=== PATIENT | female | born 1955 | race Native Hawaiian/Other Pacific Islander ===

== ENCOUNTER → 2021-10-22 | Outpatient (CLI) | payer MEDICARE ==
--- NOTE | 2021-10-22 09:30 | US ---
EXAMINATION TYPE: US kidneys/renal and bladder DATE OF EXAM: 10/22/2021 COMPARISON: NONE CLINICAL HISTORY: R31.9 HEMATURIA. Microscopic hematuria. Left flank pain. EXAM MEASUREMENTS: Right Kidney: 9.0 x 4.3 x 4.7 cm Left Kidney: 9.8 x 4.0 x 4.7 cm Right Kidney: No hydronephrosis or masses seen Left Kidney: No hydronephrosis or masses seen Bladder: mildly distended, not well visualized Bilateral Jets not seen There is no evidence for hydronephrosis at this point in time. No nephrolithiasis is seen. No akira s are identified. The urinary bladder is not greatly distended. Bilateral ureteral jets are not see n. IMPRESSION: Source of hematuria not identified. If symptoms persist further investigation with CT uro gram would be warranted.
== END | disposition home or self-care (01) ==
LOC: RADUSWWP 08:26
DX: R31.29 Other microscopic hematuria (principal); R10.9 Unspecified abdominal pain
CPT/HCPCS: 76770

== ENCOUNTER → 2022-04-13 | Outpatient (CLI) | payer MEDICARE ==
--- NOTE | 2022-04-21 09:57 | MM ---
Reason for Exam: Screening (asymptomatic). Last mammogram was performed 3 year(s) and 9 month(s) ago. Patient History: Menarche at age 5. First Full-Term at age 20. Postmenopausal. 2001, Bilateral Reduction. Maternal aunt had breast cancer. Risk Values: Radha 5 year model risk: 1.7%. NCI Lifetime model risk: 5.5%. Tissue Density: There are scattered fibroglandular densities. Findings: Analyzed By CAD. 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 Benign-appearing round calcifications throughout both breasts are redemonstrated. Benign-appearing vascular calcification in the left breast is again seen. Large dystrophic calcification in the left breast is redemonstrated. There is no suspicious group of microcalcifications or new suspicious mass in either breast. Overall Assessment: Benign, BI-RAD 2 Management: Screening Mammogram of both breasts in 1 year. A clinical breast exam by your physician is recommended on an annual basis and results should be correlated with mammographic findings. Electronically signed and approved by: Estuardo Grajeda M.D.
== END | disposition home or self-care (01) ==
LOC: RADMAMWWP 07:27
PROVIDERS: ATTEND Internal Medicine
DX: Z12.31 Encounter for screening mammogram for malignant neoplasm of breast (principal); Z78.0 Asymptomatic menopausal state; Z80.3 Family history of malignant neoplasm of breast
CPT/HCPCS: 77063; 77067

== ENCOUNTER 2022-11-28 18:54 | Inpatient (IN) | payer MEDICARE ==
[2022-11-28 20:20] LABS: Basophils % (A) 0 %; Eosinophils # (A) 0.1 k/uL (0-0.7); Eosinophils % (A) 3 %; HCT 35.3 % (34.0-46.0); HGB 11.6 gm/dL (11.4-16.0); Hypochromasia Slight; Lymphocytes # (A) 0.7 k/uL (1.0-4.8); Lymphocytes % (A) 14 %; MCH 32.1 pg (25.0-35.0); MCHC 32.8 g/dL (31.0-37.0); MCV 97.9 fL (80.0-100.0); Mean Platelet Volume 8.7; Monocytes # (A) 0.2 k/uL (0-1.0); Monocytes % (A) 5 %; Neutrophils # (A) 3.8 k/uL (1.3-7.7); Neutrophils % (A) 78 %; Platelet Count 155 k/uL (150-450); RBC 3.61 m/uL (3.80-5.40); RDW 13.3 % (11.5-15.5); WBC 4.9 k/uL (3.8-10.6)
[2022-11-28 20:29] LABS: ALT 7 U/L (4-34); AST 23 U/L (14-36); African American GFR (CKD) >90 (>60 ml/min/1.73 sqM); Albumin 3.6 g/dL (3.5-5.0); Alkaline Phosphatase 68 U/L (38-126); Anion Gap 5 mmol/L; Blood Urea Nitrogen 14 mg/dL (7-17); Calcium 8.3 mg/dL (8.4-10.2); Carbon Dioxide 26 mmol/L (22-30); Chloride 107 mmol/L (98-107); Glucose 124 mg/dL (74-99); Non-African American GFR(CKD) >90 (>60 ml/min/1.73 sqM); Potassium 4.4 mmol/L (3.5-5.1); Sodium 138 mmol/L (137-145); Total Bilirubin 0.5 mg/dL (0.2-1.3); Total Protein 6.7 g/dL (6.3-8.2)
--- NOTE | 2022-11-28 20:29 | ED ---
General Adult HPI - General Chief complaint: Extremity Problem,Nontraumatic Stated complaint: left hip pain Time Seen by Provider: 11/28/22 19:31 Source: EMS Mode of arrival: EMS - History of Present Illness Initial comments: Patient is a 67-year-old female presenting with chief complaint of right-sided groin pain. Patient states pain is been ongoing for the last 2 weeks has been worsening. She denies any trauma or falls. No radiation of the pain. Patient admits to pain with movement and weightbearing. At rest pain is minimal. No abdominal pain, nausea, vomiting, chest pain, difficulty breathing, palpitations. Patient lives alone but states that her children live nearby and help her at home. - Related Data Allergies Allergy/AdvReac Type Severity Reaction Status Date / Time cephalexin [From Keflex] Allergy Anaphylaxis Verified 11/28/22 19:04 Review of Systems ROS Statement: Those systems with pertinent positive or pertinent negative responses have been documented in the HPI. ROS Other: All systems not noted in ROS Statement are negative. Past Medical History Past Medical History: Atrial Fibrillation, COPD, Hypertension Additional Past Medical History / Comment(s): at home O2 History of Any Multi-Drug Resistant Organisms: None Reported Past Surgical History: No Surgical Hx Reported Past Psychological History: Anxiety, Depression Smoking Status: Never smoker Past Alcohol Use History: None Reported, Occasional Past Drug Use History: None Reported General Exam Limitations: physical limitation General appearance: alert, in no apparent distress Head exam: Present: atraumatic, normocephalic, normal inspection Eye exam: Present: normal appearance Neck exam: Present: normal inspection Respiratory exam: Present: normal lung sounds bilaterally. Absent: respiratory distress, wheezes, rales, rhonchi, stridor Cardiovascular Exam: Present: regular rate, normal rhythm, normal heart sounds. Absent: systolic murmur, diastolic murmur, rubs, gallop, clicks Right Hip exam: Present: tenderness. Absent: full ROM Neurovascular tendon exam: Present: pulse deficit Neurological exam: Present: alert, oriented X3, CN II-XII intact Psychiatric exam: Present: normal affect, normal mood Skin exam: Present: warm, dry, intact, normal color. Absent: rash Course Vital Signs 11/28/22 11/28/22 11/28/22 19:00 20:12 23:00 Temperature 97.9 F Pulse Rate 70 82 75 Respiratory 18 16 16 Rate Blood Pressure 124/64 120/64 144/77 O2 Sat by Pulse 97 95 96 Oximetry Medical Decision Making - Medical Decision Making Was pt. sent in by a medical professional or institution (, SCOOTER, ASSISTANT SURVEYOR, urgent care, hospital, or senior living...) When possible be specific @ -No Did you speak to anyone other than the patient for history (EMS, parent, family, police, friend...)? What history was obtained from this source @ -No Did you review nursing and triage notes (agree or disagree)? Why? @ -I reviewed and agree with nursing and triage notes Were old charts reviewed (outside hosp., previous admission, EMS record, old EKG, old radiological studies, urgent care reports/EKG's, senior living records)? Report findings @ -No old charts were reviewed Differential Diagnosis (chest pain, altered mental status, abdominal pain women, abdominal pain men, vaginal bleeding, weakness, fever, dyspnea, syncope, headache, dizziness, GI bleed, back pain, seizure, CVA, palpatations, mental health)? @ -Differential includes fracture, arthritis, vascular disease EKG interpreted by me (3pts min.). @ -As above X-rays interpreted by me (1pt min.). @ -None done CT interpreted by me (1pt min.). @ -No, radiologist report reviewed. There is diminished distal right anterior tibial artery flow at the ankle. This is likely related to hemodynamic stenosis. Otherwise negative CT angiogram of the abdomen and pelvis with runoff. U/S interpreted by me (1pt. min.). @ -None done What testing was considered but not performed or refused? (CT, X-rays, U/S, lab s)? Why? @ -X-ray was considered, however patient is getting CT which will visualize the area of concern What meds were considered but not given or refused? Why? @ -None Did you discuss the management of the patient with other professionals (professionals i.e. , SCOOTER, ASSISTANT SURVEYOR, lab, RT, psych nurse, social worker psychiatric, vacation guide, teacher, space officer, bottle caser)? Give summary @ -Case discussed with admitting doctor Dr. Leonard Was smoking cessation discussed for >3mins.? @ -No Was critical care preformed (if so, how long)? @ -No Were there social determinants of health that impacted care today? How? (Homelessness, low income, unemployed, alcoholism, drug addiction, transportation, low edu. Level, literacy, decrease access to med. care, fdc, rehab)? @ -No Was there de-escalation of care discussed even if they declined (Discuss DNR or withdrawal of care, Hospice)? DNR status @ -No What co-morbidities impacted this encounter? (DM, HTN, Smoking, COPD, CAD, Cancer, CVA, ARF, Chemo, Hep., AIDS, mental health diagnosis, sleep apnea, morbid obesity)? @ -None Was patient admitted / discharged? Hospital course, mention meds given and route, prescriptions, significant lab abnormalities, going to OR and other pertinent info. @ -Patient is a 67-year-old female presenting with chief complaint of right hip pain. Pain is been ongoing for the last 2 weeks. Patient lives alone and is now having difficulty ambulating even with her walker. On physical examination there is pain to palpation of the hip, there is also pain with range of motion. No recent injury or trauma. There is a diminished right dorsal pedal pulse. Able to obtain signal with Doppler. CT angiography does show stenosis of the anterior tibial artery flow at the ankle. There is no signs of acute necrosis, no discoloration, no foot or ankle pain. Patient is continuing to have hip pain after pain medication. She will be admitted for inability to ambulate. I discussed this case with Dr. Leonard who accepted admission. Patient is agreeable with this plan. I discussed this case with my attending Dr. Gu Undiagnosed new problem with uncertain prognosis? @ -No Drug Therapy requiring intensive monitoring for toxicity (Heparin, Nitro, Insul in, Cardizem)? @ -No Were any procedures done? @ -No Diagnosis/symptom? @ -Hip pain with inability to ambulate Acute, or Chronic, or Acute on Chronic? @ -Acute Uncomplicated (without systemic symptoms) or Complicated (systemic symptoms)? @ -Complicated Side effects of treatment? @ -No Exacerbation, Progression, or Severe Exacerbation? @ -No Poses a threat to life or bodily function? How? (Chest pain, [place], [place], pneumonia, PE, COPD, DKA, ARF, appy, cholecystitis, CVA, Diverticulitis, Homicidal, Suicidal, threat to staff... and all critical care pts) @ -No - Lab Data Result diagrams: 01/09/23 20:12 11/28/22 20:12 Lab Results 11/28/22 11/28/22 11/28/22 Range/Units 20:12 20:12 20:12 WBC 4.9 (3.8-10.6) k/uL RBC 3.61 L (3.80-5.40) m/uL Hgb 11.6 (11.4-16.0) gm/dL Hct 35.3 (34.0-46.0) % MCV 97.9 (80.0-100.0) fL MCH 32.1 (25.0-35.0) pg MCHC 32.8 (31.0-37.0) g/dL RDW 13.3 (11.5-15.5) % Plt Count 155 (150-450) k/uL MPV 8.7 Neutrophils % 78 % Lymphocytes % 14 % Monocytes % 5 % Eosinophils % 3 % Basophils % 0 % Neutrophils # 3.8 (1.3-7.7) k/uL Lymphocytes # 0.7 L (1.0-4.8) k/uL Monocytes # 0.2 (0-1.0) k/uL Eosinophils # 0.1 (0-0.7) k/uL Basophils # 0.0 (0-0.2) k/uL Hypochromasia Slight PT 10.5 (9.0-12.0) sec INR 1.0 (<1.2) APTT 24.8 (22.0-30.0) sec Sodium 138 (137-145) mmol/L Potassium 4.4 (3.5-5.1) mmol/L Chloride 107 (98-107) mmol/L Carbon Dioxide 26 (22-30) mmol/L Anion Gap 5 mmol/L BUN 14 (7-17) mg/dL Creatinine 0.63 (0.52-1.04) mg/dL Est GFR (CKD-EPI)AfAm >90 (>60 ml/min/1.73 sqM) Est GFR (CKD-EPI)NonAf >90 (>60 ml/min/1.73 sqM) Glucose 124 H (74-99) mg/dL Calcium 8.3 L (8.4-10.2) mg/dL Total Bilirubin 0.5 (0.2-1.3) mg/dL AST 23 (14-36) U/L ALT 7 (4-34) U/L Alkaline Phosphatase 68 (38-126) U/L Total Protein 6.7 (6.3-8.2) g/dL Albumin 3.6 (3.5-5.0) g/dL Disposition Clinical Impression: Hip pain, Inability to ambulate due to hip Disposition: ADMITTED IP TO THIS [facility] Condition: Fair Referrals: Jose Angel Dockery MD [Primary Care Provider] - 1-2 days Time of Disposition: 23:30 Decision to Admit Reason: Admit from EC Decision Date: 11/28/22 Decision Time: 23:30
[2022-11-28 20:44] LABS: Partial Thromboplastin Time 24.8 sec (22.0-30.0); Prothrombin Time 10.5 sec (9.0-12.0)
--- NOTE | 2022-11-28 22:37 | CT ---
EXAMINATION TYPE: CT angio abd aorta w/Runoff DATE OF EXAM: 11/28/2022 COMPARISON: None HISTORY: L leg pain, diminished pulses CT DLP: 2821.4 mGycm Automated exposure control for dose reduction was used. CONTRAST: Performed with IV Contrast, patient injected with 100ml mL of Isovue 370. Images obtained from the diaphragm to the bottom of the feet without and with the IV contrast. There are 3-D post processed images. There is some patchy infiltrate and atelectasis at the lung bases. Heart is enlarged. No pericardial effusion. Liver and spleen are intact. No pancreatic mass. The bowel is not dilated. There is no adre nal mass. Kidneys show satisfactory contrast opacification. No hydronephrosis. No retroperitoneal demetrio nopathy. There is inferior vena cava filter. There are midline sutures over the anterior abdominal wall. Bladder distends smoothly. No inguinal he rnia. No free fluid in the pelvis. No pelvic mass. There is arterial flow in the abdominal aorta and the celiac artery and superior mesenteric artery. T here is arterial flow within both renal arteries and the inferior mesenteric artery. There is arteria l flow in the iliac and femoral arteries. No significant plaque seen in the abdomen. There is arteria l flow in the superficial femoral arteries and the profunda femoris arteries bilaterally. There is bi lateral arterial flow in the tibial and popliteal arteries. There is wide patency of the tibial arter y trifurcations. There is metal artifact obscuring the right knee. There is right knee prosthesis. No significant distal flow seen in the right anterior distal tibial artery. There is arterial flow in the right posterior tibial artery at the ankle. There is small amount of arterial flow demonstrated at the metatarsals of the right foot. This is from the posterior tibial artery. On the left side there is posterior tibial artery flow to the distal metatarsals. There is left side dorsalis pedis artery flow. No focal bone destruction. No evidence of abdominal aortic aneurysm or dissection. The lumbar spine i s intact. No compression fracture. IMPRESSION: There is diminished distal right anterior tibial artery flow at the ankle. This is likely related to hemodynamic stenosis. Otherwise negative CT angiogram of the abdomen and pelvis with runoff. Mild atherosclerotic vascular disease. Bilateral lower lobe pulmonary infiltrates and atelectasis. Ca rdiomegaly. I do not see a cause for decreased pulses in the left leg.
[2022-11-28] MEDS ORDERED: MORPHINE SULFATE 4 MG/ML SYRINGE IVP STA (22:58)
[2022-11-28] MEDS ORDERED: NALOXONE 0.4 MG/ML 1 ML VIAL IV PRN (23:27)
[2022-11-28] MEDS ORDERED: SODIUM CHLORIDE 0.9% 1,000 ML IV ONE (23:30)
[2022-11-29] MEDS: SODIUM CHLORIDE 0.9% 1,000 ML IV SCH ×2 (00:30→13:11)
[2022-11-29] MEDS: MORPHINE SULFATE 4 MG/ML SYRINGE IV PRN (08:50)
--- NOTE | 2022-11-29 09:44 | P.CNOR ---
History of Present Illness - [facility] Consult date: 11/29/22 Requesting physician: Eder Murcia Consult reason: other (Right groin pain) History of present illness: History of Presenting Illness Patient is a 67-year-old female who presented to the ER for increased right groin pain. Patient reports onset was approximately 2 weeks ago and has progressively worsened. She is currently having difficulty bearing weight on right lower extremity. Patient denies any trauma or injury. She denies any num bness or tingling to right lower extremity. She states that she normally is ambulatory with walker or cane. Patient does lives alone, her family is nearby to check on her daily. Her orthopedic history includes a right total knee arthroplasty, left hip arthroplasty, and a left shoulder reversal. Patient is currently resting on a stretcher in the ER, awaiting bed placement. She denies pain at this time, increases in right groin with movement or activity. Patient denies any back pain. She states she can ambulate with walker, but there is severe pain in her right groin. She does state her pain is managed on current regimen. Informed patient that we will order xrays and we will update her with POC when we have results. Review of Systems Pertinent positives and negatives as discussed in HPI, a complete review of systems was performed and all other systems are negative. Physical Examination General: The patient is awake and alert, in no acute distress Skin: Skin is warm and dry with no obvious rashes or lesions. Hairy patches absent, no dorsal skin dimples, no cafe au lait spots, and no surgical incisions. Eye: Pupils are equal, round and reactive to light, extra-ocular movements are intact; there is normal conjunctiva bilaterally. Neck: The neck is supple, there is no tenderness and ROM intact. Cardiovascular: There is a regular rate and rhythm. No murmur, rub or gallop is appreciated. Respiratory: Lungs are clear to auscultation, respirations are non-labored, breath sounds are equal. Gastrointestinal: Soft, non-distended, non-tender abdomen. Back: There is no tenderness to palpation in the midline, paralumbar, parathoracic or buttocks region. There is no obvious deformity. Musculoskeletal: ROM limited secondary to pain and stiffness from surgical procedure. Shoulder abduction 5/5, elbow flexors 5/5, wrist dorsiflexors 5/5. finger abductor 5/5, dental office manager 5/5, hip flexor 5/5, knee flexor 5/5, ankle dorsiflexor 5/5, ankle plantarflexion 5/5 and extensor hallucis 5/5. Neurological: CN 2-12 intact. There are no obvious motor or sensory deficits. Movement and coordination equal and intact. Sensory exam to light touch intact C5-T1 and intact from L2-S1. Reflexes 2/4 in bilateral upper and lower extremities. Negative Hoffmans, babinski, and clonus signs. Psychiatric: Cooperative, appropriate mood & affect, normal judgment. Assessment and Plan 1. Right groin pain 2. Inability to ambulate -Appreciate consultant dietitian and team management. -X-rays of right hip and Pelvis ordered, awaiting results -Pain control: Adequate at this time -Meds: reviewed -Encourage IS 10x/hr *I reviewed and discussed this case with my attending Dr. Steele, whom has reviewed this chart and films and is in agreement with assessment and plan of care as outlined above. I have personally seen and examined the patient, performed the documentation and the assessment and plan as written. Number of minutes spent on the visit: 20m. Past Medical History Past Medical History: Atrial Fibrillation, COPD, Hypertension Additional Past Medical History / Comment(s): at home O2 History of Any Multi-Drug Resistant Organisms: None Reported Past Surgical History: No Surgical Hx Reported Past Psychological History: Anxiety, Depression Smoking Status: Never smoker Past Alcohol Use History: None Reported, Occasional Past Drug Use History: None Reported Medications and Allergies Home Medications Medication Instructions Recorded Confirmed Type ARIPiprazole [Abilify] 2 mg PO DAILY 11/29/22 11/29/22 History Alendronate Sodium [Fosamax] 70 mg PO Q7D 11/29/22 11/29/22 History Apixaban [Eliquis] 5 mg PO BID 11/29/22 11/29/22 History Atorvastatin [Lipitor] 40 mg PO HS 11/29/22 11/29/22 History Carbidopa/Levodopa [Sinemet 25-100 1 tab PO BID 11/29/22 11/29/22 History mg Tablet] Dicyclomine [Bentyl] 10 mg PO QID PRN 11/29/22 11/29/22 History Enalapril [Vasotec] 10 mg PO DAILY 11/29/22 11/29/22 History Furosemide [Lasix] 40 mg PO DAILY 11/29/22 11/29/22 History Isosorbide Mononitrate ER [Imdur] 60 mg PO DAILY 11/29/22 11/29/22 History Liothyronine Sodium [Cytomel] 25 mcg PO DAILY 11/29/22 11/29/22 History Nitroglycerin Sl Tabs [Nitrostat] 0.4 mg SL Q5M PRN 11/29/22 11/29/22 History Sertraline [Zoloft] 200 mg PO DAILY 11/29/22 11/29/22 History carvediloL [Coreg] 3.125 mg PO BID 11/29/22 11/29/22 History lisinopriL [Zestril] 5 mg PO DAILY 11/29/22 11/29/22 History traZODone HCL 300 mg PO HS 11/29/22 11/29/22 History traZODone HCL [Desyrel] 100 mg PO DAILY@0400 11/29/22 11/29/22 History Allergies Allergy/AdvReac Type Severity Reaction Status Date / Time cephalexin [From Keflex] Allergy Mouth Verified 11/29/22 07:19 swelling Results - Labs Labs: Abnormal Lab Results - Last 24 Hours (Table) 11/28/22 11/28/22 Range/Units 20:12 20:12 RBC 3.61 L (3.80-5.40) m/uL Lymphocytes # 0.7 L (1.0-4.8) k/uL Glucose 124 H (74-99) mg/dL Calcium 8.3 L (8.4-10.2) mg/dL H & H 11/28/22 Range/Units 20:12 Hgb 11.6 (11.4-16.0) gm/dL Hct 35.3 (34.0-46.0) % Coagulation 11/28/22 Range/Units 20:12 INR 1.0 (<1.2) Result Diagrams: 11/28/22 20:12 11/28/22 20:12
[2022-11-29] MEDS ORDERED: DICYCLOMINE 10 MG CAP PO PRN (09:53)
[2022-11-29] MEDS ORDERED: NITROGLYCERIN SL TABS 0.4 MG TAB SUBLINGUAL PRN (09:53)
[2022-11-29] MEDS ORDERED: NON FORMULARY DRUG (Alendronate Sodium [Fosamax] 70 MG Tablet) PO SCH (10:00)
--- NOTE | 2022-11-29 10:08 | XR ---
EXAMINATION TYPE: XR Hip RT and AP Pelvis DATE OF EXAM: 11/29/2022 COMPARISON: NONE HISTORY: Pain TECHNIQUE: A single AP view of the pelvis is obtained. Two views of the right hip are obtained. FINDINGS: There is high contrast within the bladder from the patient's recent CT scan. Postsurgical change involving the left hip with heterotopic ossification. There is bilateral hip joint space narro wing compatible with arthropathy. There is a subtle lucency involving the right femoral neck. Chronic appearing deformity of the pubic symphysis IMPRESSION: 1. Findings are highly suggestive of a acute minimally displaced fracture of the right femoral neck above the intertrochanteric line.
[2022-11-29] MEDS: ARIPiprazole 2 MG TAB PO SCH (10:47)
[2022-11-29] MEDS: carvediloL 3.125 MG TAB PO SCH ×2 (10:47→18:45)
[2022-11-29] MEDS: CARBIDOPA-LEVODOPA 25-100 MG 1 EACH TAB PO SCH ×2 (10:47→20:08)
[2022-11-29] MEDS: SERTRALINE 100 MG TAB PO SCH (10:47)
[2022-11-29] MEDS: LIOTHYRONINE SODIUM 25 MCG PO SCH (10:48)
[2022-11-29] MEDS: HYDROcodone/APAP 5-325MG 1 EACH TAB PO PRN ×2 (12:00→18:48)
[2022-11-29] MEDS: HEPARIN SODIUM,PORCINE/PF 5,000 UNIT/0.5 ML SYRINGE SQ SCH ×3 (13:12→20:08)
--- NOTE | 2022-11-29 13:17 | CT ---
EXAMINATION TYPE: CT hip RT wo con CT DLP: 527 mGycm, Automated exposure control for dose reduction was used. DATE OF EXAM: 11/29/2022 1:09 PM COMPARISON: Extremity radiograph same day. CLINICAL INDICATION:Female, 67 years old with history of fracture; pain; PHH, fall right hip pain TECHNIQUE: Axial images were obtained of the right hip without the use of IV contrast. Additional co vandana and sagittal reformatted images and soft tissue and bone window were obtained for review. 3-D r econstruction was created on a separate workstation. FINDINGS: Acute nondisplaced fracture through the right femoral neck (series 202, image 48). No dislo cation. Small joint effusion is demonstrated. Mild osteoarthritic changes of the right hip with media l joint space narrowing and marginal acetabular osteophytosis. Right lateral hip soft tissue edema. N o radiopaque foreign body identified. Calcification within the right flank soft tissues. Partial visu alization of postsurgical changes with surgical clips in the anterior abdomen wall. Partial visualiza tion of contrast-filled urinary bladder. IMPRESSION: Acute nondisplaced fracture through the right femoral neck.
--- NOTE | 2022-11-29 14:58 | P.HPIM ---
History of Present Illness H&P Date: 11/29/22 This is a 67-year-old female who presented to the emergency department via EMS with concerns of right-sided groin and hip pain. Patient reports she has been having worsening pain of the hip area over the last 2 weeks. Patient denies any injury or falls most recently. Patient reports she follows with Dr. Dockery in the outpatient setting with a past medical history of atrial fibrillation, COPD, hypertension, anxiety/depression and denies any illicit drug use or alcohol and reports to never smoking. Patient reports approximately 2 years ago she had her left hip repaired as she broke the femur head off her left leg requiring intervention. Patient reports she has been compensating since the surgery and does have some pain that she reports is chronic. Patient does have a walker and a cane at the home. Patient had CT angiograph due to her diminished pulses and left leg pain showing some diminished distal right anterior tibial artery flow at the ankle likely related to hemodynamic stenosis otherwise negative along with some bilateral lower lobe infiltrates and atelectasis of what she does have chronic COPD and wears oxygen outpatient. Orthopedics was consulted and a left hip x-ray was done with highly suspicious acute minimally displaced fracture of the right femoral neck. Pulmonary patient reviewed and resumed and will continue with heparin subcu and hold eliquis in the event of surgical intervention which is tentatively scheduled for tomorrow. Repeat CT of the hip is ordered and pending. Labs reviewed and within normal limits from ER admission. Review Of Systems: Constitutional: No fever, no chills, no night sweats. No weight change. No weakness, fatigue or lethargy. No daytime sleepiness. EENT: No headache. No blurred vision or double vision, no loss of vision. No loss of Hearing, no ringing in the ears, no dizziness. No nasal drainage or congestion. No epistaxis. No sore throat. Lungs: No shortness of breath, cough, no sputum production. No wheezing. Cardiovascular: No chest pain, no lower extremity edema. No palpitations. No paroxysmal nocturnal dyspnea. No orthopnea. No lightheadedness or dizziness. No syncopal episodes. Abdominal: No abdominal pain. No nausea, vomiting. No diarrhea. No constipation. No bloody or tarry stools.. No loss of appetite. Genitourinary: No dysuria, increased frequency, urgency. No urinary retention. Musculoskeletal: Reports myalgias. No muscle weakness, reports gait dysfunction and inability to ambulate due to right hip pain, no frequent falls. No back pain. No neck pain. Integumentary: No wounds, no lesions. No rash or pruritus. No unusual bruising. No change in hair or nails. Neurologic: No aphasia. No facial droop. No change in mentation. No head injury. No headache. No paralysis. No paresthesia. Psychiatric: No depression. No anxiety. No mood swings. Endocrine: No abnormal blood sugars. No weight change. No excessive sweating or thirst. No cold intolerance. PHYSICAL EXAMINATION: GENERAL: The patient is alert and oriented x4, Well developed, well nourished. HEENT: Pupils are round and equally reacting to light. EOMI. no scleral icterus. No conjunctival pallor. Normocephalic, atraumatic. No pharyngeal erythema. No thyromegaly. CARDIOVASCULAR: S1 and S2 muffled PULMONARY: diminished breath sounds bilaterally with no wheezing or rhonchi noted. ABDOMEN: soft. Nontender on exam. obese. non-distended, normoactive bowel sounds. No palpable organomegaly. MUSCULOSKELETAL: No joint swelling or deformity. EXTREMITIES: No cyanosis, clubbing, or pedal edema. NEUROLOGICAL: Gross neurological examination did not reveal any focal deficits. Diffuse weakness SKIN: No rashes. Assessment: Right hip pain with inability to ambulate, secondary to minimally displaced fracture of the right femoral neck History of atrial fibrillation History of COPD, not an exacerbation Chronic hypoxic respiratory failure secondary to COPD, wears 2-3 L via nasal cannula outpatient History of hypertension History of anxiety/depression GI prophylaxis DVT prophylaxis Full code Plan: Recommend to continue with current medications and management and orthopedics consulted Right hip x-ray shows a minimally displaced fracture at the right femoral neck and plans are for surgical intervention in the a.m. Home medications have been reviewed and resumed and will hold eliquis for now and continue subcutaneous heparin every 12 as patient is going for surgery tomorrow. Recommend to hold heparin after midnight and patient will be nothing by mouth We'll provide incentive spirometer and encourage the patient use at least 10 times every hour while awake Will follow-up with a.m. labs Will have PT/OT evaluate the patient post surgery Patient is of low risk for surgical intervention and risks versus benefits were explained and patient is agreeable to proceed with surgery intervention. The impression and plan of care has been dictated by Malgorzata Knapp, nurse practitioner as directed. Dr. Khloe MD I have performed a history and examination and MDM of this patient, discussed the same with the dictator, and agree with the dictator's assessment and plan as written ,documented as a scribe. Based on total visit time, I have performed more than 50% of the visit. Any additional findings or plans will be noted. Past Medical History Past Medical History: Atrial Fibrillation, COPD, Hypertension Additional Past Medical History / Comment(s): at home O2 History of Any Multi-Drug Resistant Organisms: None Reported Past Surgical History: No Surgical Hx Reported Past Psychological History: Anxiety, Depression Smoking Status: Never smoker Past Alcohol Use History: None Reported, Occasional Past Drug Use History: None Reported Medications and Allergies Home Medications Medication Instructions Recorded Confirmed Type ARIPiprazole [Abilify] 2 mg PO DAILY 11/29/22 11/29/22 History Alendronate Sodium [Fosamax] 70 mg PO Q7D 11/29/22 11/29/22 History Apixaban [Eliquis] 5 mg PO BID 11/29/22 11/29/22 History Atorvastatin [Lipitor] 40 mg PO HS 11/29/22 11/29/22 History Carbidopa/Levodopa [Sinemet 25-100 1 tab PO BID 11/29/22 11/29/22 History mg Tablet] Dicyclomine [Bentyl] 10 mg PO QID PRN 11/29/22 11/29/22 History Enalapril [Vasotec] 10 mg PO DAILY 11/29/22 11/29/22 History Furosemide [Lasix] 40 mg PO DAILY 11/29/22 11/29/22 History Isosorbide Mononitrate ER [Imdur] 60 mg PO DAILY 11/29/22 11/29/22 History Liothyronine Sodium [Cytomel] 25 mcg PO DAILY 11/29/22 11/29/22 History Nitroglycerin Sl Tabs [Nitrostat] 0.4 mg SL Q5M PRN 11/29/22 11/29/22 History Sertraline [Zoloft] 200 mg PO DAILY 11/29/22 11/29/22 History carvediloL [Coreg] 3.125 mg PO BID 11/29/22 11/29/22 History lisinopriL [Zestril] 5 mg PO DAILY 11/29/22 11/29/22 History traZODone HCL 300 mg PO HS 11/29/22 11/29/22 History traZODone HCL [Desyrel] 100 mg PO DAILY@0400 11/29/22 11/29/22 History Allergies Allergy/AdvReac Type Severity Reaction Status Date / Time cephalexin [From Keflex] Allergy Mouth Verified 11/29/22 07:19 swelling Physical Exam Vitals: Vital Signs Temp Pulse Resp BP Pulse Ox 11/29/22 08:46 76 18 117/56 98 11/29/22 04:51 73 16 120/54 97 11/28/22 23:00 75 16 144/77 96 11/28/22 20:12 82 16 120/64 95 11/28/22 19:00 97.9 F 70 18 124/64 97 Intake and Output 11/28/22 11/29/22 11/29/22 22:59 06:59 14:59 Other: Weight 83.461 kg Results CBC & Chem 7: 11/28/22 20:12 11/28/22 20:12 Labs: Abnormal Lab Results - Last 24 Hours (Table) 11/28/22 11/28/22 Range/Units 20:12 20:12 RBC 3.61 L (3.80-5.40) m/uL Lymphocytes # 0.7 L (1.0-4.8) k/uL Glucose 124 H (74-99) mg/dL Calcium 8.3 L (8.4-10.2) mg/dL Thrombosis Risk Factor Assmnt - DVT/VTE Prophylaxis DVT/VTE Prophylaxis: Pharmacologic Prophylaxis ordered Assessment and Plan Time with Patient: Greater than 30
[2022-11-29] MEDS ORDERED: INFLUENZA VACC HIGH-DOSE (65+) 240 MCG/0.7 ML SYRINGE IM ONE (16:11)
[2022-11-29] MEDS: traZODone HCL 100 MG TAB PO SCH (20:07)
[2022-11-29] MEDS: ATORVASTATIN 40 MG TAB PO SCH (20:08)
[2022-11-29] MEDS ORDERED: APIXABAN 5 MG TAB PO SCH (21:00)
[2022-11-30] MEDS: SODIUM CHLORIDE 0.9% 1,000 ML IV SCH ×3 (01:53→20:57)
[2022-11-30] MEDS: traZODone HCL 100 MG TAB PO SCH ×2 (04:50→20:52)
[2022-11-30] MEDS ORDERED: TRANEXAMIC ACID 1,000 MG in SODIUM CHLORIDE 0.9% 100 ML IVPB PRN (06:00)
[2022-11-30] MEDS: carvediloL 3.125 MG TAB PO SCH ×2 (06:09→15:07)
[2022-11-30] MEDS: SERTRALINE 100 MG TAB PO SCH (07:24)
[2022-11-30] MEDS: CARBIDOPA-LEVODOPA 25-100 MG 1 EACH TAB PO SCH ×2 (07:24→20:53)
[2022-11-30] MEDS: ARIPiprazole 2 MG TAB PO SCH (07:24)
[2022-11-30] MEDS: ISOSORBIDE MONONITRATE ER 60 MG TAB.ER.24H PO SCH (07:24)
[2022-11-30] MEDS: lisinopriL 20 MG TAB PO SCH (07:24)
[2022-11-30] MEDS: HYDROcodone/APAP 5-325MG 1 EACH TAB PO PRN ×2 (07:27→20:53)
[2022-11-30] MEDS: LIOTHYRONINE SODIUM 25 MCG PO SCH (07:28)
--- NOTE | 2022-11-30 09:15 | P.PN ---
Subjective Progress Note Date: 11/30/22 Principal diagnosis: Right hip femoral neck fracture, nondisplaced Patient was seen at bedside this morning lying semirecumbent position. Patient says she is still having right hip/groin pain at this time. Patient denies any new areas of pain. Patient says she has not been up out of bed since coming the hospital. Patient says she was able discuss plans for surgery last night with some of her family members and they are in agreement with plan for surgery today for right hip percutaneous screws. Patient denies any new complaints. Patient says she has not had anything to eat or drink today. Patient denies chest pain, fever, shortness of breath, nausea, vomiting, change in vision, loss of bowel/bladder control. Objective - Vital Signs Vital signs: Vital Signs Temp 98.2 F 11/30/22 07:37 Pulse 74 11/30/22 07:37 Resp 16 11/30/22 07:37 BP 111/54 11/30/22 07:37 Pulse Ox 96 11/30/22 07:37 FiO2 Intake & Output 11/29/22 11/30/22 11/30/22 18:59 06:59 18:59 Output Total 550 Balance -550 Output: Urine 550 Other: # Voids 1 - Exam Negative for any open fractures, significant ecchymosis/erythema/ulcers. Sensation is equal, symmetric, bilaterally intact throughout the upper and lower extremity is. Patient does have some limited range of motion in the right hip in flexion/extension and right knee and flexion extension due to pain and weakness. Patient has full range of motion in bilateral upper extremities and left lower extremity on exam. Patient does have full range of motion and right ankle in dorsi/plantar flexion. Motor exam - 4+/5 in all major motor groups in bilateral upper extremity is in left lower extremity on exam. 4+/5 and right ankle in resisted dorsiflexion/plantarflexion. 3/5 in resisted right hip flexion extension and right knee flexion/extension. Radial pulses intact, 2+. Cap refill under 3 seconds in digits upper extremities. DP pulse palpable bilaterally, weak. Negative Homans bilaterally. - Labs CBC & Chem 7: 11/28/22 20:12 11/28/22 20:12 Assessment and Plan Assessment: 1. Right hip femoral neck fracture, nondisplaced Plan: 1. Right hip femoral neck fracture, nondisplaced - right hip x-rays/CT does reveal femoral neck fracture that is nondisplaced. Surgery is planned for 12 today - right hip ORIF percutaneous screws. Patient is remain nothing by mouth at this time. Nonweightbearing right lower extremity. We will continue to follow patient during her stay in hospital. 2. Appreciate medical management 3. Pain management - Mart 4. DVT prophylaxis - withhold thinners at this time 5. GI recs 6. PT/OT - nonweightbearing right lower extremity Time with Patient: Less than 30
[2022-11-30] MEDS ORDERED: LACTATED RINGERS 1,000 ML IV ONE ×2 (10:55→13:23)
[2022-11-30] MEDS ORDERED: ONDANSETRON 4 MG/2 ML VIAL ONE (11:05)
[2022-11-30] MEDS ORDERED: ONDANSETRON 4 MG/2 ML VIAL IVP ONE (11:16)
[2022-11-30] MEDS ORDERED: DEXAMETHASONE SOD PHOSPHATE 4 MG/ML 1 ML VIAL IVP ONE (11:16)
[2022-11-30] MEDS ORDERED: PHENYLEPHRINE-0.9% NACL SYG 1,000 MCG/10 ML SYRINGE ONE (11:59)
[2022-11-30] MEDS ORDERED: GLYCOPYRROLATE 0.2 MG/ML 2 ML VIAL ONE (11:59)
[2022-11-30] MEDS ORDERED: NEOSTIGMINE 1 MG/ML 10 ML VIAL ONE (11:59)
[2022-11-30] MEDS ORDERED: LIDOCAINE 2% INJ 20 MG/ML (2 ML VIAL) ONE (11:59)
[2022-11-30] MEDS ORDERED: ROCURONIUM 10 MG/ML (5 ML VIAL) IV ONE (11:59)
[2022-11-30] MEDS ORDERED: TRANEXAMIC ACID IN NACL,ISO-OS 1,000 MG/100 ML BAG ONE (11:59)
[2022-11-30] MEDS ORDERED: fentaNYL (PF) 50 MCG/ML 2 ML AMP ONE (11:59)
[2022-11-30] MEDS ORDERED: SUCCINYLCHOLINE CHLORIDE 200 MG/10 ML VIAL IV ONE (11:59)
[2022-11-30] MEDS ORDERED: PROPOFOL 10 MG/ML 20 ML VIAL IV ONE (11:59)
[2022-11-30] MEDS ORDERED: SUGAMMADEX SODIUM 200 MG/2 ML SDV IV ONE (11:59)
--- NOTE | 2022-11-30 13:16 | XR ---
EXAMINATION TYPE: XR Hip Complete RT DATE OF EXAM: 11/30/2022 COMPARISON: NONE HISTORY: Hip fracture repair TECHNIQUE: 7 intraoperative limited resolution views submitted. FINDINGS: There is postsurgical change in near anatomic alignment. There is soft tissue edema and emphysema. IMPRESSION: 1. Postoperative change. Appears in near-anatomic alignment.
[2022-11-30] MEDS ORDERED: HYDROmorphone 0.5 MG/0.5 ML SYRINGE IVP PRN ×2 (13:17)
[2022-11-30] MEDS ORDERED: NALOXONE 0.4 MG/ML 1 ML VIAL IV PRN (13:17)
[2022-11-30] MEDS ORDERED: MAGNESIUM HYDROXIDE 2,400 MG/10 ML CUP PO PRN (13:17)
--- NOTE | 2022-11-30 13:20 | FL ---
EXAMINATION TYPE: FL guidance operating room DATE OF EXAM: 11/30/2022 HISTORY: Fluoroscopy time 56 seconds of fluoroscopy provided. IMPRESSION: 1. Fluoroscopy time.
[2022-11-30] MEDS ORDERED: ALBUTEROL NEBULIZED 2.5 MG/3 ML INHALATION ONE (13:28)
[2022-11-30] MEDS ORDERED: HYDROmorphone 0.5 MG/0.5 ML SYRINGE IVP ONE (13:50)
[2022-11-30 15:48] LABS: Basophils % (A) 0 %; Eosinophils % (A) 1 %; HCT 32.6 % (34.0-46.0); HGB 10.3 gm/dL (11.4-16.0); Hypochromasia Slight; Lymphocytes # (A) 0.3 k/uL (1.0-4.8); Lymphocytes % (A) 8 %; MCH 31.2 pg (25.0-35.0); MCHC 31.5 g/dL (31.0-37.0); Mean Platelet Volume 8.5; Monocytes # (A) 0.1 k/uL (0-1.0); Monocytes % (A) 2 %; Neutrophils # (A) 3.2 k/uL (1.3-7.7); Neutrophils % (A) 89 %; Platelet Count 147 k/uL (150-450); RBC 3.29 m/uL (3.80-5.40); RDW 13.2 % (11.5-15.5); WBC 3.6 k/uL (3.8-10.6)
[2022-11-30] MEDS: MORPHINE SULFATE 4 MG/ML SYRINGE IV PRN ×2 (18:31→22:29)
--- NOTE | 2022-11-30 20:16 | P.PN ---
Subjective Progress Note Date: 11/30/22 This is a 67-year-old female who presented to the emergency department via EMS with concerns of right-sided groin and hip pain. Patient reports she has been having worsening pain of the hip area over the last 2 weeks. Patient denies any injury or falls most recently. Patient reports she follows with Dr. Dockery in the outpatient setting with a past medical history of atrial fibrillation, COPD, hypertension, anxiety/depression and denies any illicit drug use or alcohol and reports to never smoking. Patient reports approximately 2 years ago she had her left hip repaired as she broke the femur head off her left leg requiring intervention. Patient reports she has been compensating since the surgery and does have some pain that she reports is chronic. Patient does have a walker and a cane at the home. Patient had CT angiograph due to her diminished pulses and left leg pain showing some diminished distal right anterior tibial artery flow at the ankle likely related to hemodynamic stenosis otherwise negative along with some bilateral lower lobe infiltrates and atelectasis of what she does have chronic COPD and wears oxygen outpatient. Orthopedics was consulted and a left hip x-ray was done with highly suspicious acute minimally displaced fracture of the right femoral neck. Pulmonary patient reviewed and resumed and will continue with heparin subcu and hold eliquis in the event of surgical intervention which is tentatively scheduled for tomorrow. Repeat CT of the hip is ordered and pending. Labs reviewed and within normal limits from ER admission. 11/30/2022 Patient is seen and evaluated in follow-up this morning no acute overnight issues noted. Patient continues to have right hip pain with orthopedics following and plan is for ORIF with nailing or pinning of the fracture. Patient is currently nothing by mouth and will remain until post-surgery. Will resume home medications and continue to monitor closely. Will await surgical report. Patient is afebrile and medically stable for surgery today. Review of systems: Constitutional: No reports of fatigue, fever, or chills Cardiovascular: No reports of chest pain or palpitations Respiratory: No reports of shortness of breath or cough GI: No reports of nausea, vomiting, or diarrhea : No reports of dysuria or retention Neurovascular: reports of weakness and continued right hip pain All medications have been reviewed PHYSICAL EXAMINATION: GENERAL: The patient is alert and oriented x4, Well developed, well nourished. Obese. HEENT: Pupils are round and equally reacting to light. EOMI. no scleral icterus. No conjunctival pallor. Normocephalic, atraumatic. No pharyngeal erythema. No thyromegaly. CARDIOVASCULAR: S1 and S2 muffled PULMONARY: diminished breath sounds bilaterally with no wheezing or rhonchi noted. ABDOMEN: soft. Nontender on exam. obese. non-distended, normoactive bowel sounds. No palpable organomegaly. MUSCULOSKELETAL: No joint swelling or deformity. EXTREMITIES: No cyanosis, clubbing, or pedal edema. right hip pain on palpation NEUROLOGICAL: Gross neurological examination did not reveal any focal deficits. Diffuse weakness SKIN: No rashes. Assessment: Right hip pain with inability to ambulate, secondary to minimally displaced fracture of the right femoral neck History of atrial fibrillation History of COPD, not an exacerbation Chronic hypoxic respiratory failure secondary to COPD, wears 2-3 L via nasal cannula outpatient History of hypertension History of anxiety/depression GI prophylaxis DVT prophylaxis Full code Plan: Recommend to continue with current medications and management and orthopedics following and planning ORIF today Home medications have been reviewed and resumed and will hold eliquis for now and continue subcutaneous heparin every 12 as patient is going for surgery today. Will discuss with ortho when ok to resume oral Eliquis. Currently NPO and encouraged oral intake after surgery Recommend incentive spirometer and encourage the patient use at least 10 times every hour while awake Will follow-up with a.m. labs Will have PT/OT evaluate the patient post surgery Patient is of low risk for surgical intervention and risks versus benefits were explained and patient is agreeable to proceed with surgery intervention. The impression and plan of care has been dictated by Malgorzata Knapp, nurse practitioner as directed. Dr. Khloe MD I have performed a history and examination and MDM of this patient, discussed the same with the dictator, and agree with the dictator's assessment and plan as written ,documented as a scribe. Based on total visit time, I have performed more than 50% of the visit. Any additional findings or plans will be noted. Objective - Vital Signs Vital signs: Vital Signs Temp 98.2 F 11/30/22 07:37 Pulse 74 11/30/22 07:37 Resp 16 11/30/22 07:37 BP 111/54 11/30/22 07:37 Pulse Ox 96 11/30/22 07:37 FiO2 Intake & Output 11/29/22 11/30/22 11/30/22 18:59 06:59 18:59 Output Total 550 Balance -550 Output: Urine 550 Other: # Voids 1 - Labs CBC & Chem 7: 11/30/22 15:18 11/28/22 20:12
[2022-11-30] MEDS: SENNOSIDES-DOCUSATE SODIUM 1 EACH TAB PO SCH (20:52)
[2022-11-30] MEDS: ATORVASTATIN 40 MG TAB PO SCH (20:53)
[2022-12-01] MEDS: MORPHINE SULFATE 4 MG/ML SYRINGE IV PRN ×3 (02:35→14:23)
[2022-12-01] MEDS: traZODone HCL 100 MG TAB PO SCH ×2 (04:27→21:03)
[2022-12-01] MEDS: IPRATROPIUM-ALBUTEROL 3 ML NEB INHALATION SCH ×3 (07:46→20:26)
[2022-12-01] MEDS: carvediloL 3.125 MG TAB PO SCH ×2 (07:55→16:34)
[2022-12-01] MEDS: lisinopriL 20 MG TAB PO SCH (07:56)
[2022-12-01] MEDS: ISOSORBIDE MONONITRATE ER 60 MG TAB.ER.24H PO SCH (07:56)
[2022-12-01] MEDS: LIOTHYRONINE SODIUM 25 MCG PO SCH (07:57)
[2022-12-01] MEDS: CARBIDOPA-LEVODOPA 25-100 MG 1 EACH TAB PO SCH ×2 (07:59→21:08)
[2022-12-01] MEDS: ARIPiprazole 2 MG TAB PO SCH (07:59)
[2022-12-01] MEDS: SERTRALINE 100 MG TAB PO SCH (07:59)
--- NOTE | 2022-12-01 09:27 | P.OP ---
Date of Procedure: 11/30/22 Preoperative Diagnosis: 1. Right femoral neck fracture, non-displaced, incomplete 2. s/p ffs multiple days prior with inability to ambulate Postoperative Diagnosis: 1. Right femoral neck fracture, non-displaced, incomplete 2. s/p ffs multiple days prior with inability to ambulate Procedure(s) Performed: 1. Open treatment femoral neck fracture with placement of cannulated screws (26637) Implants: -6.0 cannulated screws rodriguez and nephluis Anesthesia: GETA Surgeon: Junaid Steele Cone Picker #1: Tanvir Mcbride (Was present and assisted with all aspects of the case from positioniing to dressing placement) Estimated Blood Loss (ml): 20 IV fluids (ml): 500 Urine output (ml): 100 Pathology: none sent Condition: stable Disposition: PACU Indications for Procedure: Orthopedic Surgery Risk Review Madonna Mendez is a 67-year-old female presenting for evaluation of sudden onset right hip pain, inability to ambulate after all from standing. It was my pleasure to have seen and examined Madonna Mendez. In our visit today we have had a chance to go over subjective complaints, physical examination findings and treatments including the natural course history without intervention and various interventional options. Her imaging demonstrates femoral neck fracture nondisplaced incomplete. On physical exam, Madonna Mendez demonstrates pain with motion of right lower extremity, which is NV intact at this time. I have explained to the patient that this fracture needs stabilization. Based on the patients imaging, physical exam, and the rapid progression and disabling nature of her symptoms, at this time I recommend surgery in the form or a: Open reduction internal fixation right hip with cannulated screws I discussed the risk and benefits of this procedure at length with Madonna Mendez and her family. Questions were invited and answered, and the patient wishes to proceed as outlined below. Currently, I am recommendin. Over reduction internal fixation right hip with cannulated screws 2. Review of surgical risks and benefits as well as an educational packet on the proposed surgical procedure. Risks: All surgical procedures come with inherent risks, including those related to positioning, anesthesia, intraoperative findings, and postoperative complications. It is important to understand that surgery does not come with any guarantee of a successful outcome as complications and adverse events are always possible. The patient was given a handout discussing the surgical procedure and risks associated with the intervention, both of which were discussed with the patient. These risks include but are not limited to the following: - Experiencing same, different or even worse symptoms compared to before surgery. - Requiring further surgery or other forms of treatment presently or at some time in the future . - On an extreme but fortunately relatively rare basis severe complication such as blindness, stroke, heart attack, temporary and/or permanent nerve injury, paralysis, coma, or may occur, sometimes without known explanation. - Surgical complications may include but are not limited to risk of infection, fluid accumulation in the surgical dissection site, including a seroma or hematoma, that requires additional surgery, wound drainage, bleeding, new numbness or weakness, vision changes/loss, spinal fluid leakage, non-healing and/or infected incision, headaches, difficulty or inability to swallow, hoarseness, hemopneumothorax, pneumothorax, injury to nerves, spinal cord, blood vessels, lymphatics or other vital organs (i.e., bowel injury, injury to the great vessels); heterotopic bone formation; complications related to the hardware such as screws, rods, including misplaced hardware, device failure, hardware fracture/breakage, or hardware loosening; retained surgical instrumentations or devices and the need for further surgery. - Medical risks of the planned surgery include but are not limited to gene ralized Infections to the whole body or local areas outside of the surgical site (sepsis), heart attack, bleeding, anaphylaxis, meningitis, seizure, epilepsy, hearing loss, burn araujo, laceration of the head or other areas of the body, bruising, hypersensitivity of the skin, bladder over distension; allergic reaction; shoulder injury related to positioning; fat, blood and air clots to other areas of the body like heart, lungs, brain; failure of internal organs such as lungs, kidneys, liver and excessive bleeding. If blood transfusions are necessary, note that transfusions may cause intolerance reactions such as anaphylaxis or other complex reactions. Despite best efforts, the results of surgery might not heal in terms of bone, soft tissues such as skin, fascia, ligaments, and joints. [facility] has multiple operating rooms with single and overlapping rooms running daily. They currently function under the required guidelines as produced by the [employer] Committee with regards to the overlapping rooms and will continue to comply with changes to this policy as they occur. The requirements include and are complied with as follows: (1) the critical portions of the overlapping rooms will not occur at the same time, (2) the attending physician will be physically present during the critical portions of the procedure and immediately available during the entire case, and (3) a back-up attending is designated should the primary attending not be immediately available. The patient has had a chance to review all the listed information, has been given print outs detailing this information, and has had all his/her questions answered to their satisfaction. It was my pleasure to have seen and examined Madonna Mendez. In our visit toda y we have had a chance to go over my understanding of our patient's current condition, the natural course history without intervention and various interventional options. Questions were invited and answered, and the patient wishes to proceed as outlined above. I have seen and examined the patient for 25 minutes and we have spent more than 50% of the time in repeat and detailed counseling about the patient's condition, its natural course history with out and as much as can be predicted with surgery and re-review of various surgical treatment options. In conclusion, Madonna Mendez and her family requested we proceed with the above suggested surgery and are willing to accept risks and limitations of the suggested surgery as nature of the disease process and our best attempts at treatment for the condition. Thank you again for allowing us to be part of your patient's care. Please don't hesitate to contact me if you have any further questions. Signed and authenticated by: Junaid Grant [facility] [address] [place] [id number] Description of Procedure: The patient was seen and examined in the preoperative area. All preoperative protocols were followed. Informed consent was obtained risks and benefits of the procedure were discussed at length. Risks including bleeding infection damage to the surrounding tissue and risk of reoperation were discussed with the patient. Risk of anesthesia up to and including was a discussed with the patient. These are outlined in the risk reviewed. They were willing to accept these risks and all of the risks of surgery. The patient was given a weight- based dose of antibiotics in the form of 2 g Ancef. The patient was seen and evaluated by the anesthesia team who deemed them fit for surgery. The site was marked, the patient was willing to proceed with the procedure. The patient was transferred to the operative suite by the Department of anesthesia. There were then drifted off to sleep by the department of anesthesia andGETA anesthesia was used. Once adequate anesthesia had been obtained the patient was carefully transferred to the operative bed. All bony prominences were padded accordingly. SCDs were placed on the nonoperative lower extremities. Arms were well padded. the patient was transferred to the Tamanna table and her right leg was placed in a Tamanna boot and secured to the table left leg was placed in a well-leg ibanez well padded and secured. The post was placed and she was secured appropriately. arms were placed on arm boards and well-padded Preoperative briefing was done with the operative team and everyone was ready for the procedure to start. The patients right leg was then prepped and draped in the normal sterile fashion. Timeout was then performed and all parties in agreement with the procedure to be performed. X-ray was then used to sheridan of the femoral neck as well as the femoral shaft. Skin incision was made over the lateral aspect the patient's hip dissection taken down bluntly to the tensor fascia which was split in line with its fibers. A pin was then used under fluoroscopic guidance and placed center within the femoral neck on the lowest portion of the calcar possible. This pin was then advanced under AP and lateral fluoroscopy to be within 5 mm of the subchondral cortex. The parallel guide was then used to place 2 more pins in an inverted triangle configuration the anterior superior pin in the posterior superior pins were placed. This is done under AP and lateral fluoroscopy. We then measured each pin after measurement the lateral cortex was opened with a drill over the pin followed by a 6.0 mm cannulated screw which was partially threaded. The screw was first passed over the lowest calcar pin and had good purchase. We then placed the posterior superior than the anterior superior screws. All screws had good purchase and were in good position on AP and lateral within the femoral neck crossing the fracture and creating good compression. The pins were then all removed. The wound was then copiously irrigated with normal sterile saline final AP and lateral fluoroscopic imaging confirmed good placement of pins as well as reduction of fracture. The deep fascia was then closed with 0 Vicryl superficial closed 2-0 Vicryl and skin closed with skin jagdish the wound edges approximated very well. The wound was then cleaned and dressed with an optifoam dressing. The patient was then transferred back to their hospital bed. There were awakened by department of anesthesia having tolerated the procedure very well with no complications. The patient was then transported to the postoperative care unit in stable condition.
[2022-12-01 11:06] LABS: African American GFR (CKD) 103.7 (60.0-200.0); Anion Gap 5.6 mmol/L (10.00-18.00); BUN/Creat Ratio 11.9 Ratio (12.00-20.00); Calcium 8.4 mg/dL (8.7-10.3); Carbon Dioxide 25.9 mmol/L (20.0-27.5); Non-African American GFR(CKD) 89.5 (60.0-200.0); Potassium 4.5 mmol/L (3.5-5.5)
--- NOTE | 2022-12-01 13:10 | P.PN ---
Subjective Progress Note Date: 12/01/22 Principal diagnosis: Right hip femoral neck fracture, nondisplaced Patient was seen at bedside this morning lying semirecumbent position with optifoam dressing to right hip. Patient says she has not put any weight on her RLE since surgery was performed yesterday. Patient says she is looking forward to working with physical therapy today. Patient says she has urinated since surgery. Patient says she has not had bowel movement yet, however, patient says she has been passing gas. Patient denies chest pain, fever, shortness breath, nausea, vomiting, change in vision, loss of bowel/bladder control. Objective - Vital Signs Vital signs: Vital Signs Temp 97.9 F 12/01/22 07:57 Pulse 72 12/01/22 07:59 Resp 20 12/01/22 07:57 BP 100/60 12/01/22 07:57 Pulse Ox 91 L 12/01/22 07:57 FiO2 Intake & Output 11/30/22 12/01/22 12/01/22 18:59 06:59 18:59 Intake Total 1700 Output Total 1160 1125 Balance 540 -1125 Weight 90 kg Intake: IV 1050 Intake, IV Titration 650 Amount Sodium Chloride 0.9% 1, 600 000 ml @ 75 mls/hr IV . [id number] [facility] Rx#:[id number] ceFAZolin 2 gm In Sodium 50 Chloride 0.9% 50 ml @ 100 mls/hr IVPB Q8H [facility] Rx#: [id number] Output: Urine 1150 1125 Uretheral (Fisher) 500 Estimated Blood Loss 10 Other: Voiding Method Indwelling Catheter Indwelling Catheter - Exam Negative for any open fractures, significant ecchymosis/erythema/ulcers. optifoam drssing present over right hip at this time. incision appears to be healing well this time. Minimal drainage. Jennifer are well aligned and intact. Sensation is equal, symmetric, bilaterally intact throughout the upper and lower extremities. Patient does have some limited range of motion in the right hip in flexion/extension and right knee and flexion extension due to pain and weakness. Patient has full range of motion in bilateral upper extremities and left lower extremity on exam. Patient does have full range of motion of right ankle in dorsi/plantar flexion. Motor exam - 4+/5 in all major motor groups in bilateral upper extremities in left lower extremity on exam. 4+/5 and right ankle in resisted dorsiflexion/plantarflexion. 3+/5 in resisted right hip flexion extension and 4-/5 in resisted right knee flexion/extension. Radial pulses intact, 2+. Cap refill under 3 seconds in digits upper extremities. DP pulse palpable bilaterally, weak. Negative Homans bilaterally. - Labs CBC & Chem 7: 11/30/22 15:18 12/01/22 07:08 Labs: Abnormal Lab Results - Last 24 Hours (Table) 11/30/22 Range/Units 15:18 WBC 3.6 L (3.8-10.6) k/uL RBC 3.29 L (3.80-5.40) m/uL Hgb 10.3 L (11.4-16.0) gm/dL Hct 32.6 L (34.0-46.0) % Plt Count 147 L (150-450) k/uL Lymphocytes # 0.3 L (1.0-4.8) k/uL Assessment and Plan Assessment: 1. Right hip femoral neck fracture, nondisplaced Postoperative day #1 status post right hip percutaneous screws Plan: 1. Right hip femoral neck fracture, nondisplaced - right hip x-rays/CT does reveal femoral neck fracture that is nondisplaced. Surgery performed yesterday, 11/30/2022 - right hip ORIF percutaneous screws. Patient stable at bedside this morning. Patient is to be 50% weightbearing right lower extremity. Pain medication as needed. We'll continue to follow patient during her stay in hospital. 2. Appreciate medical management 3. Pain management - [facility] 4. DVT prophylaxis - Eliquis 5 mg BID 5. GI ppx - senna; milk of magnesia 6. PT/OT - 50% weightbearing right lower extremity with walker 7. Encourage incentive spirometer use Time with Patient: Less than 30
[2022-12-01] MEDS: APIXABAN 5 MG TAB PO SCH ×2 (14:37→21:08)
--- NOTE | 2022-12-01 19:04 | P.PN ---
Subjective Progress Note Date: 12/01/22 This is a 67-year-old female who presented to the emergency department via EMS with concerns of right-sided groin and hip pain. Patient reports she has been having worsening pain of the hip area over the last 2 weeks. Patient denies any injury or falls most recently. Patient reports she follows with Dr. Dockery in the outpatient setting with a past medical history of atrial fibrillation, COPD, hypertension, anxiety/depression and denies any illicit drug use or alcohol and reports to never smoking. Patient reports approximately 2 years ago she had her left hip repaired as she broke the femur head off her left leg requiring intervention. Patient reports she has been compensating since the surgery and does have some pain that she reports is chronic. Patient does have a walker and a cane at the home. Patient had CT angiograph due to her diminished pulses and left leg pain showing some diminished distal right anterior tibial artery flow at the ankle likely related to hemodynamic stenosis otherwise negative along with some bilateral lower lobe infiltrates and atelectasis of what she does have chronic COPD and wears oxygen outpatient. Orthopedics was consulted and a left hip x-ray was done with highly suspicious acute minimally displaced fracture of the right femoral neck. Pulmonary patient reviewed and resumed and will continue with heparin subcu and hold eliquis in the event of surgical intervention which is tentatively scheduled for tomorrow. Repeat CT of the hip is ordered and pending. Labs reviewed and within normal limits from ER admission. 11/30/2022 Patient is seen and evaluated in follow-up this morning no acute overnight issues noted. Patient continues to have right hip pain with orthopedics following and plan is for ORIF with nailing or pinning of the fracture. Patient is currently nothing by mouth and will remain until post-surgery. Will resume home medications and continue to monitor closely. Will await surgical report. Patient is afebrile and medically stable for surgery today. 12/01/2022 Patient is seen in follow-up this morning postop percutaneous screws placed to the right hip for fracture. Orthopedics following and will discuss further about resuming anticoagulant. Patient does have history of atrial fibrillation. Patient also with chronic oxygen use of 4 L currently maintained on 5 L. Patient is reporting some shortness of breath and will include incentive spirometer and encourage the patient to use at least 10 times every hour while awake. Patient to work with physical therapy today and have discussed possible ECF if patient continues with weakness when stabilized. Recommend to hold lisinopril as blood pressures have been on the lower side. Will resume Lasix in the a.m. Review of systems: Constitutional: No reports of fatigue, fever, or chills Cardiovascular: No reports of chest pain or palpitations Respiratory: No reports of shortness of breath or cough GI: No reports of nausea, vomiting, or diarrhea, reports passing gas with no bowel movement : No reports of dysuria or retention Neurovascular: reports of weakness and continued right hip pain All medications have been reviewed PHYSICAL EXAMINATION: GENERAL: The patient is alert and oriented x4, Well developed, well nourished. Obese. HEENT: Pupils are round and equally reacting to light. EOMI. no scleral icterus. No conjunctival pallor. Normocephalic, atraumatic. No pharyngeal erythema. No thyromegaly. CARDIOVASCULAR: S1 and S2 muffled PULMONARY: diminished breath sounds bilaterally with no wheezing or rhonchi noted. ABDOMEN: soft. Nontender on exam. obese. non-distended, normoactive bowel sounds. No palpable organomegaly. MUSCULOSKELETAL: No joint swelling or deformity. EXTREMITIES: No cyanosis, clubbing, or pedal edema. right hip pain on palpation NEUROLOGICAL: Gross neurological examination did not reveal any focal deficits. Diffuse weakness SKIN: No rashes. Assessment: Right hip pain with inability to ambulate, secondary to minimally displaced fracture of the right femoral neck, status post right hip percutaneous screws History of atrial fibrillation History of COPD, not an exacerbation Chronic hypoxic respiratory failure secondary to COPD, wears 2-3 L via nasal cannula outpatient History of hypertension History of anxiety/depression GI prophylaxis DVT prophylaxis Full code Plan: Recommend to continue with current medications and management and orthopedics following and underwent right hip percutaneous screws yesterday Home medications have been reviewed and resumed and will hold eliquis for now and continue subcutaneous heparin every 12 as patient is going for surgery today. Will discuss with ortho when ok to resume oral Eliquis. Encouraged oral intake Recommend incentive spirometer and encourage the patient use at least 10 times every hour while awake Labs reviewed and within normal limits today. Blood pressure on the lower side we'll continue to hold lisinopril and will possibly add Lasix tomorrow PT/OT evaluated the patient post surgery and recommending rehab and patient is agreeable if her insurance will cover it. Case management following and has submitted for authorization Patient with history of COPD and is maintained currently on 5 L although normally wears 4 L outpatient oxygen saturations are 97% and will continue to monitor. Will add breathing treatments and follow-up with patient in the a.m. Possible discharge in the next 24-48 hours The impression and plan of care has been dictated by Malgorzata Knapp, nurse practitioner as directed. Dr. Khloe MD I have performed a history and examination and MDM of this patient, discussed the same with the dictator, and agree with the dictator's assessment and plan as written ,documented as a scribe. Based on total visit time, I have performed more than 50% of the visit. Any additional findings or plans will be noted. Objective - Vital Signs Vital signs: Vital Signs Temp 97.9 F 12/01/22 13:40 Pulse 81 12/01/22 15:12 Resp 20 12/01/22 13:40 BP 145/64 12/01/22 15:12 Pulse Ox 96 12/01/22 13:40 FiO2 Intake & Output 11/30/22 12/01/22 12/01/22 18:59 06:59 18:59 Intake Total 1700 350 Output Total 1160 1125 1600 Balance 540 -1125 -1250 Weight 90 kg Intake: IV 1050 Intake, IV Titration 650 350 Amount Sodium Chloride 0.9% 1, 600 300 000 ml @ 75 mls/hr IV . [id number] [facility] Rx#:[id number] ceFAZolin 2 gm In Sodium 50 50 Chloride 0.9% 50 ml @ 100 mls/hr IVPB Q8H [facility] Rx#: [id number] Output: Urine 1150 1125 1600 Uretheral (Fisher) 500 1200 Estimated Blood Loss 10 Other: Voiding Method Indwelling Catheter Indwelling Catheter Indwelling Catheter - Labs CBC & Chem 7: 11/30/22 15:18 12/01/22 07:08 Labs: Abnormal Lab Results - Last 24 Hours (Table) 12/01/22 Range/Units 07:08 Anion Gap 5.60 L (10.00-18.00) mmol/L BUN 8.0 L (9.0-27.0) mg/dL BUN/Creatinine Ratio 11.90 L (12.00-20.00) Ratio Calcium 8.4 L (8.7-10.3) mg/dL
[2022-12-01] MEDS ORDERED: ALBUTEROL NEBULIZED 2.5 MG/3 ML INHALATION PRN (19:05)
[2022-12-01] MEDS: SENNOSIDES-DOCUSATE SODIUM 1 EACH TAB PO SCH (21:02)
[2022-12-01] MEDS: ATORVASTATIN 40 MG TAB PO SCH (21:02)
[2022-12-01] MEDS: HYDROcodone/APAP 5-325MG 1 EACH TAB PO PRN (21:03)
[2022-12-02] MEDS: traZODone HCL 100 MG TAB PO SCH ×2 (04:31→20:18)
[2022-12-02] MEDS: IPRATROPIUM-ALBUTEROL 3 ML NEB INHALATION SCH ×3 (08:24→19:28)
[2022-12-02] MEDS: CARBIDOPA-LEVODOPA 25-100 MG 1 EACH TAB PO SCH ×2 (09:41→20:18)
[2022-12-02] MEDS: SERTRALINE 100 MG TAB PO SCH (09:41)
[2022-12-02] MEDS: HYDROcodone/APAP 5-325MG 1 EACH TAB PO PRN ×2 (09:42→16:56)
[2022-12-02] MEDS: lisinopriL 20 MG TAB PO SCH (09:43)
[2022-12-02] MEDS: ISOSORBIDE MONONITRATE ER 60 MG TAB.ER.24H PO SCH (09:44)
[2022-12-02] MEDS: LIOTHYRONINE SODIUM 25 MCG PO SCH (09:44)
[2022-12-02] MEDS: FUROSEMIDE 40 MG TAB PO SCH (09:44)
[2022-12-02] MEDS: ARIPiprazole 2 MG TAB PO SCH (09:44)
[2022-12-02] MEDS: carvediloL 3.125 MG TAB PO SCH ×2 (09:44→16:57)
[2022-12-02] MEDS: APIXABAN 5 MG TAB PO SCH ×2 (09:44→20:18)
--- NOTE | 2022-12-02 09:45 | P.PN ---
Subjective Progress Note Date: 12/02/22 Principal diagnosis: Right hip femoral neck fracture, nondisplaced Patient was seen at bedside this morning lying semirecumbent position with optifoam dressing to right hip. Patient says she attempted to work with physical therapy yesterday and was only able to sit up at bedside. Patient says she is not able to stand up and bear any weight on her right lower extremity yesterday. Patient says she is limited in forward to physical therapy today and we'll attempt to stand up at bedside today. Patient says she has urinated since surgery. Patient says she has not had bowel movement yet, however, patient says she has been passing gas. Patient denies chest pain, fever, shortness breath, nausea, vomiting, change in vision, loss of bowel/bladder control. Objective - Vital Signs Vital signs: Vital Signs Temp 97.7 F 12/02/22 06:43 Pulse 72 12/02/22 08:36 Resp 16 12/02/22 06:43 BP 122/70 12/02/22 06:43 Pulse Ox 95 12/02/22 06:43 FiO2 Intake & Output 12/01/22 12/02/22 12/02/22 18:59 06:59 18:59 Intake Total 350 Output Total 1600 1500 Balance -1250 -1500 Intake: Intake, IV Titration 350 Amount Sodium Chloride 0.9% 1, 300 000 ml @ 75 mls/hr IV . [id number] [facility] Rx#:[id number] ceFAZolin 2 gm In Sodium 50 Chloride 0.9% 50 ml @ 100 mls/hr IVPB Q8H [facility] Rx#: [id number] Output: Urine 1600 1500 Uretheral (Fisher) 1200 Other: Voiding Method Indwelling Catheter - Exam Negative for any open fractures, significant ecchymosis/erythema/ulcers. optifoam dressing present over right hip at this time. incision appears to be healing well this time. Minimal drainage. [place] are well aligned and intact. Sensation is equal, symmetric, bilaterally intact throughout the upper and lower extremities. Patient does have some limited range of motion in the right hip in flexion/extension and right knee and flexion extension due to pain and weakness. Patient has full range of motion in bilateral upper extremities and left lower extremity on exam. Patient does have full range of motion of right ankle in dorsi/plantar flexion. Motor exam - 4+/5 in all major motor groups in bilateral upper extremities in left lower extremity on exam. 4+/5 and right ankle in resisted dorsiflexion/plantarflexion. 3+/5 in resisted right hip flexi on extension and 4-/5 in resisted right knee flexion/extension. Radial pulses intact, 2+. Cap refill under 3 seconds in digits upper extremities. DP pulse palpable bilaterally, weak. Negative Homans bilaterally. - Labs CBC & Chem 7: 11/30/22 15:18 12/01/22 07:08 Labs: Abnormal Lab Results - Last 24 Hours (Table) 12/01/22 Range/Units 07:08 Anion Gap 5.60 L (10.00-18.00) mmol/L BUN 8.0 L (9.0-27.0) mg/dL BUN/Creatinine Ratio 11.90 L (12.00-20.00) Ratio Calcium 8.4 L (8.7-10.3) mg/dL Assessment and Plan Assessment: 1. Right hip femoral neck fracture, nondisplaced Postoperative day #2 status post right hip ORIF percutaneous screws Plan: 1. Right hip femoral neck fracture, nondisplaced - right hip x-rays/CT does reveal femoral neck fracture that is nondisplaced. Surgery performed 11/30/2022 - right hip ORIF percutaneous screws. Patient stable at bedside this morning. Patient is to be 50% weightbearing right lower extremity. Pain medication as needed. Patient is stable from orthopedic standpoint for discharge to rehab. Planning for discharge to [facility] today pending auth 2. Appreciate medical management - discharge per medicine 3. Pain management - [place] 4. DVT prophylaxis - Eliquis 5 mg BID 5. GI ppx - senna; milk of magnesia 6. PT/OT - 50% weightbearing right lower extremity with walker 7. Encourage incentive spirometer use Time with Patient: Less than 30
[2022-12-02 12:14] LABS: Basophils # (A) 0.01 X 10*3/uL (0.00-0.10); Basophils % (A) 0.2 %; Eosinophils # (A) 0.15 X 10*3/uL (0.04-0.35); Eosinophils % (A) 3.4 %; HCT 32.8 % (37.2-46.3); HGB 9.9 g/dL (12.0-15.0); Immature Grans, Automated 0.4 %; Lymphocytes % (A) 13.5 %; MCH 31.5 pg (27.0-32.0); MCHC 30.2 g/dL (32.0-37.0); MCV 104.5 fL (80.0-97.0); Mean Platelet Volume 11.4 fL (9.5-12.2); Monocytes # (A) 0.36 X 10*3/uL (0.20-1.00); Monocytes % (A) 8.1 %; NRBC Per 100 WBC 0 /100 WBCS (0.0-0.0); Neutrophils # (A) 3.32 X 10*3/uL (1.80-7.70); Neutrophils % (A) 74.4 %; Platelet Count 160 X 10*3/uL (140-440); RBC 3.14 X 10*6/uL (4.10-5.20); RDW 13.3 % (11.5-14.5); WBC 4.46 X 10*3/uL (4.50-10.00)
--- NOTE | 2022-12-02 13:48 | P.PN ---
Subjective Progress Note Date: 12/02/22 This is a 67-year-old female who presented to the emergency department via EMS with concerns of right-sided groin and hip pain. Patient reports she has been having worsening pain of the hip area over the last 2 weeks. Patient denies any injury or falls most recently. Patient reports she follows with Dr. Dockery in the outpatient setting with a past medical history of atrial fibrillation, COPD, hypertension, anxiety/depression and denies any illicit drug use or alcohol and reports to never smoking. Patient reports approximately 2 years ago she had her left hip repaired as she broke the femur head off her left leg requiring intervention. Patient reports she has been compensating since the surgery and does have some pain that she reports is chronic. Patient does have a walker and a cane at the home. Patient had CT angiograph due to her diminished pulses and left leg pain showing some diminished distal right anterior tibial artery flow at the ankle likely related to hemodynamic stenosis otherwise negative along with some bilateral lower lobe infiltrates and atelectasis of what she does have chronic COPD and wears oxygen outpatient. Orthopedics was consulted and a left hip x-ray was done with highly suspicious acute minimally displaced fracture of the right femoral neck. Pulmonary patient reviewed and resumed and will continue with heparin subcu and hold eliquis in the event of surgical intervention which is tentatively scheduled for tomorrow. Repeat CT of the hip is ordered and pending. Labs reviewed and within normal limits from ER admission. 11/30/2022 Patient is seen and evaluated in follow-up this morning no acute overnight issues noted. Patient continues to have right hip pain with orthopedics following and plan is for ORIF with nailing or pinning of the fracture. Patient is currently nothing by mouth and will remain until post-surgery. Will resume home medications and continue to monitor closely. Will await surgical report. Patient is afebrile and medically stable for surgery today. 12/01/2022 Patient is seen in follow-up this morning postop percutaneous screws placed to the right hip for fracture. Orthopedics following and will discuss further about resuming anticoagulant. Patient does have history of atrial fibrillation. Patient also with chronic oxygen use of 4 L currently maintained on 5 L. Patient is reporting some shortness of breath and will include incentive spirometer and encourage the patient to use at least 10 times every hour while awake. Patient to work with physical therapy today and have discussed possible ECF if patient continues with weakness when stabilized. Recommend to hold lisinopril as blood pressures have been on the lower side. Will resume Lasix in the a.m. 12/02/2022 Patient is seen in follow-up today currently working with physical therapy getting up to the chair. Patient reports continued pain in the right hip although somewhat improved. Patient denies chest pain or worsening shortness of breath. Patient is currently on 3 L chronically wears 4 L in the outpatient setting. Patient with incentive spirometer and encourage the patient to continue using at least 10 times every hour while awake. Case management following as well as patient will require insurance authorization which is currently pending. Orthopedics following and has cleared the patient for discharge to ECF once insurance authorization is obtained. Review of systems: Constitutional: No reports of fatigue, fever, or chills Cardiovascular: No reports of chest pain or palpitations Respiratory: No reports of shortness of breath or cough GI: No reports of nausea, vomiting, or diarrhea, reports passing gas with no bowel movement : No reports of dysuria or retention Neurovascular: reports of weakness and continued right hip pain All medications have been reviewed PHYSICAL EXAMINATION: GENERAL: The patient is alert and oriented x4, Well developed, well nourished. Obese. HEENT: Pupils are round and equally reacting to light. EOMI. no scleral icterus. No conjunctival pallor. Normocephalic, atraumatic. No pharyngeal erythema. No thyromegaly. CARDIOVASCULAR: S1 and S2 muffled PULMONARY: diminished breath sounds bilaterally with no wheezing or rhonchi noted. ABDOMEN: soft. Nontender on exam. obese. non-distended, normoactive bowel sounds. No palpable organomegaly. MUSCULOSKELETAL: No joint swelling or deformity. EXTREMITIES: No cyanosis, clubbing, or pedal edema. right hip pain on palpation NEUROLOGICAL: Gross neurological examination did not reveal any focal deficits. Diffuse weakness SKIN: No rashes. Assessment: Right hip pain with inability to ambulate, secondary to minimally displaced fracture of the right femoral neck, status post right hip percutaneous screws History of atrial fibrillation History of COPD, not an exacerbation Chronic hypoxic respiratory failure secondary to COPD, wears 4 L via nasal cannula outpatient History of hypertension History of anxiety/depression GI prophylaxis DVT prophylaxis Full code Plan: Recommend to continue with current medications and management and orthopedics following and underwent right hip percutaneous screws, postop day 2. Orthopedics has cleared the patient for discharge to [facility] with outpatient follow- up Home medications have been reviewed and resumed eliquis Encouraged oral intake Recommend incentive spirometer and encourage the patient use at least 10 times every hour while awake PT/OT evaluated the patient post surgery and recommending rehab and patient is agreeable if her insurance will cover it. Case management following and has submitted for authorization. Apparently there were some issues with the in correct information on the insurance and authorization was just admitted today awaiting further documentation for the insurance. Case management and liaison from [facility] working on this. Patient is medically stable and ready for discharge once insurance authorization is obtained for patient to go to rehab for continued strength and mobility The impression and plan of care has been dictated by Malgorzata Knapp, nurse practitioner as directed. Dr. Khloe MD I have performed a history and examination and MDM of this patient, discussed the same with the dictator, and agree with the dictator's assessment and plan as written ,documented as a scribe. Based on total visit time, I have performed more than 50% of the visit. Any additional findings or plans will be noted. Objective - Vital Signs Vital signs: Vital Signs Temp 97.7 F 12/02/22 06:43 Pulse 80 12/02/22 12:52 Resp 16 12/02/22 06:43 BP 122/70 12/02/22 06:43 Pulse Ox 95 12/02/22 06:43 FiO2 Intake & Output 12/01/22 12/02/22 12/02/22 18:59 06:59 18:59 Intake Total 350 Output Total 1600 1500 Balance -1250 -1500 Intake: Intake, IV Titration 350 Amount Sodium Chloride 0.9% 1, 300 000 ml @ 75 mls/hr IV . [id number] [facility] Rx#:[id number] ceFAZolin 2 gm In Sodium 50 Chloride 0.9% 50 ml @ 100 mls/hr IVPB Q8H [facility] Rx#: [id number] Output: Urine 1600 1500 Uretheral (Fisher) 1200 Other: Voiding Method Indwelling Catheter - Labs CBC & Chem 7: 12/02/22 05:46 12/01/22 07:08 Labs: Abnormal Lab Results - Last 24 Hours (Table) 12/02/22 Range/Units 05:46 WBC 4.46 L (4.50-10.00) X 10*3/uL RBC 3.14 L (4.10-5.20) X 10*6/uL Hgb 9.9 L (12.0-15.0) g/dL Hct 32.8 L (37.2-46.3) % MCV 104.5 H (80.0-97.0) fL MCHC 30.2 L (32.0-37.0) g/dL Lymphocytes # 0.60 L (0.90-5.00) X 10*3/uL
[2022-12-02] MEDS: ATORVASTATIN 40 MG TAB PO SCH (20:18)
[2022-12-02] MEDS: SENNOSIDES-DOCUSATE SODIUM 1 EACH TAB PO SCH (20:18)
[2022-12-03] MEDS: traZODone HCL 100 MG TAB PO SCH ×2 (04:15→20:08)
[2022-12-03] MEDS: SERTRALINE 100 MG TAB PO SCH (08:06)
[2022-12-03] MEDS: ISOSORBIDE MONONITRATE ER 60 MG TAB.ER.24H PO SCH (08:06)
[2022-12-03] MEDS: lisinopriL 20 MG TAB PO SCH (08:06)
[2022-12-03] MEDS: LIOTHYRONINE SODIUM 25 MCG PO SCH (08:06)
[2022-12-03] MEDS: FUROSEMIDE 40 MG TAB PO SCH (08:06)
[2022-12-03] MEDS: ARIPiprazole 2 MG TAB PO SCH (08:06)
[2022-12-03] MEDS: APIXABAN 5 MG TAB PO SCH ×2 (08:06→20:08)
[2022-12-03] MEDS: carvediloL 3.125 MG TAB PO SCH ×2 (08:06→17:21)
[2022-12-03] MEDS: CARBIDOPA-LEVODOPA 25-100 MG 1 EACH TAB PO SCH ×2 (08:06→20:08)
[2022-12-03] MEDS: IPRATROPIUM-ALBUTEROL 3 ML NEB INHALATION SCH ×3 (08:15→20:08)
[2022-12-03] MEDS: HYDROcodone/APAP 5-325MG 1 EACH TAB PO PRN ×2 (08:47→21:11)
--- NOTE | 2022-12-03 13:31 | P.PN ---
Subjective Progress Note Date: 12/03/22 This is a 67-year-old female who presented to the emergency department via EMS with concerns of right-sided groin and hip pain. Patient reports she has been having worsening pain of the hip area over the last 2 weeks. Patient denies any injury or falls most recently. Patient reports she follows with Dr. Dockery in the outpatient setting with a past medical history of atrial fibrillation, COPD, hypertension, anxiety/depression and denies any illicit drug use or alcohol and reports to never smoking. Patient reports approximately 2 years ago she had her left hip repaired as she broke the femur head off her left leg requiring intervention. Patient reports she has been compensating since the surgery and does have some pain that she reports is chronic. Patient does have a walker and a cane at the home. Patient had CT angiograph due to her diminished pulses and left leg pain showing some diminished distal right anterior tibial artery flow at the ankle likely related to hemodynamic stenosis otherwise negative along with some bilateral lower lobe infiltrates and atelectasis of what she does have chronic COPD and wears oxygen outpatient. Orthopedics was consulted and a left hip x-ray was done with highly suspicious acute minimally displaced fracture of the right femoral neck. Pulmonary patient reviewed and resumed and will continue with heparin subcu and hold eliquis in the event of surgical intervention which is tentatively scheduled for tomorrow. Repeat CT of the hip is ordered and pending. Labs reviewed and within normal limits from ER admission. 11/30/2022 Patient is seen and evaluated in follow-up this morning no acute overnight issues noted. Patient continues to have right hip pain with orthopedics following and plan is for ORIF with nailing or pinning of the fracture. Patient is currently nothing by mouth and will remain until post-surgery. Will resume home medications and continue to monitor closely. Will await surgical report. Patient is afebrile and medically stable for surgery today. 12/01/2022 Patient is seen in follow-up this morning postop percutaneous screws placed to the right hip for fracture. Orthopedics following and will discuss further about resuming anticoagulant. Patient does have history of atrial fibrillation. Patient also with chronic oxygen use of 4 L currently maintained on 5 L. Patient is reporting some shortness of breath and will include incentive spirometer and encourage the patient to use at least 10 times every hour while awake. Patient to work with physical therapy today and have discussed possible ECF if patient continues with weakness when stabilized. Recommend to hold lisinopril as blood pressures have been on the lower side. Will resume Lasix in the a.m. 12/02/2022 Patient is seen in follow-up today currently working with physical therapy getting up to the chair. Patient reports continued pain in the right hip although somewhat improved. Patient denies chest pain or worsening shortness of breath. Patient is currently on 3 L chronically wears 4 L in the outpatient setting. Patient with incentive spirometer and encourage the patient to continue using at least 10 times every hour while awake. Case management following as well as patient will require insurance authorization which is cur rently pending. Orthopedics following and has cleared the patient for discharge to ECF once insurance authorization is obtained. 12/03/2022 Patient is postoperative day #2 right hip percutaneous screws. Up in chair. Reports pain currently 4/10 on oral pain medication. Currently on 3 to 4 L of oxygen and wears 4L chronically no shortness of breath reported. Using incentive spirometer. Most recent labs showing white count of 4.46, hg 9.9, sodium 137, potassium 4.5, BUN 8, creatinine 0.7. Remains afebrile. No bowel movement, patient is receiving senakot, would recommend for suppository if needed. Review of systems: Constitutional: No reports of fatigue, fever, or chills Cardiovascular: No reports of chest pain or palpitations Respiratory: No reports of shortness of breath or cough GI: No reports of nausea, vomiting, or diarrhea, reports passing gas with no bowel movement : No reports of dysuria or retention Neurovascular: reports of weakness and continued right hip pain All medications have been reviewed PHYSICAL EXAMINATION: GENERAL: The patient is alert and oriented x4, Well developed, well nourished. Obese. HEENT: Pupils are round and equally reacting to light. EOMI. no scleral icterus. No conjunctival pallor. Normocephalic, atraumatic. No pharyngeal erythema. No t hyromegaly. CARDIOVASCULAR: S1 and S2 muffled PULMONARY: diminished breath sounds bilaterally with no wheezing or rhonchi noted. ABDOMEN: soft. Nontender on exam. obese. non-distended, normoactive bowel sounds. No palpable organomegaly. MUSCULOSKELETAL: No joint swelling or deformity. EXTREMITIES: No cyanosis, clubbing, or pedal edema. right hip pain on palpation NEUROLOGICAL: Gross neurological examination did not reveal any focal deficits. Diffuse weakness SKIN: No rashes. Assessment: Right hip pain with inability to ambulate, secondary to minimally displaced fracture of the right femoral neck, status post right hip percutaneous screws History of atrial fibrillation anticoagulated with eliquis History of COPD, not an exacerbation Chronic hypoxic respiratory failure secondary to COPD, wears 4 L via nasal cannula outpatient History of hypertension History of anxiety/depression GI prophylaxis DVT prophylaxis Full code Plan: Recommend to continue with current medications and management and orthopedics following and underwent right hip percutaneous screws, postop day 2. Orthopedics has cleared the patient for discharge to [facility] with outpatient follow- up Home medications have been reviewed and resumed eliquis Encouraged oral intake Recommend incentive spirometer and encourage the patient use at least 10 times every hour while awake PT/OT evaluated the patient post surgery and recommending rehab and patient is agreeable if her insurance will cover it. Case management following and has submitted for authorization. Apparently there were some issues with the [employer] information on the insurance and authorization was just admitted today awaiting further documentation for the insurance. Case management and liaison from [facility] working on this. Patient is medically stable and ready for discharge once insurance authorization is obtained for patient to go to rehab for continued strength and mobility - Discharge likely on monday as of today insurance authorization has not been obtained. The impression and plan of care has been dictated by Frances Godoy Nurse Practitioner as directed. Dr. Khloe MD I have performed a history and physical examination and medical decision making of this patient, discussed the same with the dictator, and agree with the dictators assessment and plan as written, documented as a scribe. Based on total visit time, I have performed more than 50% of this visit. Objective - Vital Signs Vital signs: Vital Signs Temp 98.0 F 12/03/22 07:51 Pulse 72 12/03/22 08:28 Resp 16 12/03/22 08:28 BP 129/79 12/03/22 07:51 Pulse Ox 97 12/03/22 08:15 FiO2 Intake & Output 12/02/22 12/03/22 12/03/22 18:59 06:59 18:59 Output Total 800 1400 Balance -800 -1400 Output: Urine 800 1400 - Labs CBC & Chem 7: 12/02/22 05:46 12/01/22 07:08 Labs: Abnormal Lab Results - Last 24 Hours (Table) 12/02/22 Range/Units 05:46 WBC 4.46 L (4.50-10.00) X 10*3/uL RBC 3.14 L (4.10-5.20) X 10*6/uL Hgb 9.9 L (12.0-15.0) g/dL Hct 32.8 L (37.2-46.3) % MCV 104.5 H (80.0-97.0) fL MCHC 30.2 L (32.0-37.0) g/dL Lymphocytes # 0.60 L (0.90-5.00) X 10*3/uL Assessment and Plan Time with Patient: Less than 30
[2022-12-03] MEDS: SENNOSIDES-DOCUSATE SODIUM 1 EACH TAB PO SCH (20:08)
[2022-12-03] MEDS: ATORVASTATIN 40 MG TAB PO SCH (20:08)
[2022-12-04] MEDS: traZODone HCL 100 MG TAB PO SCH ×2 (03:46→20:26)
[2022-12-04] MEDS: IPRATROPIUM-ALBUTEROL 3 ML NEB INHALATION SCH ×3 (08:45→20:31)
[2022-12-04] MEDS: APIXABAN 5 MG TAB PO SCH ×2 (10:27→20:26)
[2022-12-04] MEDS: carvediloL 3.125 MG TAB PO SCH ×2 (10:28→17:11)
[2022-12-04] MEDS: SERTRALINE 100 MG TAB PO SCH (10:28)
[2022-12-04] MEDS: CARBIDOPA-LEVODOPA 25-100 MG 1 EACH TAB PO SCH ×2 (10:28→20:26)
[2022-12-04] MEDS: lisinopriL 20 MG TAB PO SCH (10:28)
[2022-12-04] MEDS: LIOTHYRONINE SODIUM 25 MCG PO SCH (10:29)
[2022-12-04] MEDS: FUROSEMIDE 40 MG TAB PO SCH (10:29)
[2022-12-04] MEDS: ISOSORBIDE MONONITRATE ER 60 MG TAB.ER.24H PO SCH (10:29)
[2022-12-04] MEDS: ARIPiprazole 2 MG TAB PO SCH (10:29)
--- NOTE | 2022-12-04 13:14 | P.PN ---
Subjective Progress Note Date: 12/04/22 This is a 67-year-old female who presented to the emergency department via EMS with concerns of right-sided groin and hip pain. Patient reports she has been having worsening pain of the hip area over the last 2 weeks. Patient denies any injury or falls most recently. Patient reports she follows with Dr. Dockery in the outpatient setting with a past medical history of atrial fibrillation, COPD, hypertension, anxiety/depression and denies any illicit drug use or alcohol and reports to never smoking. Patient reports approximately 2 years ago she had her left hip repaired as she broke the femur head off her left leg requiring intervention. Patient reports she has been compensating since the surgery and does have some pain that she reports is chronic. Patient does have a walker and a cane at the home. Patient had CT angiograph due to her diminished pulses and left leg pain showing some diminished distal right anterior tibial artery flow at the ankle likely related to hemodynamic stenosis otherwise negative along with some bilateral lower lobe infiltrates and atelectasis of what she does have chronic COPD and wears oxygen outpatient. Orthopedics was consulted and a left hip x-ray was done with highly suspicious acute minimally displaced fracture of the right femoral neck. Pulmonary patient reviewed and resumed and will continue with heparin subcu and hold eliquis in the event of surgical intervention which is tentatively scheduled for tomorrow. Repeat CT of the hip is ordered and pending. Labs reviewed and within normal limits from ER admission. 11/30/2022 Patient is seen and evaluated in follow-up this morning no acute overnight issues noted. Patient continues to have right hip pain with orthopedics following and plan is for ORIF with nailing or pinning of the fracture. Patient is currently nothing by mouth and will remain until post-surgery. Will resume home medications and continue to monitor closely. Will await surgical report. Patient is afebrile and medically stable for surgery today. 12/01/2022 Patient is seen in follow-up this morning postop percutaneous screws placed to the right hip for fracture. Orthopedics following and will discuss further about resuming anticoagulant. Patient does have history of atrial fibrillation. Patient also with chronic oxygen use of 4 L currently maintained on 5 L. Patient is reporting some shortness of breath and will include incentive spirometer and encourage the patient to use at least 10 times every hour while awake. Patient to work with physical therapy today and have discussed possible ECF if patient continues with weakness when stabilized. Recommend to hold lisinopril as blood pressures have been on the lower side. Will resume Lasix in the a.m. 12/02/2022 Patient is seen in follow-up today currently working with physical therapy getting up to the chair. Patient reports continued pain in the right hip although somewhat improved. Patient denies chest pain or worsening shortness of breath. Patient is currently on 3 L chronically wears 4 L in the outpatient setting. Patient with incentive spirometer and encourage the patient to continue using at least 10 times every hour while awake. Case management following as well as patient will require insurance authorization which is cur rently pending. Orthopedics following and has cleared the patient for discharge to ECF once insurance authorization is obtained. 12/03/2022 Patient is postoperative day #2 right hip percutaneous screws. Up in chair. Reports pain currently 4/10 on oral pain medication. Currently on 3 to 4 L of oxygen and wears 4L chronically no shortness of breath reported. Using incentive spirometer. Most recent labs showing white count of 4.46, hg 9.9, sodium 137, potassium 4.5, BUN 8, creatinine 0.7. Remains afebrile. No bowel movement, patient is receiving senakot, would recommend for suppository if needed. 12/04/2022 Patient is postoperative day #3 right hip percutaneous screws. She reports minimal pain at surgical site and was up ambulating in the room today and was able to ambulate to the restroom. She was able to have a bowel movement today and reports overall feeling better. Respiratory status at baseline per patient. Has had low grade fever of 99.7 recommend to continue incentive spirometer and use 10 times an hour. Will order a chest xray as temperature does seem to be increasing. Review of systems: Constitutional: No reports of fatigue, fever, or chills Cardiovascular: No reports of chest pain or palpitations Respiratory: No reports of shortness of breath or cough GI: No reports of nausea, vomiting, or diarrhea, : No reports of dysuria or retention Neurovascular: reports of weakness and continued right hip pain All medications have been reviewed PHYSICAL EXAMINATION: GENERAL: The patient is alert and oriented x4, Well developed, well nourished. Obese. HEENT: Pupils are round and equally reacting to light. EOMI. no scleral icterus. No conjunctival pallor. Normocephalic, atraumatic. No pharyngeal erythema. No thyromegaly. CARDIOVASCULAR: S1 and S2 muffled PULMONARY: diminished breath sounds bilaterally with no wheezing or rhonchi noted. ABDOMEN: soft. Nontender on exam. obese. non-distended, normoactive bowel sounds. No palpable organomegaly. MUSCULOSKELETAL: No joint swelling or deformity. EXTREMITIES: No cyanosis, clubbing, or pedal edema. right hip pain on palpation NEUROLOGICAL: Gross neurological examination did not reveal any focal deficits. Diffuse weakness SKIN: No rashes. Assessment: Right hip pain with inability to ambulate, secondary to minimally displaced fracture of the right femoral neck, status post right hip percutaneous screws History of atrial fibrillation anticoagulated with eliquis History of COPD, not an exacerbation Chronic hypoxic respiratory failure secondary to COPD, wears 4 L via nasal cannula outpatient History of hypertension History of anxiety/depression GI prophylaxis DVT prophylaxis Full code Plan: Recommend to continue with current medications and management and orthopedics following and underwent right hip percutaneous screws, postop day 3. Orthopedics has cleared the patient for discharge [facility] with outpatient follow- up Home medications have been reviewed and resumed eliquis Encouraged oral intake Recommend incentive spirometer and encourage the patient use at least 10 times every hour while awake PT/OT evaluated the patient post surgery and recommending rehab and patient is agreeable if her insurance will cover it. Case management following and has submitted for authorization. Apparently there were some issues with the incorrect information on the insurance and authorization was just admitted today awaiting further documentation for the insurance. Case management and liaison from [facility] working on this. Patient is medically stable and ready for discharge once insurance authorization is obtained for patient to go to rehab for continued strength and mobility - Discharge likely on monday as of today insurance authorization has not been obtained. The impression and plan of care has been dictated by Frances Godoy Nurse Practitioner as directed. Dr. Khloe MD I have performed a history and physical examination and medical decision making of this patient, discussed the same with the dictator, and agree with the dictators assessment and plan as written, documented as a scribe. Based on total visit time, I have performed more than 50% of this visit. Objective - Vital Signs Vital signs: Vital Signs Temp 97.5 F L 12/04/22 06:40 Pulse 74 12/04/22 12:53 Resp 16 12/04/22 12:53 BP 121/63 12/04/22 06:40 Pulse Ox 94 L 12/04/22 08:47 FiO2 Intake & Output 12/03/22 12/04/22 12/04/22 18:59 06:59 18:59 Intake Total 400 Output Total 1800 0 Balance -1400 0 Intake: Oral 400 Output: Urine 1800 0 Other: # Bowel Movements 1 - Labs CBC & Chem 7: 12/02/22 05:46 12/01/22 07:08 Assessment and Plan Time with Patient: Less than 30
--- NOTE | 2022-12-04 14:04 | XR ---
EXAMINATION TYPE: XR chest 2V DATE OF EXAM: 12/04/2022 1:50 PM COMPARISON: none TECHNIQUE: XR chest 2V Frontal, digital subtraction and lateral views of the chest. CLINICAL INDICATION:Female, 67 years old with history of fever; FINDINGS: Lungs/Pleura: Scattered subtle reticular and hazy opacities. No evidence of pneumothorax, focal conso lidation or pleural effusion. Pulmonary vascularity: Unremarkable. Heart/mediastinum: Cardiomediastinal silhouette is unremarkable. Two lead cardiac conduction device o verlying the left hemithorax with lead tips projecting over the right ventricle and right atrium. Musculoskeletal: No acute osseous pathology. Left Shoulder arthroplasty changes. IMPRESSION: Subtle scattered opacities which may represent an atypical pneumonia. Correlate for covid 19.
[2022-12-04] MEDS ORDERED: LACTULOSE 20 GM/30 ML CUP PO ONE (15:10)
[2022-12-04] MEDS: SENNOSIDES-DOCUSATE SODIUM 1 EACH TAB PO SCH (20:26)
[2022-12-04] MEDS: ATORVASTATIN 40 MG TAB PO SCH (20:26)
[2022-12-04] MEDS: HYDROcodone/APAP 5-325MG 1 EACH TAB PO PRN (20:26)
[2022-12-05] MEDS: traZODone HCL 100 MG TAB PO SCH ×2 (02:16→20:40)
[2022-12-05] MEDS: HYDROcodone/APAP 5-325MG 1 EACH TAB PO PRN ×2 (08:00→17:06)
[2022-12-05] MEDS: APIXABAN 5 MG TAB PO SCH ×2 (08:01→20:40)
[2022-12-05] MEDS: CARBIDOPA-LEVODOPA 25-100 MG 1 EACH TAB PO SCH ×2 (08:01→20:40)
[2022-12-05] MEDS: ARIPiprazole 2 MG TAB PO SCH (08:01)
[2022-12-05] MEDS: FUROSEMIDE 40 MG TAB PO SCH (08:01)
[2022-12-05] MEDS: SERTRALINE 100 MG TAB PO SCH (08:01)
[2022-12-05] MEDS: ISOSORBIDE MONONITRATE ER 60 MG TAB.ER.24H PO SCH (08:01)
[2022-12-05] MEDS: carvediloL 3.125 MG TAB PO SCH ×2 (08:01→17:06)
[2022-12-05] MEDS: LIOTHYRONINE SODIUM 25 MCG PO SCH (08:04)
[2022-12-05] MEDS: IPRATROPIUM-ALBUTEROL 3 ML NEB INHALATION SCH ×3 (08:20→20:25)
[2022-12-05] MEDS ORDERED: ONDANSETRON 4 MG/2 ML VIAL IVP PRN (18:31)
[2022-12-05] MEDS: ATORVASTATIN 40 MG TAB PO SCH (20:40)
[2022-12-05] MEDS: SENNOSIDES-DOCUSATE SODIUM 1 EACH TAB PO SCH (20:40)
[2022-12-06] MEDS: traZODone HCL 100 MG TAB PO SCH ×2 (03:38→20:29)
--- NOTE | 2022-12-06 03:46 | P.PN ---
Subjective Progress Note Date: 12/05/22 This is a 67-year-old female who presented to the emergency department via EMS with concerns of right-sided groin and hip pain. Patient reports she has been having worsening pain of the hip area over the last 2 weeks. Patient denies any injury or falls most recently. Patient reports she follows with Dr. Dockery in the outpatient setting with a past medical history of atrial fibrillation, COPD, hypertension, anxiety/depression and denies any illicit drug use or alcohol and reports to never smoking. Patient reports approximately 2 years ago she had her left hip repaired as she broke the femur head off her left leg requiring intervention. Patient reports she has been compensating since the surgery and does have some pain that she reports is chronic. Patient does have a walker and a cane at the home. Patient had CT angiograph due to her diminished pulses and left leg pain showing some diminished distal right anterior tibial artery flow at the ankle likely related to hemodynamic stenosis otherwise negative along with some bilateral lower lobe infiltrates and atelectasis of what she does have chronic COPD and wears oxygen outpatient. Orthopedics was consulted and a left hip x-ray was done with highly suspicious acute minimally displaced fracture of the right femoral neck. Pulmonary patient reviewed and resumed and will continue with heparin subcu and hold eliquis in the event of surgical intervention which is tentatively scheduled for tomorrow. Repeat CT of the hip is ordered and pending. Labs reviewed and within normal limits from ER admission. 11/30/2022 Patient is seen and evaluated in follow-up this morning no acute overnight issues noted. Patient continues to have right hip pain with orthopedics following and plan is for ORIF with nailing or pinning of the fracture. Patient is currently nothing by mouth and will remain until post-surgery. Will resume home medications and continue to monitor closely. Will await surgical report. Patient is afebrile and medically stable for surgery today. 12/01/2022 Patient is seen in follow-up this morning postop percutaneous screws placed to the right hip for fracture. Orthopedics following and will discuss further about resuming anticoagulant. Patient does have history of atrial fibrillation. Patient also with chronic oxygen use of 4 L currently maintained on 5 L. Patient is reporting some shortness of breath and will include incentive spirometer and encourage the patient to use at least 10 times every hour while awake. Patient to work with physical therapy today and have discussed possible ECF if patient continues with weakness when stabilized. Recommend to hold lisinopril as blood pressures have been on the lower side. Will resume Lasix in the a.m. 12/02/2022 Patient is seen in follow-up today currently working with physical therapy getting up to the chair. Patient reports continued pain in the right hip although somewhat improved. Patient denies chest pain or worsening shortness of breath. Patient is currently on 3 L chronically wears 4 L in the outpatient setting. Patient with incentive spirometer and encourage the patient to continue using at least 10 times every hour while awake. Case management following as well as patient will require insurance authorization which is currently pending. Orthopedics following and has cleared the patient for discharge to ECF once insurance authorization is obtained. 12/03/2022 Patient is postoperative day #2 right hip percutaneous screws. Up in chair. Reports pain currently 4/10 on oral pain medication. Currently on 3 to 4 L of oxygen and wears 4L chronically no shortness of breath reported. Using incentive spirometer. Most recent labs showing white count of 4.46, hg 9.9, sodium 137, potassium 4.5, BUN 8, creatinine 0.7. Remains afebrile. No bowel movement, patient is receiving senakot, would recommend for suppository if needed. 12/04/2022 Patient is postoperative day #3 right hip percutaneous screws. She reports minim al pain at surgical site and was up ambulating in the room today and was able to ambulate to the restroom. She was able to have a bowel movement today and reports overall feeling better. Respiratory status at baseline per patient. Has had low grade fever of 99.7 recommend to continue incentive spirometer and use 10 times an hour. Will order a chest xray as temperature does seem to be increasing. 12/05/2022 Patient is seen and evaluated in follow-up status post right hip percutaneous screws intervention. Patient had a chest x-ray done yesterday showing subtle scattered opacification is which may represent an atypical pneumonia correlate for Covid Covid testing was negative. Patient denies any increasing shortness of breath. Patient needs encouragement with incentive spirometer and is continued on DuoNeb treatments and her chronic oxygen. Encouraged increased activity as tolerated as well with limitations and recommend PT/OT therapy daily. Case management following awaiting insurance authorization . Unlikely today given observed holiday of . Will follow up with case management the a.m. Patient is currently afebrile denies chest pain or shortness of breath. Tolerating diet with no reports of nausea or vomiting noted. Review of systems: Constitutional: No reports of fatigue, fever, or chills Cardiovascular: No reports of chest pain or palpitations Respiratory: No reports of shortness of breath or cough GI: No reports of nausea, vomiting, or diarrhea, reports passing gas with no bowel movement : No reports of dysuria or retention Neurovascular: reports of weakness and continued right hip pain All medications have been reviewed PHYSICAL EXAMINATION: GENERAL: The patient is alert and oriented x4, Well developed, well nourished. Obese. HEENT: Pupils are round and equally reacting to light. EOMI. no scleral icterus. No conjunctival pallor. Normocephalic, atraumatic. No pharyngeal erythema. No thyromegaly. CARDIOVASCULAR: S1 and S2 muffled PULMONARY: diminished breath sounds bilaterally with no wheezing or rhonchi noted. ABDOMEN: soft. Nontender on exam. obese. non-distended, normoactive bowel sounds. No palpable organomegaly. MUSCULOSKELETAL: No joint swelling or deformity. EXTREMITIES: No cyanosis, clubbing, or pedal edema. right hip pain on palpation NEUROLOGICAL: Gross neurological examination did not reveal any focal deficits. Diffuse weakness SKIN: No rashes. Assessment: Right hip pain with inability to ambulate, secondary to minimally displaced fracture of the right femoral neck, status post right hip percutaneous screws History of atrial fibrillation History of COPD, not an exacerbation Chronic hypoxic respiratory failure secondary to COPD, wears 4 L via nasal cannula outpatient History of hypertension History of anxiety/depression GI prophylaxis DVT prophylaxis Full code Plan: Recommend to continue with current medications and management and orthopedics following and underwent right hip percutaneous screws. Orthopedics has cleared the patient for discharge to [facility] with outpatient follow-up Home medications have been reviewed and resumed eliquis Encouraged oral intake, continue with anti-nausea medications as needed Recommend incentive spirometer and encourage the patient use at least 10 times every hour while awake PT/OT evaluated the patient post surgery and recommending rehab and patient is agreeable if her insurance will cover it. Case management following and has submitted for authorization. Due to the observed holiday of , unable to obtain insurance authorization today in case management following a working with liaison and will follow-up in the a.m. Patient is medically stable and ready for discharge once insurance authorization is obtained for patient to go to rehab for continued strength and mobility The impression and plan of care has been dictated by Malgorzata Knapp, nurse practitioner as directed. Dr. Khloe MD I have performed a history and examination and MDM of this patient, discussed the same with the dictator, and agree with the dictator's assessment and plan as written ,documented as a scribe. Based on total visit time, I have performed more than 50% of the visit. Any additional findings or plans will be noted. Objective - Vital Signs Vital signs: Vital Signs Temp 97.3 F L 12/05/22 06:53 Pulse 72 12/05/22 08:31 Resp 18 12/05/22 08:31 BP 102/61 12/05/22 06:53 Pulse Ox 97 12/05/22 08:22 FiO2 Intake & Output 12/04/22 12/05/22 12/05/22 18:59 06:59 18:59 Output Total 1900 1400 Balance -1900 -1400 Output: Urine 1900 1400 Other: Voiding Method External Catheter External Catheter # Bowel Movements 1 - Labs CBC & Chem 7: 12/02/22 05:46 12/01/22 07:08
[2022-12-06] MEDS: carvediloL 3.125 MG TAB PO SCH ×2 (07:23→18:13)
[2022-12-06] MEDS: IPRATROPIUM-ALBUTEROL 3 ML NEB INHALATION SCH ×3 (07:28→20:43)
[2022-12-06] MEDS: APIXABAN 5 MG TAB PO SCH ×2 (08:30→20:29)
[2022-12-06] MEDS: FUROSEMIDE 40 MG TAB PO SCH (08:30)
[2022-12-06] MEDS: SERTRALINE 100 MG TAB PO SCH (08:30)
[2022-12-06] MEDS: ARIPiprazole 2 MG TAB PO SCH (08:30)
[2022-12-06] MEDS: ISOSORBIDE MONONITRATE ER 60 MG TAB.ER.24H PO SCH (08:30)
[2022-12-06] MEDS: CARBIDOPA-LEVODOPA 25-100 MG 1 EACH TAB PO SCH ×2 (08:30→20:29)
[2022-12-06] MEDS: LIOTHYRONINE SODIUM 25 MCG PO SCH (08:36)
[2022-12-06 12:06] VITALS: BMI 38.7
--- NOTE | 2022-12-06 13:45 | P.PN ---
Subjective Progress Note Date: 12/06/22 This is a 67-year-old female who presented to the emergency department via EMS with concerns of right-sided groin and hip pain. Patient reports she has been having worsening pain of the hip area over the last 2 weeks. Patient denies any injury or falls most recently. Patient reports she follows with Dr. Dockery in the outpatient setting with a past medical history of atrial fibrillation, COPD, hypertension, anxiety/depression and denies any illicit drug use or alcohol and reports to never smoking. Patient reports approximately 2 years ago she had her left hip repaired as she broke the femur head off her left leg requiring intervention. Patient reports she has been compensating since the surgery and does have some pain that she reports is chronic. Patient does have a walker and a cane at the home. Patient had CT angiograph due to her diminished pulses and left leg pain showing some diminished distal right anterior tibial artery flow at the ankle likely related to hemodynamic stenosis otherwise negative along with some bilateral lower lobe infiltrates and atelectasis of what she does have chronic COPD and wears oxygen outpatient. Orthopedics was consulted and a left hip x-ray was done with highly suspicious acute minimally displaced fracture of the right femoral neck. Pulmonary patient reviewed and resumed and will continue with heparin subcu and hold eliquis in the event of surgical intervention which is tentatively scheduled for tomorrow. Repeat CT of the hip is ordered and pending. Labs reviewed and within normal limits from ER admission. 11/30/2022 Patient is seen and evaluated in follow-up this morning no acute overnight issues noted. Patient continues to have right hip pain with orthopedics following and plan is for ORIF with nailing or pinning of the fracture. Patient is currently nothing by mouth and will remain until post-surgery. Will resume home medications and continue to monitor closely. Will await surgical report. Patient is afebrile and medically stable for surgery today. 12/01/2022 Patient is seen in follow-up this morning postop percutaneous screws placed to the right hip for fracture. Orthopedics following and will discuss further about resuming anticoagulant. Patient does have history of atrial fibrillation. Patient also with chronic oxygen use of 4 L currently maintained on 5 L. Patient is reporting some shortness of breath and will include incentive spirometer and encourage the patient to use at least 10 times every hour while awake. Patient to work with physical therapy today and have discussed possible ECF if patient continues with weakness when stabilized. Recommend to hold lisinopril as blood pressures have been on the lower side. Will resume Lasix in the a.m. 12/02/2022 Patient is seen in follow-up today currently working with physical therapy getting up to the chair. Patient reports continued pain in the right hip although somewhat improved. Patient denies chest pain or worsening shortness of breath. Patient is currently on 3 L chronically wears 4 L in the outpatient setting. Patient with incentive spirometer and encourage the patient to continue using at least 10 times every hour while awake. Case management following as well as patient will require insurance authorization which is currently pending. Orthopedics following and has cleared the patient for discharge to ECF once insurance authorization is obtained. 12/03/2022 Patient is postoperative day #2 right hip percutaneous screws. Up in chair. Reports pain currently 4/10 on oral pain medication. Currently on 3 to 4 L of oxygen and wears 4L chronically no shortness of breath reported. Using incentive spirometer. Most recent labs showing white count of 4.46, hg 9.9, sodium 137, potassium 4.5, BUN 8, creatinine 0.7. Remains afebrile. No bowel movement, patient is receiving senakot, would recommend for suppository if needed. 12/04/2022 Patient is postoperative day #3 right hip percutaneous screws. She reports minim al pain at surgical site and was up ambulating in the room today and was able to ambulate to the restroom. She was able to have a bowel movement today and reports overall feeling better. Respiratory status at baseline per patient. Has had low grade fever of 99.7 recommend to continue incentive spirometer and use 10 times an hour. Will order a chest xray as temperature does seem to be increasing. 12/05/2022 Patient is seen and evaluated in follow-up status post right hip percutaneous screws intervention. Patient had a chest x-ray done yesterday showing subtle scattered opacification is which may represent an atypical pneumonia correlate for Covid Covid testing was negative. Patient denies any increasing shortness of breath. Patient needs encouragement with incentive spirometer and is continued on DuoNeb treatments and her chronic oxygen. Encouraged increased activity as tolerated as well with limitations and recommend PT/OT therapy daily. Case management following awaiting insurance authorization . Unlikely today given observed holiday of . Will follow up with case management the a.m. Patient is currently afebrile denies chest pain or shortness of breath. Tolerating diet with no reports of nausea or vomiting noted. 12/06/2022 Patient is seen and evaluated in follow-up today with no acute overnight issues. [facility]. No word from insurance as of yet. Patient is afebrile denies chest pain or worsening shortness of breath. Patient chronically wears 4 L via nasal cannula currently maintaining oxygen saturations above 90 on 2 L. Strongly recommended to continue with incentive spirometer and needs encouragement at least 10 times every hour while awake. Will continue on DuoNeb treatments. Patient tolerating diet had some episode of intermittent nausea last night although none reported today. Review of systems: Constitutional: No reports of fatigue, fever, or chills Cardiovascular: No reports of chest pain or palpitations Respiratory: No reports of shortness of breath or cough GI: No reports of nausea, vomiting, or diarrhea, reports passing gas and having bowel movements : No reports of dysuria or retention Neurovascular: reports of weakness and continued right hip pain All medications have been reviewed PHYSICAL EXAMINATION: GENERAL: The patient is alert and oriented x4, Well developed, well nourished. Obese. HEENT: Pupils are round and equally reacting to light. EOMI. no scleral icterus. No conjunctival pallor. Normocephalic, atraumatic. No pharyngeal erythema. No thyromegaly. CARDIOVASCULAR: S1 and S2 muffled PULMONARY: diminished breath sounds bilaterally with no wheezing or rhonchi noted. ABDOMEN: soft. Nontender on exam. obese. non-distended, normoactive bowel sounds. No palpable organomegaly. MUSCULOSKELETAL: No joint swelling or deformity. EXTREMITIES: No cyanosis, clubbing, or pedal edema. right hip tender on palpation although slightly improved NEUROLOGICAL: Gross neurological examination did not reveal any focal deficits. Diffuse weakness SKIN: No rashes. Assessment: Right hip pain with inability to ambulate, secondary to minimally displaced fracture of the right femoral neck, status post right hip percutaneous screws History of atrial fibrillation History of COPD, not an exacerbation Chronic hypoxic respiratory failure secondary to COPD, wears 4 L via nasal c annula outpatient History of hypertension History of anxiety/depression GI prophylaxis DVT prophylaxis Full code Plan: Recommend to continue with current medications and management and orthopedics f jadiel and underwent right hip percutaneous screws. Orthopedics has cleared the patient for discharge to [facility] with outpatient follow-up Home medications have been reviewed and resumed eliquis Encouraged oral intake, continue with anti-nausea medications as needed Recommend incentive spirometer and encourage the patient use at least 10 times every hour while awake PT/OT following and recommending rehab and patient is agreeable if her insurance will cover it. Case management following and has submitted for authorization. Still no authorization today and [facility] liaison working with the building inquiring with the insurance company. Patient is medically stable and ready for discharge once insurance authorization is obtained for patient to go to rehab for continued strength and mobility Will continue to monitor the patient closely during hospitalization. The impression and plan of care has been dictated by Malgorzata Knapp, nurse practitioner as directed. Dr. Khloe MD I have performed a history and examination and MDM of this patient, discussed the same with the dictator, and agree with the dictator's assessment and plan as written ,documented as a scribe. Based on total visit time, I have performed more than 50% of the visit. Any additional findings or plans will be noted. Objective - Vital Signs Vital signs: Vital Signs Temp 98.1 F 12/06/22 06:55 Pulse 74 12/06/22 11:16 Resp 18 12/06/22 06:55 BP 122/68 12/06/22 06:55 Pulse Ox 93 L 12/06/22 06:55 FiO2 Intake & Output 12/05/22 12/06/22 12/06/22 18:59 06:59 18:59 Intake Total 1080 Output Total 700 200 400 Balance 380 -200 -400 Weight 90 kg Intake: Oral 1080 Output: Urine 700 200 400 Other: Voiding Method External Catheter External Catheter # Voids 1 - Labs CBC & Chem 7: 12/02/22 05:46 12/01/22 07:08
[2022-12-06] MEDS: ATORVASTATIN 40 MG TAB PO SCH (20:29)
[2022-12-06] MEDS: SENNOSIDES-DOCUSATE SODIUM 1 EACH TAB PO SCH (20:29)
[2022-12-06] MEDS: HYDROcodone/APAP 5-325MG 1 EACH TAB PO PRN (23:24)
[2022-12-07] MEDS: traZODone HCL 100 MG TAB PO SCH ×2 (03:31→20:19)
[2022-12-07] MEDS: carvediloL 3.125 MG TAB PO SCH ×2 (08:06→18:48)
[2022-12-07] MEDS: HYDROcodone/APAP 5-325MG 1 EACH TAB PO PRN ×2 (08:06→23:31)
[2022-12-07] MEDS: IPRATROPIUM-ALBUTEROL 3 ML NEB INHALATION SCH ×3 (08:07→19:26)
[2022-12-07] MEDS: LIOTHYRONINE SODIUM 25 MCG PO SCH (08:21)
[2022-12-07] MEDS: ISOSORBIDE MONONITRATE ER 60 MG TAB.ER.24H PO SCH (08:24)
[2022-12-07] MEDS: SERTRALINE 100 MG TAB PO SCH (08:24)
[2022-12-07] MEDS: ARIPiprazole 2 MG TAB PO SCH (08:24)
[2022-12-07] MEDS: FUROSEMIDE 40 MG TAB PO SCH (08:24)
[2022-12-07] MEDS: CARBIDOPA-LEVODOPA 25-100 MG 1 EACH TAB PO SCH ×2 (08:24→20:19)
[2022-12-07] MEDS: APIXABAN 5 MG TAB PO SCH ×2 (08:24→20:19)
[2022-12-07] MEDS: ATORVASTATIN 40 MG TAB PO SCH (20:19)
[2022-12-07] MEDS: SENNOSIDES-DOCUSATE SODIUM 1 EACH TAB PO SCH (20:19)
[2022-12-08] MEDS: traZODone HCL 100 MG TAB PO SCH (04:09)
--- NOTE | 2022-12-08 05:06 | P.PN ---
Subjective Progress Note Date: 12/07/22 This is a 67-year-old female who presented to the emergency department via EMS with concerns of right-sided groin and hip pain. Patient reports she has been having worsening pain of the hip area over the last 2 weeks. Patient denies any injury or falls most recently. Patient reports she follows with Dr. Dockery in the outpatient setting with a past medical history of atrial fibrillation, COPD, hypertension, anxiety/depression and denies any illicit drug use or alcohol and reports to never smoking. Patient reports approximately 2 years ago she had her left hip repaired as she broke the femur head off her left leg requiring intervention. Patient reports she has been compensating since the surgery and does have some pain that she reports is chronic. Patient does have a walker and a cane at the home. Patient had CT angiograph due to her diminished pulses and left leg pain showing some diminished distal right anterior tibial artery flow at the ankle likely related to hemodynamic stenosis otherwise negative along with some bilateral lower lobe infiltrates and atelectasis of what she does have chronic COPD and wears oxygen outpatient. Orthopedics was consulted and a left hip x-ray was done with highly suspicious acute minimally displaced fracture of the right femoral neck. Pulmonary patient reviewed and resumed and will continue with heparin subcu and hold eliquis in the event of surgical intervention which is tentatively scheduled for tomorrow. Repeat CT of the hip is ordered and pending. Labs reviewed and within normal limits from ER admission. 11/30/2022 Patient is seen and evaluated in follow-up this morning no acute overnight issues noted. Patient continues to have right hip pain with orthopedics following and plan is for ORIF with nailing or pinning of the fracture. Patient is currently nothing by mouth and will remain until post-surgery. Will resume home medications and continue to monitor closely. Will await surgical report. Patient is afebrile and medically stable for surgery today. 12/01/2022 Patient is seen in follow-up this morning postop percutaneous screws placed to the right hip for fracture. Orthopedics following and will discuss further about resuming anticoagulant. Patient does have history of atrial fibrillation. Patient also with chronic oxygen use of 4 L currently maintained on 5 L. Patient is reporting some shortness of breath and will include incentive spirometer and encourage the patient to use at least 10 times every hour while awake. Patient to work with physical therapy today and have discussed possible ECF if patient continues with weakness when stabilized. Recommend to hold lisinopril as blood pressures have been on the lower side. Will resume Lasix in the a.m. 12/02/2022 Patient is seen in follow-up today currently working with physical therapy getting up to the chair. Patient reports continued pain in the right hip although somewhat improved. Patient denies chest pain or worsening shortness of breath. Patient is currently on 3 L chronically wears 4 L in the outpatient setting. Patient with incentive spirometer and encourage the patient to continue using at least 10 times every hour while awake. Case management following as well as patient will require insurance authorization which is currently pending. Orthopedics following and has cleared the patient for discharge to ECF once insurance authorization is obtained. 12/03/2022 Patient is postoperative day #2 right hip percutaneous screws. Up in chair. Reports pain currently 4/10 on oral pain medication. Currently on 3 to 4 L of oxygen and wears 4L chronically no shortness of breath reported. Using incentive spirometer. Most recent labs showing white count of 4.46, hg 9.9, sodium 137, potassium 4.5, BUN 8, creatinine 0.7. Remains afebrile. No bowel movement, patient is receiving senakot, would recommend for suppository if needed. 12/04/2022 Patient is postoperative day #3 right hip percutaneous screws. She reports minim al pain at surgical site and was up ambulating in the room today and was able to ambulate to the restroom. She was able to have a bowel movement today and reports overall feeling better. Respiratory status at baseline per patient. Has had low grade fever of 99.7 recommend to continue incentive spirometer and use 10 times an hour. Will order a chest xray as temperature does seem to be increasing. 12/05/2022 Patient is seen and evaluated in follow-up status post right hip percutaneous screws intervention. Patient had a chest x-ray done yesterday showing subtle scattered opacification is which may represent an atypical pneumonia correlate for Covid Covid testing was negative. Patient denies any increasing shortness of breath. Patient needs encouragement with incentive spirometer and is continued on DuoNeb treatments and her chronic oxygen. Encouraged increased activity as tolerated as well with limitations and recommend PT/OT therapy daily. Case management following awaiting insurance authorization . Unlikely today given observed holiday of . Will follow up with case management the a.m. Patient is currently afebrile denies chest pain or shortness of breath. Tolerating diet with no reports of nausea or vomiting noted. 12/06/2022 Patient is seen and evaluated in follow-up today with no acute overnight issues. Patient continues to [facility]. No word from insurance as of yet. Patient is afebrile denies chest pain or worsening shortness of breath. Patient chronically wears 4 L via nasal cannula currently maintaining oxygen saturations above 90 on 2 L. Strongly recommended to continue with incentive spirometer and needs encouragement at least 10 times every hour while awake. Will continue on DuoNeb treatments. Patient tolerating diet had some episode of intermittent nausea last night although none reported today. 12/07/2022 Patient seen and evaluated in follow-up this morning currently sitting up in a chair. Right hip surgical site is dry and intact and dressing remains. Will discuss with orthopedics if dressing can be removed at this point. Patient is afebrile denies chest pain or any worsening shortness of breath. Patient does have history of COPD and chronically wears oxygen and will continue with DuoNeb treatments. Patient denies nausea or vomiting and tolerating diet. Case management following and working with [facility] liaison as insurance has had multiple complications and having difficulty obtaining authorization. HAS been submitted per [facility] and awaiting for approval. Review of systems: Constitutional: No reports of fatigue, fever, or chills Cardiovascular: No reports of chest pain or palpitations Respiratory: No reports of shortness of breath or cough GI: No reports of nausea, vomiting, or diarrhea : No reports of dysuria or retention Neurovascular: reports of weakness and continued right hip pain with ambulation All medications have been reviewed PHYSICAL EXAMINATION: GENERAL: The patient is alert and oriented x4, Well developed, well nourished. Obese. HEENT: Pupils are round and equally reacting to light. EOMI. no scleral icterus. No conjunctival pallor. Normocephalic, atraumatic. No pharyngeal erythema. No thyromegaly. CARDIOVASCULAR: S1 and S2 muffled PULMONARY: diminished breath sounds bilaterally with no wheezing or rhonchi noted. ABDOMEN: soft. Nontender on exam. obese. non-distended, normoactive bowel sounds. No palpable organomegaly. MUSCULOSKELETAL: No joint swelling or deformity. EXTREMITIES: No cyanosis, clubbing, or pedal edema. right hip tenderness improved , surgical dressing remains dry and intact NEUROLOGICAL: Gross neurological examination did not reveal any focal deficits. Diffuse weakness SKIN: No rashes. Assessment: Right hip pain with inability to ambulate, secondary to minimally displaced fracture of the right femoral neck, status post right hip percutaneous screws History of atrial fibrillation History of COPD, not in exacerbation Chronic hypoxic respiratory failure secondary to COPD, wears 4 L via nasal cannula outpatient History of hypertension History of anxiety/depression GI prophylaxis DVT prophylaxis Full code Plan: Recommend to continue with current medications and management and orthopedics following and underwent right hip percutaneous screws. Orthopedics has cleared the patient for discharge to [facility] with outpatient follow-up. Surgical dressing remains and will discuss with orthopedics if okay to remove Home medications have been reviewed and resumed eliquis Encouraged oral intake, continue with anti-nausea medications as needed Recommend incentive spirometer and encourage the patient use at least 10 times every hour while awake, patient with chronic COPD we'll continue breathing treatments PT/OT following and recommending rehab and patient is agreeable if her insurance will cover it. Case management following and has submitted for authorization once again with a different pathway. Patient is medically stable and ready for discharge once insurance authorization is obtained for patient to go to rehab for continued strength and mobility. Patient with weightbearing restrictions per orthopedics would benefit from rehab to get back to her baseline. Patient continues with weakness Will continue to monitor the patient closely during hospitalization. The impression and plan of care has been dictated by Malgorzata Knapp, nurse practitioner as directed. Dr. Khloe MD I have performed a history and examination and MDM of this patient, discussed the same with the dictator, and agree with the dictator's assessment and plan as written ,documented as a scribe. Based on total visit time, I have performed more than 50% of the visit. Any additional findings or plans will be noted. Objective - Vital Signs Vital signs: Vital Signs Temp 98.6 F 12/08/22 00:17 Pulse 77 12/08/22 00:17 Resp 18 12/08/22 00:17 BP 104/62 12/08/22 00:17 Pulse Ox 92 L 12/08/22 00:17 FiO2 Intake & Output 12/07/22 12/07/22 12/08/22 06:59 18:59 06:59 Output Total 950 300 Balance -950 -300 Output: Urine 950 300 Other: Voiding Method External Catheter Indwelling Catheter External Catheter - Labs CBC & Chem 7: 12/02/22 05:46 12/01/22 07:08
[2022-12-08] MEDS: IPRATROPIUM-ALBUTEROL 3 ML NEB INHALATION SCH ×2 (07:58→12:41)
[2022-12-08] MEDS: SERTRALINE 100 MG TAB PO SCH (09:08)
[2022-12-08] MEDS: FUROSEMIDE 40 MG TAB PO SCH (09:08)
[2022-12-08] MEDS: CARBIDOPA-LEVODOPA 25-100 MG 1 EACH TAB PO SCH (09:08)
[2022-12-08] MEDS: ARIPiprazole 2 MG TAB PO SCH (09:09)
[2022-12-08] MEDS: APIXABAN 5 MG TAB PO SCH (09:09)
[2022-12-08] MEDS: carvediloL 3.125 MG TAB PO SCH (09:09)
[2022-12-08] MEDS: HYDROcodone/APAP 5-325MG 1 EACH TAB PO PRN ×2 (09:09→14:42)
[2022-12-08] MEDS: ISOSORBIDE MONONITRATE ER 60 MG TAB.ER.24H PO SCH (09:09)
[2022-12-08] MEDS: LIOTHYRONINE SODIUM 25 MCG PO SCH (09:12)
[2022-12-08 15:21] VITALS: BP 97/60; PULSE 81; RESP 16; TEMP 97.2
--- NOTE | 2022-12-09 20:08 | P.DS ---
Providers Date of admission: 11/29/22 13:16 Expected date of discharge: 12/08/22 Attending physician: Jeffrey Leonard Consults: 11/28/22 23:27 Consult Physician Urgent Consulting Provider: Junaid Steele Consult Reason/Comments: R hip pain Do you want consulting provider notified?: Yes Primary care physician: Jose Angel [facility] Course: Final diagnosis Right hip pain with inability to ambulate, secondary to minimally displaced fracture of the right femoral neck, status post right hip percutaneous screws History of atrial fibrillation History of COPD, not in exacerbation Chronic hypoxic respiratory failure secondary to COPD, wears 4 L via nasal cannula outpatient History of hypertension History of anxiety/depression GI prophylaxis DVT prophylaxis Full code Discharge disposition Patient is being discharged in a stable condition with guarded prognosis to home. Patient will follow-up with in the outpatient setting upon discharge. Patient is to continue with hemodialysis as scheduled. Total time taken is greater than 35 minutes. Hospital course This is a 67-year-old female who was recently admitted with right hip pain and found to have a fracture of the right femoral neck and underwent percutaneous screws placement with fixation. Patient has been cleared by orthopedics for discharge. Initially patient was weak and recommending rehab with physical therapy following having difficulty with insurance authorization. Patient continue to work with physical therapy daily during the week while hospitalized showing some improvement and patient now wishes to go home. Home care is being arranged. Patient reports she has support at home with people that can help her. Currently no reports of chest pain, shortness of breath, or palpitations. Patient is afebrile. No reports of nausea or vomiting and patient is tolerating diet. Patient will be going home with home care today. Guarded prognosis Physical exam: Gen: This is a 67-year-old female who is awake, alert and oriented 3, well- developed, well-nourished, obese HEENT: Head is atraumatic, normocephalic. Pupils equal, round. Sclerae is anicteric. NECK: Supple. No JVD. No lymphadenopathy. No thyromegaly. LUNGS: Diminished breath sounds bilaterally with scattered rhonchi. No intercostal retractions. HEART: Regular rate and rhythm. No murmur. ABDOMEN: Soft. Bowel sounds are present. No masses. No tenderness. EXTREMITIES: No pedal edema. No calf tenderness. Right hip surgical site is dry and intact with no surrounding erythema or swelling noted NEUROLOGICAL: Patient is awake, alert and oriented x3. Cranial nerves 2 through 12 are grossly intact. Please refer to medication reconciliation sheet for a list of medications. The impression and plan of care has been dictated by Malgorzata Knapp, Nurse Practitioner as directed. Dr. Khloe MD I have performed a history and examination and MDM of this patient, discussed the same with the dictator, and agree with the dictator's assessment and plan as written ,documented as a scribe. Based on total visit time, I have performed more than 50% of the visit. Patient Condition at Discharge: Fair Plan - Discharge Summary Discharge Rx Participant: Yes New Discharge Prescriptions: New HYDROcodone/APAP 5-325MG [[place] 5-325] 1 tab PO Q6HR PRN 3 Days #12 tab PRN Reason: Pain Magnesium Hydroxide [Milk of Magnesia Concentrate] 2,400 mg PO DAILY PRN ml PRN Reason: Constipation Ipratropium-Albuterol Nebulize [Duoneb 0.5 mg-3 mg/3 ml Soln] 3 ml INHALATION TID #100 each Continue carvediloL [Coreg] 3.125 mg PO BID Dicyclomine [Bentyl] 10 mg PO QID PRN PRN Reason: ibs Carbidopa/Levodopa [Sinemet 25-100 mg Tablet] 1 tab PO BID Apixaban [Eliquis] 5 mg PO BID Liothyronine Sodium [Cytomel] 25 mcg PO DAILY Atorvastatin [Lipitor] 40 mg PO HS ARIPiprazole [Abilify] 2 mg PO DAILY Sertraline [Zoloft] 200 mg PO DAILY Nitroglycerin Sl Tabs [Nitrostat] 0.4 mg SL Q5M PRN PRN Reason: Chest Pain traZODone HCL [Desyrel] 100 mg PO DAILY@0400 traZODone HCL 300 mg PO HS Isosorbide Mononitrate ER [Imdur] 60 mg PO DAILY Furosemide [Lasix] 40 mg PO DAILY Alendronate Sodium [Fosamax] 70 mg PO Q7D Discontinued lisinopriL [Zestril] 5 mg PO DAILY Enalapril [Vasotec] 10 mg PO DAILY Discharge Medication List ARIPiprazole [Abilify] 2 mg PO DAILY 11/29/22 [History] Alendronate Sodium [Fosamax] 70 mg PO Q7D 11/29/22 [History] Apixaban [Eliquis] 5 mg PO BID 11/29/22 [History] Atorvastatin [Lipitor] 40 mg PO HS 11/29/22 [History] Carbidopa/Levodopa [Sinemet 25-100 mg Tablet] 1 tab PO BID 11/29/22 [History] Dicyclomine [Bentyl] 10 mg PO QID PRN 11/29/22 [History] Furosemide [Lasix] 40 mg PO DAILY 11/29/22 [History] Isosorbide Mononitrate ER [Imdur] 60 mg PO DAILY 11/29/22 [History] Liothyronine Sodium [Cytomel] 25 mcg PO DAILY 11/29/22 [History] Nitroglycerin Sl Tabs [Nitrostat] 0.4 mg SL Q5M PRN 11/29/22 [History] Sertraline [Zoloft] 200 mg PO DAILY 11/29/22 [History] carvediloL [Coreg] 3.125 mg PO BID 11/29/22 [History] traZODone HCL 300 mg PO HS 11/29/22 [History] traZODone HCL [Desyrel] 100 mg PO DAILY@0400 11/29/22 [History] Magnesium Hydroxide [Milk of Magnesia Concentrate] 2,400 mg PO DAILY PRN ml 12/02/22 [Rx] HYDROcodone/APAP 5-325MG [[place] 5-325] 1 tab PO Q6HR PRN 3 Days #12 tab 12/08/22 [Rx] Ipratropium-Albuterol Nebulize [Duoneb 0.5 mg-3 mg/3 ml Soln] 3 ml INHALATION TID #100 each 12/08/22 [Rx] Follow up Appointment(s)/Referral(s): Jose Angel Dockery MD [Primary Care Provider] - 1-2 days (Please call office for your appointment.) [facility], [NON-STAFF] - As Needed Junaid Steele DO [Doctor of Osteopathic Medicine] - 12/15/22 10:20 am Patient Instructions/Handouts: ORIF (DC) Activity/Diet/Wound Care/Special Instructions: Activity Limited until follow-up Follow-up primary care provider on discharge Follow-up orthopedics at your scheduled appointment Continue with home care Continue taking medications as prescribed Continue with [place] with half a tab to 1 tab as needed for severe pain otherwise okay to use Tylenol Continue current diet Discharge Disposition: HOME WITH HOME HEALTH SERVICES
== END 2022-12-08 15:38 | disposition home health service (06) | DRG 481 ==
LOC: EC 18:54 → 6NMEDSUR 11-29 02:14 → 4SSUR 11-29 11:20 → OBSVTOIN 11-29 13:16 → 4SSUR 11-29 17:22
PROVIDERS: ADMIT Hospitalist; ATTEND Hospitalist
PROC: 0QH604Z Insertion of Internal Fixation Device into Right Upper Femur, Open Approach (ICD-10-PCS; principal; 2022-11-30 12:00)
DX: S72.001A Fracture of unspecified part of neck of right femur, initial encounter for closed fracture (principal); J96.11 Chronic respiratory failure with hypoxia; I10 Essential (primary) hypertension; I48.91 Unspecified atrial fibrillation; Z79.01 Long term (current) use of anticoagulants; Z79.83 Long term (current) use of bisphosphonates; Z96.642 Presence of left artificial hip joint; Z96.651 Presence of right artificial knee joint; Z79.899 Other long term (current) drug therapy; Z88.0 Allergy status to penicillin; F32.A Depression, unspecified; J44.9 Chronic obstructive pulmonary disease, unspecified; Z20.822 Contact with and (suspected) exposure to COVID-19
CPT/HCPCS: 36415; 71046; 73502; 75635; 80048; 80053; 85025; 85610; 85730; 87635; 94640; 94760; 96361; 96372; 96374; 96376; 99285

== ENCOUNTER 2023-03-04 09:37 | Inpatient (IN) | payer MEDICARE ==
[2023-03-04] MEDS ORDERED: SODIUM CHLORIDE 0.9% 1,000 ML IV STA ×2 (09:45→09:58)
[2023-03-04] MEDS: NOREPINEPHRINE 32 MG in SODIUM CHLORIDE 0.9% 218 ML IV SCH (09:55)
[2023-03-04] MEDS ORDERED: IPRATROPIUM-ALBUTEROL 3 ML NEB INHALATION PRN ×2 (10:01→12:39)
[2023-03-04] MEDS ORDERED: LORazepam 2 MG/ML INJ IV PRN (10:01)
--- NOTE | 2023-03-04 10:01 | ED ---
General Adult HPI - General Chief complaint: Cardiac Arrest/CPR Stated complaint: Cardiac Arrest Time Seen by Provider: 03/04/23 09:37 Source: EMS, RN notes reviewed Mode of arrival: EMS Limitations: altered mental status, physical limitation - History of Present Illness Initial comments: Patient is a 67-year-old female presenting to the emergency department with cardiac arrest. Patient was picked up from [facility] where she was found unresponsive on a motorized scooter. Patient remains unresponsive on arrival and provides no history. History from EMS. Patient did report that she has cardiac history prior to becoming unresponsive. EMS did perform CPR for around 15 minutes prior to arrival and did provide 3 epinephrine and intubated patient. Patient did have return of circulation upon arrival. - Related Data Home Medications Medication Instructions Recorded Confirmed ARIPiprazole [Abilify] 2 mg PO DAILY 11/29/22 11/29/22 Alendronate Sodium [Fosamax] 70 mg PO Q7D 11/29/22 11/29/22 Apixaban [Eliquis] 5 mg PO BID 11/29/22 11/29/22 Atorvastatin [Lipitor] 40 mg PO HS 11/29/22 11/29/22 Carbidopa/Levodopa [Sinemet 25-100 1 tab PO BID 11/29/22 11/29/22 mg Tablet] Dicyclomine [Bentyl] 10 mg PO QID PRN 11/29/22 11/29/22 Furosemide [Lasix] 40 mg PO DAILY 11/29/22 11/29/22 Isosorbide Mononitrate ER [Imdur] 60 mg PO DAILY 11/29/22 11/29/22 Liothyronine Sodium [Cytomel] 25 mcg PO DAILY 11/29/22 11/29/22 Nitroglycerin Sl Tabs [Nitrostat] 0.4 mg SL Q5M PRN 11/29/22 11/29/22 Sertraline [Zoloft] 200 mg PO DAILY 11/29/22 11/29/22 carvediloL [Coreg] 3.125 mg PO BID 11/29/22 11/29/22 traZODone HCL 300 mg PO HS 11/29/22 11/29/22 traZODone HCL [Desyrel] 100 mg PO DAILY@0400 11/29/22 11/29/22 Previous Rx's Medication Instructions Recorded Magnesium Hydroxide [Milk of 2,400 mg PO DAILY PRN ml 12/02/22 Magnesia Concentrate] HYDROcodone/APAP 5-325MG [[place] 1 tab PO Q6HR PRN 3 Days #12 tab 12/08/22 5-325] Ipratropium-Albuterol Nebulize 3 ml INHALATION TID #100 each 12/08/22 [Duoneb 0.5 mg-3 mg/3 ml Soln] Allergies Allergy/AdvReac Type Severity Reaction Status Date / Time cephalexin [From Keflex] Allergy Mouth Verified 11/30/22 11:02 swelling Review of Systems ROS Statement: Those systems with pertinent positive or pertinent negative responses have been documented in the HPI. ROS Other: All systems not noted in ROS Statement are negative. Limitations: ROS unobtainable due to patients medical condition Past Medical History Past Medical History: Atrial Fibrillation, COPD, Hypertension Additional Past Medical History / Comment(s): at home O2 History of Any Multi-Drug Resistant Organisms: None Reported Past Surgical History: No Surgical Hx Reported Additional Past Surgical History / Comment(s): star filter, left rotator cuff, RTKR. Past Anesthesia/Blood Transfusion Reactions: No Reported Reaction Type of Cardiac Device: Permanent Pacemaker, AICD Device Placement Date:: 2001 Past Psychological History: Anxiety, Depression Smoking Status: Never smoker Past Alcohol Use History: None Reported, Occasional Past Drug Use History: None Reported - Past Family History Mother Family Medical History: Cancer, Coronary Artery Disease (CAD) Additional Family Medical History / Comment(s): urterine CA General Exam Limitations: altered mental status, physical limitation General appearance: other (Unresponsive) Head exam: Present: atraumatic Eye exam: Present: other (Pupils dilated and sluggish) ENT exam: Present: normal oropharynx (Intubated) Neck exam: Present: normal inspection Respiratory exam: Present: other (No spontaneous breath sounds. Breath sounds equal with bagging insufflation) Cardiovascular Exam: Present: tachycardia, irregular rhythm Expanded Peripheral pulses: 1+: Radial (R), Radial (L), Femoral (R), Femoral (L), Poste rior Tibialis (R), Posterior Tibialis (L), Dorsalis Pedis (R), Dorsalis Pedis (L) GI/Abdominal exam: Present: soft. Absent: distended, tenderness Extremities exam: Present: normal inspection Neurological exam: Present: altered Expanded Eye Response: (1) no response Motor Response: (1) no motor response Verbal Response: (1) no verbal response Psychiatric exam: Present: other (Nonverbal) Skin exam: Present: normal color Course Vital Signs 03/04/23 03/04/23 03/04/23 09:40 09:45 09:50 Temperature 98.7 F Pulse Rate 96 96 92 Respiratory 18 16 16 Rate Blood Pressure 57/42 60/42 48/20 O2 Sat by Pulse 99 98 Oximetry Fraction of 100 100 Inspired Oxygen (FIO2) 03/04/23 03/04/23 03/04/23 09:55 10:01 10:05 Temperature Pulse Rate 92 92 92 Respiratory 16 16 18 Rate Blood Pressure 60/24 70/30 114/50 O2 Sat by Pulse 99 100 99 Oximetry Fraction of Inspired Oxygen (FIO2) 03/04/23 03/04/23 03/04/23 10:10 11:20 11:30 Temperature Pulse Rate 96 88 89 Respiratory 18 16 16 Rate Blood Pressure 124/57 52/27 78/42 O2 Sat by Pulse 97 95 94 L Oximetry Fraction of Inspired Oxygen (FIO2) 03/04/23 03/04/23 12:11 12:17 Temperature Pulse Rate 85 82 Respiratory 20 18 Rate Blood Pressure 76/42 83/48 O2 Sat by Pulse 95 Oximetry Fraction of Inspired Oxygen (FIO2) EKG Findings - EKG Results: EKG: interpreted by ERMD (([place]. Nonspecific intraventricular conduction delay. Lateral ST depression.) EKG shows: atrial fibrillation Procedures - ABG Interpretation Ph: 7.16 PCO2: 53 PO2: 74 Bicarbonate: 19 - Central Line Placement Right Femoral Consent Obtained: emergent situation Patient Placed on Monitor/Pulse Ox: Yes MD Prep: mask, gown, gloves Central Line Prep: Chlorhexidine scrub Ultrasound Used for Placement: No Central Line Lumen Inserted: triple Central Line Position: good blood return, all ports aspirated, flushed, capped, sutured in place with 3-0 nylon Dressing Applied: Tegaderm Patient Tolerated Procedure: well Complications: none Medical Decision Making - Medical Decision Making Was pt. sent in by a medical professional or institution (, PA, COMPLIANCE INTERN, urgent care, hospital, or chcf...) When possible be specific @ -Patient was sent in from [facility] Did you speak to anyone other than the patient for history (EMS, parent, family, police, friend...)? What history was obtained from this source @ -EMS provides history Did you review nursing and triage notes (agree or disagree)? Why? @ -I reviewed and agree with nursing and triage notes Were old charts reviewed (outside hosp., previous admission, EMS record, old EKG, old radiological studies, urgent care reports/EKG's, chcf records)? Report findings @ -No old charts were reviewed Differential Diagnosis (chest pain, altered mental status, abdominal pain women, abdominal pain men, vaginal bleeding, weakness, fever, dyspnea, syncope, headache, dizziness, GI bleed, back pain, seizure, CVA, palpatations, mental health)? @ -not applicable EKG interpreted by me (3pts min.). @ -As above X-rays interpreted by me (1pt min.). @ -Chest x-ray shows diffuse fluffy infiltrates CT interpreted by me (1pt min.). @ -Reports reviewed U/S interpreted by me (1pt. min.). @ -None done What testing was considered but not performed or refused? (CT, X-rays, U/S, labs)? Why? @ -None What meds were considered but not given or refused? Why? @ -None Did you discuss the management of the patient with other professionals (humaira edouard i.e. , PA, COMPLIANCE INTERN, lab, RT, psych nurse, renal social worker, cradle placer, teacher, bank compliance officer, child support case officer)? Give summary @ -Case was discussed with Dr. Amos, who will admit covering hospital call. Case also discussed with pulmonary Dr. Estrada will come evaluate and consult. Was smoking cessation discussed for >3mins.? @ -No Was critical care preformed (if so, how long)? @ -32 minutes critical care time Were there social determinants of health that impacted care today? How? (H omelessness, low income, unemployed, alcoholism, drug addiction, transportation, low edu. Level, literacy, decrease access to med. care, senior living, rehab)? @ -No Was there de-escalation of care discussed even if they declined (Discuss DNR or withdrawal of care, Hospice)? DNR status @ -No What co-morbidities impacted this encounter? (DM, HTN, Smoking, COPD, CAD, Cancer, CVA, ARF, Chemo, Hep., AIDS, mental health diagnosis, sleep apnea, morbid obesity)? @ -None Was patient admitted / discharged? Hospital course, mention meds given and route, prescriptions, significant lab abnormalities, going to OR and other pertinent info. @ -Patient will be admitted. Family is present. Family is updated. Admission orders started. Patient is intubated on pressors with central line. Blood pressure is still marginal. Family updated on patient's poor condition. Patient has possible aspiration and will be covered with antibiotics and blood cultures will be drawn. Undiagnosed new problem with uncertain prognosis? @ -No Drug Therapy requiring intensive monitoring for toxicity (Heparin, Nitro, Insulin, Cardizem)? @ -Patient is on the Levophed that will need to be monitored Were any procedures done? @ -Central line, see above Diagnosis/symptom? @ -Cardiac arrest Acute, or Chronic, or Acute on Chronic? @ -Acute Uncomplicated (without systemic symptoms) or Complicated (systemic symptoms)? @ -Complicated with aspiration Side effects of treatment? @ -No Exacerbation, Progression, or Severe Exacerbation? @ -No Poses a threat to life or bodily function? How? (Chest pain, [place], MA, pneumonia, PE, COPD, DKA, ARF, appy, cholecystitis, CVA, Diverticulitis, Homicidal, Suicidal, threat to staff... and all critical care pts) @ -Cardiac arrest has potential for threat of life. Patient also has associated aspiration pneumonia - Lab Data Result diagrams: 03/04/23 10:02 03/04/23 10:02 Lab Results 03/04/23 03/04/23 03/04/23 Range/Units 10:02 10:02 10:02 WBC 9.7 (3.8-10.6) k/uL RBC 3.53 L (3.80-5.40) m/uL Hgb 11.4 (11.4-16.0) gm/dL Hct 37.9 (34.0-46.0) % MCV 107.2 H (80.0-100.0) fL MCH 32.2 (25.0-35.0) pg MCHC 30.0 L (31.0-37.0) g/dL RDW 14.1 (11.5-15.5) % Plt Count 246 (150-450) k/uL MPV 8.9 Neutrophils % 48 % Lymphocytes % 45 % Monocytes % 3 % Eosinophils % 1 % Basophils % 0 % Neutrophils # 4.7 (1.3-7.7) k/uL Lymphocytes # 4.4 (1.0-4.8) k/uL Monocytes # 0.3 (0-1.0) k/uL Eosinophils # 0.1 (0-0.7) k/uL Basophils # 0.0 (0-0.2) k/uL Hypochromasia Marked Macrocytosis Moderate PT 11.1 (9.0-12.0) sec INR 1.1 (<1.2) APTT 23.9 (22.0-30.0) sec D-Dimer 3.10 H (<0.60) mg/L FEU Sample Site ABG pH (7.35-7.45) ABG pCO2 (35-45) mmHg ABG pO2 (83-108) mmHg ABG HCO3 (21-25) mmol/L ABG Total CO2 (19-24) mmol/L ABG O2 Saturation (94-97) % ABG Base Excess mmol/L Noe Test FiO2 % Sodium 137 (137-145) mmol/L Potassium 4.3 (3.5-5.1) mmol/L Chloride 104 (98-107) mmol/L Carbon Dioxide 17 L (22-30) mmol/L Anion Gap 16 mmol/L BUN 12 (7-17) mg/dL Creatinine 0.76 (0.52-1.04) mg/dL Est GFR (CKD-EPI)AfAm >90 (>60 ml/min/1.73 sqM) Est GFR (CKD-EPI)NonAf 81 (>60 ml/min/1.73 sqM) Glucose 325 H (74-99) mg/dL Calcium 8.6 (8.4-10.2) mg/dL Magnesium 2.2 (1.6-2.3) mg/dL Total Bilirubin 0.7 (0.2-1.3) mg/dL AST 57 H (14-36) U/L ALT 14 (4-34) U/L Alkaline Phosphatase 73 (38-126) U/L Troponin I (0.000-0.034) ng/mL NT-Pro-B Natriuret Pep pg/mL Total Protein 6.7 (6.3-8.2) g/dL Albumin 3.8 (3.5-5.0) g/dL Amylase 83 (30-110) U/L Lipase 242 (23-300) U/L Influenza Type A (PCR) (Not Detectd) Influenza Type B (PCR) (Not Detectd) RSV (PCR) (Not Detectd) SARS-CoV-2 (PCR) (Not Detectd) 03/04/23 03/04/23 03/04/23 Range/Units 10:02 10:02 10:18 WBC (3.8-10.6) k/uL RBC (3.80-5.40) m/uL Hgb (11.4-16.0) gm/dL Hct (34.0-46.0) % MCV (80.0-100.0) fL MCH (25.0-35.0) pg MCHC (31.0-37.0) g/dL RDW (11.5-15.5) % Plt Count (150-450) k/uL MPV Neutrophils % % Lymphocytes % % Monocytes % % Eosinophils % % Basophils % % Neutrophils # (1.3-7.7) k/uL Lymphocytes # (1.0-4.8) k/uL Monocytes # (0-1.0) k/uL Eosinophils # (0-0.7) k/uL Basophils # (0-0.2) k/uL Hypochromasia Macrocytosis PT (9.0-12.0) sec INR (<1.2) APTT (22.0-30.0) sec D-Dimer (<0.60) mg/L FEU Sample Site ABG pH (7.35-7.45) ABG pCO2 (35-45) mmHg ABG pO2 (83-108) mmHg ABG HCO3 (21-25) mmol/L ABG Total CO2 (19-24) mmol/L ABG O2 Saturation (94-97) % ABG Base Excess mmol/L Noe Test FiO2 % Sodium (137-145) mmol/L Potassium (3.5-5.1) mmol/L Chloride (98-107) mmol/L Carbon Dioxide (22-30) mmol/L Anion Gap mmol/L BUN (7-17) mg/dL Creatinine (0.52-1.04) mg/dL Est GFR (CKD-EPI)AfAm (>60 ml/min/1.73 sqM) Est GFR (CKD-EPI)NonAf (>60 ml/min/1.73 sqM) Glucose (74-99) mg/dL Calcium (8.4-10.2) mg/dL Magnesium (1.6-2.3) mg/dL Total Bilirubin (0.2-1.3) mg/dL AST (14-36) U/L ALT (4-34) U/L Alkaline Phosphatase (38-126) U/L Troponin I 0.022 (0.000-0.034) ng/mL NT-Pro-B Natriuret Pep 2290 pg/mL Total Protein (6.3-8.2) g/dL Albumin (3.5-5.0) g/dL Amylase (30-110) U/L Lipase (23-300) U/L Influenza Type A (PCR) Not Detected (Not Detectd) Influenza Type B (PCR) Not Detected (Not Detectd) RSV (PCR) Not Detected (Not Detectd) SARS-CoV-2 (PCR) Not Detected (Not Detectd) 03/04/23 Range/Units 12:10 WBC (3.8-10.6) k/uL RBC (3.80-5.40) m/uL Hgb (11.4-16.0) gm/dL Hct (34.0-46.0) % MCV (80.0-100.0) fL MCH (25.0-35.0) pg MCHC (31.0-37.0) g/dL RDW (11.5-15.5) % Plt Count (150-450) k/uL MPV Neutrophils % % Lymphocytes % % Monocytes % % Eosinophils % % Basophils % % Neutrophils # (1.3-7.7) k/uL Lymphocytes # (1.0-4.8) k/uL Monocytes # (0-1.0) k/uL Eosinophils # (0-0.7) k/uL Basophils # (0-0.2) k/uL Hypochromasia Macrocytosis PT (9.0-12.0) sec INR (<1.2) APTT (22.0-30.0) sec D-Dimer (<0.60) mg/L FEU Sample Site rrad ABG pH 7.17 L* (7.35-7.45) ABG pCO2 53 H (35-45) mmHg ABG pO2 75 L (83-108) mmHg ABG HCO3 19 L (21-25) mmol/L ABG Total CO2 21 (19-24) mmol/L ABG O2 Saturation 91.4 L (94-97) % ABG Base Excess -9.3 mmol/L Noe Test Yes FiO2 100 % Sodium (137-145) mmol/L Potassium (3.5-5.1) mmol/L Chloride (98-107) mmol/L Carbon Dioxide (22-30) mmol/L Anion Gap mmol/L BUN (7-17) mg/dL Creatinine (0.52-1.04) mg/dL Est GFR (CKD-EPI)AfAm (>60 ml/min/1.73 sqM) Est GFR (CKD-EPI)NonAf (>60 ml/min/1.73 sqM) Glucose (74-99) mg/dL Calcium (8.4-10.2) mg/dL Magnesium (1.6-2.3) mg/dL Total Bilirubin (0.2-1.3) mg/dL AST (14-36) U/L ALT (4-34) U/L Alkaline Phosphatase (38-126) U/L Troponin I (0.000-0.034) ng/mL NT-Pro-B Natriuret Pep pg/mL Total Protein (6.3-8.2) g/dL Albumin (3.5-5.0) g/dL Amylase (30-110) U/L Lipase (23-300) U/L Influenza Type A (PCR) (Not Detectd) Influenza Type B (PCR) (Not Detectd) RSV (PCR) (Not Detectd) SARS-CoV-2 (PCR) (Not Detectd) Critical Care Time Critical Care Time: Yes Total Critical Care Time: 32 Disposition Clinical Impression: Cardiac arrest, Aspiration pneumonia, Hypotension Disposition: ADMITTED IP TO THIS HOSP Is patient prescribed a controlled substance at d/c from ED?: No Referrals: None,Stated [Primary Care Provider] - 1-2 days Time of Disposition: 12:37
[2023-03-04 10:02] LABS: Basophils % (A) 0 %; Eosinophils # (A) 0.1 k/uL (0-0.7); Eosinophils % (A) 1 %; HCT 37.9 % (34.0-46.0); HGB 11.4 gm/dL (11.4-16.0); Hypochromasia Marked; Lymphocytes # (A) 4.4 k/uL (1.0-4.8); Lymphocytes % (A) 45 %; MCH 32.2 pg (25.0-35.0); MCV 107.2 fL (80.0-100.0); Macrocytosis Moderate; Mean Platelet Volume 8.9; Monocytes # (A) 0.3 k/uL (0-1.0); Monocytes % (A) 3 %; Neutrophils # (A) 4.7 k/uL (1.3-7.7); Neutrophils % (A) 48 %; Platelet Count 246 k/uL (150-450); RBC 3.53 m/uL (3.80-5.40); RDW 14.1 % (11.5-15.5); WBC 9.7 k/uL (3.8-10.6)
--- NOTE | 2023-03-04 10:15 | XR ---
EXAMINATION TYPE: XR chest 1V portable DATE OF EXAM: 03/04/2023 10:08 AM COMPARISON: Chest radiographs from 12/04/2022 TECHNIQUE: XR chest 1V portable Portable AP radiograph of the chest. CLINICAL INDICATION:Female, 67 years old with history of chest pain; FINDINGS: Lungs/Pleura: No pneumothorax or pleural effusion. Right basilar patchy airspace opacity. Pulmonary vascularity: Pulmonary vascular congestion. Heart/mediastinum: Cardiomediastinal silhouette is enlarged and stable. Three lead cardiac conduction device overlying the left hemithorax with lead tips projecting over the right ventricle, right atriu m and coronary sinus. Musculoskeletal: No acute osseous pathology. Left shoulder prosthesis. Other findings: None Lines/Tubes: Endotracheal tube with distal tip 3.3 cm above the raffi Possible NG tube terminating in the midesophagus. IMPRESSION: 1. Cardiomegaly and mild pulmonary vascular congestion. Correlate with BNP for congestive heart fail ure. Right basilar patchy airspace opacity which may represent pulmonary edema versus infiltrate. 2. Endotracheal tube in appropriate position. 3. Possible NG tube terminating in the mid esophagus. Clinical correlation is recommended.
[2023-03-04 10:26] LABS: ALT 14 U/L (4-34); AST 57 U/L (14-36); African American GFR (CKD) >90 (>60 ml/min/1.73 sqM); Albumin 3.8 g/dL (3.5-5.0); Alkaline Phosphatase 73 U/L (38-126); Amylase 83 U/L (30-110); Anion Gap 16 mmol/L; Blood Urea Nitrogen 12 mg/dL (7-17); Calcium 8.6 mg/dL (8.4-10.2); Carbon Dioxide 17 mmol/L (22-30); Chloride 104 mmol/L (98-107); Glucose 325 mg/dL (74-99); INR 1.1 (<1.2); Lipase 242 U/L (23-300); Magnesium 2.2 mg/dL (1.6-2.3); Non-African American GFR(CKD) 81 (>60 ml/min/1.73 sqM); Partial Thromboplastin Time 23.9 sec (22.0-30.0); Potassium 4.3 mmol/L (3.5-5.1); Prothrombin Time 11.1 sec (9.0-12.0); Sodium 137 mmol/L (137-145); Total Bilirubin 0.7 mg/dL (0.2-1.3); Total Protein 6.7 g/dL (6.3-8.2)
[2023-03-04] MEDS: LORazepam 2 MG/ML INJ IV PRN ×5 (10:35→23:40)
--- NOTE | 2023-03-04 11:27 | CT ---
EXAMINATION TYPE: CT brain wo con CT DLP: 1131.4 mGycm, Automated exposure control for dose reduction was used. DATE OF EXAM: 03/04/2023 11:19 AM COMPARISON: None. CLINICAL INDICATION:Female, 67 years old with history of ams, cardiac arrest. TECHNIQUE: Brain: Multiple axial CT images of the brain were obtained without IV contrast. Coronal and sagittal reformats reviewed. FINDINGS: Brain: Extra-axial spaces: No abnormal extra-axial fluid collections. Ventricular system: Within normal limits Cerebral parenchyma: Cerebral atrophy. No acute intraparenchymal hemorrhage or mass effect. The rivas -white junction is well differentiated. Nonspecific bilateral basal ganglia calcifications. Cerebellum: Unremarkable. Mass effect: No evidence of midline shift. Intracranial vasculature: unremarkable Soft tissues: Normal. Calvarium/osseous structures: No depressed skull fracture. Paranasal sinuses and mastoid air cells: Mastoid air cells are clear. Air-fluid level within the left maxillary sinus. Scattered mild mucosal thickening of the left ethmoid sinus and bilateral sphenoid sinuses. Secretions demonstrated within the nasopharynx. Visualized orbits: Bilateral aphakia IMPRESSION: 1. No acute intracranial process. 2. Paranasal sinus disease with air-fluid level within the left maxilla sinus. Correlate for acute s inusitis.
--- NOTE | 2023-03-04 11:37 | CT ---
EXAMINATION TYPE: CT angio chest CT DLP: 808.5 mGycm, Automated exposure control for dose reduction was used. DATE OF EXAM: 03/04/2023 11:20 AM COMPARISON: Chest radiograph from same day. CLINICAL INDICATION:Female, 67 years old with history of arrest; cardiac arrest and elevated d-dimer TECHNIQUE/CONTRAST: CTA scan of the thorax is performed with IV Contrast, patient injected with 65 mL of Isovue 370, pulm onary embolism protocol. MIP images are created and reviewed. FINDINGS: Pulmonary Artery: There is no evidence for a filling defect within the pulmonary vasculature to sugge st acute pulmonary embolism. The pulmonary artery is large measuring 3.5 cm in diameter which can be seen in the setting of pulmonary arterial hypertension. Lungs/Pleura: No pneumothorax or pleural effusion. Patchy consolidation demonstrated within both lowe r lobes and right upper lobe with scattered patchy groundglass opacities throughout the lungs.. Airway: Endotracheal tube terminates 1.2 cm above the raffi. Heart: Cardiomegaly. No pericardial effusion. Vasculature: No evidence of aortic aneurysm. Left chest wall 3-lead cardiac pacemaking device. Mediastinum: No gross evidence of adenopathy. Musculoskeletal: Acute minimally displaced bilateral anterior rib fractures. These include right firs t, second, third, fourth, fifth, sixth, seventh ribs and the left second, third, and fourth ribs. Hea ling left rib fractures with callus formation. Remote posterior bilateral rib fractures. Left shoulde r prosthesis. Moderate right shoulder arthropathy. Multilevel degenerative disc disease. Soft Tissues: Unremarkable. Lower neck: No significant findings. Upper Abdomen: NG tube terminates within the stomach body. Postsurgical changes of the stomach. Anter ior abdominal wall surgical changes.. IMPRESSION: 1. No evidence of pulmonary embolism. 2. Bilateral lower lobe and right upper lobe consolidation with scattered multifocal groundglass opac ities throughout the lungs. Findings are compatible with pneumonia possibly from aspiration. 3. Multiple acute minimally displaced anterior rib fractures likely related to CPR in the setting of cardiac arrest. Remote to subacute bilateral rib fractures also demonstrated. No pneumothorax. 4. Cardiomegaly. 5. NG tube and endotracheal tube appear in proper position.
[2023-03-04 12:12] LABS: ABG Base Excess -9.3 mmol/L; ABG HCO3 19 mmol/L (21-25); ABG Oxygen Saturation 91.4 % (94-97); ABG PCO2 53 mmHg (35-45); ABG PO2 75 mmHg (83-108); ABG TCO2 21 mmol/L (19-24); Allen Test Performed? Yes
[2023-03-04 12:16] LABS: ABG PH 7.17 (7.35-7.45)
[2023-03-04] MEDS ORDERED: NALOXONE 0.4 MG/ML 1 ML VIAL IV PRN (12:39)
[2023-03-04] MEDS ORDERED: PNEUMONIA PROTOCOL UTILIZED 1 EACH MISC PO PRN (12:39)
[2023-03-04] MEDS ORDERED: LEVOFLOXACIN 750MG-D5W PMX 750 MG in DEXTROSE/WATER 1 150ML.BAG IVPB STA (12:44)
--- NOTE | 2023-03-04 12:56 | P.CNPUL ---
History of Present Illness Consult date: 03/04/23 Requesting physician: Jeffrey Leonard Reason for consult: other Chief complaint: [id number] cardiopulmonary arrest. History of present illness: Pulmonary/critical care consult dated 03/04/2023. 67-year-old female who apparently had a cardiopulmonary arrest, at a local [employer] The patient apparently had a downtime of about 15 minutes, for there was cardiopulmonary resuscitation and return of spontaneous circulation. The patient was seen in the ER, by the ER physician, Dr. Dejesus. The patient was vented, and a right femoral vein triple lumen catheter was placed. Family members are in the room, we selected see the patient. The patient herself is unresponsive. She has a orally placed endotracheal tube. She's currently on the ventilator, with vent settings of volume assist control, rate 20, tidal volume 375, FiO2 100%, 5. Blood gases show pO2 75, pCO2 of 53, and a pH is 7.17. The patient is on norepinephrine at 0.15 mcg/kg/m, and propofol at 15 mcg/kg/m. The patient has a history of COPD from secondhand tobacco exposure, a previous history of the fibrillator placement for cardiomyopathy, and history of stroke, and Star filter placement. In addition, the patient is on home O2, that she is supposed to use all the time, but she only uses as needed. She was a smoker in the distant past. White count 9.7, hemoglobin 11.4, hematocrit 37.9, and platelet count was normal. D-dimer was 3.10. Sodium 137, potassium 4.3, chlorides 104, CO2 17, anion gap 16, BUN and creatinine 12 and 0.76. Troponin was 0.022 and N-terminal proBNP was 2290. Lactate was not measured but is probably elevated. Testing for influenza A, and B, RSV, and coronavirus are all negative. Chest x-ray shows evidence of cardiomegaly, fluid overload, and an appropriately placed endotracheal tube. Computed tomography scan of the brain showed nothing acute. CT angiogram was negative for PE. There also may be some right lower lobe consolidation consistent with prior aspiration. Review of Systems REVIEW OF SYSTEMS: The patient's review of systems cannot be obtained, given her cardiac arrest situation. CONSTITUTIONAL: [Negative.] NEUROLOGIC: [ Negative.] HEENT: [ Negative.] CARDIAC: [Negative.] PULMONARY: [Negative.] GI: [Negative.] : [Negative.] RHEUMATOLOGIC: [ Negative.] IMMUNOLOGIC: [ Negative.] ENDOCRINE: [Negative. ] DERMATOLOGIC: [Negative.] Past Medical History Past Medical History: Atrial Fibrillation, COPD, Hypertension Additional Past Medical History / Comment(s): at home O2 History of Any Multi-Drug Resistant Organisms: None Reported Past Surgical History: No Surgical Hx Reported Additional Past Surgical History / Comment(s): star filter, left rotator cuff, RTKR. Past Anesthesia/Blood Transfusion Reactions: No Reported Reaction Type of Cardiac Device: Permanent Pacemaker, AICD Device Placement Date:: 2001 Past Psychological History: Anxiety, Depression Smoking Status: Never smoker Past Alcohol Use History: None Reported, Occasional Past Drug Use History: None Reported - Past Family History Mother Family Medical History: Cancer, Coronary Artery Disease (CAD) Additional Family Medical History / Comment(s): urterine CA Medications and Allergies Home Medications Medication Instructions Recorded Confirmed Type ARIPiprazole [Abilify] 2 mg PO DAILY 11/29/22 11/29/22 History Alendronate Sodium [Fosamax] 70 mg PO Q7D 11/29/22 11/29/22 History Apixaban [Eliquis] 5 mg PO BID 11/29/22 11/29/22 History Atorvastatin [Lipitor] 40 mg PO HS 11/29/22 11/29/22 History Carbidopa/Levodopa [Sinemet 25-100 1 tab PO BID 11/29/22 11/29/22 History mg Tablet] Dicyclomine [Bentyl] 10 mg PO QID PRN 11/29/22 11/29/22 History Furosemide [Lasix] 40 mg PO DAILY 11/29/22 11/29/22 History Isosorbide Mononitrate ER [Imdur] 60 mg PO DAILY 11/29/22 11/29/22 History Liothyronine Sodium [Cytomel] 25 mcg PO DAILY 11/29/22 11/29/22 History Nitroglycerin Sl Tabs [Nitrostat] 0.4 mg SL Q5M PRN 11/29/22 11/29/22 History Sertraline [Zoloft] 200 mg PO DAILY 11/29/22 11/29/22 History carvediloL [Coreg] 3.125 mg PO BID 11/29/22 11/29/22 History traZODone HCL 300 mg PO HS 11/29/22 11/29/22 History traZODone HCL [Desyrel] 100 mg PO DAILY@0400 11/29/22 11/29/22 History Magnesium Hydroxide [Milk of 2,400 mg PO DAILY PRN ml 12/02/22 Rx Magnesia Concentrate] HYDROcodone/APAP 5-325MG [[place] 1 tab PO Q6HR PRN 3 Days #12 tab 12/08/22 Rx 5-325] Ipratropium-Albuterol Nebulize 3 ml INHALATION TID #100 each 12/08/22 Rx [Duoneb 0.5 mg-3 mg/3 ml Soln] Allergies Allergy/AdvReac Type Severity Reaction Status Date / Time cephalexin [From Keflex] Allergy Mouth Verified 11/30/22 11:02 swelling Physical Exam Osteopathic Statement: *. No significant issues noted on an osteopathic structural exam other than those noted in the History and Physical/Consult. Vitals: Vital Signs Temp Pulse Resp BP Pulse Ox FiO2 03/04/23 12:17 82 18 83/48 03/04/23 12:11 85 20 76/42 95 03/04/23 11:30 89 16 78/42 94 L 03/04/23 11:20 88 16 52/27 95 03/04/23 10:10 96 18 124/57 97 03/04/23 10:05 92 18 114/50 99 03/04/23 10:01 92 16 70/30 100 03/04/23 09:55 92 16 60/24 99 03/04/23 09:50 92 16 48/20 98 100 03/04/23 09:45 96 16 60/42 99 100 03/04/23 09:40 98.7 F 96 18 57/42 Intake and Output 03/03/23 03/04/23 03/04/23 22:59 06:59 14:59 Intake Total 4.260 Balance 4.260 Intake: Intake, IV Titration 4.260 Amount Norepinephrine 32 mg In 4.260 Sodium Chloride 0.9% 218 ml @ 0.03 MCG/KG/MIN 1. 148 mls/hr IV .Q24H [facility] Rx#:[id number] Other: Weight 81.647 kg No acute distress, sedated on propofol, with an orally placed endotracheal tube. HEENT examination is grossly unremarkable. Neck supple. Full range of motion. No adenopathy thyromegaly or neck vein distention. Cardiovascular examination reveals regular rhythm rate. S1-S2 normal. No S3 or S4. No discernible murmur noted. Heart rate 82 bpm. Lungs reveal scattered rhonchi. No wheezes or crackles. Breath sounds equal. Abdomen obese, without bowel sounds. Extremities are intact. No cyanosis clubbing or edema. Skin is without rash or lesion. Neurologic examination cannot be adequately assessed at this time. Results - Laboratory Findings CBC and BMP: 03/04/23 10:02 03/04/23 10:02 ABG ABG pH 7.17 (7.35-7.45) L* 03/04/23 12:10 ABG pCO2 53 mmHg (35-45) H 03/04/23 12:10 ABG pO2 75 mmHg (83-108) L 03/04/23 12:10 ABG O2 Saturation 91.4 % (94-97) L 03/04/23 12:10 PT/INR, D-dimer PT 11.1 sec (9.0-12.0) 03/04/23 10:02 INR 1.1 (<1.2) 03/04/23 10:02 D-Dimer 3.10 mg/L FEU (<0.60) H 03/04/23 10:02 Abnormal lab findings: Abnormal Labs 03/04/23 03/04/23 03/04/23 10:02 10:02 10:02 RBC 3.53 L MCV 107.2 H MCHC 30.0 L D-Dimer 3.10 H ABG pH ABG pCO2 ABG pO2 ABG HCO3 ABG O2 Saturation Carbon Dioxide 17 L Glucose 325 H AST 57 H 03/04/23 12:10 RBC MCV MCHC D-Dimer ABG pH 7.17 L* ABG pCO2 53 H ABG pO2 75 L ABG HCO3 19 L ABG O2 Saturation 91.4 L Carbon Dioxide Glucose AST - Diagnostic Findings Chest x-ray: image reviewed CT scan - chest: image reviewed Assessment and Plan Assessment: Status post [id number] cardiopulmonary arrest, with at least 15 minutes of downtime, before cardiopulmonary resuscitation and return of spontaneous circulation, were accomplished. Status post intubation and mechanical ventilation for cardiopulmonary arrest, 03/04/2023. Rule out anoxic brain injury. History of atrial fibrillation. Status post AICD placement. History of COPD. History of hypertension. History of CVA. Prior history of [place] filter placement. History of anxiety/depression. Plan: Plan dated 03/04/2023. Labs, x-rays, medications are reviewed. The patient is seen in the emergency room, trauma 2. We will await the patient to arrive in the intensive care unit. I did speak to the family about the fact that there may be some concerns of anoxic brain injury, given the 15 minute downtime at [facility]. Anyway, the Indocin the next 24 hours will be critical. Labs, x-rays, and medications are reviewed. We will adjust the ventilator, and make additional recommendations along the way. Prognosis is very guarded at this point. Time with Patient: Greater than 30
[2023-03-04] MEDS ORDERED: DEXTROSE 50% SYRINGE 50 ML IVP PRN ×2 (13:46)
[2023-03-04 14:10] LABS: Glucose,Whole Blood 199 mg/dL (70-110)
[2023-03-04 15:18] LABS: ABG Base Excess -8.2 mmol/L; ABG HCO3 19 mmol/L (21-25); ABG Oxygen Saturation 97.5 % (94-97); ABG PCO2 44 mmHg (35-45); ABG PH 7.25 (7.35-7.45); ABG PO2 158 mmHg (83-108); ABG TCO2 20 mmol/L (19-24); Allen Test Performed? Yes
[2023-03-04] MEDS ORDERED: levETIRAcetam IV 1,500 MG in SALINE 1 100ML.BAG IVPB STA (15:29)
[2023-03-04] MEDS ORDERED: LORazepam 2 MG/ML INJ IV STA (15:30)
[2023-03-04] MEDS: PANTOPRAZOLE 40 MG/10 ML VIAL IV SCH (15:38)
[2023-03-04] MEDS: IPRATROPIUM-ALBUTEROL 3 ML NEB INHALATION SCH ×2 (17:15→20:18)
[2023-03-04] MEDS: APIXABAN 5 MG TAB PO SCH ×2 (17:22→21:16)
[2023-03-04] MEDS ORDERED: INSULIN ASPART (NovoLOG) 100 UNIT/ML VIAL SQ SCH (17:30)
[2023-03-04] MEDS: INSULIN ASPART (NovoLOG) 100 UNIT/ML VIAL SQ SCH (18:10)
[2023-03-04 18:11] LABS: Glucose,Whole Blood 136 mg/dL (70-110)
[2023-03-04] MEDS: levETIRAcetam IV 1,500 MG in SALINE 1 100ML.BAG IVPB SCH (21:16)
[2023-03-04] MEDS: CHLORHEXIDINE GLUCONATE 15 ML CUP MUCOUS MEM SCH (21:16)
--- NOTE | 2023-03-04 21:38 | P.HPIM ---
History of Present Illness H&P Date: 03/04/23 Chief Complaint: Cardiac arrest Patient is a 67-year-old male with a known history of chronic atrial fibrillation on anticoagulation with Eliquis, cardiomyopathy status post ICD placement, COPD on home oxygen at 4 L via nasal cannula, hypertension, anxiety/depression and history of femoral neck fracture s/p repair in November 2022 was brought to the hospital by EMS status postcardiac arrest. Patient was at [facility] where she was found to have worsening shortness of breath and became unresponsive on a motorized scooter.. Patient underwent CPR for about 15 minutes by EMS and was given 3 doses of epinephrine with return of spontaneous circulation and was intubated. Patient was brought to ER for evaluation. Patient was unresponsive and was able to provide any history. On arrival chest x-ray showed cardiomegaly and mild pulmonary vascular congestion. Correlate with BNP for congestive heart failure. Right basilar patchy airspace opacities may represent pulmonary edema versus infiltrate. Endotracheal tube in appropriate position. Possible NG tube terminating in the mid esophagus. CT head showed no acute intracranial process. Paranasal sinus disease with air- fluid level within the left maxillary sinus. Correlate for acute sinusitis. Chest CTA showed no evidence of PE. Bilateral lower lobe and right upper lobe consolidation with a scattered multifocal groundglass opacities throughout the lungs. Findings are compatible with pneumonia possibly aspiration. Multiple acute minimally displaced rib fractures likely related to CPR in the setting of cardiac arrest. Remote to subacute bilateral rib fractures also demonstrated. No pneumothorax. Cardiomegaly. Laboratory data showed WBC 9.7 hemoglobin 11.4 platelets 246 and D-dimer 3.1 Initial ABG showed pH of 7.17 PCO2 30 and PO2 75 Sodium 135, potassium 4.3, chloride 104, bicarb is 17 BUN 12 and creatinine 0.76 and blood sugar was 325 and lactic acid 2.9 AST 57 ALT 14 alk phos 73 and troponin x1 negative proBNP 2290 Influenza A B RSV and COVID-19 PCR not detected. Review of Systems ROS unobtainable: due to mental status Past Medical History Past Medical History: Atrial Fibrillation, COPD, Hypertension Additional Past Medical History / Comment(s): at home O2 History of Any Multi-Drug Resistant Organisms: None Reported Past Surgical History: No Surgical Hx Reported Additional Past Surgical History / Comment(s): star filter, left rotator cuff, RTKR. Past Anesthesia/Blood Transfusion Reactions: No Reported Reaction Type of Cardiac Device: Permanent Pacemaker, AICD Device Placement Date:: 2001 Past Psychological History: Anxiety, Depression Smoking Status: Never smoker Past Alcohol Use History: None Reported, Occasional Past Drug Use History: None Reported - Past Family History Mother Family Medical History: Cancer, Coronary Artery Disease (CAD) Additional Family Medical History / Comment(s): urterine CA Medications and Allergies Home Medications Medication Instructions Recorded Confirmed Type ARIPiprazole [Abilify] 2 mg PO DAILY 11/29/22 03/04/23 History Alendronate Sodium [Fosamax] 70 mg PO Q7D 11/29/22 03/04/23 History Apixaban [Eliquis] 5 mg PO BID 11/29/22 03/04/23 History Atorvastatin [Lipitor] 40 mg PO HS 11/29/22 03/04/23 History Carbidopa/Levodopa [Sinemet 25-100 1 tab PO BID 11/29/22 03/04/23 History mg Tablet] Dicyclomine [Bentyl] 10 mg PO QID PRN 11/29/22 03/04/23 History Furosemide [Lasix] 40 mg PO DAILY 11/29/22 03/04/23 History Isosorbide Mononitrate ER [Imdur] 60 mg PO DAILY 11/29/22 03/04/23 History Liothyronine Sodium [Cytomel] 25 mcg PO DAILY 11/29/22 03/04/23 History Nitroglycerin Sl Tabs [Nitrostat] 0.4 mg SL Q5M PRN 11/29/22 03/04/23 History Sertraline [Zoloft] 200 mg PO DAILY 11/29/22 03/04/23 History carvediloL [Coreg] 3.125 mg PO BID 11/29/22 03/04/23 History traZODone HCL 300 mg PO HS 11/29/22 03/04/23 History traZODone HCL [Desyrel] 100 mg PO DAILY@0400 11/29/22 03/04/23 History lisinopriL [Zestril] 5 mg PO DAILY 03/04/23 03/04/23 History Allergies Allergy/AdvReac Type Severity Reaction Status Date / Time cephalexin [From Keflex] Allergy Mouth Verified 03/04/23 15:18 swelling Physical Exam Vitals: Vital Signs Temp Pulse Resp BP Pulse Ox FiO2 03/04/23 13:40 88 16 141/72 100 03/04/23 13:29 100 03/04/23 13:02 78 18 136/66 99 03/04/23 12:17 82 18 83/48 03/04/23 12:11 85 20 76/42 95 03/04/23 11:30 89 16 78/42 94 L 03/04/23 11:20 88 16 52/27 95 03/04/23 10:10 96 18 124/57 97 03/04/23 10:05 92 18 114/50 99 03/04/23 10:01 92 16 70/30 100 03/04/23 09:55 92 16 60/24 99 03/04/23 09:50 92 16 48/20 98 100 03/04/23 09:45 96 16 60/42 99 100 03/04/23 09:40 98.7 F 96 18 57/42 Intake and Output 03/03/23 03/04/23 03/04/23 22:59 06:59 14:59 Intake Total 4.260 Balance 4.260 Intake: Intake, IV Titration 4.260 Amount Norepinephrine 32 mg In 4.260 Sodium Chloride 0.9% 218 ml @ 0.03 MCG/KG/MIN 1. 148 mls/hr IV .Q24H [facility] Rx#:[id number] Other: Weight 81.647 kg PHYSICAL EXAMINATION: Patient is on mechanical ventilator. HEENT: Normocephalic. Neck is supple. Pupils reactive. Nostrils clear. Oral cavity is moist. Neck reveals no JVD, carotid bruits, or thyromegaly. CHEST EXAMINATION: Trachea is central. Symmetrical expansion. Bibasilar diminished sounds and coarse breath sounds. No wheezing. CARDIAC: Normal S1, S2 with no gallops. No murmurs ABDOMEN: Soft. Bowel sounds present. Nontender. No organomegaly. No abdominal bruits. Extremities: Trace lower extremity edema. No clubbing or cyanosis Neurologically patient is on mechanical ventilator. Skin: No rash or skin lesions. Psychiatric: Could not be assessed at, Musculoskeletal: No joint swelling or deformity. Results CBC & Chem 7: 03/05/23 05:29 03/05/23 05:29 Labs: Abnormal Lab Results - Last 24 Hours (Table) 03/04/23 03/04/23 03/04/23 Range/Units 10:02 10:02 10:02 RBC 3.53 L (3.80-5.40) m/uL MCV 107.2 H (80.0-100.0) fL MCHC 30.0 L (31.0-37.0) g/dL D-Dimer 3.10 H (<0.60) mg/L FEU ABG pH (7.35-7.45) ABG pCO2 (35-45) mmHg ABG pO2 (83-108) mmHg ABG HCO3 (21-25) mmol/L ABG O2 Saturation (94-97) % Carbon Dioxide 17 L (22-30) mmol/L Glucose 325 H (74-99) mg/dL AST 57 H (14-36) U/L 03/04/23 Range/Units 12:10 RBC (3.80-5.40) m/uL MCV (80.0-100.0) fL MCHC (31.0-37.0) g/dL D-Dimer (<0.60) mg/L FEU ABG pH 7.17 L* (7.35-7.45) ABG pCO2 53 H (35-45) mmHg ABG pO2 75 L (83-108) mmHg ABG HCO3 19 L (21-25) mmol/L ABG O2 Saturation 91.4 L (94-97) % Carbon Dioxide (22-30) mmol/L Glucose (74-99) mg/dL AST (14-36) U/L Thrombosis Risk Factor Assmnt - DVT/VTE Prophylaxis DVT/VTE Prophylaxis: Pharmacologic Prophylaxis ordered Assessment and Plan Assessment: Acute cardiac arrest s/p CPR for about 15 minutes with return of spontaneous circulation. Status post intubation by EMS. Possible anoxic brain injury Chronic atrial fibrillation on anticoagulant Eliquis History of ICD placement Hyperglycemia COPD on home oxygen Chronic hypoxic respiratory failure on 4 L oxygen via nasal cannula Recent history of femoral neck fracture repair in November 2022 History of IVC filter placement Anxiety/depression Plan: Patient is currently in the MICU. Status post CPR and currently on mechanical ventilator. Downtime was was about 15 minutes. Possible anoxic brain injury also is being considered. Continue with antibiotics for pneumonia with Levaquin. Continue insulin sliding scale. Critical care team, pulmonary and neurology is on board. Prognosis poor at this time. Discussed with her son at bedside in detail. Continue to follow closely. Time with Patient: Greater than 30
--- NOTE | 2023-03-04 23:15 | P.CRDCN ---
History of Present Illness History of present illness: HISTORY OF PRESENTING ILLNESS Patient is a pleasant 67-year-old female with history of CAD status post prior PCI, hypertension, hyperlipidemia, AICD, obesity, paroxysmal atrial fibrillation. She follows in the office with Dr. Kam from [facility]. Patient currently intubated and history obtained from family. Apparently she had been in her normal state of health and I gone shopping at [employer]. She was using a automatic cart and apparently staff found her more short of breath and struggling for air. EMS was called and found patient unresponsive and CPR initiated at around 9:10 AM. Per chart apparently there was around 15 minutes of downtime. AICD was interrogated with episodes of PMT and nonsustained VT lasting for 1-1/2 minutes requiring ATP however no shocks delivered. These episodes occurred at 8am per interrogation. Full strips not available for reference. Per chart patient did not require any defibrillators during the code. Per family patient had been in her normal state of health and had been dealing with chronic shortness breath and might have felt somewhat short of breath last a however nothing overly out of the ordinary. Patient had ETT tube placed and currently on 80% FiO2 and remains on norepinephrine with ability to come down somewhat on the norepinephrine. Initial troponin 0.02 and then 0.06. White blood cell count 9.7, hemoglobin 11.4, proBNP 2290. CTA showed no PE, bilateral lower lobe and right upper lobe consolidation possibly related to pneumonia versus aspiration as well as rib fractures. REVIEW OF SYSTEMS At the time of my exam: Unable to obtain secondary to intubation PHYSICAL EXAMINATION Vital signs reviewed. CONSTITUTIONAL: No apparent distress, sedated, unresponsive on ventilator. HEENT: Head is normocephalic. Pupils are equal, round. Sclerae anicteric. Mucous membranes of the mouth are moist. No JVD. No carotid bruit. CHEST EXAMINATION: Lungs are clear to auscultation. No chest wall tenderness is noted on palpation or with deep breathing. HEART EXAMINATION: Regular rate and rhythm. S1, S2 heard. No murmurs, gallops or rub. ABDOMEN: Soft, nontender. Positive bowel sounds. EXTREMITIES: 2+ peripheral pulses, no lower extremity edema and no calf tenderness. NEUROLOGIC EXAMINATION: Patient is unresponsive on ventilator ASSESSMENT 1. Status post cardiac arrest with approximately 15 minutes of downtime 2. Episodes of nonsustained VT requiring ATP however occurring one hour prior to cardiac arrest. Unclear if true nonsustained VT or inappropriate ATP of A. fib. Await full interrogation 3. Non-STEMI related to cardiac arrest 4. Unresponsive, altered mental status rule out anoxic brain injury 5. CAD with prior PCI 6. Paroxysmal atrial fibrillation 7. Hypertension, currently hypotensive on pressors PLAN Patient with a cardiac arrest of unclear etiology. Patient complaining of shortness of breath prior to episode and possible component of heart failure. Additionally AICD interrogation does show episode of ATP however per timing this appeared to have occurred an hour before her code. May have been related to A. fib with RVR however await full interrogation to analyze strip. Continue s upportive care. Monitor neurologic progress. Continue to trend troponins. Check 2-D echo. Further recommendations to follow. Past Medical History Past Medical History: Atrial Fibrillation, COPD, Hypertension Additional Past Medical History / Comment(s): at home O2 History of Any Multi-Drug Resistant Organisms: None Reported Past Surgical History: No Surgical Hx Reported Additional Past Surgical History / Comment(s): star filter, left rotator cuff, RTKR. Past Anesthesia/Blood Transfusion Reactions: No Reported Reaction Type of Cardiac Device: Permanent Pacemaker, AICD Device Placement Date:: 2001 Past Psychological History: Anxiety, Depression Smoking Status: Never smoker Past Alcohol Use History: None Reported, Occasional Past Drug Use History: None Reported - Past Family History Mother Family Medical History: Cancer, Coronary Artery Disease (CAD) Additional Family Medical History / Comment(s): urterine CA Medications and Allergies Home Medications Medication Instructions Recorded Confirmed Type ARIPiprazole [Abilify] 2 mg PO DAILY 11/29/22 03/04/23 History Alendronate Sodium [Fosamax] 70 mg PO Q7D 11/29/22 03/04/23 History Apixaban [Eliquis] 5 mg PO BID 11/29/22 03/04/23 History Atorvastatin [Lipitor] 40 mg PO HS 11/29/22 03/04/23 History Carbidopa/Levodopa [Sinemet 25-100 1 tab PO BID 11/29/22 03/04/23 History mg Tablet] Dicyclomine [Bentyl] 10 mg PO QID PRN 11/29/22 03/04/23 History Furosemide [Lasix] 40 mg PO DAILY 11/29/22 03/04/23 History Isosorbide Mononitrate ER [Imdur] 60 mg PO DAILY 11/29/22 03/04/23 History Liothyronine Sodium [Cytomel] 25 mcg PO DAILY 11/29/22 03/04/23 History Nitroglycerin Sl Tabs [Nitrostat] 0.4 mg SL Q5M PRN 11/29/22 03/04/23 History Sertraline [Zoloft] 200 mg PO DAILY 11/29/22 03/04/23 History carvediloL [Coreg] 3.125 mg PO BID 11/29/22 03/04/23 History traZODone HCL 300 mg PO HS 11/29/22 03/04/23 History traZODone HCL [Desyrel] 100 mg PO DAILY@0400 11/29/22 03/04/23 History lisinopriL [Zestril] 5 mg PO DAILY 03/04/23 03/04/23 History Allergies Allergy/AdvReac Type Severity Reaction Status Date / Time cephalexin [From Keflex] Allergy Mouth Verified 03/04/23 15:18 swelling Physical Exam Vitals: Vital Signs Temp Pulse Resp BP Pulse Ox FiO2 03/04/23 22:00 97 20 123/60 95 03/04/23 21:45 93 20 129/58 96 03/04/23 21:30 93 20 121/61 94 L 03/04/23 21:15 92 20 126/56 98 03/04/23 21:00 90 20 117/55 100 03/04/23 20:45 85 20 120/53 98 03/04/23 20:30 84 20 116/61 98 03/04/23 20:23 85 03/04/23 20:15 85 20 115/54 100 03/04/23 20:14 60 03/04/23 20:00 102.3 F H 85 21 112/61 99 60 03/04/23 19:00 79 20 119/56 03/04/23 18:50 70 20 115/56 03/04/23 18:40 72 20 120/55 99 03/04/23 18:30 80 20 117/63 03/04/23 18:20 76 22 120/49 03/04/23 18:10 76 20 118/49 03/04/23 18:00 70 20 122/63 03/04/23 17:50 79 20 82/59 03/04/23 17:40 84 20 117/61 98 03/04/23 17:30 80 20 118/43 98 03/04/23 17:20 81 20 110/67 98 03/04/23 17:10 82 20 108/62 98 03/04/23 17:00 82 20 107/63 98 03/04/23 16:50 84 20 109/58 97 03/04/23 16:40 84 20 111/59 97 03/04/23 16:30 81 20 110/49 99 03/04/23 16:20 81 20 109/51 99 03/04/23 16:10 73 20 114/49 03/04/23 16:00 82 20 111/51 98 80 03/04/23 15:55 98.4 F 82 20 112/50 98 80 03/04/23 15:50 82 20 116/55 98 03/04/23 15:45 83 20 110/49 98 03/04/23 15:40 80 20 105/51 97 03/04/23 15:35 84 20 109/51 03/04/23 15:30 84 20 112/55 03/04/23 15:25 73 20 93/59 98 03/04/23 15:20 80 20 110/48 99 03/04/23 15:19 80 03/04/23 15:15 75 20 102/79 99 03/04/23 15:10 76 20 124/47 99 03/04/23 15:05 78 20 118/57 99 03/04/23 15:00 78 20 101/62 99 03/04/23 14:55 78 20 112/54 99 03/04/23 14:50 81 20 117/50 99 03/04/23 14:45 84 20 129/50 99 03/04/23 14:40 75 20 124/72 98 03/04/23 14:35 72 20 146/73 98 03/04/23 14:00 94.4 F L 70 20 151/74 100 100 03/04/23 13:40 88 16 141/72 100 03/04/23 13:29 100 03/04/23 13:02 78 18 136/66 99 03/04/23 12:17 82 18 83/48 03/04/23 12:11 85 20 76/42 95 03/04/23 11:30 89 16 78/42 94 L 03/04/23 11:20 88 16 52/27 95 03/04/23 10:10 96 18 124/57 97 03/04/23 10:05 92 18 114/50 99 03/04/23 10:01 92 16 70/30 100 03/04/23 09:55 92 16 60/24 99 03/04/23 09:50 92 16 48/20 98 100 03/04/23 09:45 96 16 60/42 99 100 03/04/23 09:40 98.7 F 96 18 57/42 Intake and Output 03/04/23 03/04/23 03/05/23 14:59 22:59 06:59 Intake Total 120.388 924.313 Output Total 40 317 Balance 80.388 607.313 Intake: IV 250 Sodium Chloride 0.9% 1, 150 000 ml @ 75 mls/hr IV . [id number] STA Rx#:[id number] levETIRAcetam IV 1,500 mg 100 In Saline 1 100ml.bag @ 400 mls/hr IVPB ONCE STA Rx#:[id number] Intake, IV Titration 120.388 674.313 Amount Levofloxacin 750Mg-D5w 150 Pmx 750 mg In Dextrose/ Water 1 150ml.bag @ 100 mls/hr IVPB ONCE STA Rx#: [id number] Norepinephrine 32 mg In 15.996 11.264 Sodium Chloride 0.9% 218 ml @ 0.03 MCG/KG/MIN 1. 148 mls/hr IV .Q24H [facility] Rx#:[id number] Sodium Chloride 0.9% 1, 75 375 000 ml @ 75 mls/hr IV . [id number] STA Rx#:[id number] levETIRAcetam IV 1,500 mg 100 In Saline 1 100ml.bag @ 400 mls/hr IVPB Q12HR [facility] Rx#:[id number] propofoL 1,000 mg In 29.392 38.049 Empty Bag 1 bag @ 15 MCG/ KG/MIN 7.348 mls/hr IV . [id number] [facility] Rx#:[id number] Output: Urine 40 317 Other: Voiding Method Indwelling Catheter Weight 81.647 kg Results 03/04/23 10:02 03/04/23 10:02 Cardiac Enzymes 03/04/23 03/04/23 03/04/23 Range/Units 10:02 10:02 15:24 AST 57 H (14-36) U/L Troponin I 0.022 0.069 H* (0.000-0.034) ng/mL Coagulation 03/04/23 Range/Units 10:02 PT 11.1 (9.0-12.0) sec APTT 23.9 (22.0-30.0) sec CBC 03/04/23 Range/Units 10:02 WBC 9.7 (3.8-10.6) k/uL RBC 3.53 L (3.80-5.40) m/uL Hgb 11.4 (11.4-16.0) gm/dL Hct 37.9 (34.0-46.0) % Plt Count 246 (150-450) k/uL Comprehensive Metabolic Panel 03/04/23 Range/Units 10:02 Sodium 137 (137-145) mmol/L Potassium 4.3 (3.5-5.1) mmol/L Chloride 104 (98-107) mmol/L Carbon Dioxide 17 L (22-30) mmol/L BUN 12 (7-17) mg/dL Creatinine 0.76 (0.52-1.04) mg/dL Glucose 325 H (74-99) mg/dL Calcium 8.6 (8.4-10.2) mg/dL AST 57 H (14-36) U/L ALT 14 (4-34) U/L Alkaline Phosphatase 73 (38-126) U/L Total Protein 6.7 (6.3-8.2) g/dL Albumin 3.8 (3.5-5.0) g/dL Current Medications Generic Name Dose Route Start Last Admin Trade Name Freq PRN Reason Stop Dose Admin Albuterol/Ipratropium 3 ml 03/04/23 10:01 Ipratropium-Albuterol 3 Ml Neb INHALATION RT-Q2H PRN Shortness Of Breath Or Wheezing Albuterol/Ipratropium 3 ml 03/04/23 16:00 03/04/23 20:18 Ipratropium-Albuterol 3 Ml Neb INHALATION 3 ml RT-QID [facility] Administration Albuterol/Ipratropium 3 ml 03/04/23 12:39 Ipratropium-Albuterol 3 Ml Neb INHALATION RT-Q4H PRN Shortness Of Breath Or Wheezing Apixaban 5 mg 03/04/23 16:37 03/04/23 21:16 Apixaban 5 Mg Tab PO 5 mg BID [facility] Administration Protocol Chlorhexidine Gluconate 15 ml 03/04/23 21:00 03/04/23 21:16 Chlorhexidine Gluconate 15 Ml Cup MUCOUS MEM 15 ml BID [facility] Administration Dextrose/Water 25 ml 03/04/23 13:46 Dextrose 50% Syringe 50 Ml IVP PER PROTOCOL PRN Hypoglycemia Protocol Dextrose/Water 50 ml 03/04/23 13:46 Dextrose 50% Syringe 50 Ml IVP PER PROTOCOL PRN Hypoglycemia Protocol Norepinephrine Bitartrate 32 250 mls @ 1.148 mls/hr 03/04/23 09:45 03/04/23 19:06 mg/ Sodium Chloride IV 0.05 mcg/kg/min .Q24H [facility] 1.914 mls/hr Titration Protocol 0.03 MCG/KG/MIN Sodium Chloride 1,000 mls @ 75 mls/hr 03/04/23 09:58 03/04/23 10:23 Saline 0.9% IV 03/04/23 23:17 75 mls/hr .[id number] STA Administration Propofol 1,000 mg/ IV Solution 100 mls @ 7.348 mls/hr 03/04/23 10:15 03/04/23 18:17 IV 20 mcg/kg/min .[id number] [facility] 9.798 mls/hr Administration Protocol 15 MCG/KG/MIN Levetiracetam 1,500 mg/ IV 100 mls @ 400 mls/hr 03/04/23 21:00 03/04/23 21:16 Solution IVPB 400 mls/hr Q12HR [facility] Administration Metronidazole 500 mg/ IV 100 mls @ 100 mls/hr 03/05/23 00:00 Solution IVPB Q8HR [facility] Protocol Insulin Aspart 0 unit 03/04/23 18:00 03/04/23 18:10 Insulin Aspart (Novolog) 100 Unit/Ml Vial SQ Not Given Q6H [facility] Protocol Levofloxacin 750 mg 03/05/23 16:00 Levofloxacin 750 Mg Tab PO 03/08/23 16:01 DAILY@1600 [facility] Protocol Lorazepam 2 mg 03/04/23 10:01 03/04/23 18:05 Lorazepam 2 Mg/Ml Inj IV 2 mg Q1HR PRN Administration Severe Agitation Lorazepam 1 mg 03/04/23 10:01 Lorazepam 2 Mg/Ml Inj IV Q1HR PRN Mild Agitation Miscellaneous Information 1 each 03/04/23 12:39 Pneumonia Protocol Utilized 1 Each Misc PO ONCE PRN Per Protocol Naloxone HCl 0.2 mg 03/04/23 12:39 Naloxone 0.4 Mg/Ml 1 Ml Vial IV Q2M PRN Opioid Reversal Pantoprazole Sodium 40 mg 03/04/23 12:45 03/04/23 15:38 Pantoprazole 40 Mg/10 Ml Vial IV 40 mg DAILY [facility] Administration Intake and Output 03/04/23 03/04/23 03/05/23 14:59 22:59 06:59 Intake Total 120.388 924.313 Output Total 40 317 Balance 80.388 607.313 Intake: IV 250 Sodium Chloride 0.9% 1, 150 000 ml @ 75 mls/hr IV . [id number] STA Rx#:[id number] levETIRAcetam IV 1,500 mg 100 In Saline 1 100ml.bag @ 400 mls/hr IVPB ONCE STA Rx#:[id number] Intake, IV Titration 120.388 674.313 Amount Levofloxacin 750Mg-D5w 150 Pmx 750 mg In Dextrose/ Water 1 150ml.bag @ 100 mls/hr IVPB ONCE STA Rx#: [id number] Norepinephrine 32 mg In 15.996 11.264 Sodium Chloride 0.9% 218 ml @ 0.03 MCG/KG/MIN 1. 148 mls/hr IV .Q24H [facility] Rx#:[id number] Sodium Chloride 0.9% 1, 75 375 000 ml @ 75 mls/hr IV . [id number] [facility]A Rx#:[id number] levETIRAcetam IV 1,500 mg 100 In Saline 1 100ml.bag @ 400 mls/hr IVPB Q12HR [facility] Rx#:[id number] propofoL 1,000 mg In 29.392 38.049 Empty Bag 1 bag @ 15 MCG/ KG/MIN 7.348 mls/hr IV . [id number] [facility] Rx#:[id number] Output: Urine 40 317 Other: Voiding Method Indwelling Catheter Weight 81.647 kg Patient Weight 03/05/23 06:59 Weight 81.647 kg 03/04/23 10:02 03/04/23 10:02
[2023-03-04] MEDS: ACETAMINOPHEN TAB 325 MG TAB PO PRN (23:45)
[2023-03-04] MEDS: metroNIDAZOLE-NS PMX 500 MG in SALINE 1 100ML.BAG IVPB SCH (23:51)
[2023-03-04 23:56] LABS: Glucose,Whole Blood 150 mg/dL (70-110)
[2023-03-05] MEDS: INSULIN ASPART (NovoLOG) 100 UNIT/ML VIAL SQ SCH ×5 (00:04→23:16)
[2023-03-05] MEDS: MIDAZOLAM HCL 50 MG in SODIUM CHLORIDE 0.9% 40 ML IV SCH ×2 (01:00→23:14)
[2023-03-05] MEDS: LORazepam 2 MG/ML INJ IV PRN (01:39)
[2023-03-05 06:12] LABS: Basophils % (A) 0 %; Eosinophils % (A) 0 %; HCT 34.1 % (34.0-46.0); HGB 10.8 gm/dL (11.4-16.0); Lymphocytes # (A) 0.8 k/uL (1.0-4.8); Lymphocytes % (A) 9 %; MCH 31.3 pg (25.0-35.0); MCHC 31.6 g/dL (31.0-37.0); Mean Platelet Volume 8.5; Monocytes # (A) 0.3 k/uL (0-1.0); Monocytes % (A) 3 %; Neutrophils # (A) 7.8 k/uL (1.3-7.7); Neutrophils % (A) 87 %; Platelet Count 229 k/uL (150-450); RBC 3.44 m/uL (3.80-5.40); RDW 14.2 % (11.5-15.5); WBC 8.9 k/uL (3.8-10.6)
[2023-03-05 06:28] LABS: ALT 21 U/L (4-34); AST 45 U/L (14-36); African American GFR (CKD) >90 (>60 ml/min/1.73 sqM); Albumin 3.4 g/dL (3.5-5.0); Alkaline Phosphatase 81 U/L (38-126); Anion Gap 9 mmol/L; Blood Urea Nitrogen 19 mg/dL (7-17); Calcium 7.7 mg/dL (8.4-10.2); Carbon Dioxide 18 mmol/L (22-30); Chloride 112 mmol/L (98-107); Glucose 146 mg/dL (74-99); Magnesium 1.7 mg/dL (1.6-2.3); Non-African American GFR(CKD) 88 (>60 ml/min/1.73 sqM); Potassium 3.9 mmol/L (3.5-5.1); Sodium 139 mmol/L (137-145); Total Bilirubin 0.3 mg/dL (0.2-1.3)
[2023-03-05 06:33] LABS: MCV 99.1 fL (80.0-100.0)
--- NOTE | 2023-03-05 06:42 | XR ---
EXAMINATION TYPE: XR chest 1V portable DATE OF EXAM: 03/05/2023 CLINICAL HISTORY: Difficulty breathing progress study. TECHNIQUE: Single AP portable semiupright view of the chest is obtained. COMPARISON: Chest x-ray and CTA chest from one day earlier and older studies FINDINGS: Stable endotracheal and orogastric tubes. Cardiac silhouette size stable and upper limits of normal with multi lead pacemaker/defibrillator redemonstrated. Persistent bibasilar increased opa cities and right central opacities. Surgical change left shoulder is partially imaged. IMPRESSION: Persistent right midlung and bibasilar multifocal acute infiltrates and/or edema. No taylor ge from one day earlier.
[2023-03-05 06:48] LABS: Allen Test Performed? Yes
[2023-03-05 06:49] LABS: ABG Base Excess -6.9 mmol/L; ABG HCO3 20 mmol/L (21-25); ABG PCO2 34 mmHg (35-45); ABG PH 7.35 (7.35-7.45); ABG PO2 90 mmHg (83-108); ABG TCO2 20 mmol/L (19-24)
[2023-03-05 07:03] LABS: Glucose,Whole Blood 159 mg/dL (70-110)
[2023-03-05] MEDS ORDERED: MAGNESIUM SULFATE-D5W PMX 1 GM in DEXTROSE/WATER 1 100ML.BAG IVPB ONE ×2 (07:32→23:48)
[2023-03-05] MEDS: IPRATROPIUM-ALBUTEROL 3 ML NEB INHALATION SCH ×4 (07:52→20:23)
[2023-03-05] MEDS: APIXABAN 5 MG TAB PO SCH ×2 (08:08→20:46)
[2023-03-05] MEDS: levETIRAcetam IV 1,500 MG in SALINE 1 100ML.BAG IVPB SCH ×2 (08:16→20:46)
[2023-03-05] MEDS: PANTOPRAZOLE 40 MG/10 ML VIAL IV SCH (09:33)
[2023-03-05] MEDS: CHLORHEXIDINE GLUCONATE 15 ML CUP MUCOUS MEM SCH ×2 (09:42→20:46)
--- NOTE | 2023-03-05 09:44 | PCN ---
PROCEDURE NOTE PROCEDURE: Right radial arterial line. PREOPERATIVE DIAGNOSES: Hypotension, administration of fluids and pressors. Frequent blood draws. POSTOPERATIVE DIAGNOSES: Hypotension, administration of fluids and pressors. Frequent blood draws. VENEER JOINTER: Dr. Ashely Mercer. SITE: Right radial site. ARTERIAL LINE PLACEMENT: Indications: Hemodynamic monitoring. A time-out was completed verifying correct patient, procedure, site, positioning, and implant(s) or special equipment if applicable. Noe's test was performed to ensure adequate perfusion. The patient's right/left wrist or right/left groin was prepped and draped in sterile fashion. 1% Lidocaine was used to anesthetize the area. An 18G Arrow arterial line was introduced into the radial/femoral artery. The catheter was threaded over the guide wire and the needle was removed with appropriate pulsatile blood return. Blood loss was minimal. The catheter was then sutured in place to the skin and a sterile dressing applied. Perfusion to the extremity distal to the point of catheter insertion was checked and found to be adequate. There was no immediate complication. There was good blood return and waveform. The patient tolerated the procedure well. The catheter was sutured in place. A sterile dressing was applied by the nurse. There was informed consent and universal time-out. MMODL / IJN: [id number] /
--- NOTE | 2023-03-05 10:00 | CA ---
Transthoracic Echo Report Name: Madonna Mendez Age: 67 Gender: F : 1955 Exam Date: 03/04/2023 15:09 Exam Location: [facility] Ht (in): 64 Wt (lb): 180 Ordering Physician: Bonilla Steve DO ([email or web address]) Attending/Referring Phys: Cell Changer Sindy Bunn RDCS Procedure CPT: Indications: Cardiac Arrest Cardiac Hx: Technical Quality: Technically difficult study Contrast 1: Lumason Total Dose (mL): 5 Contrast 2: Total Dose (mL): MEASUREMENTS (Male / Female) Normal Values 2D ECHO LV Diastolic Diameter PLAX 4.6 cm 4.2 - 5.9 / 3.9 - 5.3 cm LV Systolic Diameter PLAX 3.7 cm IVS Diastolic Thickness 1.4 cm 0.6 - 1.0 / 0.6 - 0.9 cm LVPW Diastolic Thickness 1.1 cm 0.6 - 1.0 / 0.6 - 0.9 cm LV Relative Wall Thickness 0.5 RV Internal Dim ED PLAX 3.2 cm LA Volume 101.0 cm??? 18 - 58 / 22 - 52 cm??? M-MODE Aortic Root Diameter MM 3.1 cm LA Systolic Diameter MM 3.4 cm LA Ao Ratio MM 1.1 DOPPLER AV Peak Velocity 225.3 cm/s AV Peak Gradient 20.3 mmHg AV Mean Velocity 170.7 cm/s AV Mean Gradient 12.6 mmHg AV Velocity Time Integral 42.2 cm AI Peak Velocity 342.5 cm/s AI Peak Gradient 46.9 mmHg AI Pressure Half Time 465.8 ms LVOT Peak Velocity 126.6 cm/s LVOT Peak Gradient 6.4 mmHg LVOT Velocity Time Integral 23.9 cm TR Peak Velocity 317.8 cm/s TR Peak Gradient 40.4 mmHg FINDINGS Left Ventricle Moderately increased left ventricular wall thickness. Reduced global left ventricular systolic function. Left ventricular ejection fraction is estimated at 30-35 %. Mainly anterior septal hypokinesis. Right Ventricle Normal right ventricular size and function. Mild pulmonary hypertension. Right Atrium Normal right atrial size. Catheter/pacemaker wire in the right atrial cavity. Left Atrium Severely increased left atrial volume. Mildly increased left atrial area. Mitral Valve Mild mitral annular calcification. Mild mitral regurgitation. Aortic Valve Mild aortic stenosis with a peak gradient of 20 mmHg and a mean gradient of 13 mmHg. [id number] aortic regurgitation. Tricuspid Valve Structurally normal tricuspid valve. Pulmonic Valve Structurally normal pulmonic valve. Pericardium No pericardial effusion. Aorta Normal size aortic root and proximal ascending aorta. CONCLUSIONS Left ventricular ejection fraction 30-35% with mainly anterior septal hypokinesis Mild mitral regurgitation Mild aortic stenosis No pericardial effusion Previewed by: Dr. Bonilla Steve DO (Electronically Signed) Final Date: 05 March 2023 10:00
[2023-03-05] MEDS: PIPERACILLIN-TAZOBACTAM 3.375 GM in SODIUM CHLORIDE 0.9% 100 ML IVPB SCH ×2 (10:42→18:19)
--- NOTE | 2023-03-05 11:02 | P.PN ---
Subjective HISTORY OF PRESENTING ILLNESS Patient is a pleasant 67-year-old female with history of CAD status post prior PCI, hypertension, hyperlipidemia, AICD, obesity, paroxysmal atrial fibrillation. She follows in the office with Dr. Kam from [facility]. Patient currently intubated and history obtained from family. Apparently she had been in her normal state of health and I gone shopping at [employer]. She was using a automatic cart and apparently staff found her more short of breath and struggling for air. EMS was called and found patient unresponsive and CPR initiated at around 9:10 AM. Per chart apparently there was around 15 minutes of downtime. AICD was interrogated with episodes of PMT and nonsustained VT lasting for 1-1/2 minutes requiring ATP however no shocks delivered. These episodes occurred at 8am per interrogation. Full strips not available for reference. Per chart patient did not require any defibrillators during the code. Per family patient had been in her normal state of health and had been dealing with chronic shortness breath and might have felt somewhat short of breath last a however nothing overly out of the ordinary. Patient had ETT tube placed and currently on 80% FiO2 and remains on norepinephrine with ability to come down somewhat on the norepinephrine. Initial troponin 0.02 and then 0.06. White blood cell count 9.7, hemoglobin 11.4, proBNP 2290. CTA showed no PE, bilateral lower lobe and right upper lobe consolidation possibly related to pneumonia versus aspiration as well as rib fractures. 03/05 Patient seen and examined. Patient not making any significant neurologic recovery at this time and being worked up for possible seizure-like activity. She was given Ativan for some eyes rolling in the back of her head. Currently unresponsive. Remains on ventilator with FiO2 down to 60%. Echo performed with the EF 30-35% with some more anterior septal hypokinesis. She is off vasopresso rs. Having frequent ectopy and PVCs. PHYSICAL EXAMINATION Vital signs reviewed. CONSTITUTIONAL: No apparent distress, sedated, unresponsive on ventilator. HEENT: Head is normocephalic. Pupils are equal, round. Sclerae anicteric. Mucous membranes of the mouth are moist. No JVD. No carotid bruit. CHEST EXAMINATION: Lungs are clear to auscultation. No chest wall tenderness is noted on palpation or with deep breathing. HEART EXAMINATION: Regular rate and rhythm. S1, S2 heard. No murmurs, gallops or rub. ABDOMEN: Soft, nontender. Positive bowel sounds. EXTREMITIES: 2+ peripheral pulses, no lower extremity edema and no calf tenderness. NEUROLOGIC EXAMINATION: Patient is unresponsive on ventilator ASSESSMENT 1. Status post cardiac arrest with approximately 15 minutes of downtime 2. Episodes of nonsustained VT requiring ATP however occurring one hour prior to cardiac arrest. Unclear if true nonsustained VT or inappropriate ATP of A. fib. Await full interrogation 3. Non-STEMI related to cardiac arrest 4. Unresponsive, altered mental status rule out anoxic brain injury 5. CAD with prior PCI 6. Paroxysmal atrial fibrillation 7. Hypertension, currently hypotensive on pressors 8. Cardiomyopathy EF 30-35% 9. Chronic systolic heart failure PLAN Echo showing EF 30-35% and attempt to obtain prior records of this ejection fraction. Continue supportive care. Vasopressors have been weaned. Monitor for neurologic improvement. She did have episode of ATP which apparently was one hour prior to her code on her AICD interrogation. This was a remote interrogation and ideally obtain full interrogation if clinically relevant. May require ischemic workup if has significant neurologic recovery. Objective - Vital Signs Vital signs: Vital Signs Temp 100.4 F H 03/05/23 08:30 Pulse 84 03/05/23 10:00 Resp 20 03/05/23 10:00 BP 122/58 03/05/23 10:00 Pulse Ox 97 03/05/23 10:00 FiO2 60 03/05/23 10:00 Intake & Output 03/04/23 03/05/23 03/05/23 18:59 06:59 18:59 Intake Total 706.084 6625.334 369.505 Output Total 232 505 180 Balance 555.851 638.334 189.505 Weight 81.647 kg Intake: IV 925 250 Sodium Chloride 0.9% 1, 825 150 000 ml @ 75 mls/hr IV . [id number] [facility] Rx#:[id number] levETIRAcetam IV 1,500 mg 100 100 In Saline 1 100ml.bag @ 400 mls/hr IVPB ONCE [facility] Rx#:[id number] Intake, IV Titration 787.851 218.334 119.505 Amount Levofloxacin 750Mg-D5w 150 Pmx 750 mg In Dextrose/ Water 1 150ml.bag @ 100 mls/hr IVPB ONCE [facility] Rx#: [id number] Magnesium Sulfate-D5w Pmx 100 1 gm In Dextrose/Water 1 100ml.bag @ 100 mls/hr IVPB ONCE ONE Rx#: [id number] Norepinephrine 32 mg In 20.410 18.334 19.505 Sodium Chloride 0.9% 218 ml @ 0.03 MCG/KG/MIN 1. 148 mls/hr IV .Q24H [facility] Rx#:[id number] Sodium Chloride 0.9% 1, 450 000 ml @ 75 mls/hr IV . [id number] [facility] Rx#:[id number] levETIRAcetam IV 1,500 mg 100 In Saline 1 100ml.bag @ 400 mls/hr IVPB Q12HR [facility] Rx#:[id number] propofoL 1,000 mg In 67.441 200.000 Empty Bag 1 bag @ 15 MCG/ KG/MIN 7.348 mls/hr IV . [id number] [facility] Rx#:[id number] Output: Urine 232 505 180 Other: Voiding Method Indwelling Catheter Indwelling Catheter ABP, PAP, CO, CI - Last Documented Arterial Blood Pressure 128/51 - Labs CBC & Chem 7: 03/05/23 05:29 03/05/23 05:29 Labs: Abnormal Lab Results - Last 24 Hours (Table) 03/04/23 03/04/23 03/04/23 Range/Units 12:10 13:34 14:08 RBC (3.80-5.40) m/uL Hgb (11.4-16.0) gm/dL Neutrophils # (1.3-7.7) k/uL Lymphocytes # (1.0-4.8) k/uL ABG pH 7.17 L* (7.35-7.45) ABG pCO2 53 H (35-45) mmHg ABG pO2 75 L (83-108) mmHg ABG HCO3 19 L (21-25) mmol/L ABG O2 Saturation 91.4 L (94-97) % Chloride (98-107) mmol/L Carbon Dioxide (22-30) mmol/L BUN (7-17) mg/dL Glucose (74-99) mg/dL POC Glucose (mg/dL) 199 H (70-110) mg/dL Plasma Lactic Acid Ron 2.9 H* (0.7-2.0) mmol/L Calcium (8.4-10.2) mg/dL AST (14-36) U/L Troponin I (0.000-0.034) ng/mL Total Protein (6.3-8.2) g/dL Albumin (3.5-5.0) g/dL 03/04/23 03/04/23 03/04/23 Range/Units 15:16 15:24 18:09 RBC (3.80-5.40) m/uL Hgb (11.4-16.0) gm/dL Neutrophils # (1.3-7.7) k/uL Lymphocytes # (1.0-4.8) k/uL ABG pH 7.25 L (7.35-7.45) ABG pCO2 (35-45) mmHg ABG pO2 158 H (83-108) mmHg ABG HCO3 19 L (21-25) mmol/L ABG O2 Saturation 97.5 H (94-97) % Chloride (98-107) mmol/L Carbon Dioxide (22-30) mmol/L BUN (7-17) mg/dL Glucose (74-99) mg/dL POC Glucose (mg/dL) 136 H (70-110) mg/dL Plasma Lactic Acid Ron (0.7-2.0) mmol/L Calcium (8.4-10.2) mg/dL AST (14-36) U/L Troponin I 0.069 H* (0.000-0.034) ng/mL Total Protein (6.3-8.2) g/dL Albumin (3.5-5.0) g/dL 03/04/23 03/04/23 03/05/23 Range/Units 22:36 23:54 05:29 RBC 3.44 L (3.80-5.40) m/uL Hgb 10.8 L (11.4-16.0) gm/dL Neutrophils # 7.8 H (1.3-7.7) k/uL Lymphocytes # 0.8 L (1.0-4.8) k/uL ABG pH (7.35-7.45) ABG pCO2 (35-45) mmHg ABG pO2 (83-108) mmHg ABG HCO3 (21-25) mmol/L ABG O2 Saturation (94-97) % Chloride (98-107) mmol/L Carbon Dioxide (22-30) mmol/L BUN (7-17) mg/dL Glucose (74-99) mg/dL POC Glucose (mg/dL) 150 H (70-110) mg/dL Plasma Lactic Acid Ron (0.7-2.0) mmol/L Calcium (8.4-10.2) mg/dL AST (14-36) U/L Troponin I 0.086 H* (0.000-0.034) ng/mL Total Protein (6.3-8.2) g/dL Albumin (3.5-5.0) g/dL 03/05/23 03/05/23 03/05/23 Range/Units 05:29 05:29 06:25 RBC (3.80-5.40) m/uL Hgb (11.4-16.0) gm/dL Neutrophils # (1.3-7.7) k/uL Lymphocytes # (1.0-4.8) k/uL ABG pH (7.35-7.45) ABG pCO2 34 L (35-45) mmHg ABG pO2 (83-108) mmHg ABG HCO3 20 L (21-25) mmol/L ABG O2 Saturation (94-97) % Chloride 112 H (98-107) mmol/L Carbon Dioxide 18 L (22-30) mmol/L BUN 19 H (7-17) mg/dL Glucose 146 H (74-99) mg/dL POC Glucose (mg/dL) (70-110) mg/dL Plasma Lactic Acid Ron (0.7-2.0) mmol/L Calcium 7.7 L (8.4-10.2) mg/dL AST 45 H (14-36) U/L Troponin I 0.091 H* (0.000-0.034) ng/mL Total Protein 6.0 L (6.3-8.2) g/dL Albumin 3.4 L (3.5-5.0) g/dL 03/05/23 Range/Units 07:00 RBC (3.80-5.40) m/uL Hgb (11.4-16.0) gm/dL Neutrophils # (1.3-7.7) k/uL Lymphocytes # (1.0-4.8) k/uL ABG pH (7.35-7.45) ABG pCO2 (35-45) mmHg ABG pO2 (83-108) mmHg ABG HCO3 (21-25) mmol/L ABG O2 Saturation (94-97) % Chloride (98-107) mmol/L Carbon Dioxide (22-30) mmol/L BUN (7-17) mg/dL Glucose (74-99) mg/dL POC Glucose (mg/dL) 159 H (70-110) mg/dL Plasma Lactic Acid Ron (0.7-2.0) mmol/L Calcium (8.4-10.2) mg/dL AST (14-36) U/L Troponin I (0.000-0.034) ng/mL Total Protein (6.3-8.2) g/dL Albumin (3.5-5.0) g/dL Microbiology - Last 24 Hours (Table) 03/04/23 11:19 Legionella Culture - Preliminary Sputum 03/04/23 11:19 Sputum Culture - Preliminary Sputum
--- NOTE | 2023-03-05 11:18 | P.PN ---
Subjective Progress Note Date: 03/05/23 Principal diagnosis: Cardiac arrest. Pulmonary/critical care consult dated 03/04/2023. 67-year-old female who apparently had a cardiopulmonary arrest, at a local [employer] The patient apparently had a downtime of about 15 minutes, for there was cardiopulmonary resuscitation and return of spontaneous circulation. The patient was seen in the ER, by the ER physician, Dr. Dejesus. The patient was vented, and a right femoral vein triple lumen catheter was placed. Family members are in the room, we selected see the patient. The patient herself is unresponsive. She has a orally placed endotracheal tube. She's currently on the ventilator, with vent settings of volume assist control, rate 20, tidal volume 375, FiO2 100%, 5. Blood gases show pO2 75, pCO2 of 53, and a pH is 7.17. The patient is on norepinephrine at 0.15 mcg/kg/m, and propofol at 15 mcg/kg/m. The patient has a history of COPD from secondhand tobacco exposure, a previous history of the fibrillator placement for cardiomyopathy, and history of stroke, and [place] filter placement. In addition, the patient is on home O2, that she is supposed to use all the time, but she only uses as needed. She was a smoker in the distant past. White count 9.7, hemoglobin 11.4, hematocrit 37.9, and platelet count was normal. D-dimer was 3.10. Sodium 137, potassium 4.3, chlorides 104, CO2 17, anion gap 16, BUN and creatinine 12 and 0.76. Troponin was 0.022 and N-terminal proBNP was 2290. Lactate was not measured but is probably elevated. Testing for influenza A, and B, RSV, and coronavirus are all negative. Chest x-ray shows evidence of cardiomegaly, fluid overload, and an appropriately placed endotracheal tube. Computed tomography scan of the brain showed nothing acute. CT angiogram was negative for PE. There also may be some right lower lobe consolidation consistent with prior aspiration. Progress note dated 03/05/2023. 67-year-old female who had an [id number] cardiopulmonary arrest. The patient had about 15 minutes of resuscitation before there was return of s pontaneous circulation. Unfortunately, the patient may have sustained anoxic brain injury. Today, we place an art line. She remains on the ventilator. I did have neurology see her. She is on volume assist control, rate 20, tidal volume 375, FiO2 60%, PEEP of 5. Arterial blood gases show pO2 of 90, pCO2 34, and pH is 7.35. The patient is on norepinephrine at 0.05 mcg/kg/m, propofol at 40 mcg/kg/m, and saline at 75 mL an hour. We will discontinue the Levaquin and Flagyl and start Zosyn. In addition we'll start some tube feeds, at 10 mL an hour. A right radial art line will be placed today. White count 8.9, hemoglobin 10.8, hematocrit 34.1, and platelet count is normal. Sodium 139, potassium 3.9, chlorides 112, CO2 18, BUN 19, creatinine 0.71. Troponins were 0.086 and 0.091. Chest x-ray shows persistent bilateral infiltrates, more so in the right lung than on the left. This may relate to aspiration. Objective - Vital Signs Vital signs: Vital Signs Temp 100.4 F H 03/05/23 08:30 Pulse 92 03/05/23 11:00 Resp 20 03/05/23 11:00 BP 122/58 03/05/23 10:00 Pulse Ox 95 03/05/23 11:00 FiO2 60 03/05/23 10:00 Intake & Output 03/04/23 03/05/23 03/05/23 18:59 06:59 18:59 Intake Total 202.627 6559.334 544.505 Output Total 232 505 215 Balance 555.851 638.334 329.505 Weight 81.647 kg Intake: IV 925 325 Sodium Chloride 0.9% 1, 825 225 000 ml @ 75 mls/hr IV . [id number] [facility] Rx#:[id number] levETIRAcetam IV 1,500 mg 100 100 In Saline 1 100ml.bag @ 400 mls/hr IVPB ONCE [facility] Rx#:[id number] Intake, IV Titration 787.851 218.334 219.505 Amount Levofloxacin 750Mg-D5w 150 Pmx 750 mg In Dextrose/ Water 1 150ml.bag @ 100 mls/hr IVPB ONCE [facility] Rx#: [id number] Magnesium Sulfate-D5w Pmx 100 1 gm In Dextrose/Water 1 100ml.bag @ 100 mls/hr IVPB ONCE ONE Rx#: [id number] Norepinephrine 32 mg In 20.410 18.334 19.505 Sodium Chloride 0.9% 218 ml @ 0.03 MCG/KG/MIN 1. 148 mls/hr IV .Q24H [facility] Rx#:[id number] Piperacillin-Tazobactam 3 100 .375 gm In Sodium Chloride 0.9% 100 ml @ 25 mls/hr IVPB Q8H [facility] Rx#: [id number] Sodium Chloride 0.9% 1, 450 000 ml @ 75 mls/hr IV . [id number] [facility] Rx#:[id number] levETIRAcetam IV 1,500 mg 100 In Saline 1 100ml.bag @ 400 mls/hr IVPB Q12HR [facility] Rx#:[id number] propofoL 1,000 mg In 67.441 200.000 Empty Bag 1 bag @ 15 MCG/ KG/MIN 7.348 mls/hr IV . [id number] [facility] Rx#:[id number] Output: Urine 232 505 215 Other: Voiding Method Indwelling Catheter Indwelling Catheter ABP, PAP, CO, CI - Last Documented Arterial Blood Pressure 123/50 - Exam No acute distress, sedated on propofol, with an orally placed endotracheal tube. HEENT examination is grossly unremarkable. Neck supple. Full range of motion. No adenopathy thyromegaly or neck vein distention. Cardiovascular examination reveals regular rhythm rate. S1-S2 normal. No S3 or S4. No discernible murmur noted. Heart rate 92 bpm. Lungs reveal scattered rhonchi. No wheezes or crackles. Breath sounds equal. Saturations are 95-97 %. Abdomen obese, without bowel sounds. Extremities are intact. No cyanosis clubbing or edema. Skin is without rash or lesion. Neurologic examination cannot be adequately assessed at this time. - Labs CBC & Chem 7: 03/05/23 05:29 03/05/23 05:29 Labs: Abnormal Lab Results - Last 24 Hours (Table) 03/04/23 03/04/23 03/04/23 Range/Units 12:10 13:34 14:08 RBC (3.80-5.40) m/uL Hgb (11.4-16.0) gm/dL Neutrophils # (1.3-7.7) k/uL Lymphocytes # (1.0-4.8) k/uL ABG pH 7.17 L* (7.35-7.45) ABG pCO2 53 H (35-45) mmHg ABG pO2 75 L (83-108) mmHg ABG HCO3 19 L (21-25) mmol/L ABG O2 Saturation 91.4 L (94-97) % Chloride (98-107) mmol/L Carbon Dioxide (22-30) mmol/L BUN (7-17) mg/dL Glucose (74-99) mg/dL POC Glucose (mg/dL) 199 H (70-110) mg/dL Plasma Lactic Acid Ron 2.9 H* (0.7-2.0) mmol/L Calcium (8.4-10.2) mg/dL AST (14-36) U/L Troponin I (0.000-0.034) ng/mL Total Protein (6.3-8.2) g/dL Albumin (3.5-5.0) g/dL 03/04/23 03/04/23 03/04/23 Range/Units 15:16 15:24 18:09 RBC (3.80-5.40) m/uL Hgb (11.4-16.0) gm/dL Neutrophils # (1.3-7.7) k/uL Lymphocytes # (1.0-4.8) k/uL ABG pH 7.25 L (7.35-7.45) ABG pCO2 (35-45) mmHg ABG pO2 158 H (83-108) mmHg ABG HCO3 19 L (21-25) mmol/L ABG O2 Saturation 97.5 H (94-97) % Chloride (98-107) mmol/L Carbon Dioxide (22-30) mmol/L BUN (7-17) mg/dL Glucose (74-99) mg/dL POC Glucose (mg/dL) 136 H (70-110) mg/dL Plasma Lactic Acid Ron (0.7-2.0) mmol/L Calcium (8.4-10.2) mg/dL AST (14-36) U/L Troponin I 0.069 H* (0.000-0.034) ng/mL Total Protein (6.3-8.2) g/dL Albumin (3.5-5.0) g/dL 03/04/23 03/04/23 03/05/23 Range/Units 22:36 23:54 05:29 RBC 3.44 L (3.80-5.40) m/uL Hgb 10.8 L (11.4-16.0) gm/dL Neutrophils # 7.8 H (1.3-7.7) k/uL Lymphocytes # 0.8 L (1.0-4.8) k/uL ABG pH (7.35-7.45) ABG pCO2 (35-45) mmHg ABG pO2 (83-108) mmHg ABG HCO3 (21-25) mmol/L ABG O2 Saturation (94-97) % Chloride (98-107) mmol/L Carbon Dioxide (22-30) mmol/L BUN (7-17) mg/dL Glucose (74-99) mg/dL POC Glucose (mg/dL) 150 H (70-110) mg/dL Plasma Lactic Acid Ron (0.7-2.0) mmol/L Calcium (8.4-10.2) mg/dL AST (14-36) U/L Troponin I 0.086 H* (0.000-0.034) ng/mL Total Protein (6.3-8.2) g/dL Albumin (3.5-5.0) g/dL 03/05/23 03/05/23 03/05/23 Range/Units 05:29 05:29 06:25 RBC (3.80-5.40) m/uL Hgb (11.4-16.0) gm/dL Neutrophils # (1.3-7.7) k/uL Lymphocytes # (1.0-4.8) k/uL ABG pH (7.35-7.45) ABG pCO2 34 L (35-45) mmHg ABG pO2 (83-108) mmHg ABG HCO3 20 L (21-25) mmol/L ABG O2 Saturation (94-97) % Chloride 112 H (98-107) mmol/L Carbon Dioxide 18 L (22-30) mmol/L BUN 19 H (7-17) mg/dL Glucose 146 H (74-99) mg/dL POC Glucose (mg/dL) (70-110) mg/dL Plasma Lactic Acid Ron (0.7-2.0) mmol/L Calcium 7.7 L (8.4-10.2) mg/dL AST 45 H (14-36) U/L Troponin I 0.091 H* (0.000-0.034) ng/mL Total Protein 6.0 L (6.3-8.2) g/dL Albumin 3.4 L (3.5-5.0) g/dL 03/05/23 Range/Units 07:00 RBC (3.80-5.40) m/uL Hgb (11.4-16.0) gm/dL Neutrophils # (1.3-7.7) k/uL Lymphocytes # (1.0-4.8) k/uL ABG pH (7.35-7.45) ABG pCO2 (35-45) mmHg ABG pO2 (83-108) mmHg ABG HCO3 (21-25) mmol/L ABG O2 Saturation (94-97) % Chloride (98-107) mmol/L Carbon Dioxide (22-30) mmol/L BUN (7-17) mg/dL Glucose (74-99) mg/dL POC Glucose (mg/dL) 159 H (70-110) mg/dL Plasma Lactic Acid Ron (0.7-2.0) mmol/L Calcium (8.4-10.2) mg/dL AST (14-36) U/L Troponin I (0.000-0.034) ng/mL Total Protein (6.3-8.2) g/dL Albumin (3.5-5.0) g/dL Microbiology - Last 24 Hours (Table) 03/04/23 11:19 Legionella Culture - Preliminary Sputum 03/04/23 11:19 Sputum Culture - Preliminary Sputum Assessment and Plan Assessment: Status post web-xk-cvysnncy cardiopulmonary arrest, with at least 15 minutes of downtime, before cardiopulmonary resuscitation and return of spontaneous circulation, were accomplished. Status post intubation and mechanical ventilation for cardiopulmonary arrest, 03/04/2023. Rule out anoxic brain injury. History of atrial fibrillation. Status post AICD placement. History of COPD. History of hypertension. History of CVA. Prior history of [place] filter placement. History of anxiety/depression. Plan: Plan dated 03/04/2023. Labs, x-rays, medications are reviewed. The patient is seen in the emergency room, trauma 2. We will await the patient to arrive in the intensive care unit. I did speak to the family about the fact that there may be some concerns of anoxic brain injury, given the 15 minute downtime at [facility]. Anyway, the Indocin the next 24 hours will be critical. Labs, x-rays, and medications are reviewed. We will adjust the ventilator, and make additional recommendations along the way. Prognosis is very guarded at this point. Plan dated 03/05/2023. A right radial arterial line was placed today. The patient's labs, x-rays, and medications are reviewed. We'll start the patient on tube feedings. Levaquin and Flagyl be discontinued in favor of Zosyn for possible aspiration pneumonia. The patient remains on propofol for sedation. She is also on norepinephrine at 0.05 mcg/kg/m for blood pressure support. Additional recommendations and suggestions are forthcoming. Neurology is to see the patient. An EEG was ordered. Prognosis is certainly guarded. Time with Patient: Greater than 30
[2023-03-05 11:28] LABS: Glucose,Whole Blood 132 mg/dL (70-110)
[2023-03-05 12:01] LABS: Appearance,Urine Clear (Clear); Bilirubin,Urine Negative (Negative); Blood,Urine Negative (Negative); Color,Urine Yellow; Glucose,Urine (UA) Negative (Negative); Ketones,Urine Negative (Negative); Leukocyte Esterase,Urine Negative (Negative); Mucus,Urine Rare /hpf; Nitrite,Urine Negative (Negative); Protein,Urine 1+ (Negative); RBC,Urine 2 /hpf (0-5); Specific Gravity,Urine 1.033 (1.001-1.035); Squamous Epithelial Cell,Urine <1 /hpf (0-4); Urobilinogen,Urine <2.0 mg/dL (<2.0); WBC,Urine 2 /hpf (0-5)
--- NOTE | 2023-03-05 12:28 | P.CNNES ---
History of Present Illness Consult date: 03/05/23 Requesting physician: Torres Estrada Reason for Consult: cardiac arrest with 15 minute down time History of Present Illness: This is a 67-year-old woman with medical history of stroke, atrial fibrillation post Star filter placement, CAD s/p PCI, AICD, COPD who presented emergency department because outside cardiac arrest. History is obtained from medical record as well as the patient nurse. Apparently patient was in normal state of health and was shopping at [employer] using her automatic cards and then she became short of breath struggled for air and she became unresponsive. CPR was initiated. Seems that CPR was initiated around her 9:10 AM on 09/24/2023 and the patient was down for 15 minutes. Per cardiology AICD was antegrade and the episode was nonsustained V. tach lasting for about a minute to a minute and a half and no shocks delivered. Patient was intubated on a ventilator. While in the ICU floor patient's had twitching of extremities per nursing staff. As a result the patient required Ativan as well as IV Keppra. She is on IV propofol. Today according the nursing staff no further twitching or seizure-like activity per the a.m. nurse today. Of note seems the patient received 12 mg of Ativan total. I have requested a total of 6 mg of Ativan for seizure/twiching but prior per nurse unsure reason. She received Keppra 1500 mg bolus once. Some other workup during his hospital visit consisted of: Blood pressure on presentation is 57/42. Patient blood pressure improved and patient is on norepinephrine currently. T-max of 102.9. On initial presentation was 98.7. white blood cell is within normal limits on 2 consecutive days. Most recent troponins 0.091 Plasma lactic acid is 2.9 CT of the head is reported as no acute process. Paranasal sinus disease with air fluid level within the left maxillary sinus. Correlate for acute sinusitis. I personally reviewed the CT and there is no acute or subacute ischemia, no intracranial hemorrhage. There is no mass effect. There is no and edema is appreciable. 2-D echo was reported as left ventricular ejection fraction of 30-35% with mainly anterior septal hypokinesis. No pericardial effusion. EKG is reported as age are fibrillation with rapid ventricular response with aberrant conduction or ventricular premature complexes. Left axis deviation. Moderate intraventricular conduction delay. ST deviation to moderate T-wave abnormality. Review of Systems Review of systems Limited but the prone positive and negative as per HPI. Past Medical History Past Medical History: Atrial Fibrillation, COPD, Hypertension Additional Past Medical History / Comment(s): at home O2 History of Any Multi-Drug Resistant Organisms: None Reported Past Surgical History: No Surgical Hx Reported Additional Past Surgical History / Comment(s): star filter, left rotator cuff, RTKR. Past Anesthesia/Blood Transfusion Reactions: No Reported Reaction Type of Cardiac Device: Permanent Pacemaker, AICD Device Placement Date:: 2001 Past Psychological History: Anxiety, Depression Smoking Status: Never smoker Past Alcohol Use History: None Reported, Occasional Past Drug Use History: None Reported - Past Family History Mother Family Medical History: Cancer, Coronary Artery Disease (CAD) Additional Family Medical History / Comment(s): urterine CA Medications and Allergies Home Medications Medication Instructions Recorded Confirmed Type ARIPiprazole [Abilify] 2 mg PO DAILY 11/29/22 03/04/23 History Alendronate Sodium [Fosamax] 70 mg PO Q7D 11/29/22 03/04/23 History Apixaban [Eliquis] 5 mg PO BID 11/29/22 03/04/23 History Atorvastatin [Lipitor] 40 mg PO HS 11/29/22 03/04/23 History Carbidopa/Levodopa [Sinemet 25-100 1 tab PO BID 11/29/22 03/04/23 History mg Tablet] Dicyclomine [Bentyl] 10 mg PO QID PRN 11/29/22 03/04/23 History Furosemide [Lasix] 40 mg PO DAILY 11/29/22 03/04/23 History Isosorbide Mononitrate ER [Imdur] 60 mg PO DAILY 11/29/22 03/04/23 History Liothyronine Sodium [Cytomel] 25 mcg PO DAILY 11/29/22 03/04/23 History Nitroglycerin Sl Tabs [Nitrostat] 0.4 mg SL Q5M PRN 11/29/22 03/04/23 History Sertraline [Zoloft] 200 mg PO DAILY 11/29/22 03/04/23 History carvediloL [Coreg] 3.125 mg PO BID 11/29/22 03/04/23 History traZODone HCL 300 mg PO HS 11/29/22 03/04/23 History traZODone HCL [Desyrel] 100 mg PO DAILY@0400 11/29/22 03/04/23 History lisinopriL [Zestril] 5 mg PO DAILY 03/04/23 03/04/23 History Allergies Allergy/AdvReac Type Severity Reaction Status Date / Time cephalexin [From Keflex] Allergy Mouth Verified 03/04/23 15:18 swelling Physical Examination - Vital Signs Vital Signs: Vital Signs Temp Pulse Resp BP Pulse Ox FiO2 03/05/23 11:44 84 03/05/23 11:39 60 03/05/23 11:00 92 20 95 03/05/23 10:30 91 20 03/05/23 10:00 84 20 122/58 97 60 03/05/23 09:30 90 22 141/55 89 L 03/05/23 09:00 80 20 121/48 03/05/23 08:30 100.4 F H 85 20 118/56 03/05/23 08:09 92 03/05/23 08:00 86 20 122/51 60 03/05/23 07:56 86 03/05/23 07:51 60 03/05/23 07:30 82 20 136/61 03/05/23 07:00 88 21 129/67 03/05/23 06:45 89 21 96 03/05/23 06:30 100 26 H 114/49 97 03/05/23 06:15 89 26 H 118/48 96 03/05/23 06:00 99.7 F H 86 20 117/55 96 03/05/23 05:45 86 24 123/48 98 03/05/23 05:30 86 22 122/53 96 03/05/23 05:15 79 21 119/55 97 03/05/23 05:00 86 23 104/59 97 03/05/23 04:45 87 23 120/53 97 03/05/23 04:30 86 22 119/53 97 03/05/23 04:27 60 03/05/23 04:15 76 23 105/56 97 03/05/23 04:00 101.2 F H 89 22 115/54 97 60 03/05/23 03:45 89 21 97 03/05/23 03:30 92 20 109/50 97 03/05/23 03:15 87 20 118/54 97 03/05/23 03:00 91 20 111/49 97 03/05/23 02:45 92 20 114/52 97 03/05/23 02:30 93 23 110/58 97 03/05/23 02:15 92 22 116/51 97 03/05/23 02:00 92 25 H 115/48 99 03/05/23 01:45 92 23 114/51 97 03/05/23 01:30 90 24 96/56 97 03/05/23 01:15 96 24 100/46 96 03/05/23 01:00 102.9 F H 90 24 99/50 96 03/05/23 00:45 89 23 98/46 96 03/05/23 00:30 89 29 H 115/49 96 03/05/23 00:15 87 22 104/50 95 03/05/23 00:13 60 03/05/23 00:00 102.7 F H 86 22 109/57 96 60 03/04/23 23:45 92 27 H 110/57 96 03/04/23 23:30 93 22 122/71 96 03/04/23 23:15 98 26 H 140/65 96 03/04/23 23:00 98 28 H 117/66 96 03/04/23 22:45 98 35 H 94/66 95 03/04/23 22:30 100 27 H 120/55 96 03/04/23 22:15 98 23 119/56 95 03/04/23 22:00 97 20 123/60 95 03/04/23 21:45 93 20 129/58 96 03/04/23 21:30 93 20 121/61 94 L 03/04/23 21:15 92 20 126/56 98 03/04/23 21:00 90 20 117/55 100 03/04/23 20:45 85 20 120/53 98 03/04/23 20:30 84 20 116/61 98 03/04/23 20:23 85 03/04/23 20:15 85 20 115/54 100 03/04/23 20:14 60 03/04/23 20:00 102.3 F H 85 21 112/61 99 60 03/04/23 19:00 79 20 119/56 03/04/23 18:50 70 20 115/56 03/04/23 18:40 72 20 120/55 99 03/04/23 18:30 80 20 117/63 03/04/23 18:20 76 22 120/49 03/04/23 18:10 76 20 118/49 03/04/23 18:00 70 20 122/63 03/04/23 17:50 79 20 82/59 03/04/23 17:40 84 20 117/61 98 03/04/23 17:30 80 20 118/43 98 03/04/23 17:20 81 20 110/67 98 03/04/23 17:10 82 20 108/62 98 03/04/23 17:00 82 20 107/63 98 03/04/23 16:50 84 20 109/58 97 03/04/23 16:40 84 20 111/59 97 03/04/23 16:30 81 20 110/49 99 03/04/23 16:20 81 20 109/51 99 03/04/23 16:10 73 20 114/49 03/04/23 16:00 82 20 111/51 98 80 03/04/23 15:55 98.4 F 82 20 112/50 98 80 03/04/23 15:50 82 20 116/55 98 03/04/23 15:45 83 20 110/49 98 03/04/23 15:40 80 20 105/51 97 03/04/23 15:35 84 20 109/51 03/04/23 15:30 84 20 112/55 03/04/23 15:25 73 20 93/59 98 03/04/23 15:20 80 20 110/48 99 03/04/23 15:19 80 03/04/23 15:15 75 20 102/79 99 03/04/23 15:10 76 20 124/47 99 03/04/23 15:05 78 20 118/57 99 03/04/23 15:00 78 20 101/62 99 03/04/23 14:55 78 20 112/54 99 03/04/23 14:50 81 20 117/50 99 03/04/23 14:45 84 20 129/50 99 03/04/23 14:40 75 20 124/72 98 03/04/23 14:35 72 20 146/73 98 03/04/23 14:00 94.4 F L 70 20 151/74 100 100 03/04/23 13:40 88 16 141/72 100 0415/23 13:29 100 03/04/23 13:02 78 18 136/66 99 03/04/23 12:17 82 18 83/48 03/04/23 12:11 85 20 76/42 95 Intake and Output 03/04/23 03/05/23 03/05/23 22:59 06:59 14:59 Intake Total 1041.852 768.945 544.505 Output Total 392 305 215 Balance 649.852 463.945 329.505 Intake: IV 325 600 325 Sodium Chloride 0.9% 1, 225 600 225 000 ml @ 75 mls/hr IV . [id number] [facility] Rx#:[id number] levETIRAcetam IV 1,500 mg 100 100 In Saline 1 100ml.bag @ 400 mls/hr IVPB ONCE [facility] Rx#:[id number] Intake, IV Titration 716.852 168.945 219.505 Amount Levofloxacin 750Mg-D5w 150 Pmx 750 mg In Dextrose/ Water 1 150ml.bag @ 100 mls/hr IVPB ONCE [facility] Rx#: [id number] Magnesium Sulfate-D5w Pmx 100 1 gm In Dextrose/Water 1 100ml.bag @ 100 mls/hr IVPB ONCE [facility] Rx#: [id number] Norepinephrine 32 mg In 11.264 11.484 19.505 Sodium Chloride 0.9% 218 ml @ 0.03 MCG/KG/MIN 1. 148 mls/hr IV .Q24H [facility] Rx#:[id number] Piperacillin-Tazobactam 3 100 .375 gm In Sodium Chloride 0.9% 100 ml @ 25 mls/hr IVPB Q8H [facility] Rx#: [id number] Sodium Chloride 0.9% 1, 375 000 ml @ 75 mls/hr IV . [id number] [facility] Rx#:[id number] levETIRAcetam IV 1,500 mg 100 In Saline 1 100ml.bag @ 400 mls/hr IVPB Q12HR [facility] Rx#:[id number] propofoL 1,000 mg In 80.588 157.461 Empty Bag 1 bag @ 15 MCG/ KG/MIN 7.348 mls/hr IV . [id number] [facility] Rx#:[id number] Output: Urine 392 305 215 Other: Voiding Method Indwelling Catheter Indwelling Catheter ABP, PAP, CO, CI - Last 8 Hours Arterial Blood Pressure 123/50 Arterial Blood Pressure 171/67 Arterial Blood Pressure 128/51 Arterial Blood Pressure 157/56 GENERAL: The patient is lying in bed and is not in acute distress. CHEST: The heart rate is regular rate rhythm. No murmurs to auscultation. LUNG: Clear to auscultation bilaterally no wheezing noted throughout. Not labored breathing. ABDOMEN/GI: Bowel sounds present in all 4 quadrants. No tenderness to palpation throughout. NEUROLOGICAL: Limited because of condition. Is on IV Propofol 40mcg/kg/min. Higher mental function: The patient is comatose GCS 3 (E1, VT1, M1). Cranial nerves: I had manually open her eyes. Primary gaze is fixed upward gaze. The pupils are round, equal and reactive to light . No facial weakness. Is breathing over the vent. Has postivie gag reflex. Motor: The strength is no movement event with painful stimuli not withdrawling. Decrease tone throughout. Normal bulk. Cerebellum: Unable to assess. Sensation: Unable to assess light touch. Reflexes (right/left): 1+ throughout. Plantars are mute bilaterally. Results - Laboratory Findings CBC and BMP: 03/05/23 05:29 03/05/23 05:29 Abnormal Lab Findings: Abnormal Labs 03/04/23 03/04/23 03/04/23 10:02 10:02 10:02 RBC 3.53 L Hgb MCV 107.2 H MCHC 30.0 L Neutrophils # Lymphocytes # D-Dimer 3.10 H ABG pH ABG pCO2 ABG pO2 ABG HCO3 ABG O2 Saturation Chloride Carbon Dioxide 17 L BUN Glucose 325 H POC Glucose (mg/dL) Plasma Lactic Acid Ron Calcium AST 57 H Troponin I Total Protein Albumin Urine Protein Urine Mucus 03/04/23 03/04/23 03/04/23 12:10 13:34 14:08 RBC Hgb MCV MCHC Neutrophils # Lymphocytes # D-Dimer ABG pH 7.17 L* ABG pCO2 53 H ABG pO2 75 L ABG HCO3 19 L ABG O2 Saturation 91.4 L Chloride Carbon Dioxide BUN Glucose POC Glucose (mg/dL) 199 H Plasma Lactic Acid Ron 2.9 H* Calcium AST Troponin I Total Protein Albumin Urine Protein Urine Mucus 03/04/23 03/04/23 03/04/23 15:16 15:24 18:09 RBC Hgb MCV MCHC Neutrophils # Lymphocytes # D-Dimer ABG pH 7.25 L ABG pCO2 ABG pO2 158 H ABG HCO3 19 L ABG O2 Saturation 97.5 H Chloride Carbon Dioxide BUN Glucose POC Glucose (mg/dL) 136 H Plasma Lactic Acid Ron Calcium AST Troponin I 0.069 H* Total Protein Albumin Urine Protein Urine Mucus 03/04/23 03/04/23 03/05/23 22:36 23:54 05:29 RBC 3.44 L Hgb 10.8 L MCV MCHC Neutrophils # 7.8 H Lymphocytes # 0.8 L D-Dimer ABG pH ABG pCO2 ABG pO2 ABG HCO3 ABG O2 Saturation Chloride Carbon Dioxide BUN Glucose POC Glucose (mg/dL) 150 H Plasma Lactic Acid Ron Calcium AST Troponin I 0.086 H* Total Protein Albumin Urine Protein Urine Mucus 03/05/23 03/05/23 03/05/23 05:29 05:29 06:25 RBC Hgb MCV MCHC Neutrophils # Lymphocytes # D-Dimer ABG pH ABG pCO2 34 L ABG pO2 ABG HCO3 20 L ABG O2 Saturation Chloride 112 H Carbon Dioxide 18 L BUN 19 H Glucose 146 H POC Glucose (mg/dL) Plasma Lactic Acid Ron Calcium 7.7 L AST 45 H Troponin I 0.091 H* Total Protein 6.0 L Albumin 3.4 L Urine Protein Urine Mucus 03/05/23 03/05/23 03/05/23 07:00 11:09 11:27 RBC Hgb MCV MCHC Neutrophils # Lymphocytes # D-Dimer ABG pH ABG pCO2 ABG pO2 ABG HCO3 ABG O2 Saturation Chloride Carbon Dioxide BUN Glucose POC Glucose (mg/dL) 159 H 132 H Plasma Lactic Acid Ron Calcium AST Troponin I Total Protein Albumin Urine Protein 1+ H Urine Mucus Rare H Assessment and Plan Assessment: Cardiopulmonary arrest lasting for 15 minutes. It appears the patient had episode of nonsustained V. tach is seems to happen 1 hour prior to the cardiac arrest but per cardiology unsure if true VT or A.fib Encephalopathy due to Anoxic due to above. Rule out anoxic brain injury. Patient has some brainstem reflex. Exam is somewhat limited because of sedation. Reported twitching of body that is intermittent on 03/04/23: Probable seizures due to cardiopulmonary arrest--today resolved Cardiomyopathy with ejection fraction of 30-35% Status post intubation and mechanical ventilation due to cardiopulmonary last Non-STEMI Paroxysmal atrial fibrillation History of stroke AICD Hypertension CAD with prior PCI History of green filter placement Plan: I ordered a stat EEG Continue Keppra 1500 mg IV every 12 hours (new during this admission) for her twitching of body for concern of seizure. Recommend sedation holiday. I will get repeat CT head for tomorrow to assess any changes compared to day prior. It appears patient has fever and suspected aspiration pneumonia. Will defer management to primary and ICU team. The condition is very guarded. Plan is discussed with patient's nurse. Thank you for the consultation. Dr. Walton will start neurology service tomorrow A.M. Time with Patient: Greater than 30
[2023-03-05] MEDS ORDERED: SODIUM CHLORIDE 0.9% 500 ML 500 ML IV ONE (13:31)
[2023-03-05] MEDS: NOREPINEPHRINE 32 MG in SODIUM CHLORIDE 0.9% 218 ML IV SCH (13:46)
[2023-03-05] MEDS ORDERED: FUROSEMIDE 10 MG/ML 4 ML VIAL IV STA (15:13)
[2023-03-05] MEDS ORDERED: LEVOFLOXACIN 750 MG TAB PO SCH (16:00)
[2023-03-05] MEDS: metroNIDAZOLE-NS PMX 500 MG in SALINE 1 100ML.BAG IVPB SCH (18:20)
[2023-03-05 18:28] LABS: Glucose,Whole Blood 130 mg/dL (70-110)
--- NOTE | 2023-03-05 22:00 | EEG ---
ELECTROENCEPHALOGRAM REPORT CLINICAL HISTORY: This is a 67-year-old woman, who had reported cardiac arrest outside hospital and has twitches of extremities. The video EEG is obtained to evaluate for seizure epileptiform activity. RELEVANT MEDICATION: Keppra, Ativan and IV propofol. EEG TYPE: A routine 21-channel EEG is performed with video using the 10/20 electrode placement system. DESCRIPTION: The patient is intubated on a ventilator. The background is diffusely suppressed. But upon going up on sensitivity, background is low voltage of 1 to 2 hertz activity. There was no physiological sleep architecture. There is no focal slowing. Interictal and ictal is none. ACTIVATION PROCEDURE: Photic stimulation did not evoke a posterior driving response. There is no abnormality during the photic stimulation. Hyperventilation is not performed. CLINICAL INTERPRETATION: This is an abnormal routine EEG. The diffuse suppression is due to either medication induced (Ativan and IV Propofol) or due anoxia. The background slowing is suggestive of severe encephalopathy. Otherwise, there is no focal slowing, epileptiform discharge or seizure on the EEG. Clinical correlation is recommended MMODL / IJN: [id number] / MTDD
[2023-03-05 23:18] LABS: Glucose,Whole Blood 147 mg/dL (70-110)
[2023-03-05 23:38] LABS: African American GFR (CKD) >90 (>60 ml/min/1.73 sqM); Anion Gap 5 mmol/L; Blood Urea Nitrogen 18 mg/dL (7-17); Calcium 7.1 mg/dL (8.4-10.2); Carbon Dioxide 20 mmol/L (22-30); Chloride 113 mmol/L (98-107); Glucose 149 mg/dL (74-99); Magnesium 1.9 mg/dL (1.6-2.3); Non-African American GFR(CKD) 84 (>60 ml/min/1.73 sqM); Phosphorus 2.8 mg/dL (2.5-4.5); Potassium 3.5 mmol/L (3.5-5.1); Sodium 138 mmol/L (137-145)
[2023-03-05] MEDS ORDERED: Magnesium Replacement Protocol 1 EACH MISC MISCELLANE PRN (23:48)
[2023-03-05] MEDS ORDERED: Potassium Replacement Protocol 1 EACH MISC MISCELLANE PRN (23:48)
[2023-03-06] MEDS: IPRATROPIUM-ALBUTEROL 3 ML NEB INHALATION SCH ×6 (00:16→19:51)
[2023-03-06] MEDS: POTASSIUM BICARBONATE/CIT AC 20 MEQ TABLET.EFF NG-TUBE SCH ×2 (00:19→01:09)
[2023-03-06] MEDS: PIPERACILLIN-TAZOBACTAM 3.375 GM in SODIUM CHLORIDE 0.9% 100 ML IVPB SCH ×3 (01:10→18:23)
--- NOTE | 2023-03-06 02:33 | P.PN ---
Subjective Progress Note Date: 03/05/23 Patient is a 67-year-old male with a known history of chronic atrial fibrillation on anticoagulation with Eliquis, cardiomyopathy status post ICD placement, COPD on home oxygen at 4 L via nasal cannula, hypertension, anxiety/depression and history of femoral neck fracture s/p repair in November 2022 was brought to the hospital by EMS status postcardiac arrest. Patient was at [facility] where she was found to have worsening shortness of breath and became unresponsive on a motorized scooter.. Patient underwent CPR for about 15 minutes by EMS and was given 3 doses of epinephrine with return of spontaneous circulation and was intubated. Patient was brought to ER for evaluation. Patient was unresponsive and was able to provide any history. On arrival chest x-ray showed cardiomegaly and mild pulmonary vascular congestion. Correlate with BNP for congestive heart failure. Right basilar patchy airspace opacities may represent pulmonary edema versus infiltrate. Endotracheal tube in appropriate position. Possible NG tube terminating in the mid esophagus. CT head showed no acute intracranial process. Paranasal sinus disease with air- fluid level within the left maxillary sinus. Correlate for acute sinusitis. Chest CTA showed no evidence of PE. Bilateral lower lobe and right upper lobe consolidation with a scattered multifocal groundglass opacities throughout the lungs. Findings are compatible with pneumonia possibly aspiration. Multiple acute minimally displaced rib fractures likely related to CPR in the setting of cardiac arrest. Remote to subacute bilateral rib fractures also demo nstrated. No pneumothorax. Cardiomegaly. Laboratory data showed WBC 9.7 hemoglobin 11.4 platelets 246 and D-dimer 3.1 Initial ABG showed pH of 7.17 PCO2 30 and PO2 75 Sodium 135, potassium 4.3, chloride 104, bicarb is 17 BUN 12 and creatinine 0.76 and blood sugar was 325 and lactic acid 2.9 AST 57 ALT 14 alk phos 73 and troponin x1 negative proBNP 2290 Influenza A B RSV and COVID-19 PCR not detected. 03/05/2023 Patient is in the MICU. Remains mechanical ventilator. Off pressor support. Otherwise patient remains unresponsive. EEG was ordered and neurology is on board. 2D echocardiogram showed ejection fraction 30 to 35% with anterior septal hypokinesis. AICD C interrogation was done. Cardiology neurology and pulmonary is on board. Chest x-ray showed persistent right midlung and bibasilar multifocal acute infiltrates without edema. No change from 1 day. Patient remains on antibiotics Zosyn. NG tube in place. Current medications reviewed. Objective - Vital Signs Vital signs: Vital Signs Temp 100.4 F H 03/05/23 08:30 Pulse 84 03/05/23 10:00 Resp 20 03/05/23 10:00 BP 122/58 03/05/23 10:00 Pulse Ox 97 03/05/23 10:00 FiO2 60 03/05/23 10:00 Intake & Output 03/04/23 03/05/23 03/05/23 18:59 06:59 18:59 Intake Total 801.621 8171.334 369.505 Output Total 232 505 180 Balance 555.851 638.334 189.505 Weight 81.647 kg Intake: IV 925 250 Sodium Chloride 0.9% 1, 825 150 000 ml @ 75 mls/hr IV . [id number] [facility] Rx#:[id number] levETIRAcetam IV 1,500 mg 100 100 In Saline 1 100ml.bag @ 400 mls/hr IVPB ONCE [facility] Rx#:[id number] Intake, IV Titration 787.851 218.334 119.505 Amount Levofloxacin 750Mg-D5w 150 Pmx 750 mg In Dextrose/ Water 1 150ml.bag @ 100 mls/hr IVPB ONCE [facility] Rx#: [id number] Magnesium Sulfate-D5w Pmx 100 1 gm In Dextrose/Water 1 100ml.bag @ 100 mls/hr IVPB ONCE ONE Rx#: [id number] Norepinephrine 32 mg In 20.410 18.334 19.505 Sodium Chloride 0.9% 218 ml @ 0.03 MCG/KG/MIN 1. 148 mls/hr IV .Q24H [facility] Rx#:[id number] Sodium Chloride 0.9% 1, 450 000 ml @ 75 mls/hr IV . [id number] [facility] Rx#:[id number] levETIRAcetam IV 1,500 mg 100 In Saline 1 100ml.bag @ 400 mls/hr IVPB Q12HR [facility] Rx#:[id number] propofoL 1,000 mg In 67.441 200.000 Empty Bag 1 bag @ 15 MCG/ KG/MIN 7.348 mls/hr IV . [id number] [facility] Rx#:[id number] Output: Urine 232 505 180 Other: Voiding Method Indwelling Catheter Indwelling Catheter ABP, PAP, CO, CI - Last Documented Arterial Blood Pressure 128/51 - Exam PHYSICAL EXAMINATION: Patient is on mechanical ventilator. HEENT: Normocephalic. Neck is supple. Pupils reactive. Nostrils clear. Oral cavity is moist. Neck reveals no JVD, carotid bruits, or thyromegaly. CHEST EXAMINATION: Trachea is central. Symmetrical expansion. Bibasilar diminished sounds and coarse breath sounds. No wheezing. CARDIAC: Normal S1, S2 with no gallops. No murmurs ABDOMEN: Soft. Bowel sounds present. Nontender. No organomegaly. No abdominal bruits. Extremities: Trace lower extremity edema. No clubbing or cyanosis Neurologically patient is on mechanical ventilator. Skin: No rash or skin lesions. Psychiatric: Could not be assessed at, Musculoskeletal: No joint swelling or deformity. - Labs CBC & Chem 7: 03/05/23 05:29 03/05/23 22:50 Labs: Abnormal Lab Results - Last 24 Hours (Table) 03/04/23 03/04/23 03/04/23 Range/Units 12:10 13:34 14:08 RBC (3.80-5.40) m/uL Hgb (11.4-16.0) gm/dL Neutrophils # (1.3-7.7) k/uL Lymphocytes # (1.0-4.8) k/uL ABG pH 7.17 L* (7.35-7.45) ABG pCO2 53 H (35-45) mmHg ABG pO2 75 L (83-108) mmHg ABG HCO3 19 L (21-25) mmol/L ABG O2 Saturation 91.4 L (94-97) % Chloride (98-107) mmol/L Carbon Dioxide (22-30) mmol/L BUN (7-17) mg/dL Glucose (74-99) mg/dL POC Glucose (mg/dL) 199 H (70-110) mg/dL Plasma Lactic Acid Ron 2.9 H* (0.7-2.0) mmol/L Calcium (8.4-10.2) mg/dL AST (14-36) U/L Troponin I (0.000-0.034) ng/mL Total Protein (6.3-8.2) g/dL Albumin (3.5-5.0) g/dL 03/04/23 03/04/23 03/04/23 Range/Units 15:16 15:24 18:09 RBC (3.80-5.40) m/uL Hgb (11.4-16.0) gm/dL Neutrophils # (1.3-7.7) k/uL Lymphocytes # (1.0-4.8) k/uL ABG pH 7.25 L (7.35-7.45) ABG pCO2 (35-45) mmHg ABG pO2 158 H (83-108) mmHg ABG HCO3 19 L (21-25) mmol/L ABG O2 Saturation 97.5 H (94-97) % Chloride (98-107) mmol/L Carbon Dioxide (22-30) mmol/L BUN (7-17) mg/dL Glucose (74-99) mg/dL POC Glucose (mg/dL) 136 H (70-110) mg/dL Plasma Lactic Acid Ron (0.7-2.0) mmol/L Calcium (8.4-10.2) mg/dL AST (14-36) U/L Troponin I 0.069 H* (0.000-0.034) ng/mL Total Protein (6.3-8.2) g/dL Albumin (3.5-5.0) g/dL 03/04/23 03/04/23 03/05/23 Range/Units 22:36 23:54 05:29 RBC 3.44 L (3.80-5.40) m/uL Hgb 10.8 L (11.4-16.0) gm/dL Neutrophils # 7.8 H (1.3-7.7) k/uL Lymphocytes # 0.8 L (1.0-4.8) k/uL ABG pH (7.35-7.45) ABG pCO2 (35-45) mmHg ABG pO2 (83-108) mmHg ABG HCO3 (21-25) mmol/L ABG O2 Saturation (94-97) % Chloride (98-107) mmol/L Carbon Dioxide (22-30) mmol/L BUN (7-17) mg/dL Glucose (74-99) mg/dL POC Glucose (mg/dL) 150 H (70-110) mg/dL Plasma Lactic Acid Ron (0.7-2.0) mmol/L Calcium (8.4-10.2) mg/dL AST (14-36) U/L Troponin I 0.086 H* (0.000-0.034) ng/mL Total Protein (6.3-8.2) g/dL Albumin (3.5-5.0) g/dL 03/05/23 03/05/23 03/05/23 Range/Units 05:29 05:29 06:25 RBC (3.80-5.40) m/uL Hgb (11.4-16.0) gm/dL Neutrophils # (1.3-7.7) k/uL Lymphocytes # (1.0-4.8) k/uL ABG pH (7.35-7.45) ABG pCO2 34 L (35-45) mmHg ABG pO2 (83-108) mmHg ABG HCO3 20 L (21-25) mmol/L ABG O2 Saturation (94-97) % Chloride 112 H (98-107) mmol/L Carbon Dioxide 18 L (22-30) mmol/L BUN 19 H (7-17) mg/dL Glucose 146 H (74-99) mg/dL POC Glucose (mg/dL) (70-110) mg/dL Plasma Lactic Acid Ron (0.7-2.0) mmol/L Calcium 7.7 L (8.4-10.2) mg/dL AST 45 H (14-36) U/L Troponin I 0.091 H* (0.000-0.034) ng/mL Total Protein 6.0 L (6.3-8.2) g/dL Albumin 3.4 L (3.5-5.0) g/dL 03/05/23 Range/Units 07:00 RBC (3.80-5.40) m/uL Hgb (11.4-16.0) gm/dL Neutrophils # (1.3-7.7) k/uL Lymphocytes # (1.0-4.8) k/uL ABG pH (7.35-7.45) ABG pCO2 (35-45) mmHg ABG pO2 (83-108) mmHg ABG HCO3 (21-25) mmol/L ABG O2 Saturation (94-97) % Chloride (98-107) mmol/L Carbon Dioxide (22-30) mmol/L BUN (7-17) mg/dL Glucose (74-99) mg/dL POC Glucose (mg/dL) 159 H (70-110) mg/dL Plasma Lactic Acid Ron (0.7-2.0) mmol/L Calcium (8.4-10.2) mg/dL AST (14-36) U/L Troponin I (0.000-0.034) ng/mL Total Protein (6.3-8.2) g/dL Albumin (3.5-5.0) g/dL Microbiology - Last 24 Hours (Table) 03/04/23 11:19 Legionella Culture - Preliminary Sputum 03/04/23 11:19 Sputum Culture - Preliminary Sputum Assessment and Plan Assessment: Acute cardiac arrest s/p CPR for about 15 minutes with return of spontaneous circulation. Status post intubation by EMS. Episodes of nonsustained V. tach. Awaiting full AICD interrogation report Possible anoxic brain injury Chronic atrial fibrillation on anticoagulant Eliquis History of ICD placement Hyperglycemia COPD on home oxygen Chronic hypoxic respiratory failure on 4 L oxygen via nasal cannula Recent history of femoral neck fracture repair in November 2022 History of IVC filter placement Anxiety/depression Plan: Patient is currently in the MICU. Status post CPR and currently on mechanical ventilator. Downtime was was about 15 minutes. Possible anoxic brain injury also is being considered. Continue with antibiotics for pneumonia with Levaquin. Continue insulin sliding scale.Patient is off pressor support. Critical care team, pulmonary and neurology is on board. Prognosis poor at this time. EEG was done today. Continue to follow closely. Time with Patient: Greater than 30
[2023-03-06] MEDS: LORazepam 2 MG/ML INJ IV PRN (03:44)
[2023-03-06] MEDS: ACETAMINOPHEN TAB 325 MG TAB PO PRN ×3 (03:45→22:08)
[2023-03-06 04:35] LABS: Basophils % (A) 0 %; Eosinophils % (A) 0 %; HCT 29.3 % (34.0-46.0); HGB 9.5 gm/dL (11.4-16.0); Lymphocytes # (A) 0.5 k/uL (1.0-4.8); Lymphocytes % (A) 8 %; MCH 31.4 pg (25.0-35.0); MCHC 32.3 g/dL (31.0-37.0); MCV 97.2 fL (80.0-100.0); Mean Platelet Volume 9.5; Monocytes # (A) 0.3 k/uL (0-1.0); Monocytes % (A) 5 %; Neutrophils # (A) 5.5 k/uL (1.3-7.7); Neutrophils % (A) 85 %; Platelet Count 153 k/uL (150-450); RBC 3.01 m/uL (3.80-5.40); RDW 14.7 % (11.5-15.5); WBC 6.4 k/uL (3.8-10.6)
[2023-03-06 04:38] LABS: African American GFR (CKD) >90 (>60 ml/min/1.73 sqM); Anion Gap 3 mmol/L; Blood Urea Nitrogen 18 mg/dL (7-17); Calcium 7.2 mg/dL (8.4-10.2); Carbon Dioxide 22 mmol/L (22-30); Chloride 113 mmol/L (98-107); Glucose 156 mg/dL (74-99); Magnesium 2.3 mg/dL (1.6-2.3); Non-African American GFR(CKD) 85 (>60 ml/min/1.73 sqM); Sodium 138 mmol/L (137-145)
[2023-03-06 04:50] LABS: ABG HCO3 23 mmol/L (21-25); ABG Oxygen Saturation 96.8 % (94-97); ABG PCO2 42 mmHg (35-45); ABG PH 7.34 (7.35-7.45); ABG PO2 89 mmHg (83-108); ABG TCO2 24 mmol/L (19-24); Allen Test Performed? Yes
[2023-03-06 05:08] LABS: Glucose,Whole Blood 159 mg/dL (70-110)
[2023-03-06] MEDS: INSULIN ASPART (NovoLOG) 100 UNIT/ML VIAL SQ SCH ×4 (05:08→23:37)
--- NOTE | 2023-03-06 05:13 | CT ---
EXAMINATION TYPE: CT brain wo con DATE OF EXAM: 03/06/2023 HISTORY: Headache. Altered mental status. Cardiac arrest. CT DLP: 1165 mGycm. Automated Exposure Control for Dose Reduction was Utilized. TECHNIQUE: CT scan of the head is performed without contrast. COMPARISON: CT brain 2 days earlier.. FINDINGS: There is no acute intracranial hemorrhage or midline shift identified. There is mild diff use ventricular and sulcal prominence redemonstrated. Blanco-white matter differentiation fairly well-m aintained. Bilateral basal ganglia calcifications redemonstrated along with some bilateral cerebella r calcifications again seen. Nasal septum remains deviated to right of midline. Bilateral aphakia red emonstrated. Resolved air fluid level left maxillary sinus. More prominent dependent fluid bilateral sphenoid sinuses. IMPRESSION: No acute intracranial hemorrhage or midline shift. There is mild diffuse cerebral atrop hy redemonstrated. Resolved left maxillary acute sinusitis. Slightly worsening bilateral sphenoid acu te sinusitis.
--- NOTE | 2023-03-06 05:30 | P.PN ---
Subjective Progress Note Date: 03/06/23 Principal diagnosis: Cardiac arrest. Pulmonary/critical care consult dated 03/04/2023. 67-year-old female who apparently had a cardiopulmonary arrest, at a local [employer] store[employer]t. The patient apparently had a downtime of about 15 minutes, for there was cardiopulmonary resuscitation and return of spontaneous circulation. The patient was seen in the ER, by the ER physician, Dr. Dejesus. The patient was vented, and a right femoral vein triple lumen catheter was placed. Family members are in the room, we selected see the patient. The patient herself is unresponsive. She has a orally placed endotracheal tube. She's currently on the ventilator, with vent settings of volume assist control, rate 20, tidal volume 375, FiO2 100%, 5. Blood gases show pO2 75, pCO2 of 53, and a pH is 7.17. The patient is on norepinephrine at 0.15 mcg/kg/m, and propofol at 15 mcg/kg/m. The patient has a history of COPD from secondhand tobacco exposure, a previous history of the fibrillator placement for cardiomyopathy, and history of stroke, and [place] filter placement. In addition, the patient is on home O2, that she is supposed to use all the time, but she only uses as needed. She was a smoker in the distant past. White count 9.7, hemoglobin 11.4, hematocrit 37.9, and platelet count was normal. D-dimer was 3.10. Sodium 137, potassium 4.3, chlorides 104, CO2 17, anion gap 16, BUN and creatinine 12 and 0.76. Troponin was 0.022 and N-terminal proBNP was 2290. Lactate was not measured but is probably elevated. Testing for influenza A, and B, RSV, and coronavirus are all negative. Chest x-ray shows evidence of cardiomegaly, fluid overload, and an appropriately placed endotracheal tube. Computed tomography scan of the brain showed nothing acute. CT angiogram was negative for PE. There also may be some right lower lobe consolidation consistent with prior aspiration. Progress note dated 03/05/2023. 67-year-old female who had an [id number] cardiopulmonary arrest. The patient had about 15 minutes of resuscitation before there was return of s pontaneous circulation. Unfortunately, the patient may have sustained anoxic brain injury. Today, we place an art line. She remains on the ventilator. I did have neurology see her. She is on volume assist control, rate 20, tidal volume 375, FiO2 60%, PEEP of 5. Arterial blood gases show pO2 of 90, pCO2 34, and pH is 7.35. The patient is on norepinephrine at 0.05 mcg/kg/m, propofol at 40 mcg/kg/m, and saline at 75 mL an hour. We will discontinue the Levaquin and Flagyl and start Zosyn. In addition we'll start some tube feeds, at 10 mL an hour. A right radial art line will be placed today. White count 8.9, hemoglobin 10.8, hematocrit 34.1, and platelet count is normal. Sodium 139, potassium 3.9, chlorides 112, CO2 18, BUN 19, creatinine 0.71. Troponins were 0.086 and 0.091. Chest x-ray shows persistent bilateral infiltrates, more so in the right lung than on the left. This may relate to aspiration. Progress note dated 03/06/2023. 67-year-old female who was in an [id number] cardiopulmonary arrest. The patient was resuscitated, and brought to the emergency department. The patient had about a 15 minute period of resuscitation before there was return of spontaneous circulation. She remains on mechanical ventilator. She is on volume assist control, rate 20, tidal volume 375, FiO2 60% and PEEP of 5. Blood gases show pO2 of 89, pCO2 42, and a pH is 7.34. She remains on propofol at 15 mcg/kg/m, saline at 75 mL an hour, and vital high protein at 10 mL an hour. We'll check a pro-calcitonin level on her. She remains on Zosyn empirically. White count 6.4, hemoglobin 9.5, hematocrit 29.3, with a normal platelet count. Sodium 138, potassium 4, chlorides 113, CO2 22, BUN 18, creatinine 0.73. Blood and sputum sampling thus far is negative. Chest x-ray is currently pending. Objective - Vital Signs Vital signs: Vital Signs Temp 99.8 F H 03/06/23 05:00 Pulse 113 H 03/06/23 05:00 Resp 20 03/06/23 05:00 BP 133/78 03/05/23 21:00 Pulse Ox 94 L 03/06/23 05:00 FiO2 60 03/06/23 05:00 Intake & Output 03/05/23 03/05/23 03/06/23 06:59 18:59 06:59 Intake Total 6307.492 3543.021 1307.762 Output Total 505 1505 550 Balance 638.334 213.021 757.762 Weight 84 kg Intake: IV 925 1275 1025 Magnesium Sulfate-D5w Pmx 100 1 gm In Dextrose/Water 1 100ml.bag @ 100 mls/hr IVPB ONCE ONE Rx#: [id number] Sodium Chloride 0.9% 1, 825 675 825 000 ml @ 75 mls/hr IV . [id number] [facility] Rx#:[id number] Sodium Chloride 0.9% 500 500 ml 500 ml @ 999 mls/hr IV .Q31M [facility] Rx#:[id number] levETIRAcetam IV 1,500 mg 100 100 100 In Saline 1 100ml.bag @ 400 mls/hr IVPB ONCE [facility] Rx#:[id number] Intake, IV Titration 218.334 353.021 47.762 Amount Magnesium Sulfate-D5w Pmx 100 1 gm In Dextrose/Water 1 100ml.bag @ 100 mls/hr IVPB ONCE ONE Rx#: [id number] Norepinephrine 32 mg In 18.334 19.505 Sodium Chloride 0.9% 218 ml @ 0.03 MCG/KG/MIN 1. 148 mls/hr IV .Q24H [facility] Rx#:[id number] Piperacillin-Tazobactam 3 100 .375 gm In Sodium Chloride 0.9% 100 ml @ 25 mls/hr IVPB Q8H [facility] Rx#: [id number] propofoL 1,000 mg In 200.000 133.516 47.762 Empty Bag 1 bag @ 15 MCG/ KG/MIN 7.348 mls/hr IV . [id number] [facility] Rx#:[id number] Tube Feeding 60 110 Other 30 125 Output: Urine 505 1505 550 Other: Voiding Method Indwelling Catheter Indwelling Catheter Indwelling Catheter ABP, PAP, CO, CI - Last Documented Arterial Blood Pressure 139/63 - Exam No acute distress, sedated on propofol, with an orally placed endotracheal tube. HEENT examination is grossly unremarkable. Neck supple. Full range of motion. No adenopathy thyromegaly or neck vein distention. Cardiovascular examination reveals regular rhythm rate. S1-S2 normal. No S3 or S4. No discernible murmur noted. Heart rate 103 bpm. Lungs reveal scattered rhonchi. No wheezes or crackles. Breath sounds equal. Saturation is 94% Abdomen obese, without bowel sounds. Extremities are intact. No cyanosis clubbing or edema. Skin is without rash or lesion. Neurologic examination cannot be adequately assessed at this time. - Labs CBC & Chem 7: 03/06/23 04:15 03/06/23 04:15 Labs: Abnormal Lab Results - Last 24 Hours (Table) 03/04/23 03/05/23 03/05/23 Range/Units 22:36 05:29 05:29 RBC 3.44 L (3.80-5.40) m/uL Hgb 10.8 L (11.4-16.0) gm/dL Hct (34.0-46.0) % Neutrophils # 7.8 H (1.3-7.7) k/uL Lymphocytes # 0.8 L (1.0-4.8) k/uL ABG pH (7.35-7.45) ABG pCO2 (35-45) mmHg ABG HCO3 (21-25) mmol/L Chloride 112 H (98-107) mmol/L Carbon Dioxide 18 L (22-30) mmol/L BUN 19 H (7-17) mg/dL Glucose 146 H (74-99) mg/dL POC Glucose (mg/dL) (70-110) mg/dL Calcium 7.7 L (8.4-10.2) mg/dL AST 45 H (14-36) U/L Troponin I 0.086 H* (0.000-0.034) ng/mL Total Protein 6.0 L (6.3-8.2) g/dL Albumin 3.4 L (3.5-5.0) g/dL Urine Protein (Negative) Urine Mucus (None) /hpf 03/05/23 03/05/23 03/05/23 Range/Units 05:29 06:25 07:00 RBC (3.80-5.40) m/uL Hgb (11.4-16.0) gm/dL Hct (34.0-46.0) % Neutrophils # (1.3-7.7) k/uL Lymphocytes # (1.0-4.8) k/uL ABG pH (7.35-7.45) ABG pCO2 34 L (35-45) mmHg ABG HCO3 20 L (21-25) mmol/L Chloride (98-107) mmol/L Carbon Dioxide (22-30) mmol/L BUN (7-17) mg/dL Glucose (74-99) mg/dL POC Glucose (mg/dL) 159 H (70-110) mg/dL Calcium (8.4-10.2) mg/dL AST (14-36) U/L Troponin I 0.091 H* (0.000-0.034) ng/mL Total Protein (6.3-8.2) g/dL Albumin (3.5-5.0) g/dL Urine Protein (Negative) Urine Mucus (None) /hpf 03/05/23 03/05/23 03/05/23 Range/Units 11:09 11:27 18:17 RBC (3.80-5.40) m/uL Hgb (11.4-16.0) gm/dL Hct (34.0-46.0) % Neutrophils # (1.3-7.7) k/uL Lymphocytes # (1.0-4.8) k/uL ABG pH (7.35-7.45) ABG pCO2 (35-45) mmHg ABG HCO3 (21-25) mmol/L Chloride (98-107) mmol/L Carbon Dioxide (22-30) mmol/L BUN (7-17) mg/dL Glucose (74-99) mg/dL POC Glucose (mg/dL) 132 H 130 H (70-110) mg/dL Calcium (8.4-10.2) mg/dL AST (14-36) U/L Troponin I (0.000-0.034) ng/mL Total Protein (6.3-8.2) g/dL Albumin (3.5-5.0) g/dL Urine Protein 1+ H (Negative) Urine Mucus Rare H (None) /hpf 03/05/23 03/05/23 03/06/23 Range/Units 22:50 23:16 04:15 RBC (3.80-5.40) m/uL Hgb (11.4-16.0) gm/dL Hct (34.0-46.0) % Neutrophils # (1.3-7.7) k/uL Lymphocytes # (1.0-4.8) k/uL ABG pH (7.35-7.45) ABG pCO2 (35-45) mmHg ABG HCO3 (21-25) mmol/L Chloride 113 H 113 H (98-107) mmol/L Carbon Dioxide 20 L (22-30) mmol/L BUN 18 H 18 H (7-17) mg/dL Glucose 149 H 156 H (74-99) mg/dL POC Glucose (mg/dL) 147 H (70-110) mg/dL Calcium 7.1 L 7.2 L (8.4-10.2) mg/dL AST (14-36) U/L Troponin I (0.000-0.034) ng/mL Total Protein (6.3-8.2) g/dL Albumin (3.5-5.0) g/dL Urine Protein (Negative) Urine Mucus (None) /hpf 03/06/23 03/06/23 03/06/23 Range/Units 04:15 04:47 05:06 RBC 3.01 L (3.80-5.40) m/uL Hgb 9.5 L (11.4-16.0) gm/dL Hct 29.3 L (34.0-46.0) % Neutrophils # (1.3-7.7) k/uL Lymphocytes # 0.5 L (1.0-4.8) k/uL ABG pH 7.34 L (7.35-7.45) ABG pCO2 (35-45) mmHg ABG HCO3 (21-25) mmol/L Chloride (98-107) mmol/L Carbon Dioxide (22-30) mmol/L BUN (7-17) mg/dL Glucose (74-99) mg/dL POC Glucose (mg/dL) 159 H (70-110) mg/dL Calcium (8.4-10.2) mg/dL AST (14-36) U/L Troponin I (0.000-0.034) ng/mL Total Protein (6.3-8.2) g/dL Albumin (3.5-5.0) g/dL Urine Protein (Negative) Urine Mucus (None) /hpf Microbiology - Last 24 Hours (Table) 03/04/23 11:19 Gram Stain - Preliminary Sputum Sputum Culture - Preliminary 03/04/23 13:34 Blood Culture - Preliminary Blood No Growth after 24 hours 03/04/23 13:34 Blood Culture - Preliminary Blood No Growth after 24 hours 03/04/23 11:19 Legionella Culture - Preliminary Sputum Assessment and Plan Assessment: Status post [id number] cardiopulmonary arrest, with at least 15 minutes of downtime, before cardiopulmonary resuscitation and return of spontaneous circulation, were accomplished. Status post intubation and mechanical ventilation for cardiopulmonary arrest, 03/04/2023. Rule out anoxic brain injury. History of atrial fibrillation. Status post AICD placement. History of COPD. History of hypertension. History of CVA. Prior history of [place] filter placement. History of anxiety/depression. Plan: Plan dated 03/04/2023. Labs, x-rays, medications are reviewed. The patient is seen in the emergency room, trauma 2. We will await the patient to arrive in the intensive care unit. I did speak to the family about the fact that there may be some concerns of anoxic brain injury, given the 15 minute downtime at [facility]. Anyway, the Indocin the next 24 hours will be critical. Labs, x-rays, and medications are reviewed. We will adjust the ventilator, and make additional recommendations along the way. Prognosis is very guarded at this point. Plan dated 03/05/2023. A right radial arterial line was placed today. The patient's labs, x-rays, and medications are reviewed. We'll start the patient on tube feedings. Levaquin and Flagyl be discontinued in favor of Zosyn for possible aspiration pneumonia. The patient remains on propofol for sedation. She is also on norepinephrine at 0.05 mcg/kg/m for blood pressure support. Additional recommendations and suggestions are forthcoming. Neurology is to see the patient. An EEG was ordered. Prognosis is certainly guarded. Plan dated 03/06/2023. The patient's EEG showed diffuse significant slowing, consistent with metabolic/toxic encephalopathy. The patient may have sustained significant anoxic brain of that, with [id number] cardiac arrest. The patient remains on Zosyn. Cultures are negative. We'll check a pro-calcitonin level. She remains on propofol at 15 mcg/kg/m. Labs, x-rays, and medications are reviewed. Overall prognosis remains guarded. The patient is scheduled for another c omputed tomography scan of the brain. We will continue to follow this patient and make recommendations, where appropriate. Time with Patient: Greater than 30
--- NOTE | 2023-03-06 07:06 | P.PN ---
Subjective Progress Note Date: 03/06/23 PROGRESS NOTE The patient is a 67-year-old female with a known history of CAD, cardiomyopathy, ICD implantation, atrial fibrillation who presented with cardiac arrest, CPR and downtime of about 15 minutes who is intubated, unresponsive. Her echocardiogram showed an ejection fraction of 30-35% with segmental wall motion abnormality. Her blood pressure has been stable but she is having episodes of ventricular ectopic activity and short burst of nonsustained ventricular tachycardia. According to the device interrogation no defibrillation or shock were done. She had an episode of possible nonsustained VT treated with ATP. She is off vasopressors. She is in sinus mechanism. Computed tomography scan of the head showed no acute changes Medications: Furosemide 1, insulin, Keppra, Ativan, Zosyn,Eliquis 5 mg twice a day PHYSICAL EXAMINATION: Blood pressure 111/50 heart rate 105, intubated and unresponsive. Pupils dilated and fixed LUNGS: Clear to auscultation, anteriorly HEART: Regular rate and rhythm, S1, S2. No S3. systolic ejection murmur ABDOMEN: Soft, positive bowel sounds, no organomegaly EXTREMETIES: No edema LAB: Hemoglobin 9.5, potassium 4.0, BUN 18, creatinine 0.73, magnesium 2.3 IMPRESSION: 1. Status post cardiopulmonary arrest with down time of 15 minutes with evidence of anoxic encephalopathy 2. History of ischemic heart disease with severely impaired systolic function and ICD implantation 3. History of prior PCI 4. Paroxysmal atrial fibrillation 5. History of hypertension 6. History of hyperlipidemia PLAN: 1. Restart beta alexander 2. Restart statin 3. Follow the arrhythmia 4. Prognosis remains poor in view of the neurological status, depending on her progress further recommendations will be made Objective - Vital Signs Vital signs: Vital Signs Temp 99.8 F H 03/06/23 05:00 Pulse 106 H 03/06/23 06:00 Resp 20 03/06/23 06:00 BP 133/78 03/05/23 21:00 Pulse Ox 99 03/06/23 06:00 FiO2 60 03/06/23 06:00 Intake & Output 03/05/23 03/05/23 03/06/23 06:59 18:59 06:59 Intake Total 0629.873 9009.021 1307.762 Output Total 505 1505 550 Balance 638.334 213.021 757.762 Weight 84 kg Intake: IV 925 1275 1025 Magnesium Sulfate-D5w Pmx 100 1 gm In Dextrose/Water 1 100ml.bag @ 100 mls/hr IVPB ONCE ONE Rx#: [id number] Sodium Chloride 0.9% 1, 825 675 825 000 ml @ 75 mls/hr IV . [id number] [facility] Rx#:[id number] Sodium Chloride 0.9% 500 500 ml 500 ml @ 999 mls/hr IV .Q31M ONE Rx#:[id number] levETIRAcetam IV 1,500 mg 100 100 100 In Saline 1 100ml.bag @ 400 mls/hr IVPB ONCE [facility] Rx#:[id number] Intake, IV Titration 218.334 353.021 47.762 Amount Magnesium Sulfate-D5w Pmx 100 1 gm In Dextrose/Water 1 100ml.bag @ 100 mls/hr IVPB ONCE ONE Rx#: [id number] Norepinephrine 32 mg In 18.334 19.505 Sodium Chloride 0.9% 218 ml @ 0.03 MCG/KG/MIN 1. 148 mls/hr IV .Q24H [facility] Rx#:[id number] Piperacillin-Tazobactam 3 100 .375 gm In Sodium Chloride 0.9% 100 ml @ 25 mls/hr IVPB Q8H [facility] Rx#: [id number] propofoL 1,000 mg In 200.000 133.516 47.762 Empty Bag 1 bag @ 15 MCG/ KG/MIN 7.348 mls/hr IV . [id number] [facility] Rx#:[id number] Tube Feeding 60 110 Other 30 125 Output: Urine 505 1505 550 Other: Voiding Method Indwelling Catheter Indwelling Catheter Indwelling Catheter ABP, PAP, CO, CI - Last Documented Arterial Blood Pressure 111/53 - Labs CBC & Chem 7: 03/06/23 04:15 03/06/23 04:15 Labs: Abnormal Lab Results - Last 24 Hours (Table) 03/05/23 03/05/23 03/05/23 Range/Units 07:00 11:09 11:27 RBC (3.80-5.40) m/uL Hgb (11.4-16.0) gm/dL Hct (34.0-46.0) % Lymphocytes # (1.0-4.8) k/uL ABG pH (7.35-7.45) Chloride (98-107) mmol/L Carbon Dioxide (22-30) mmol/L BUN (7-17) mg/dL Glucose (74-99) mg/dL POC Glucose (mg/dL) 159 H 132 H (70-110) mg/dL Calcium (8.4-10.2) mg/dL Urine Protein 1+ H (Negative) Urine Mucus Rare H (None) /hpf 03/05/23 03/05/23 03/05/23 Range/Units 18:17 22:50 23:16 RBC (3.80-5.40) m/uL Hgb (11.4-16.0) gm/dL Hct (34.0-46.0) % Lymphocytes # (1.0-4.8) k/uL ABG pH (7.35-7.45) Chloride 113 H (98-107) mmol/L Carbon Dioxide 20 L (22-30) mmol/L BUN 18 H (7-17) mg/dL Glucose 149 H (74-99) mg/dL POC Glucose (mg/dL) 130 H 147 H (70-110) mg/dL Calcium 7.1 L (8.4-10.2) mg/dL Urine Protein (Negative) Urine Mucus (None) /hpf 03/06/23 03/06/23 03/06/23 Range/Units 04:15 04:15 04:47 RBC 3.01 L (3.80-5.40) m/uL Hgb 9.5 L (11.4-16.0) gm/dL Hct 29.3 L (34.0-46.0) % Lymphocytes # 0.5 L (1.0-4.8) k/uL ABG pH 7.34 L (7.35-7.45) Chloride 113 H (98-107) mmol/L Carbon Dioxide (22-30) mmol/L BUN 18 H (7-17) mg/dL Glucose 156 H (74-99) mg/dL POC Glucose (mg/dL) (70-110) mg/dL Calcium 7.2 L (8.4-10.2) mg/dL Urine Protein (Negative) Urine Mucus (None) /hpf 03/06/23 Range/Units 05:06 RBC (3.80-5.40) m/uL Hgb (11.4-16.0) gm/dL Hct (34.0-46.0) % Lymphocytes # (1.0-4.8) k/uL ABG pH (7.35-7.45) Chloride (98-107) mmol/L Carbon Dioxide (22-30) mmol/L BUN (7-17) mg/dL Glucose (74-99) mg/dL POC Glucose (mg/dL) 159 H (70-110) mg/dL Calcium (8.4-10.2) mg/dL Urine Protein (Negative) Urine Mucus (None) /hpf Microbiology - Last 24 Hours (Table) 03/04/23 11:19 Gram Stain - Preliminary Sputum Sputum Culture - Preliminary 03/04/23 13:34 Blood Culture - Preliminary Blood No Growth after 24 hours 03/04/23 13:34 Blood Culture - Preliminary Blood No Growth after 24 hours 03/04/23 11:19 Legionella Culture - Preliminary Sputum
[2023-03-06] MEDS: levETIRAcetam IV 1,500 MG in SALINE 1 100ML.BAG IVPB SCH ×2 (08:02→20:05)
[2023-03-06] MEDS: PANTOPRAZOLE 40 MG/10 ML VIAL IV SCH (08:02)
[2023-03-06] MEDS: CHLORHEXIDINE GLUCONATE 15 ML CUP MUCOUS MEM SCH ×2 (08:12→20:05)
[2023-03-06] MEDS: ATORVASTATIN 80 MG TAB PO SCH (08:12)
[2023-03-06] MEDS: APIXABAN 5 MG TAB PO SCH ×2 (08:12→20:05)
[2023-03-06] MEDS: METOPROLOL TARTRATE 25 MG TAB PO SCH ×2 (08:12→20:05)
--- NOTE | 2023-03-06 08:49 | XR ---
EXAMINATION TYPE: XR chest 1V portable DATE OF EXAM: 03/06/2023 COMPARISON: 03/05/2023 HISTORY: Tube placement TECHNIQUE: Single frontal view of the chest is obtained. FINDINGS: There is an endotracheal tube terminating approximately 3 cm from the level of the raffi, orogastric tube which extends past the diaphragm and terminates outside the field of view, and a left-sided AIC D. There is partially visualized left shoulder orthopedic hardware. The heart size is unchanged. The cardiomediastinal silhouette is unchanged. There is redemonstration of bibasilar airspace opacities with obscuration of both costophrenic angles. There is distention of the pulmonary with increased perihilar interstitial opacities. IMPRESSION: Stable bilateral interstitial and airspace opacity with small bilateral pleural effusions. Findings m ay relate to pulmonary edema or an infectious etiology.
[2023-03-06 11:28] LABS: Glucose,Whole Blood 152 mg/dL (70-110)
[2023-03-06] MEDS: NOREPINEPHRINE 32 MG in SODIUM CHLORIDE 0.9% 218 ML IV SCH (11:47)
[2023-03-06] MEDS: SODIUM CHLORIDE 3%(HYPERTONIC) 500 ML IV SCH (17:14)
[2023-03-06 18:00] LABS: Glucose,Whole Blood 145 mg/dL (70-110)
[2023-03-06 18:26] LABS: Glucose,Whole Blood 113 mg/dL (70-110)
--- NOTE | 2023-03-06 20:07 | P.PN ---
Subjective Progress Note Date: 03/06/23 Patient initially seen by Dr. Vincent Estrada. Please refer to his note for details. Patient is a 67-year-old female, who came to the hospital with cardiopulmonary arrest on 03/04/2023 at 9:37 AM. The downtime was about 15 minutes. Patient's sister and another relative was present. Patient's nurse was also present. Patient continues to be comatose. She had sedation holiday performed for about half an hour at 9:50 AM in which she was not showing any meaningful response. At present patient on propofol 15 mcg/kg/m. patient's nurse mentioned that patient became tachycardic and blood pressure went up to 180 systolic, therefore she was placed back on propofol. No seizure-like activity noted. Patient received Ativan 2 mg last night. Objective - Vital Signs Vital signs: Vital Signs Temp 101.2 F H 03/06/23 15:30 Pulse 81 03/06/23 15:30 Resp 20 03/06/23 15:30 BP 133/78 03/05/23 21:00 Pulse Ox 95 03/06/23 15:30 FiO2 60 03/06/23 15:30 Intake & Output 03/05/23 03/06/23 03/06/23 18:59 06:59 18:59 Intake Total 5128.421 0777.762 1045.255 Output Total 1505 595 320 Balance 213.021 797.762 725.255 Weight 84 kg 84 kg Intake: IV 1275 1100 600 Magnesium Sulfate-D5w Pmx 100 1 gm In Dextrose/Water 1 100ml.bag @ 100 mls/hr IVPB ONCE ONE Rx#: [id number] Sodium Chloride 0.9% 1, 675 900 600 000 ml @ 75 mls/hr IV . [id number] [facility] Rx#:[id number] Sodium Chloride 0.9% 500 500 ml 500 ml @ 999 mls/hr IV .Q31M ONE Rx#:[id number] levETIRAcetam IV 1,500 mg 100 100 In Saline 1 100ml.bag @ 400 mls/hr IVPB ONCE [facility] Rx#:[id number] Intake, IV Titration 353.021 47.762 245.255 Amount Magnesium Sulfate-D5w Pmx 100 1 gm In Dextrose/Water 1 100ml.bag @ 100 mls/hr IVPB ONCE ONE Rx#: [id number] Norepinephrine 32 mg In 19.505 Sodium Chloride 0.9% 218 ml @ 0.03 MCG/KG/MIN 1. 148 mls/hr IV .Q24H [facility] Rx#:[id number] Piperacillin-Tazobactam 3 100 100 .375 gm In Sodium Chloride 0.9% 100 ml @ 25 mls/hr IVPB Q8H [facility] Rx#: [id number] Sodium Chloride 0.9% 1, 75 000 ml @ 75 mls/hr IV . [id number] [facility] Rx#:[id number] propofoL 1,000 mg In 133.516 47.762 70.255 Empty Bag 1 bag @ 15 MCG/ KG/MIN 7.348 mls/hr IV . [id number] [facility] Rx#:[id number] Tube Feeding 60 120 140 Other 30 125 60 Output: Urine 1505 595 320 Other: Voiding Method Indwelling Catheter Indwelling Catheter Indwelling Catheter ABP, PAP, CO, CI - Last Documented Arterial Blood Pressure 109/50 - Exam Patient is comatose, with GCS of 3. Patient not responding to calling her name or painful stimuli. Patient is slightly breathing over the ventilator. She has a weak gag. Her pupils are equal, round and reacting. Gaze is very abnormal, deviated upwards and to the left side. Oculocephalics are minimally present. Corneals present. On manually opening the eyes, patient had some eye twitching noted. However no twitching noted at rest otherwise. - Labs CBC & Chem 7: 03/06/23 04:15 03/06/23 17:15 Labs: Abnormal Lab Results - Last 24 Hours (Table) 03/05/23 03/05/23 03/05/23 Range/Units 18:17 22:50 23:16 RBC (3.80-5.40) m/uL Hgb (11.4-16.0) gm/dL Hct (34.0-46.0) % Lymphocytes # (1.0-4.8) k/uL ABG pH (7.35-7.45) Chloride 113 H (98-107) mmol/L Carbon Dioxide 20 L (22-30) mmol/L BUN 18 H (7-17) mg/dL Glucose 149 H (74-99) mg/dL POC Glucose (mg/dL) 130 H 147 H (70-110) mg/dL Calcium 7.1 L (8.4-10.2) mg/dL Procalcitonin (0.02-0.09) ng/mL 03/06/23 03/06/23 03/06/23 Range/Units 04:15 04:15 04:15 RBC 3.01 L (3.80-5.40) m/uL Hgb 9.5 L (11.4-16.0) gm/dL Hct 29.3 L (34.0-46.0) % Lymphocytes # 0.5 L (1.0-4.8) k/uL ABG pH (7.35-7.45) Chloride 113 H (98-107) mmol/L Carbon Dioxide (22-30) mmol/L BUN 18 H (7-17) mg/dL Glucose 156 H (74-99) mg/dL POC Glucose (mg/dL) (70-110) mg/dL Calcium 7.2 L (8.4-10.2) mg/dL Procalcitonin 0.49 H (0.02-0.09) ng/mL 03/06/23 03/06/23 03/06/23 Range/Units 04:47 05:06 11:27 RBC (3.80-5.40) m/uL Hgb (11.4-16.0) gm/dL Hct (34.0-46.0) % Lymphocytes # (1.0-4.8) k/uL ABG pH 7.34 L (7.35-7.45) Chloride (98-107) mmol/L Carbon Dioxide (22-30) mmol/L BUN (7-17) mg/dL Glucose (74-99) mg/dL POC Glucose (mg/dL) 159 H 152 H (70-110) mg/dL Calcium (8.4-10.2) mg/dL Procalcitonin (0.02-0.09) ng/mL Microbiology - Last 24 Hours (Table) 03/04/23 13:34 Blood Culture - Preliminary Blood No Growth after 48 hours 03/04/23 13:34 Blood Culture - Preliminary Blood No Growth after 48 hours 03/04/23 11:19 Gram Stain - Preliminary Sputum Sputum Culture - Preliminary Assessment and Plan Assessment: Cardiopulmonary arrest lasting for 15 minutes. It appears the patient had episode of nonsustained V. tach is seems to happen 1 hour prior to the cardiac arrest but per cardiology unsure if true VT or A.fib Anoxic encephalopathy. Patient's computed tomography scan showing mild diffuse cerebral edema. Some effacement of the lateral ventricles. Patient has preserved brainstem reflexes at this time. Reported twitching of body that is intermittent on 03/04/23: Probable seizures due to cardiopulmonary arrest- now resolved Cardiomyopathy with ejection fraction of 30-35% Status post intubation and mechanical ventilation due to cardiopulmonary last Non-STEMI Paroxysmal atrial fibrillation History of stroke AICD Hypertension CAD with prior PCI History of green filter placement Plan: EEG performed 03/05/2023 was abnormal routine EEG due to diffuse suppression, which can be due to either medication-induced or due to anoxia. The background slowing is suggestive of severe encephalopathy. Otherwise no focal slowing, or epileptiform discharges were seen. Continue Keppra 1500 mg IV every 12 hours (new during this admission). CT head performed early this morning at 5 AM showed no acute intracranial hemorrhage or midline shift. There is mild diffuse cerebral atrophy redemonstrated. Resolved left maxillary acute sinusitis. Slightly worsening bilateral sphenoid acute sinusitis. On my review, there is definite evidence of at least mild generalized cerebral edema, with some effacement of the lateral ventricles. I informed results of EEG and computed tomography scan to the family. Also reviewed CT films on the computer with the family. It appears patient has fever and suspected aspiration pneumonia. Will defer management to primary and ICU team. Patient is over 48 hours post cardiac arrest, with comatose state and severely abnormal examination as above. We will reassess patient in another 24 hours. Start hypertonic saline for cerebral edema noted on computed tomography scan. Discussed with family in detail.
[2023-03-06] MEDS: MIDAZOLAM HCL 50 MG in SODIUM CHLORIDE 0.9% 40 ML IV SCH (23:35)
[2023-03-06 23:38] LABS: Glucose,Whole Blood 130 mg/dL (70-110)
[2023-03-07] MEDS: IPRATROPIUM-ALBUTEROL 3 ML NEB INHALATION SCH ×6 (00:23→20:00)
[2023-03-07] MEDS: PIPERACILLIN-TAZOBACTAM 3.375 GM in SODIUM CHLORIDE 0.9% 100 ML IVPB SCH ×3 (02:49→18:17)
[2023-03-07] MEDS ORDERED: lisinopriL 5 MG TAB PO SCH (02:53)
--- NOTE | 2023-03-07 04:27 | P.PN ---
Subjective Progress Note Date: 03/06/23 Patient is a 67-year-old male with a known history of chronic atrial fibrillation on anticoagulation with Eliquis, cardiomyopathy status post ICD placement, COPD on home oxygen at 4 L via nasal cannula, hypertension, anxiety/depression and history of femoral neck fracture s/p repair in November 2022 was brought to the hospital by EMS status postcardiac arrest. Patient was at [facility] where she was found to have worsening shortness of breath and became unresponsive on a motorized scooter.. Patient underwent CPR for about 15 minutes by EMS and was given 3 doses of epinephrine with return of spontaneous circulation and was intubated. Patient was brought to ER for evaluation. Patient was unresponsive and was able to provide any history. On arrival chest x-ray showed cardiomegaly and mild pulmonary vascular congestion. Correlate with BNP for congestive heart failure. Right basilar patchy airspace opacities may represent pulmonary edema versus infiltrate. Endotracheal tube in appropriate position. Possible NG tube terminating in the mid esophagus. CT head showed no acute intracranial process. Paranasal sinus disease with air- fluid level within the left maxillary sinus. Correlate for acute sinusitis. Chest CTA showed no evidence of PE. Bilateral lower lobe and right upper lobe consolidation with a scattered multifocal groundglass opacities throughout the lungs. Findings are compatible with pneumonia possibly aspiration. Multiple acute minimally displaced rib fractures likely related to CPR in the setting of cardiac arrest. Remote to subacute bilateral rib fractures also demo nstrated. No pneumothorax. Cardiomegaly. Laboratory data showed WBC 9.7 hemoglobin 11.4 platelets 246 and D-dimer 3.1 Initial ABG showed pH of 7.17 PCO2 30 and PO2 75 Sodium 135, potassium 4.3, chloride 104, bicarb is 17 BUN 12 and creatinine 0.76 and blood sugar was 325 and lactic acid 2.9 AST 57 ALT 14 alk phos 73 and troponin x1 negative proBNP 2290 Influenza A B RSV and COVID-19 PCR not detected. 03/05/2023 Patient is in the MICU. Remains mechanical ventilator. Off pressor support. Otherwise patient remains unresponsive. EEG was ordered and neurology is on board. 2D echocardiogram showed ejection fraction 30 to 35% with anterior septal hypokinesis. AICD C interrogation was done. Cardiology neurology and pulmonary is on board. Chest x-ray showed persistent right midlung and bibasilar multifocal acute infiltrates without edema. No change from 1 day. Patient remains on antibiotics Zosyn. NG tube in place. 03/06/2023 Patient is seen and evaluated and follow-up in the ICU remains on mechanical ventilation, FiO2 is 60% with a peep of 5. Patient is off pressor support although continues on as needed Ativan along with IV Keppra and propofol. Patient also maintained on IV antibiotics in the form of Zosyn. Chest x-ray today shows stable bilateral interstitial and airspace opacification with bilateral small pleural effusions may relate to pulmonary edema or infectious etiology. Blood cultures thus far are negative and sputum culture currently pending. Patient does continue to have low-grade temps 101 early this morning. WBC remains within normal limits and pro-calcitonin is 0.49. Other kidney functions within normal limits and blood sugars being monitored. Per nursing staff attempts at weaning were performed although patient became extremely tachycardic and restless and not following commands and placed back on sedation. An EEG was done although pending at this time. Repeat CT of the brain early this morning shows no acute intracranial hemorrhage or midline shift with mild diffuse cerebral atrophy redemonstrated with slightly worsening bilateral spheno id acute sinusitis. Multiple medical consultations following an per nursing staff [facility] was notified although unsure of family is aware. Patient was on the registry. Review of systems: Unable to obtain as patient is intubated PHYSICAL EXAMINATION: Patient is on mechanical ventilator. FiO2 is currently 60% with a PEEP of 5 HEENT: Normocephalic. Neck is supple. Pupils reactive. Nostrils clear. Oral cavity is moist. Neck reveals no JVD, carotid bruits, or thyromegaly. CHEST EXAMINATION: Trachea is central. Symmetrical expansion. Bibasilar diminished sounds and coarse breath sounds. No wheezing. CARDIAC: Normal S1, S2 with no gallops. No murmurs ABDOMEN: Soft. Bowel sounds present. Nontender. No organomegaly. No abdominal bruits. Extremities: Trace lower extremity edema. No clubbing or cyanosis Neurologically patient is on mechanical ventilator. As well as sedation and did not tolerate sedation holiday well Skin: No rash or skin lesions. Psychiatric: Could not be assessed at this time Musculoskeletal: No joint swelling or deformity. Assessment: Acute cardiac arrest s/p CPR for about 15 minutes with return of spontaneous circulation. Status post intubation by EMS. Episodes of nonsustained V. tach. Awaiting full AICD interrogation report Possible anoxic brain injury with severe encephalopathy noted an EEG Chronic atrial fibrillation on anticoagulant Eliquis History of ICD placement Hyperglycemia COPD history Chronic hypoxic respiratory failure secondary to COPD on 4 L oxygen via nasal cannula Recent history of femoral neck fracture repair in November 2022 History of IVC filter placement Anxiety/depression history Full code Plan: Patient is currently in the MICU and remains on mechanical ventilation with an FiO2 of 60% and PEEP is 5. Status post CPR and currently on mechanical ventilator. Downtime was was about 15 minutes. Possible anoxic brain injury also is being considered. EEG with severe encephalopathy with no epileptiform discharges noted maintained on IV Keppra with neurology following. CT of the brain was done showing no acute hemorrhage or acute process with some edema and being started on hypertonic solution Patient undergoing sedation holidays and per nursing staff became extremely tachycardic blood pressure elevated and unable to follow any commands and started back on propofol Neurology recommend monitoring overnight and reevaluate in the a.m. Continue with antibiotics for pneumonia with Levaquin. Continue insulin sliding scale.Patient is off pressor support. Multiple medical consultations following Given the downtime in severity cardiac arrest overall prognosis is poor. Patient is currently a full code The impression and plan of care has been dictated by Malgorzata Knapp, Nurse Practitioner as directed. Dr. Khloe MD I have performed a history and examination and MDM of this patient, discussed the same with the dictator, and agree with the dictator's assessment and plan as written ,documented as a scribe. Based on total visit time, I have performed more than 50% of the visit. Objective - Vital Signs Vital signs: Vital Signs Temp 99.8 F H 03/06/23 05:00 Pulse 105 H 03/06/23 09:00 Resp 20 03/06/23 09:00 BP 133/78 03/05/23 21:00 Pulse Ox 96 03/06/23 08:00 FiO2 60 03/06/23 09:00 Intake & Output 03/05/23 03/06/23 03/06/23 18:59 06:59 18:59 Intake Total 1958.238 1545.762 285 Output Total 1505 595 110 Balance 213.021 797.762 175 Weight 84 kg Intake: IV 1275 1100 225 Magnesium Sulfate-D5w Pmx 100 1 gm In Dextrose/Water 1 100ml.bag @ 100 mls/hr IVPB ONCE ONE Rx#: [id number] Sodium Chloride 0.9% 1, 675 900 225 000 ml @ 75 mls/hr IV . [id number] [facility] Rx#:[id number] Sodium Chloride 0.9% 500 500 ml 500 ml @ 999 mls/hr IV .Q31M ONE Rx#:[id number] levETIRAcetam IV 1,500 mg 100 100 In Saline 1 100ml.bag @ 400 mls/hr IVPB ONCE [facility] Rx#:[id number] Intake, IV Titration 353.021 47.762 Amount Magnesium Sulfate-D5w Pmx 100 1 gm In Dextrose/Water 1 100ml.bag @ 100 mls/hr IVPB ONCE ONE Rx#: [id number] Norepinephrine 32 mg In 19.505 Sodium Chloride 0.9% 218 ml @ 0.03 MCG/KG/MIN 1. 148 mls/hr IV .Q24H [facility] Rx#:[id number] Piperacillin-Tazobactam 3 100 .375 gm In Sodium Chloride 0.9% 100 ml @ 25 mls/hr IVPB Q8H [facility] Rx#: [id number] propofoL 1,000 mg In 133.516 47.762 Empty Bag 1 bag @ 15 MCG/ KG/MIN 7.348 mls/hr IV . [id number] [facility] Rx#:[id number] Tube Feeding 60 120 30 Other 30 125 30 Output: Urine 1505 595 110 Other: Voiding Method Indwelling Catheter Indwelling Catheter ABP, PAP, CO, CI - Last Documented Arterial Blood Pressure 140/60 - Labs CBC & Chem 7: 03/06/23 04:15 03/07/23 00:10 Labs: Abnormal Lab Results - Last 24 Hours (Table) 03/05/23 03/05/23 03/05/23 Range/Units 11:09 11:27 18:17 RBC (3.80-5.40) m/uL Hgb (11.4-16.0) gm/dL Hct (34.0-46.0) % Lymphocytes # (1.0-4.8) k/uL ABG pH (7.35-7.45) Chloride (98-107) mmol/L Carbon Dioxide (22-30) mmol/L BUN (7-17) mg/dL Glucose (74-99) mg/dL POC Glucose (mg/dL) 132 H 130 H (70-110) mg/dL Calcium (8.4-10.2) mg/dL Procalcitonin (0.02-0.09) ng/mL Urine Protein 1+ H (Negative) Urine Mucus Rare H (None) /hpf 03/05/23 03/05/23 03/06/23 Range/Units 22:50 23:16 04:15 RBC (3.80-5.40) m/uL Hgb (11.4-16.0) gm/dL Hct (34.0-46.0) % Lymphocytes # (1.0-4.8) k/uL ABG pH (7.35-7.45) Chloride 113 H 113 H (98-107) mmol/L Carbon Dioxide 20 L (22-30) mmol/L BUN 18 H 18 H (7-17) mg/dL Glucose 149 H 156 H (74-99) mg/dL POC Glucose (mg/dL) 147 H (70-110) mg/dL Calcium 7.1 L 7.2 L (8.4-10.2) mg/dL Procalcitonin (0.02-0.09) ng/mL Urine Protein (Negative) Urine Mucus (None) /hpf 03/06/23 03/06/23 03/06/23 Range/Units 04:15 04:15 04:47 RBC 3.01 L (3.80-5.40) m/uL Hgb 9.5 L (11.4-16.0) gm/dL Hct 29.3 L (34.0-46.0) % Lymphocytes # 0.5 L (1.0-4.8) k/uL ABG pH 7.34 L (7.35-7.45) Chloride (98-107) mmol/L Carbon Dioxide (22-30) mmol/L BUN (7-17) mg/dL Glucose (74-99) mg/dL POC Glucose (mg/dL) (70-110) mg/dL Calcium (8.4-10.2) mg/dL Procalcitonin 0.49 H (0.02-0.09) ng/mL Urine Protein (Negative) Urine Mucus (None) /hpf 03/06/23 Range/Units 05:06 RBC (3.80-5.40) m/uL Hgb (11.4-16.0) gm/dL Hct (34.0-46.0) % Lymphocytes # (1.0-4.8) k/uL ABG pH (7.35-7.45) Chloride (98-107) mmol/L Carbon Dioxide (22-30) mmol/L BUN (7-17) mg/dL Glucose (74-99) mg/dL POC Glucose (mg/dL) 159 H (70-110) mg/dL Calcium (8.4-10.2) mg/dL Procalcitonin (0.02-0.09) ng/mL Urine Protein (Negative) Urine Mucus (None) /hpf Microbiology - Last 24 Hours (Table) 03/04/23 11:19 Gram Stain - Preliminary Sputum Sputum Culture - Preliminary 03/04/23 13:34 Blood Culture - Preliminary Blood No Growth after 24 hours 03/04/23 13:34 Blood Culture - Preliminary Blood No Growth after 24 hours 03/04/23 11:19 Legionella Culture - Preliminary Sputum
[2023-03-07 04:34] LABS: Basophils % (A) 0 %; Eosinophils % (A) 0 %; HCT 28.9 % (34.0-46.0); HGB 9.3 gm/dL (11.4-16.0); Lymphocytes # (A) 0.7 k/uL (1.0-4.8); Lymphocytes % (A) 10 %; MCH 31.6 pg (25.0-35.0); MCV 98.7 fL (80.0-100.0); Mean Platelet Volume 9.2; Monocytes # (A) 0.3 k/uL (0-1.0); Monocytes % (A) 5 %; Neutrophils # (A) 6.1 k/uL (1.3-7.7); Neutrophils % (A) 85 %; Platelet Count 163 k/uL (150-450); RBC 2.93 m/uL (3.80-5.40); RDW 14.5 % (11.5-15.5); WBC 7.2 k/uL (3.8-10.6)
[2023-03-07 04:49] LABS: African American GFR (CKD) >90 (>60 ml/min/1.73 sqM); Anion Gap 2 mmol/L; Blood Urea Nitrogen 17 mg/dL (7-17); Calcium 7.3 mg/dL (8.4-10.2); Carbon Dioxide 23 mmol/L (22-30); Chloride 116 mmol/L (98-107); Glucose 149 mg/dL (74-99); Non-African American GFR(CKD) >90 (>60 ml/min/1.73 sqM); Potassium 4.4 mmol/L (3.5-5.1); Sodium 141 mmol/L (137-145)
[2023-03-07] MEDS: INSULIN ASPART (NovoLOG) 100 UNIT/ML VIAL SQ SCH ×3 (05:07→18:17)
[2023-03-07 05:08] LABS: Glucose,Whole Blood 141 mg/dL (70-110)
[2023-03-07] MEDS: ACETAMINOPHEN TAB 325 MG TAB PO PRN (05:09)
[2023-03-07 05:42] LABS: ALT 21 U/L (4-34); AST 81 U/L (14-36); African American GFR (CKD) >90 (>60 ml/min/1.73 sqM); Alkaline Phosphatase 62 U/L (38-126); Anion Gap 6 mmol/L; Blood Urea Nitrogen 16 mg/dL (7-17); Calcium 7.3 mg/dL (8.4-10.2); Carbon Dioxide 22 mmol/L (22-30); Chloride 114 mmol/L (98-107); Glucose 149 mg/dL (74-99); Non-African American GFR(CKD) >90 (>60 ml/min/1.73 sqM); Potassium 4.4 mmol/L (3.5-5.1); Sodium 142 mmol/L (137-145); Total Bilirubin 0.4 mg/dL (0.2-1.3); Total Protein 5.7 g/dL (6.3-8.2)
[2023-03-07 06:09] LABS: ABG Base Excess -2.3 mmol/L; ABG HCO3 22 mmol/L (21-25); ABG Oxygen Saturation 97.5 % (94-97); ABG PCO2 34 mmHg (35-45); ABG PH 7.42 (7.35-7.45); ABG PO2 112 mmHg (83-108); ABG TCO2 23 mmol/L (19-24); Allen Test Performed? Yes
--- NOTE | 2023-03-07 07:20 | P.PN ---
Subjective Progress Note Date: 03/07/23 PROGRESS NOTE The patient is a 67-year-old female with a known history of CAD, cardiomyopathy, ICD implantation, atrial fibrillation who presented with cardiac arrest, CPR and downtime of about 15 minutes who is intubated, unresponsive. Her echocardiogram showed an ejection fraction of 30-35% with segmental wall motion abnormality. Her blood pressure has been stable but she is having episodes of ventricular ectopic activity and short burst of nonsustained ventricular tachycardia. According to the device interrogation no defibrillation or shock were done. She had an episode of possible nonsustained VT treated with ATP. She is off vasopressors. She is in sinus mechanism. Computed tomography scan of the head showed no acute changes March 07: The patient remains intubated, unresponsive, was febrile. Her blood pressure was elevated, under better control at this time. She continues to be in sinus mechanism. There is no evidence of malignant arrhythmia. Her urinary output is stable. Her computed tomography scan of the chest showed no acute intracranial hemorrhage with mild diffuse cerebral atrophy. She was evaluated by the neurology service, her EEG showed severe encephalopathy. Medications: insulin, Keppra, Ativan, Zosyn,Eliquis 5 mg twice a day, lisinopril 5 mg daily, metoprolol tartrate 25 mg twice a day, Lipitor 80 mg daily PHYSICAL EXAMINATION: Blood pressure 156/50 heart rate 90, temperature 100.5 was up to 103, intubated and unresponsive. Pupils dilated and fixed LUNGS: Clear to auscultation, anteriorly HEART: Regular rate and rhythm, S1, S2. No S3. systolic ejection murmur ABDOMEN: Soft, positive bowel sounds, no organomegaly EXTREMETIES: No edema LAB: Hemoglobin 9.3, potassium 4.4, BUN 17, creatinine 0.59, IMPRESSION: 1. Status post cardiopulmonary arrest with down time of 15 minutes with evidence of anoxic encephalopathy, no evidence of improvement so far 2. History of ischemic heart disease with severely impaired systolic function and ICD implantation 3. History of prior PCI 4. Paroxysmal atrial fibrillation 5. History of hypertension, elevated 6. History of hyperlipidemia 7. Febrile episode could be related to central fever PLAN: 1. Increase lisinopril 2. Continue beta alexander and anticoagulation 3. Prognosis is poor in view of neurological status and probable severe anoxic encephalopathy, awaiting further input from neurology service. Objective - Vital Signs Vital signs: Vital Signs Temp 100.5 F H 03/07/23 07:00 Pulse 90 03/07/23 07:00 Resp 27 H 03/07/23 07:00 BP 133/78 03/05/23 21:00 Pulse Ox 94 L 03/07/23 07:00 FiO2 50 03/07/23 07:00 Intake & Output 03/06/23 03/07/23 03/07/23 18:59 06:59 18:59 Intake Total 1225.000 887.027 65 Output Total 405 615 75 Balance 820.000 272.027 -10 Weight 84 kg 86 kg Intake: IV 675 275 25 Sodium Chloride 0.9% 1, 675 000 ml @ 75 mls/hr IV . [id number] [facility] Rx#:[id number] Sodium Chloride 3%( 275 25 Hypertonic) 500 ml @ 25 mls/hr IV .Q20H [facility] Rx#: [id number] Intake, IV Titration 300.000 72.027 Amount Piperacillin-Tazobactam 3 100 .375 gm In Sodium Chloride 0.9% 100 ml @ 25 mls/hr IVPB Q8H [facility] Rx#: [id number] Sodium Chloride 0.9% 1, 75 000 ml @ 75 mls/hr IV . [id number] [facility] Rx#:[id number] Sodium Chloride 3%( 25 25 Hypertonic) 500 ml @ 25 mls/hr IV .Q20H [facility] Rx#: [id number] propofoL 1,000 mg In 100.000 47.027 Empty Bag 1 bag @ 15 MCG/ KG/MIN 7.348 mls/hr IV . [id number] [facility] Rx#:[id number] Tube Feeding 190 430 40 Other 60 110 Output: Urine 405 615 75 Other: Voiding Method Indwelling Catheter Indwelling Catheter ABP, PAP, CO, CI - Last Documented Arterial Blood Pressure 156/54 - Labs CBC & Chem 7: 03/07/23 04:10 03/07/23 04:10 Labs: Abnormal Lab Results - Last 24 Hours (Table) 03/06/23 03/06/23 03/06/23 Range/Units 04:15 11:27 17:59 RBC (3.80-5.40) m/uL Hgb (11.4-16.0) gm/dL Hct (34.0-46.0) % Lymphocytes # (1.0-4.8) k/uL ABG pCO2 (35-45) mmHg ABG pO2 (83-108) mmHg ABG O2 Saturation (94-97) % Chloride (98-107) mmol/L Glucose (74-99) mg/dL POC Glucose (mg/dL) 152 H 145 H (70-110) mg/dL Calcium (8.4-10.2) mg/dL AST (14-36) U/L Total Protein (6.3-8.2) g/dL Albumin (3.5-5.0) g/dL Procalcitonin 0.49 H (0.02-0.09) ng/mL 03/06/23 03/06/23 03/07/23 Range/Units 18:25 23:37 04:10 RBC (3.80-5.40) m/uL Hgb (11.4-16.0) gm/dL Hct (34.0-46.0) % Lymphocytes # (1.0-4.8) k/uL ABG pCO2 (35-45) mmHg ABG pO2 (83-108) mmHg ABG O2 Saturation (94-97) % Chloride 114 H (98-107) mmol/L Glucose 149 H (74-99) mg/dL POC Glucose (mg/dL) 113 H 130 H (70-110) mg/dL Calcium 7.3 L (8.4-10.2) mg/dL AST 81 H (14-36) U/L Total Protein 5.7 L (6.3-8.2) g/dL Albumin 3.0 L (3.5-5.0) g/dL Procalcitonin (0.02-0.09) ng/mL 03/07/23 03/07/23 03/07/23 Range/Units 04:10 04:10 05:04 RBC 2.93 L (3.80-5.40) m/uL Hgb 9.3 L (11.4-16.0) gm/dL Hct 28.9 L (34.0-46.0) % Lymphocytes # 0.7 L (1.0-4.8) k/uL ABG pCO2 34 L (35-45) mmHg ABG pO2 112 H (83-108) mmHg ABG O2 Saturation 97.5 H (94-97) % Chloride 116 H (98-107) mmol/L Glucose 149 H (74-99) mg/dL POC Glucose (mg/dL) (70-110) mg/dL Calcium 7.3 L (8.4-10.2) mg/dL AST (14-36) U/L Total Protein (6.3-8.2) g/dL Albumin (3.5-5.0) g/dL Procalcitonin (0.02-0.09) ng/mL 03/07/23 Range/Units 05:06 RBC (3.80-5.40) m/uL Hgb (11.4-16.0) gm/dL Hct (34.0-46.0) % Lymphocytes # (1.0-4.8) k/uL ABG pCO2 (35-45) mmHg ABG pO2 (83-108) mmHg ABG O2 Saturation (94-97) % Chloride (98-107) mmol/L Glucose (74-99) mg/dL POC Glucose (mg/dL) 141 H (70-110) mg/dL Calcium (8.4-10.2) mg/dL AST (14-36) U/L Total Protein (6.3-8.2) g/dL Albumin (3.5-5.0) g/dL Procalcitonin (0.02-0.09) ng/mL Microbiology - Last 24 Hours (Table) 03/04/23 13:34 Blood Culture - Preliminary Blood No Growth after 48 hours 03/04/23 13:34 Blood Culture - Preliminary Blood No Growth after 48 hours
[2023-03-07] MEDS ORDERED: ACETAMINOPHEN IV (For NPO) 1,000 MG in EMPTY BAG 1 BAG IVPB STA (08:04)
--- NOTE | 2023-03-07 08:04 | P.PN ---
Subjective Progress Note Date: 03/07/23 67-year-old female who apparently had a cardiopulmonary arrest, at a local [employer]. The patient apparently had a downtime of about 15 minutes, for there was cardiopulmonary resuscitation and return of spontaneous circulation. The patient was seen in the ER, by the ER physician, Dr. Dejesus. The patient was vented, and a right femoral vein triple lumen catheter was placed. Family members are in the room, we selected see the patient. The patient herself is unresponsive. She has a orally placed endotracheal tube. She's currently on the ventilator, with vent settings of volume assist control, rate 20, tidal volume 375, FiO2 100%, 5. Blood gases show pO2 75, pCO2 of 53, and a pH is 7.17. The patient is on norepinephrine at 0.15 mcg/kg/m, and propofol at 15 mcg/kg/m. The patient has a history of COPD from secondhand tobacco exposure, a previous history of the fibrillator placement for cardiomyopathy, and history of stroke, and Chaplin filter placement. In addition, the patient is on home O2, that she is supposed to use all the time, but she only uses as needed. She was a smoker in the distant past. White count 9.7, hemoglobin 11.4, hematocrit 37.9, and platelet count was normal. D-dimer was 3.10. Sodium 137, potassium 4.3, chlorides 104, CO2 17, anion gap 16, BUN and creatinine 12 and 0.76. Troponin was 0.022 and N-terminal proBNP was 2290. Lactate was not measured but is probably elevated. Testing for influenza A, and B, RSV, and coronavirus are all negative. Chest x-ray shows evidence of cardiomegaly, fluid overload, and an appropriately placed endotracheal tube. Computed tomography scan of the brain showed nothing acute. CT angiogram was negative for PE. There also may be some right lower lobe consolidation consistent with prior aspiration. Progress note dated 03/05/2023. 67-year-old female who had an [id number] cardiopulmonary arrest. The patient had about 15 minutes of resuscitation before there was return of spontaneous circulation. Unfortunately, the patient may have sustained anoxic brain injury. Today, we place an art line. She remains on the ventilator. I did have neurology see her. She is on volume assist control, rate 20, tidal volume 375, FiO2 60%, PEEP of 5. Arterial blood gases show pO2 of 90, pCO2 34, and pH is 7.35. The patient is on norepinephrine at 0.05 mcg/kg/m, propofol at 40 mcg/kg/m, and saline at 75 mL an hour. We will discontinue the Levaquin and Flagyl and start Zosyn. In addition we'll start some tube feeds, at 10 mL an hour. A right radial art line will be placed today. White count 8.9, hemoglobin 10.8, hematocrit 34.1, and platelet count is normal. Sodium 139, potassium 3.9, chlorides 112, CO2 18, BUN 19, creatinine 0.71. Troponins were 0.086 and 0.091. Chest x-ray shows persistent bilateral infiltrates, more so in the right lung than on the left. This may relate to aspiration. On today's evaluation of 03/07/2023, seeing the patient for a follow-up. This is a case of a cardiac arrest with at least 15 minutes downtime. The patient has an AICD in place. Initial cardiac rhythm is not clear. The did not have any pacemaker discharges and the pacemaker has not been interrogated yet. Noted the patient has a pacer AICD in place. Her current cardiac rhythm is paced and her rate is currently at 76. Hemodynamically, the patient is stable on no pressors. The patient is maintaining her own blood pressure. Meanwhile, the patient's troponins did not rise and the troponin peaked at 0.09. The patient currently has signs of anoxic encephalopathy. Attempts to wean her off the sedation yesterday feel that the patient became quite hypertensive and tachypneic and she did not show any reasonable neurological recovery. Neurology is on the case for the potential anoxic encephalopathy. CAT scan of the brain was done on 03/04/2023 and 03/06/2023 and there is mild diffuse cerebral atrophy without any acute brain changes. There is bilateral sphenoid sinus disease. EEG was also done on 03/05/2023 indicating diffuse suppression due to anoxia. The patient is currently on propofol which is running at the rate of 15 mcg/kg/m. The patient is also on IV Keppra 1.5 g every 12 hours. This morning, the patient remains on a mechanical ventilator patient is on assist control mode at the rate of 20, tidal volume of 375, FiO2 of 50% with a PEEP of 5. The blood gas shows a pH of 7.42 with a pCO2 of 34 and pO2 112. Sodium is at 141 with a potassium level of 4.4, BUN is at 17 with a creatinine of 0.59. WBC count at 7.2 with a hemoglobin 9.3 and a platelet count of 163. The chest x-ray from this morning is showing cardiomegaly along with bilateral pleural effusion. ET tube is in a good location. The patient also has a orogastric tube in place. A CT angiogram of the chest that was done on 03/04/2023 showed bilateral lower lobe and upper lobe consolidation and scattered areas of multifocal groundglass opacities throughout the lung. Possibility of aspiration was considered in addition to underlying cardiomegaly and multiple acute minimally displaced anterior rib fractures in the setting of CPR. IV fluids are currently at the rate of 25 mL an hour of 3% hypertonic saline. This was initiated by neurology regarding the potential of WE[employer]ATOR swelling. As mentioned, the sodium level is at 141 from this morning. No seizure activity has been noted.Patient is currently on antibiotic without liquids 5 mg by mouth twice a day. The patient is on met oprolol 25 mg by mouth twice a day. The patient is on Zestril 5 mg by mouth twice a day. The patient is also on empiric antibiotic coverage with IV Zosyn. The echocardiogram showed an ejection fraction of 30-35% with global LV dysfunction. There was mild aortic stenosis. Objective - Vital Signs Vital signs: Vital Signs Temp 100.5 F H 03/07/23 07:00 Pulse 90 03/07/23 07:00 Resp 27 H 03/07/23 07:00 BP 133/78 03/05/23 21:00 Pulse Ox 94 L 03/07/23 07:00 FiO2 50 03/07/23 07:00 Intake & Output 03/06/23 03/07/23 03/07/23 18:59 06:59 18:59 Intake Total 1225.000 887.027 65 Output Total 405 615 75 Balance 820.000 272.027 -10 Weight 84 kg 86 kg Intake: IV 675 275 25 Sodium Chloride 0.9% 1, 675 000 ml @ 75 mls/hr IV . [id number] [facility] Rx#:[id number] Sodium Chloride 3%( 275 25 Hypertonic) 500 ml @ 25 mls/hr IV .Q20H [facility] Rx#: [id number] Intake, IV Titration 300.000 72.027 Amount Piperacillin-Tazobactam 3 100 .375 gm In Sodium Chloride 0.9% 100 ml @ 25 mls/hr IVPB Q8H [facility] Rx#: [id number] Sodium Chloride 0.9% 1, 75 000 ml @ 75 mls/hr IV . [id number] [facility] Rx#:[id number] Sodium Chloride 3%( 25 25 Hypertonic) 500 ml @ 25 mls/hr IV .Q20H [facility] Rx#: [id number] propofoL 1,000 mg In 100.000 47.027 Empty Bag 1 bag @ 15 MCG/ KG/MIN 7.348 mls/hr IV . [id number] [facility] Rx#:[id number] Tube Feeding 190 430 40 Other 60 110 Output: Urine 405 615 75 Other: Voiding Method Indwelling Catheter Indwelling Catheter ABP, PAP, CO, CI - Last Documented Arterial Blood Pressure 156/54 - Exam No acute distress, sedated on propofol, with an orally placed endotracheal tube. The patient is currently on propofol. The patient is quite symptomatic since a mechanical ventilator. HEENT examination is grossly unremarkable. Neck supple. Full range of motion. No adenopathy thyromegaly or neck vein distention. Cardiovascular examination reveals regular rhythm rate. S1-S2 normal. No S3 or S4. No discernible murmur noted. Lungs reveal scattered rhonchi. No wheezes or crackles. Breath sounds equal. Abdomen obese, without bowel sounds. Extremities are intact. No cyanosis clubbing or edema. Skin is without rash or lesion. Neurologic examination the patient is currently on propofol. The patient senses the pain probably more so that he flex. No facial asymmetry. Her gaze is up 4 and more so to the left. No nystagmus. The patient is breathing above the mechanical ventilator. The patient has a positive cough and a gag reflex. The patient has a slow pupillary response. The reflexes are equal and symmetrical and diminished bilaterally. Negative clonus, negative Babinski's - Labs CBC & Chem 7: 03/07/23 04:10 03/07/23 04:10 Labs: Abnormal Lab Results - Last 24 Hours (Table) 03/06/23 03/06/23 03/06/23 Range/Units 04:15 11:27 17:59 RBC (3.80-5.40) m/uL Hgb (11.4-16.0) gm/dL Hct (34.0-46.0) % Lymphocytes # (1.0-4.8) k/uL ABG pCO2 (35-45) mmHg ABG pO2 (83-108) mmHg ABG O2 Saturation (94-97) % Chloride (98-107) mmol/L Glucose (74-99) mg/dL POC Glucose (mg/dL) 152 H 145 H (70-110) mg/dL Calcium (8.4-10.2) mg/dL AST (14-36) U/L Total Protein (6.3-8.2) g/dL Albumin (3.5-5.0) g/dL Procalcitonin 0.49 H (0.02-0.09) ng/mL 03/06/23 03/06/23 03/07/23 Range/Units 18:25 23:37 04:10 RBC (3.80-5.40) m/uL Hgb (11.4-16.0) gm/dL Hct (34.0-46.0) % Lymphocytes # (1.0-4.8) k/uL ABG pCO2 (35-45) mmHg ABG pO2 (83-108) mmHg ABG O2 Saturation (94-97) % Chloride 114 H (98-107) mmol/L Glucose 149 H (74-99) mg/dL POC Glucose (mg/dL) 113 H 130 H (70-110) mg/dL Calcium 7.3 L (8.4-10.2) mg/dL AST 81 H (14-36) U/L Total Protein 5.7 L (6.3-8.2) g/dL Albumin 3.0 L (3.5-5.0) g/dL Procalcitonin (0.02-0.09) ng/mL 03/07/23 03/07/23 03/07/23 Range/Units 04:10 04:10 05:04 RBC 2.93 L (3.80-5.40) m/uL Hgb 9.3 L (11.4-16.0) gm/dL Hct 28.9 L (34.0-46.0) % Lymphocytes # 0.7 L (1.0-4.8) k/uL ABG pCO2 34 L (35-45) mmHg ABG pO2 112 H (83-108) mmHg ABG O2 Saturation 97.5 H (94-97) % Chloride 116 H (98-107) mmol/L Glucose 149 H (74-99) mg/dL POC Glucose (mg/dL) (70-110) mg/dL Calcium 7.3 L (8.4-10.2) mg/dL AST (14-36) U/L Total Protein (6.3-8.2) g/dL Albumin (3.5-5.0) g/dL Procalcitonin (0.02-0.09) ng/mL 03/07/23 Range/Units 05:06 RBC (3.80-5.40) m/uL Hgb (11.4-16.0) gm/dL Hct (34.0-46.0) % Lymphocytes # (1.0-4.8) k/uL ABG pCO2 (35-45) mmHg ABG pO2 (83-108) mmHg ABG O2 Saturation (94-97) % Chloride (98-107) mmol/L Glucose (74-99) mg/dL POC Glucose (mg/dL) 141 H (70-110) mg/dL Calcium (8.4-10.2) mg/dL AST (14-36) U/L Total Protein (6.3-8.2) g/dL Albumin (3.5-5.0) g/dL Procalcitonin (0.02-0.09) ng/mL Microbiology - Last 24 Hours (Table) 03/04/23 13:34 Blood Culture - Preliminary Blood No Growth after 48 hours 03/04/23 13:34 Blood Culture - Preliminary Blood No Growth after 48 hours Assessment and Plan Plan: Status post oni-gl-nifgpyja cardiopulmonary arrest, with at least 15 minutes of downtime, before cardiopulmonary resuscitation and return of spontaneous circulation, were accomplished. Status post intubation and mechanical ventilation for cardiopulmonary arrest, 03/04/2023. anoxic brain injury, post cardiac arrest, currently unresponsive. The patient does have brainstem reflexes. Nevertheless, unresponsive once off sedation. Acute fever post cardiac arrest, could be a central fever versus an infection. The patient is currently on IV Zosyn. The temperature currently is at 102.4 and cooling has been initiated. Multifocal bilateral pulmonary infiltrates, consider aspiration and the patient is currently on IV Zosyn Systolic heart failure with an ejection fraction of 30-35% and impaired LV. Noted the troponins were not elevated Nondisplaced rib fractures related to CPR Pacemaker insertion with a paced cardiac rhythm for now History of atrial fibrillation. The current cardiac rhythmand the patient is on anticoagulation with Eliquis Status post AICD placement. History of COPD. History of hypertension. History of CVA. Prior history of Chaplin filter placement. History of anxiety/depression. Enteral feeding for nutritional support with vital high-protein at the rate of 35 mL an hour Plan Continue ventilator support, no ventilator changes than some drop in the FiO2 down to 50% based on morning blood gases Continue IV Zosyn Immediate external cooling IV Tylenol for fever and monitor the temperature Keep the patient on sedation for now and will give a sedation holiday the later stage less his underlying mental status Neurology follow-up regarding her anoxic encephalopathy Continue Keppra EEG and CAT scan of the brain were noted Continue anticoagulation with Eliquis Continue metoprolol 25 mg by mouth twice a day The pacemaker needs to be evaluated and this will be coordinated with cardiology Poor prognosis based on the above-mentioned comorbidities We'll continue to follow. Physical. Evaluation was done in more than 30 minutes. Possible withdrawal of care and the family is considering that. [facility] been contacted Time with Patient: Greater than 30
[2023-03-07] MEDS: CHLORHEXIDINE GLUCONATE 15 ML CUP MUCOUS MEM SCH ×2 (08:24→20:04)
[2023-03-07] MEDS: ATORVASTATIN 80 MG TAB PO SCH (08:24)
[2023-03-07] MEDS: APIXABAN 5 MG TAB PO SCH ×2 (08:25→20:04)
[2023-03-07] MEDS: lisinopriL 5 MG TAB PO SCH ×2 (08:25→20:06)
[2023-03-07] MEDS: PANTOPRAZOLE 40 MG/10 ML VIAL IV SCH (08:25)
[2023-03-07] MEDS: METOPROLOL TARTRATE 25 MG TAB PO SCH ×2 (08:25→20:07)
--- NOTE | 2023-03-07 09:12 | XR ---
EXAMINATION TYPE: XR chest 1V portable DATE OF EXAM: 03/07/2023 COMPARISON: 03/06/2023 HISTORY: Tube placement TECHNIQUE: Single frontal view of the chest is obtained. FINDINGS: There is an endotracheal tube terminating approximately 4 cm from the raffi, orogastric tube which e xtends past the diaphragm to terminate outside the field of view, left-sided AICD, partially visualiz ed left shoulder arthroplasty, and multiple overlying cardiac leads. The heart size and cardiomediastinal silhouette are unchanged. There is redemonstration of small bila teral pleural effusions with adjacent airspace disease, which is not significantly changed when marilynn red to previous examination. There is redemonstration of bilateral interstitial opacities, which are also not changed when compared to previous examination. There is no appreciable pneumothorax. IMPRESSION: Grossly stable bilateral airspace disease with small bilateral pleural effusions.
[2023-03-07] MEDS: levETIRAcetam IV 1,500 MG in SALINE 1 100ML.BAG IVPB SCH ×2 (09:40→20:04)
[2023-03-07 11:42] LABS: Glucose,Whole Blood 139 mg/dL (70-110)
[2023-03-07] MEDS: NOREPINEPHRINE 32 MG in SODIUM CHLORIDE 0.9% 218 ML IV SCH (13:10)
[2023-03-07] MEDS: SODIUM CHLORIDE 3%(HYPERTONIC) 500 ML IV SCH (14:06)
[2023-03-07 18:01] LABS: Glucose,Whole Blood 165 mg/dL (70-110)
[2023-03-07 23:57] LABS: Glucose,Whole Blood 146 mg/dL (70-110)
[2023-03-08] MEDS: MIDAZOLAM HCL 50 MG in SODIUM CHLORIDE 0.9% 40 ML IV SCH ×2 (00:03→23:32)
[2023-03-08] MEDS: INSULIN ASPART (NovoLOG) 100 UNIT/ML VIAL SQ SCH ×5 (00:04→23:31)
[2023-03-08] MEDS: IPRATROPIUM-ALBUTEROL 3 ML NEB INHALATION SCH ×6 (00:25→20:03)
[2023-03-08 00:53] LABS: ALT 27 U/L (4-34); AST 90 U/L (14-36); African American GFR (CKD) >90 (>60 ml/min/1.73 sqM); Albumin 2.8 g/dL (3.5-5.0); Alkaline Phosphatase 58 U/L (38-126); Anion Gap 2 mmol/L; Blood Urea Nitrogen 18 mg/dL (7-17); Calcium 7.5 mg/dL (8.4-10.2); Carbon Dioxide 22 mmol/L (22-30); Chloride 120 mmol/L (98-107); Glucose 170 mg/dL (74-99); Magnesium 2.3 mg/dL (1.6-2.3); Non-African American GFR(CKD) >90 (>60 ml/min/1.73 sqM); Potassium 3.8 mmol/L (3.5-5.1); Sodium 144 mmol/L (137-145); Total Bilirubin 0.3 mg/dL (0.2-1.3); Total Protein 5.4 g/dL (6.3-8.2)
[2023-03-08 02:29] LABS: Basophils % (A) 0 %; Eosinophils % (A) 1 %; HCT 27.8 % (34.0-46.0); HGB 9.1 gm/dL (11.4-16.0); Hypochromasia Slight; Lymphocytes # (A) 0.6 k/uL (1.0-4.8); Lymphocytes % (A) 11 %; MCH 32.3 pg (25.0-35.0); MCHC 32.7 g/dL (31.0-37.0); Mean Platelet Volume 9.3; Monocytes # (A) 0.2 k/uL (0-1.0); Monocytes % (A) 5 %; Neutrophils # (A) 4.2 k/uL (1.3-7.7); Neutrophils % (A) 83 %; Platelet Count 153 k/uL (150-450); RBC 2.81 m/uL (3.80-5.40); RDW 14.4 % (11.5-15.5); WBC 5.1 k/uL (3.8-10.6)
[2023-03-08 02:37] LABS: Partial Thromboplastin Time 23.8 sec (22.0-30.0); Prothrombin Time 10.6 sec (9.0-12.0)
[2023-03-08] MEDS: PIPERACILLIN-TAZOBACTAM 3.375 GM in SODIUM CHLORIDE 0.9% 100 ML IVPB SCH ×3 (03:13→17:21)
[2023-03-08 05:12] LABS: ABG Base Excess -2.8 mmol/L; ABG HCO3 22 mmol/L (21-25); ABG Oxygen Saturation 96.3 % (94-97); ABG PCO2 36 mmHg (35-45); ABG PH 7.39 (7.35-7.45); ABG PO2 87 mmHg (83-108); ABG TCO2 23 mmol/L (19-24); Allen Test Performed? Yes
[2023-03-08 05:24] LABS: Basophils % (A) 0 %; Eosinophils % (A) 1 %; HCT 26.9 % (34.0-46.0); HGB 8.6 gm/dL (11.4-16.0); Hypochromasia Slight; Lymphocytes # (A) 0.3 k/uL (1.0-4.8); Lymphocytes % (A) 4 %; MCH 31.7 pg (25.0-35.0); MCHC 31.9 g/dL (31.0-37.0); MCV 99.4 fL (80.0-100.0); Mean Platelet Volume 8.9; Monocytes # (A) 0.2 k/uL (0-1.0); Monocytes % (A) 4 %; Neutrophils # (A) 5.2 k/uL (1.3-7.7); Neutrophils % (A) 90 %; Platelet Count 151 k/uL (150-450); RBC 2.71 m/uL (3.80-5.40); RDW 14.5 % (11.5-15.5); WBC 5.8 k/uL (3.8-10.6)
[2023-03-08 05:32] LABS: Appearance,Urine Clear (Clear); Bacteria,Urine Rare /hpf; Bilirubin,Urine Negative (Negative); Blood,Urine Small (Negative); Color,Urine Yellow; Glucose,Urine (UA) Trace (Negative); Ketones,Urine Negative (Negative); Leukocyte Esterase,Urine Negative (Negative); Mucus,Urine Rare /hpf; Nitrite,Urine Negative (Negative); Protein,Urine Trace (Negative); RBC,Urine 2 /hpf (0-5); Specific Gravity,Urine 1.021 (1.001-1.035); Squamous Epithelial Cell,Urine <1 /hpf (0-4); Urobilinogen,Urine <2.0 mg/dL (<2.0); WBC,Urine 1 /hpf (0-5)
[2023-03-08 05:33] LABS: African American GFR (CKD) >90 (>60 ml/min/1.73 sqM); Anion Gap 5 mmol/L; Blood Urea Nitrogen 18 mg/dL (7-17); Calcium 7.6 mg/dL (8.4-10.2); Carbon Dioxide 22 mmol/L (22-30); Chloride 119 mmol/L (98-107); Glucose 177 mg/dL (74-99); Non-African American GFR(CKD) >90 (>60 ml/min/1.73 sqM); Potassium 3.5 mmol/L (3.5-5.1); Sodium 146 mmol/L (137-145)
[2023-03-08 06:02] LABS: Glucose,Whole Blood 160 mg/dL (70-110)
--- NOTE | 2023-03-08 06:06 | P.PN ---
Subjective Progress Note Date: 03/07/23 Patient is a 67-year-old male with a known history of chronic atrial fibrillation on anticoagulation with Eliquis, cardiomyopathy status post ICD placement, COPD on home oxygen at 4 L via nasal cannula, hypertension, anxiety/depression and history of femoral neck fracture s/p repair in November 2022 was brought to the hospital by EMS status postcardiac arrest. [facility] found to have worsening shortness of breath and became unresponsive on a motorized scooter.. Patient underwent CPR for about 15 minutes by EMS and was given 3 doses of epinephrine with return of spontaneous circulation and was intubated. Patient was brought to ER for evaluation. Patient was unresponsive and was able to provide any history. On arrival chest x-ray showed cardiomegaly and mild pulmonary vascular congestion. Correlate with BNP for congestive heart failure. Right basilar patchy airspace opacities may represent pulmonary edema versus infiltrate. Endotracheal tube in appropriate position. Possible NG tube terminating in the mid esophagus. CT head showed no acute intracranial process. Paranasal sinus disease with air- fluid level within the left maxillary sinus. Correlate for acute sinusitis. Chest CTA showed no evidence of PE. Bilateral lower lobe and right upper lobe consolidation with a scattered multifocal groundglass opacities throughout the lungs. Findings are compatible with pneumonia possibly aspiration. Multiple acute minimally displaced rib fractures likely related to CPR in the setting of cardiac arrest. Remote to subacute bilateral rib fractures also demo nstrated. No pneumothorax. Cardiomegaly. Laboratory data showed WBC 9.7 hemoglobin 11.4 platelets 246 and D-dimer 3.1 Initial ABG showed pH of 7.17 PCO2 30 and PO2 75 Sodium 135, potassium 4.3, chloride 104, bicarb is 17 BUN 12 and creatinine 0.76 and blood sugar was 325 and lactic acid 2.9 AST 57 ALT 14 alk phos 73 and troponin x1 negative proBNP 2290 Influenza A B RSV and COVID-19 PCR not detected. 03/05/2023 Patient is in the MICU. Remains mechanical ventilator. Off pressor support. Otherwise patient remains unresponsive. EEG was ordered and neurology is on board. 2D echocardiogram showed ejection fraction 30 to 35% with anterior septal hypokinesis. AICD C interrogation was done. Cardiology neurology and pulmonary is on board. Chest x-ray showed persistent right midlung and bibasilar multifocal acute infiltrates without edema. No change from 1 day. Patient remains on antibiotics Zosyn. NG tube in place. 03/06/2023 Patient is seen and evaluated and follow-up in the ICU remains on mechanical ventilation, FiO2 is 60% with a peep of 5. Patient is off pressor support although continues on as needed Ativan along with IV Keppra and propofol. Patient also maintained on IV antibiotics in the form of Zosyn. Chest x-ray today shows stable bilateral interstitial and airspace opacification with bilateral small pleural effusions may relate to pulmonary edema or infectious etiology. Blood cultures thus far are negative and sputum culture currently pending. Patient does continue to have low-grade temps 101 early this morning. WBC remains within normal limits and pro-calcitonin is 0.49. Other kidney functions within normal limits and blood sugars being monitored. Per nursing staff attempts at weaning were performed although patient became extremely tachycardic and restless and not following commands and placed back on sedation. An EEG was done although pending at this time. Repeat CT of the brain early this morning shows no acute intracranial hemorrhage or midline shift with mild diffuse cerebral atrophy redemonstrated with slightly worsening bilateral spheno id acute sinusitis. Multiple medical consultations following an per nursing staff gift of life was notified although unsure of family is aware. Patient was on the registry. 03/07/2023 Patient is seen and evaluated in the ICU maintained on mechanical ventilation with an FiO2 of 55% and PEEP is 5. Patient is maintained on IV antibiotics and continues to have fevers and cultures thus far been negative. Patient is continued on sedation and off pressor support and remains on hypertonic solution . Neurology following as well as pulmonary shipping agent with overall poor prognosis. Per nursing staff, family has been discussing possible comfort care although not ready to wean at this time. Gift of life also following as patient is on the registry evaluating the patient. Review of systems: Unable to obtain as patient is intubated PHYSICAL EXAMINATION: Patient is on mechanical ventilator. FiO2 is currently 55% with a PEEP of 5 HEENT: Normocephalic. Neck is supple. Pupils reactive. Nostrils clear. Oral cavity is moist. Neck reveals no JVD, carotid bruits, or thyromegaly. CHEST EXAMINATION: Trachea is central. Symmetrical expansion. Bibasilar diminished sounds and coarse breath sounds. No wheezing. CARDIAC: Normal S1, S2 with no gallops. No murmurs ABDOMEN: Soft. Bowel sounds present. Nontender. No organomegaly. No abdominal bruits. Extremities: Trace lower extremity edema. No clubbing or cyanosis Neurologically patient is on mechanical ventilator. Currently on sedation Skin: No rash or skin lesions. Psychiatric: Could not be assessed at this time Musculoskeletal: No joint swelling or deformity. Assessment: Acute cardiac arrest s/p CPR for about 15 minutes with return of spontaneous circulation. Status post intubation by EMS. Episodes of nonsustained V. tach. Awaiting full AICD interrogation report Possible anoxic brain injury with severe encephalopathy noted an EEG Chronic atrial fibrillation on anticoagulant Eliquis History of ICD placement Hyperglycemia COPD history Chronic hypoxic respiratory failure secondary to COPD on 4 L oxygen via nasal cannula Recent history of femoral neck fracture repair in November 2022 History of IVC filter placement Anxiety/depression history Full code Plan: Patient is currently in the MICU and remains on mechanical ventilation with an FiO2 of 55% and PEEP is 5. Status post CPR and currently on mechanical venti lator. Downtime was was about 15 minutes. Possible anoxic brain injury also is being considered. EEG with severe encephalopathy with no epileptiform discharges noted maintained on IV Keppra with neurology following. CT of the brain was done showing no acute hemorrhage or acute process with some edema and being started on hypertonic solution Patient undergoing sedation holidays and unable to follow commands and remains unresponsive although becomes tachycardic with hypertension Neurology recommend monitoring overnight and reevaluate in the a.m. Continue with antibiotics for pneumonia with Zosyn. Continue during Accu-Cheks and continue with insulin sliding scale. Patient is off pressor support. Multiple medical consultations following Given the downtime in severity cardiac arrest overall prognosis is poor. Patient is currently a full code. Gift of life also following and evaluating this patient is on registry The impression and plan of care has been dictated by Malgorzata Knapp Nurse Practitioner as directed. Dr. Khloe MD I have performed a history and examination and MDM of this patient, discussed the same with the dictator, and agree with the dictator's assessment and plan as written ,documented as a scribe. Based on total visit time, I have performed more than 50% of the visit. Objective - Vital Signs Vital signs: Vital Signs Temp 102.4 F H 03/07/23 08:00 Pulse 87 03/07/23 08:43 Resp 28 H 03/07/23 08:00 BP 133/78 03/05/23 21:00 Pulse Ox 95 03/07/23 08:00 FiO2 50 03/07/23 08:31 Intake & Output 03/06/23 03/07/23 03/07/23 18:59 06:59 18:59 Intake Total 1225.000 887.027 172.621 Output Total 405 615 175 Balance 820.000 272.027 -2.379 Weight 84 kg 86 kg Intake: IV 675 275 50 Sodium Chloride 0.9% 1, 675 000 ml @ 75 mls/hr IV . [id number] [facility] Rx#:[id number] Sodium Chloride 3%( 275 50 Hypertonic) 500 ml @ 25 mls/hr IV .Q20H [facility] Rx#: [id number] Intake, IV Titration 300.000 72.027 42.621 Amount Piperacillin-Tazobactam 3 100 .375 gm In Sodium Chloride 0.9% 100 ml @ 25 mls/hr IVPB Q8H [facility] Rx#: [id number] Sodium Chloride 0.9% 1, 75 000 ml @ 75 mls/hr IV . [id number] [facility] Rx#:[id number] Sodium Chloride 3%( 25 25 Hypertonic) 500 ml @ 25 mls/hr IV .Q20H [facility] Rx#: [id number] propofoL 1,000 mg In 100.000 47.027 42.621 Empty Bag 1 bag @ 15 MCG/ KG/MIN 7.348 mls/hr IV . [id number] [facility] Rx#:[id number] Tube Feeding 190 430 80 Other 60 110 Output: Urine 405 615 175 Other: Voiding Method Indwelling Catheter Indwelling Catheter ABP, PAP, CO, CI - Last Documented Arterial Blood Pressure 153/53 - Labs CBC & Chem 7: 03/08/23 05:10 03/08/23 05:10 Labs: Abnormal Lab Results - Last 24 Hours (Table) 03/06/23 03/06/23 03/06/23 Range/Units 11:27 17:59 18:25 RBC (3.80-5.40) m/uL Hgb (11.4-16.0) gm/dL Hct (34.0-46.0) % Lymphocytes # (1.0-4.8) k/uL ABG pCO2 (35-45) mmHg ABG pO2 (83-108) mmHg ABG O2 Saturation (94-97) % Chloride (98-107) mmol/L Glucose (74-99) mg/dL POC Glucose (mg/dL) 152 H 145 H 113 H (70-110) mg/dL Calcium (8.4-10.2) mg/dL AST (14-36) U/L Total Protein (6.3-8.2) g/dL Albumin (3.5-5.0) g/dL 03/06/23 03/07/23 03/07/23 Range/Units 23:37 04:10 04:10 RBC 2.93 L (3.80-5.40) m/uL Hgb 9.3 L (11.4-16.0) gm/dL Hct 28.9 L (34.0-46.0) % Lymphocytes # 0.7 L (1.0-4.8) k/uL ABG pCO2 (35-45) mmHg ABG pO2 (83-108) mmHg ABG O2 Saturation (94-97) % Chloride 114 H (98-107) mmol/L Glucose 149 H (74-99) mg/dL POC Glucose (mg/dL) 130 H (70-110) mg/dL Calcium 7.3 L (8.4-10.2) mg/dL AST 81 H (14-36) U/L Total Protein 5.7 L (6.3-8.2) g/dL Albumin 3.0 L (3.5-5.0) g/dL 03/07/23 03/07/23 03/07/23 Range/Units 04:10 05:04 05:06 RBC (3.80-5.40) m/uL Hgb (11.4-16.0) gm/dL Hct (34.0-46.0) % Lymphocytes # (1.0-4.8) k/uL ABG pCO2 34 L (35-45) mmHg ABG pO2 112 H (83-108) mmHg ABG O2 Saturation 97.5 H (94-97) % Chloride 116 H (98-107) mmol/L Glucose 149 H (74-99) mg/dL POC Glucose (mg/dL) 141 H (70-110) mg/dL Calcium 7.3 L (8.4-10.2) mg/dL AST (14-36) U/L Total Protein (6.3-8.2) g/dL Albumin (3.5-5.0) g/dL Microbiology - Last 24 Hours (Table) 03/04/23 11:19 Gram Stain - Final Sputum Sputum Culture - Final 03/04/23 13:34 Blood Culture - Preliminary Blood No Growth after 48 hours 03/04/23 13:34 Blood Culture - Preliminary Blood No Growth after 48 hours
[2023-03-08] MEDS: POTASSIUM BICARBONATE/CIT AC 20 MEQ TABLET.EFF NG-TUBE SCH ×2 (06:11→09:38)
--- NOTE | 2023-03-08 07:21 | XR ---
EXAMINATION TYPE: XR chest 1V DATE OF EXAM: 03/08/2023 COMPARISON: 03/07/2023, 03/08/2023 INDICATION: OG tube placement TECHNIQUE: Single frontal view of the chest is obtained. FINDINGS: The heart size is mildly prominent. The pulmonary vasculature is normal. Left lower lobe infiltrate may be present. Pacemaker overlies the left chest. Endotracheal tube is present with the tip above the raffi. Nasogastric tube transverses the thorax w ith the tip in left upper quadrant of the abdomen. There is elevation of the right diaphragm. IMPRESSION: 1. Nasogastric tube tip is within the left upper quadrant. 2. Left lower lobe infiltrate. 3. Cardiomegaly
--- NOTE | 2023-03-08 07:26 | P.PN ---
Subjective Progress Note Date: 03/08/23 PROGRESS NOTE The patient is a 67-year-old female with a known history of CAD, cardiomyopathy, ICD implantation, atrial fibrillation who presented with cardiac arrest, CPR and downtime of about 15 minutes who is intubated, unresponsive. Her echocardiogram showed an ejection fraction of 30-35% with segmental wall motion abnormality. Her blood pressure has been stable but she is having episodes of ventricular ectopic activity and short burst of nonsustained ventricular tachycardia. According to the device interrogation no defibrillation or shock were done. She had an episode of possible nonsustained VT treated with ATP. She is off vasopressors. She is in sinus mechanism. Computed tomography scan of the head showed no acute changes March 07: The patient remains intubated, unresponsive, was febrile. Her blood pressure was elevated, under better control at this time. She continues to be in sinus mechanism. There is no evidence of malignant arrhythmia. Her urinary output is stable. Her computed tomography scan of the chest showed no acute intracranial hemorrhage with mild diffuse cerebral atrophy. She was evaluated by the neurology service, her EEG showed severe encephalopathy. March 08: The patient remains intubated, unresponsive. Hemodynamically stable with no evidence of ventricular ectopic activity or atrial fibrillation. Urinary output and oxygenation stable. Family is considering gift of life on Monday. No significant change in the status since yesterday. Medications: insulin, Keppra, Ativan, Zosyn,Eliquis 5 mg twice a day, lisinopril 5 mg twice a day, metoprolol tartrate 25 mg twice a day, Lipitor 80 mg daily PHYSICAL EXAMINATION: Blood pressure 121/50 heart rate 70, temperature 98.3, intubated and unresponsive. Pupils dilated and fixed LUNGS: Clear to auscultation, anteriorly HEART: Regular rate and rhythm, S1, S2. No S3. systolic ejection murmur ABDOMEN: Soft, positive bowel sounds, no organomegaly EXTREMETIES: No edema LAB: Hemoglobin 8.6, potassium 3.5, BUN 18, creatinine 0.50 IMPRESSION: 1. Status post cardiopulmonary arrest with down time of 15 minutes with evidence of anoxic encephalopathy, no evidence of improvement so far 2. History of ischemic heart disease with severely impaired systolic function and ICD implantation 3. History of prior PCI 4. Paroxysmal atrial fibrillation 5. History of hypertension, elevated 6. History of hyperlipidemia 7. Febrile episode could be related to central fever, resolved PLAN: 1. Evidence of severe anoxic encephalopathy with no improvement over the last 72 hours 2. Awaiting family decision regarding gift of life 3. We will see her on an as needed basis, please feel free to call us for any question Objective - Vital Signs Vital signs: Vital Signs Temp 98.3 F 03/08/23 06:00 Pulse 70 03/08/23 07:00 Resp 21 03/08/23 07:00 BP 121/51 03/08/23 07:00 Pulse Ox 97 03/08/23 07:00 FiO2 50 03/08/23 04:00 Intake & Output 03/07/23 03/08/23 03/08/23 18:59 06:59 18:59 Intake Total 1427.269 868.175 75 Output Total 635 435 35 Balance 792.269 433.175 40 Weight 88 kg Intake: IV 425 275 25 Sodium Chloride 3%( 325 275 25 Hypertonic) 500 ml @ 25 mls/hr IV .Q20H [facility] Rx#: [id number] levETIRAcetam IV 1,500 mg 100 In Saline 1 100ml.bag @ 400 mls/hr IVPB Q12HR [facility] Rx#:[id number] Intake, IV Titration 342.269 43.175 Amount ACETAMINOPHEN IV (For NPO 100 ) 1,000 mg In Empty Bag 1 bag @ 400 mls/hr IVPB ONCE [facility] Rx#:[id number] Piperacillin-Tazobactam 3 100 .375 gm In Sodium Chloride 0.9% 100 ml @ 25 mls/hr IVPB Q8H [facility] Rx#: [id number] propofoL 1,000 mg In 142.269 43.175 Empty Bag 1 bag @ 15 MCG/ KG/MIN 7.348 mls/hr IV . [id number] [facility] Rx#:[id number] Tube Feeding 630 550 50 Other 30 Output: Urine 635 435 35 Other: Voiding Method Indwelling Catheter Indwelling Catheter # Bowel Movements 1 ABP, PAP, CO, CI - Last Documented Arterial Blood Pressure 117/47 - Labs CBC & Chem 7: 03/08/23 05:10 03/08/23 05:10 Labs: Abnormal Lab Results - Last 24 Hours (Table) 03/07/23 03/07/23 03/07/23 Range/Units 11:40 18:00 23:55 RBC (3.80-5.40) m/uL Hgb (11.4-16.0) gm/dL Hct (34.0-46.0) % Lymphocytes # (1.0-4.8) k/uL D-Dimer (<0.60) mg/L FEU Sodium (137-145) mmol/L Chloride (98-107) mmol/L BUN (7-17) mg/dL Creatinine (0.52-1.04) mg/dL Glucose (74-99) mg/dL POC Glucose (mg/dL) 139 H 165 H 146 H (70-110) mg/dL Calcium (8.4-10.2) mg/dL AST (14-36) U/L Total Protein (6.3-8.2) g/dL Albumin (3.5-5.0) g/dL Urine Protein (Negative) Urine Glucose (UA) (Negative) Urine Blood (Negative) Urine Bacteria (None) /hpf Urine Mucus (None) /hpf 03/08/23 03/08/23 03/08/23 Range/Units 00:01 01:55 01:55 RBC 2.81 L (3.80-5.40) m/uL Hgb 9.1 L (11.4-16.0) gm/dL Hct 27.8 L (34.0-46.0) % Lymphocytes # 0.6 L (1.0-4.8) k/uL D-Dimer 2.67 H (<0.60) mg/L FEU Sodium (137-145) mmol/L Chloride 120 H (98-107) mmol/L BUN 18 H (7-17) mg/dL Creatinine 0.50 L (0.52-1.04) mg/dL Glucose 170 H (74-99) mg/dL POC Glucose (mg/dL) (70-110) mg/dL Calcium 7.5 L (8.4-10.2) mg/dL AST 90 H (14-36) U/L Total Protein 5.4 L (6.3-8.2) g/dL Albumin 2.8 L (3.5-5.0) g/dL Urine Protein (Negative) Urine Glucose (UA) (Negative) Urine Blood (Negative) Urine Bacteria (None) /hpf Urine Mucus (None) /hpf 03/08/23 03/08/23 03/08/23 Range/Units 05:10 05:10 05:20 RBC 2.71 L (3.80-5.40) m/uL Hgb 8.6 L (11.4-16.0) gm/dL Hct 26.9 L (34.0-46.0) % Lymphocytes # 0.3 L (1.0-4.8) k/uL D-Dimer (<0.60) mg/L FEU Sodium 146 H (137-145) mmol/L Chloride 119 H (98-107) mmol/L BUN 18 H (7-17) mg/dL Creatinine 0.50 L (0.52-1.04) mg/dL Glucose 177 H (74-99) mg/dL POC Glucose (mg/dL) (70-110) mg/dL Calcium 7.6 L (8.4-10.2) mg/dL AST (14-36) U/L Total Protein (6.3-8.2) g/dL Albumin (3.5-5.0) g/dL Urine Protein Trace H (Negative) Urine Glucose (UA) Trace H (Negative) Urine Blood Small H (Negative) Urine Bacteria Rare H (None) /hpf Urine Mucus Rare H (None) /hpf 03/08/23 Range/Units 06:00 RBC (3.80-5.40) m/uL Hgb (11.4-16.0) gm/dL Hct (34.0-46.0) % Lymphocytes # (1.0-4.8) k/uL D-Dimer (<0.60) mg/L FEU Sodium (137-145) mmol/L Chloride (98-107) mmol/L BUN (7-17) mg/dL Creatinine (0.52-1.04) mg/dL Glucose (74-99) mg/dL POC Glucose (mg/dL) 160 H (70-110) mg/dL Calcium (8.4-10.2) mg/dL AST (14-36) U/L Total Protein (6.3-8.2) g/dL Albumin (3.5-5.0) g/dL Urine Protein (Negative) Urine Glucose (UA) (Negative) Urine Blood (Negative) Urine Bacteria (None) /hpf Urine Mucus (None) /hpf Microbiology - Last 24 Hours (Table) 03/04/23 13:34 Blood Culture - Preliminary Blood No Growth after 72 hours 03/04/23 13:34 Blood Culture - Preliminary Blood No Growth after 72 hours 03/04/23 11:19 Gram Stain - Final Sputum Sputum Culture - Final
--- NOTE | 2023-03-08 07:47 | P.PN ---
Subjective Progress Note Date: 03/07/23 03/07/2023: Patient currently on propofol 30 mcg/kg/m. Per nursing note, with sedation holiday for about 20 minutes, patient was not following any commands. She became tachypneic therefore was given 1 mg of Ativan, and propofol restarted. Her examination continues to be very abnormal as below. Per nurse report, patient's eyes opens and close, but is not awake. Only sclerae is visible. 03/06/2023: Patient initially seen by Dr. Vincent Estrada. Please refer to his note for details. Patient is a 67-year-old female, who came to the hospital with cardiopulmonary arrest on 03/04/2023 at 9:37 AM. The downtime was about 15 minutes. Patient's sister and another relative was present. Patient's nurse was also present. Patient continues to be comatose. She had sedation holiday performed for about half an hour at 9:50 AM in which she was not showing any meaningful response. At present patient on propofol 15 mcg/kg/m. patient's nurse mentioned that patient became tachycardic and blood pressure went up to 180 systolic, therefore she was placed back on propofol. No seizure-like activity noted. Patient received Ativan 2 mg last night. Objective - Vital Signs Vital signs: Vital Signs Temp 101.5 F H 03/07/23 10:00 Pulse 74 03/07/23 11:00 Resp 25 H 03/07/23 11:00 BP 133/78 03/05/23 21:00 Pulse Ox 96 03/07/23 11:00 FiO2 50 03/07/23 10:30 Intake & Output 03/06/23 03/07/23 03/07/23 18:59 06:59 18:59 Intake Total 1225.000 887.027 740.444 Output Total 405 615 325 Balance 820.000 272.027 415.444 Weight 84 kg 86 kg Intake: IV 675 275 225 Sodium Chloride 0.9% 1, 675 000 ml @ 75 mls/hr IV . [id number] [facility] Rx#:[id number] Sodium Chloride 3%( 275 125 Hypertonic) 500 ml @ 25 mls/hr IV .Q20H [facility] Rx#: [id number] levETIRAcetam IV 1,500 mg 100 In Saline 1 100ml.bag @ 400 mls/hr IVPB Q12HR [facility] Rx#:[id number] Intake, IV Titration 300.000 72.027 285.444 Amount ACETAMINOPHEN IV (For NPO 100 ) 1,000 mg In Empty Bag 1 bag @ 400 mls/hr IVPB ONCE [facility] Rx#:[id number] Piperacillin-Tazobactam 3 100 100 .375 gm In Sodium Chloride 0.9% 100 ml @ 25 mls/hr IVPB Q8H [facility] Rx#: [id number] Sodium Chloride 0.9% 1, 75 000 ml @ 75 mls/hr IV . [id number] [facility] Rx#:[id number] Sodium Chloride 3%( 25 25 Hypertonic) 500 ml @ 25 mls/hr IV .Q20H [facility] Rx#: [id number] propofoL 1,000 mg In 100.000 47.027 85.444 Empty Bag 1 bag @ 15 MCG/ KG/MIN 7.348 mls/hr IV . [id number] [facility] Rx#:[id number] Tube Feeding 190 430 230 Other 60 110 Output: Urine 405 615 325 Other: Voiding Method Indwelling Catheter Indwelling Catheter ABP, PAP, CO, CI - Last Documented Arterial Blood Pressure 132/42 - Exam Patient is comatose, with GCS of 3. Patient not responding to calling her name or painful stimuli. Patient's eyes are partially open, but are completely deviated up. Only sclera is visible with are partially open lids. On manually opening the eyes, it appeared patient's gaze was upwards into her right. And then slowly the gaze went to the up and left side. Very abnormal extraocular muscles. Some eye flickering was noted. Patient is slightly breathing over the ventilator. She has a weak gag. Her pupils are equal, round and reacting. Oculocephalics are minimally present. Corneals present. However no twitching noted at rest otherwise. - Labs CBC & Chem 7: 03/08/23 05:10 03/08/23 05:10 Labs: Abnormal Lab Results - Last 24 Hours (Table) 03/06/23 03/06/23 03/06/23 Range/Units 17:59 18:25 23:37 RBC (3.80-5.40) m/uL Hgb (11.4-16.0) gm/dL Hct (34.0-46.0) % Lymphocytes # (1.0-4.8) k/uL ABG pCO2 (35-45) mmHg ABG pO2 (83-108) mmHg ABG O2 Saturation (94-97) % Chloride (98-107) mmol/L Glucose (74-99) mg/dL POC Glucose (mg/dL) 145 H 113 H 130 H (70-110) mg/dL Calcium (8.4-10.2) mg/dL AST (14-36) U/L Total Protein (6.3-8.2) g/dL Albumin (3.5-5.0) g/dL 03/07/23 03/07/23 03/07/23 Range/Units 04:10 04:10 04:10 RBC 2.93 L (3.80-5.40) m/uL Hgb 9.3 L (11.4-16.0) gm/dL Hct 28.9 L (34.0-46.0) % Lymphocytes # 0.7 L (1.0-4.8) k/uL ABG pCO2 (35-45) mmHg ABG pO2 (83-108) mmHg ABG O2 Saturation (94-97) % Chloride 114 H 116 H (98-107) mmol/L Glucose 149 H 149 H (74-99) mg/dL POC Glucose (mg/dL) (70-110) mg/dL Calcium 7.3 L 7.3 L (8.4-10.2) mg/dL AST 81 H (14-36) U/L Total Protein 5.7 L (6.3-8.2) g/dL Albumin 3.0 L (3.5-5.0) g/dL 03/07/23 03/07/23 03/07/23 Range/Units 05:04 05:06 11:40 RBC (3.80-5.40) m/uL Hgb (11.4-16.0) gm/dL Hct (34.0-46.0) % Lymphocytes # (1.0-4.8) k/uL ABG pCO2 34 L (35-45) mmHg ABG pO2 112 H (83-108) mmHg ABG O2 Saturation 97.5 H (94-97) % Chloride (98-107) mmol/L Glucose (74-99) mg/dL POC Glucose (mg/dL) 141 H 139 H (70-110) mg/dL Calcium (8.4-10.2) mg/dL AST (14-36) U/L Total Protein (6.3-8.2) g/dL Albumin (3.5-5.0) g/dL Microbiology - Last 24 Hours (Table) 03/04/23 11:19 Gram Stain - Final Sputum Sputum Culture - Final 03/04/23 13:34 Blood Culture - Preliminary Blood No Growth after 48 hours 03/04/23 13:34 Blood Culture - Preliminary Blood No Growth after 48 hours Assessment and Plan Assessment: Cardiopulmonary arrest lasting for 15 minutes. It appears the patient had episode of nonsustained V. tach is seems to happen 1 hour prior to the cardiac arrest but per cardiology unsure if true VT or A.fib Anoxic encephalopathy. Patient's computed tomography scan showing mild diffuse cerebral edema. Some effacement of the lateral ventricles. Patient has slightly preserved brainstem reflexes at this time. Very abnormal extraocular muscles examination. Reported twitching of body that is intermittent on 03/04/23: Probable seizures due to cardiopulmonary arrest- now resolved Cardiomyopathy with ejection fraction of 30-35% Status post intubation and mechanical ventilation due to cardiopulmonary last Non-STEMI Paroxysmal atrial fibrillation History of stroke AICD Hypertension CAD with prior PCI History of green filter placement Plan: Patient is past 72 hours post cardiac arrest. No clinical improvement. Her examination is severely abnormal. EEG performed 03/05/2023 was abnormal routine EEG due to diffuse suppression, which can be due to either medication-induced or due to anoxia. The background slowing is suggestive of severe encephalopathy. Otherwise no focal slowing, or epileptiform discharges were seen. Continue Keppra 1500 mg IV every 12 hours (new during this admission). CT head performed early this morning at 5 AM on 03/06/2023 showed no acute intracranial hemorrhage or midline shift. There is mild diffuse cerebral atrophy redemonstrated. Resolved left maxillary acute sinusitis. Slightly worsening bilateral sphenoid acute sinusitis. On my review, there is definite evidence of at least mild generalized cerebral edema, with some effacement of the lateral ventricles. It appears patient has fever and suspected aspiration pneumonia. Will defer management to primary and ICU team. Patient is over 72 hours post cardiac arrest, with comatose state and severely abnormal examination as above. Prognosis for meaningful recovery appears very guarded to poor. Continue hypertonic saline for cerebral edema noted on computed tomography scan. Discussed with patient's nurse.
--- NOTE | 2023-03-08 07:56 | CT ---
EXAMINATION TYPE: CT ChestAbdPelvis wo con CT DLP: 1475.2 mGycm, Automated exposure control for dose reduction was used. DATE OF EXAM: 03/08/2023 3:10 AM COMPARISON: 03/04/2023 CT chest, 11/28/2022 CT abdomen pelvis CLINICAL INDICATION:Female, 67 years old with history of GOL evaluation; requesting renal measurement s; , AMS, CARDIAC ARREST, ABD DISTENTION Technique: Multiple axial images of the chest, abdomen, and pelvis were obtained. Two-dimensional cor onal and sagittal reconstructions were obtained. Contrast used: None Oral contrast used: without Oral Contrast Findings: CHEST: Extensive motion artifact limits evaluation of the chest. LUNGS/ PLEURA: Consolidation changes are seen predominantly in the posterior inferior lungs. Findings felt to represent atelectasis given bronchial vascular crowding. AIRWAY: Endotracheal tube terminating above the raffi. HEART: Measures mildly enlarged for size. Coronary artery cusp patient's are present. MEDIASTINUM: No gross evidence of adenopathy. VASCULATURE: No aortic aneurysm. MUSCULOSKELETAL: Multiple right-sided rib fractures involving right rib 2 through 10 and possibly 11 and left ribs 2 through 10. SOFT TISSUES/LYMPH NODES: Cardiac conduction device within the left chest wall with leads terminating in the right ventricle and right atrium. LOWER NECK: Nasogastric tube transversing the neck. ABDOMEN: ABDOMEN LIVER: Unremarkable GALLBLADDER AND BILE DUCTS: Unremarkable. PANCREAS: Unremarkable. SPLEEN: Unremarkable. ADRENAL GLANDS: Unremarkable. KIDNEYS AND URETERS: No evidence of hydronephrosis or renal calculus. The ureters are unremarkable. PELVIS BLADDER: Fisher catheter in place. The bladder is relatively unremarkable. REPRODUCTIVE: Left ovarian 3.1 cm cyst. ABDOMEN & PELVIS STOMACH AND BOWEL: No evidence of bowel obstruction. Colon is underneath the diaphragm on the right. Compatible with Chilaiditi sign. PERITONEUM: No evidence of pneumoperitoneum or free fluid. VASCULATURE: No evidence of aortic aneurysm. IVC filter in place. Atherosclerosis of the arterial vas culature. MUSCULOSKELETAL: No acute osseous abnormalities, bilateral hip fixation hardware. Hardware appears in tact. Multilevel disc degeneration changes throughout the spine with scoliosis changes. LYMPH NODES: No gross evidence for lymphadenopathy. SOFT TISSUE/ABDOMINAL WALL: Surgical clips in the anterior abdominal wall. IMPRESSION: 1. Sequela of prior CPR with bilateral rib fractures involving at least ribs 2 through 10 bilaterall y similar left-sided rib fractures appear more subacute. 2. Motion limited exam for the remainder of the study no evidence for acute abdominal process. 3. Consolidation changes in lung bases likely secondary to atelectasis and hypoventilatory.
--- NOTE | 2023-03-08 08:45 | P.PN ---
Subjective Progress Note Date: 03/08/23 67-year-old female who apparently had a cardiopulmonary arrest, at a local [employer]. The patient apparently had a downtime of about 15 minutes, for there was cardiopulmonary resuscitation and return of spontaneous circulation. The patient was seen in the ER, by the ER physician, Dr. Dejesus. The patient was vented, and a right femoral vein triple lumen catheter was placed. Family members are in the room, we selected see the patient. The patient herself is unresponsive. She has a orally placed endotracheal tube. She's currently on the ventilator, with vent settings of volume assist control, rate 20, tidal volume 375, FiO2 100%, 5. Blood gases show pO2 75, pCO2 of 53, and a pH is 7.17. The patient is on norepinephrine at 0.15 mcg/kg/m, and propofol at 15 mcg/kg/m. The patient has a history of COPD from secondhand tobacco exposure, a previous history of the fibrillator placement for cardiomyopathy, and history of stroke, and [place] filter placement. In addition, the patient is on home O2, that she is supposed to use all the time, but she only uses as needed. She was a smoker in the distant past. White count 9.7, hemoglobin 11.4, hematocrit 37.9, and platelet count was normal. D-dimer was 3.10. Sodium 137, potassium 4.3, chlorides 104, CO2 17, anion gap 16, BUN and creatinine 12 and 0.76. Troponin was 0.022 and N-terminal proBNP was 2290. Lactate was not measured but is probably elevated. Testing for influenza A, and B, RSV, and coronavirus are all negative. Chest x-ray shows evidence of cardiomegaly, fluid overload, and an appropriately placed endotracheal tube. Computed tomography scan of the brain showed nothing acute. CT angiogram was negative for PE. There also may be some right lower lobe consolidation consistent with prior aspiration. Progress note dated 03/05/2023. 67-year-old female who had an [id number] cardiopulmonary arrest. The patient had about 15 minutes of resuscitation before there was return of spontaneous circulation. Unfortunately, the patient may have sustained anoxic brain injury. Today, we place an art line. She remains on the ventilator. I did have neurology see her. She is on volume assist control, rate 20, tidal volume 375, FiO2 60%, PEEP of 5. Arterial blood gases show pO2 of 90, pCO2 34, and pH is 7.35. The patient is on norepinephrine at 0.05 mcg/kg/m, propofol at 40 mcg/kg/m, and saline at 75 mL an hour. We will discontinue the Levaquin and Flagyl and start Zosyn. In addition we'll start some tube feeds, at 10 mL an hour. A right radial art line will be placed today. White count 8.9, hemoglobin 10.8, hematocrit 34.1, and platelet count is normal. Sodium 139, potassium 3.9, chlorides 112, CO2 18, BUN 19, creatinine 0.71. Troponins were 0.086 and 0.091. Chest x-ray shows persistent bilateral infiltrates, more so in the right lung than on the left. This may relate to aspiration. On today's evaluation of 03/07/2023, seeing the patient for a follow-up. This is a case of a cardiac arrest with at least 15 minutes downtime. The patient has an AICD in place. Initial cardiac rhythm is not clear. The did not have any pacemaker discharges and the pacemaker has not been interrogated yet. Noted the patient has a pacer AICD in place. Her current cardiac rhythm is paced and her rate is currently at 76. Hemodynamically, the patient is stable on no pressors. The patient is maintaining her own blood pressure. Meanwhile, the patient's troponins did not rise and the troponin peaked at 0.09. The patient currently has signs of anoxic encephalopathy. Attempts to wean her off the sedation yesterday feel that the patient became quite hypertensive and tachypneic and she did not show any reasonable neurological recovery. Neurology is on the case for the potential anoxic encephalopathy. CAT scan of the brain was done on 03/04/2023 and 03/06/2023 and there is mild diffuse cerebral atrophy without any acute brain changes. There is bilateral sphenoid sinus disease. EEG was also done on 03/05/2023 indicating diffuse suppression due to anoxia. The patient is currently on propofol which is running at the rate of 15 mcg/kg/m. The patient is also on IV Keppra 1.5 g every 12 hours. This morning, the patient remains on a mechanical ventilator patient is on assist control mode at the rate of 20, tidal volume of 375, FiO2 of 50% with a PEEP of 5. The blood gas shows a pH of 7.42 with a pCO2 of 34 and pO2 112. Sodium is at 141 with a potassium level of 4.4, BUN is at 17 with a creatinine of 0.59. WBC count at 7.2 with a hemoglobin 9.3 and a platelet count of 163. The chest x-ray from this morning is showing cardiomegaly along with bilateral pleural effusion. ET tube is in a good location. The patient also has a orogastric tube in place. A CT angiogram of the chest that was done on 03/04/2023 showed bilateral lower lobe and upper lobe consolidation and scattered areas of multifocal groundglass opacities throughout the lung. Possibility of aspiration was considered in addition to underlying cardiomegaly and multiple acute minimally displaced anterior rib fractures in the setting of CPR. IV fluids are currently at the rate of 25 mL an hour of 3% hypertonic saline. This was initiated by neurology regarding the potential of PULMONARY PHYSICIAN swelling. As mentioned, the sodium level is at 141 from this morning. No seizure activity has been noted.Patient is currently on antibiotic without liquids 5 mg by mouth twice a day. The patient is on met oprolol 25 mg by mouth twice a day. The patient is on Zestril 5 mg by mouth twice a day. The patient is also on empiric antibiotic coverage with IV Zosyn. The echocardiogram showed an ejection fraction of 30-35% with global LV dysfunction. There was mild aortic stenosis. On today's evaluation of 03/08/2023, the patient remains neurologically impaired and and anoxic encephalopathy. The patient is post cardiac arrest. The patient is currently intubated on a mechanical ventilator. Propofol is running at 20 mcg/kg/m. This is to maintain synchrony with a mechanical ventilator. The patient is receiving daily sedation holidays. She remains on a mechanical ventilator. This morning, she is on assist-control mode at the rate of 20, tidal volume of 375, FiO2 of 50% with a PEEP of 5. The blood gas from today shows a pH of 7.39 with a pCO2 of 36 and the pO2 is currently at 87. The chest x-ray from today shows elevation of the right hemidiaphragm, a pacemaker is still present in the left anterior chest. No significant airspace disease or pulmonary infiltrates. Orogastric tube is in a good location. Meanwhile, the patient carries a WBC count of 5.8 with a hemoglobin of 8.6 and a platelet count of 151. BUN is 18 with a creatinine of 0.5 and a sodium level is at 146. UA is negative. Give a flight has been contacted. As part of their workup, a CAT scan of the chest abdomen and pelvis was done. There is left-sided rib fractures probably related to CPR. No acute intra-abdominal abnormalities. Some consolidation changes in the lung bases are seen probably related to atel ectasis. Unfortunately, neurologically, the patient continues to be significantly impaired. No reasonable neurological recovery while off propofol. No seizure activity and the patient remains on Keppra. The patient is also receiving enteral feeding for nutritional support and she is currently on vital AF. The patient remains on the hypertonic saline per neurology's recommendation. The patient remains on Keppra. The patient is on IV Zosyn. Her anticoagulation has been resumed she remains on Eliquis 5 mg by mouth twice a day. Objective - Vital Signs Vital signs: Vital Signs Temp 98.8 F 03/08/23 08:00 Pulse 70 03/08/23 08:00 Resp 20 03/08/23 08:00 BP 109/43 03/08/23 08:00 Pulse Ox 98 03/08/23 08:00 FiO2 50 03/08/23 08:00 Intake & Output 03/07/23 03/08/23 03/08/23 18:59 06:59 18:59 Intake Total 1427.269 868.175 100 Output Total 635 435 70 Balance 792.269 433.175 30 Weight 88 kg Intake: IV 425 275 50 Sodium Chloride 3%( 325 275 50 Hypertonic) 500 ml @ 25 mls/hr IV .Q20H [facility] Rx#: [id number] levETIRAcetam IV 1,500 mg 100 In Saline 1 100ml.bag @ 400 mls/hr IVPB Q12HR [facility] Rx#:[id number] Intake, IV Titration 342.269 43.175 Amount ACETAMINOPHEN IV (For NPO 100 ) 1,000 mg In Empty Bag 1 bag @ 400 mls/hr IVPB ONCE [facility] Rx#:[id number] Piperacillin-Tazobactam 3 100 .375 gm In Sodium Chloride 0.9% 100 ml @ 25 mls/hr IVPB Q8H [facility] Rx#: [id number] propofoL 1,000 mg In 142.269 43.175 Empty Bag 1 bag @ 15 MCG/ KG/MIN 7.348 mls/hr IV . [id number] [facility] Rx#:[id number] Tube Feeding 630 550 50 Other 30 Output: Urine 635 435 70 Other: Voiding Method Indwelling Catheter Indwelling Catheter # Bowel Movements 1 ABP, PAP, CO, CI - Last Documented Arterial Blood Pressure 120/49 - Exam No acute distress, sedated on propofol, with an orally placed endotracheal tube. The patient is currently on propofol. The patient is quite symptomatic since a mechanical ventilator. HEENT examination is grossly unremarkable. Neck supple. Full range of motion. No adenopathy thyromegaly or neck vein distention. Cardiovascular examination reveals regular rhythm rate. S1-S2 normal. No S3 or S4. No discernible murmur noted. Lungs reveal scattered rhonchi. No wheezes or crackles. Breath sounds equal. Abdomen obese, without bowel sounds. Extremities are intact. No cyanosis clubbing or edema. Skin is without rash or lesion. Neurologic examination the patient is currently on propofol. The patient senses the pain probably more so a reflex. No facial asymmetry. Her gaze is up 4 and more so to the left. No nystagmus. The patient is breathing above the mechanical ventilator. The patient has a positive cough and a gag reflex. The patient has a slow pupillary response. The reflexes are equal and symmetrical and diminished bilaterally. Negative clonus, negative Babinski's. Neurologic exam is unchanged.. The patient continues to have respiratory drive. She has a very weak corneal reflex. - Labs CBC & Chem 7: 03/08/23 05:10 03/08/23 05:10 Labs: Abnormal Lab Results - Last 24 Hours (Table) 03/07/23 03/07/23 03/07/23 Range/Units 11:40 18:00 23:55 RBC (3.80-5.40) m/uL Hgb (11.4-16.0) gm/dL Hct (34.0-46.0) % Lymphocytes # (1.0-4.8) k/uL D-Dimer (<0.60) mg/L FEU Sodium (137-145) mmol/L Chloride (98-107) mmol/L BUN (7-17) mg/dL Creatinine (0.52-1.04) mg/dL Glucose (74-99) mg/dL POC Glucose (mg/dL) 139 H 165 H 146 H (70-110) mg/dL Calcium (8.4-10.2) mg/dL AST (14-36) U/L Total Protein (6.3-8.2) g/dL Albumin (3.5-5.0) g/dL Urine Protein (Negative) Urine Glucose (UA) (Negative) Urine Blood (Negative) Urine Bacteria (None) /hpf Urine Mucus (None) /hpf 03/08/23 03/08/23 03/08/23 Range/Units 00:01 01:55 01:55 RBC 2.81 L (3.80-5.40) m/uL Hgb 9.1 L (11.4-16.0) gm/dL Hct 27.8 L (34.0-46.0) % Lymphocytes # 0.6 L (1.0-4.8) k/uL D-Dimer 2.67 H (<0.60) mg/L FEU Sodium (137-145) mmol/L Chloride 120 H (98-107) mmol/L BUN 18 H (7-17) mg/dL Creatinine 0.50 L (0.52-1.04) mg/dL Glucose 170 H (74-99) mg/dL POC Glucose (mg/dL) (70-110) mg/dL Calcium 7.5 L (8.4-10.2) mg/dL AST 90 H (14-36) U/L Total Protein 5.4 L (6.3-8.2) g/dL Albumin 2.8 L (3.5-5.0) g/dL Urine Protein (Negative) Urine Glucose (UA) (Negative) Urine Blood (Negative) Urine Bacteria (None) /hpf Urine Mucus (None) /hpf 03/08/23 03/08/23 03/08/23 Range/Units 05:10 05:10 05:20 RBC 2.71 L (3.80-5.40) m/uL Hgb 8.6 L (11.4-16.0) gm/dL Hct 26.9 L (34.0-46.0) % Lymphocytes # 0.3 L (1.0-4.8) k/uL D-Dimer (<0.60) mg/L FEU Sodium 146 H (137-145) mmol/L Chloride 119 H (98-107) mmol/L BUN 18 H (7-17) mg/dL Creatinine 0.50 L (0.52-1.04) mg/dL Glucose 177 H (74-99) mg/dL POC Glucose (mg/dL) (70-110) mg/dL Calcium 7.6 L (8.4-10.2) mg/dL AST (14-36) U/L Total Protein (6.3-8.2) g/dL Albumin (3.5-5.0) g/dL Urine Protein Trace H (Negative) Urine Glucose (UA) Trace H (Negative) Urine Blood Small H (Negative) Urine Bacteria Rare H (None) /hpf Urine Mucus Rare H (None) /hpf 03/08/23 Range/Units 06:00 RBC (3.80-5.40) m/uL Hgb (11.4-16.0) gm/dL Hct (34.0-46.0) % Lymphocytes # (1.0-4.8) k/uL D-Dimer (<0.60) mg/L FEU Sodium (137-145) mmol/L Chloride (98-107) mmol/L BUN (7-17) mg/dL Creatinine (0.52-1.04) mg/dL Glucose (74-99) mg/dL POC Glucose (mg/dL) 160 H (70-110) mg/dL Calcium (8.4-10.2) mg/dL AST (14-36) U/L Total Protein (6.3-8.2) g/dL Albumin (3.5-5.0) g/dL Urine Protein (Negative) Urine Glucose (UA) (Negative) Urine Blood (Negative) Urine Bacteria (None) /hpf Urine Mucus (None) /hpf Microbiology - Last 24 Hours (Table) 03/04/23 13:34 Blood Culture - Preliminary Blood No Growth after 72 hours 03/04/23 13:34 Blood Culture - Preliminary Blood No Growth after 72 hours 03/04/23 11:19 Gram Stain - Final Sputum Sputum Culture - Final Assessment and Plan Plan: Status post [id number] cardiopulmonary arrest, with at least 15 minutes of downtime, before cardiopulmonary resuscitation and return of spontaneous circulation, were accomplished. Status post intubation and mechanical ventilation for cardiopulmonary arrest, . anoxic brain injury, post cardiac arrest, currently unresponsive. The patient does have brainstem reflexes. Nevertheless, unresponsive once off sedation. Neurologically, the patient shows signs of severe neurologic impairment. She continues to have brainstem reflexes. The patient continues to be on hypertonic saline. No change in her neurologic functions on today's evaluation. Acute fever post cardiac arrest, the patient is normothermic for now. The patient responded to our hypothermia measures and she is currently afebrile. Multifocal bilateral pulmonary infiltrates, consider aspiration and the patient is currently on IV Zosyn Systolic heart failure with an ejection fraction of 30-35% and impaired LV. Noted the troponins were not elevated Nondisplaced rib fractures related to CPR, as evidenced on the chest x-ray and the CAT scan of the chest Pacemaker insertion with a paced cardiac rhythm for now History of atrial fibrillation. The current cardiac rhythmand the patient is on anticoagulation with Eliquis Status post AICD placement. History of COPD. History of hypertension. History of CVA. Prior history of Vin filter placement. History of anxiety/depression. Enteral feeding for nutritional support with vital high-protein at the rate of 35 mL an hour Plan Essentially no major change in the patient's condition. Cardiovascularly stable. Neurologically impaired and anoxic encephalopathy. Brainstem reflex are present. Continue ventilator support, no changes for today Continue IV Zosyn Temperature normalized Keep the patient on sedation for now and will give a sedation holiday the later stage less his underlying mental status Neurology follow-up regarding her anoxic encephalopathy Continue Keppra Continue hypertonic saline EEG and CAT scan of the brain were noted Continue anticoagulation with Eliquis Continue metoprolol 25 mg by mouth twice a day The pacemaker needs to be evaluated and this will be coordinated with cardiology Poor prognosis based on the above-mentioned comorbidities We'll continue to follow. Physical. Evaluation was done in more than 30 minutes. Possible withdrawal of care and the family is considering that. [facility] is on the case. Time with Patient: Greater than 30
[2023-03-08] MEDS: PANTOPRAZOLE 40 MG/10 ML VIAL IV SCH (09:37)
[2023-03-08] MEDS: lisinopriL 5 MG TAB PO SCH ×2 (09:37→20:29)
[2023-03-08] MEDS: ATORVASTATIN 80 MG TAB PO SCH (09:37)
[2023-03-08] MEDS: CHLORHEXIDINE GLUCONATE 15 ML CUP MUCOUS MEM SCH ×2 (09:37→20:29)
[2023-03-08] MEDS: METOPROLOL TARTRATE 25 MG TAB PO SCH ×2 (09:37→20:29)
[2023-03-08] MEDS: APIXABAN 5 MG TAB PO SCH ×2 (09:37→20:29)
[2023-03-08] MEDS: levETIRAcetam IV 1,500 MG in SALINE 1 100ML.BAG IVPB SCH ×2 (09:48→20:29)
[2023-03-08 10:28] LABS: ALT 27 U/L (4-34); AST 85 U/L (14-36); African American GFR (CKD) >90 (>60 ml/min/1.73 sqM); Albumin 2.8 g/dL (3.5-5.0); Alkaline Phosphatase 56 U/L (38-126); Anion Gap 3 mmol/L; Blood Urea Nitrogen 17 mg/dL (7-17); Calcium 7.7 mg/dL (8.4-10.2); Carbon Dioxide 24 mmol/L (22-30); Chloride 121 mmol/L (98-107); Glucose 134 mg/dL (74-99); Magnesium 2.3 mg/dL (1.6-2.3); Non-African American GFR(CKD) >90 (>60 ml/min/1.73 sqM); Phosphorus 1.9 mg/dL (2.5-4.5); Potassium 4.2 mmol/L (3.5-5.1); Sodium 148 mmol/L (137-145); Total Bilirubin 0.4 mg/dL (0.2-1.3); Total Protein 5.4 g/dL (6.3-8.2)
--- NOTE | 2023-03-08 11:26 | XR ---
EXAMINATION TYPE: XR chest 1V portable DATE OF EXAM: 03/08/2023 COMPARISON: 03/07/2023 HISTORY: Tube placement. TECHNIQUE: Single frontal view of the chest is obtained. FINDINGS: There is an endotracheal tube terminating approximately 4 cm from the raffi, left-sided AICD, and mu ltiple overlying cardiac monitoring leads. There has been removal of the previously seen orogastric t ube. The heart size is unchanged. The cardiothymic silhouette is unchanged. There is redemonstration of sm all bilateral pleural effusions with adjacent airspace disease which is stable when compared to previ ous examination. There is no pneumothorax. IMPRESSION: Stable exam, as above.
[2023-03-08] MEDS: NOREPINEPHRINE 32 MG in SODIUM CHLORIDE 0.9% 218 ML IV SCH (11:27)
[2023-03-08 11:32] LABS: Glucose,Whole Blood 142 mg/dL (70-110)
[2023-03-08] MEDS: LORazepam 2 MG/ML INJ IV PRN (11:48)
[2023-03-08 12:07] LABS: ALT 28 U/L (4-34); AST 90 U/L (14-36); African American GFR (CKD) >90 (>60 ml/min/1.73 sqM); Albumin 2.8 g/dL (3.5-5.0); Alkaline Phosphatase 55 U/L (38-126); Anion Gap 3 mmol/L; Blood Urea Nitrogen 18 mg/dL (7-17); Calcium 7.9 mg/dL (8.4-10.2); Carbon Dioxide 25 mmol/L (22-30); Chloride 120 mmol/L (98-107); Glucose 156 mg/dL (74-99); Magnesium 2.3 mg/dL (1.6-2.3); Non-African American GFR(CKD) >90 (>60 ml/min/1.73 sqM); Phosphorus 1.9 mg/dL (2.5-4.5); Potassium 4.2 mmol/L (3.5-5.1); Sodium 148 mmol/L (137-145); Total Bilirubin 0.4 mg/dL (0.2-1.3); Total Protein 5.4 g/dL (6.3-8.2)
[2023-03-08] MEDS ORDERED: SODIUM CHLORIDE 0.9% IVPB STA (14:33)
[2023-03-08] MEDS ORDERED: PHENYTOIN SODIUM IVPB STA (14:33)
--- NOTE | 2023-03-08 14:37 | P.PN ---
Subjective Progress Note Date: 03/08/23 03/08/2023: Patient was seen for a follow-up. Patient's niece was present at this time. Patient essentially unchanged. No clinical improvement. Patient is having some rhythmic eye twitching when the eyes are open, all with painful stimuli. At present patient is on propofol 20 mcg/kg/m. With sedation holiday, she was twitching, almost like seizures, therefore she received Ativan earlier. 03/07/2023: Patient currently on propofol 30 mcg/kg/m. Per nursing note, with sedation holiday for about 20 minutes, patient was not following any commands. She became tachypneic therefore was given 1 mg of Ativan, and propofol restarted. Her examination continues to be very abnormal as below. Per nurse report, patient's eyes opens and close, but is not awake. Only sclerae is visible. 03/06/2023: Patient initially seen by Dr. Vincent Estrada. Please refer to his note for details. Patient is a 67-year-old female, who came to the hospital with cardiopulmonary arrest on 03/04/2023 at 9:37 AM. The downtime was about 15 minutes. Patient's sister and another relative was present. Patient's nurse was also present. Patient continues to be comatose. She had sedation holiday performed for about half an hour at 9:50 AM in which she was not showing any meaningful response. At present patient on propofol 15 mcg/kg/m. patient's nurse mentioned that p atient became tachycardic and blood pressure went up to 180 systolic, therefore she was placed back on propofol. No seizure-like activity noted. Patient received Ativan 2 mg last night. Objective - Vital Signs Vital signs: Vital Signs Temp 98.8 F 03/08/23 08:00 Pulse 72 03/08/23 12:09 Resp 21 03/08/23 11:00 BP 109/43 03/08/23 08:00 Pulse Ox 99 03/08/23 11:00 FiO2 50 03/08/23 11:02 Intake & Output 03/07/23 03/08/23 03/08/23 18:59 06:59 18:59 Intake Total 1427.269 868.175 535 Output Total 635 435 160 Balance 792.269 433.175 375 Weight 88 kg Intake: IV 425 275 225 Sodium Chloride 3%( 325 275 125 Hypertonic) 500 ml @ 25 mls/hr IV .Q20H [facility] Rx#: [id number] levETIRAcetam IV 1,500 mg 100 100 In Saline 1 100ml.bag @ 400 mls/hr IVPB Q12HR [facility] Rx#:[id number] Intake, IV Titration 342.269 43.175 100 Amount ACETAMINOPHEN IV (For NPO 100 ) 1,000 mg In Empty Bag 1 bag @ 400 mls/hr IVPB ONCE [facility] Rx#:[id number] Piperacillin-Tazobactam 3 100 100 .375 gm In Sodium Chloride 0.9% 100 ml @ 25 mls/hr IVPB Q8H [facility] Rx#: [id number] propofoL 1,000 mg In 142.269 43.175 Empty Bag 1 bag @ 15 MCG/ KG/MIN 7.348 mls/hr IV . [id number] [facility] Rx#:[id number] Tube Feeding 630 550 150 Other 30 60 Output: Urine 635 435 160 Other: Voiding Method Indwelling Catheter Indwelling Catheter Indwelling Catheter # Bowel Movements 1 ABP, PAP, CO, CI - Last Documented Arterial Blood Pressure 137/55 - Exam Patient is comatose, with GCS of 3. Patient not responding to calling her name or painful stimuli. Patient's eyes are closed, and with painful stimuli, although with manually opening the eyes, some rhythmic twitching of the eyes were noted. Patient has some skew deviation of the eye, with the left eye deviated up and to her right, and the right eye is looking straight ahead. Very abnormal extraocular muscles. Patient is slightly breathing over the ventilator, as she is set at rate of 20/m, and sometimes it goes up to 21/m.. She has a weak gag. Her pupils are equal, round and reacting. Oculocephalics are minimally present. Corneals absent. However no twitching noted at rest of the body otherwise. - Labs CBC & Chem 7: 03/08/23 05:10 03/08/23 11:40 Labs: Abnormal Lab Results - Last 24 Hours (Table) 03/07/23 03/07/23 03/08/23 Range/Units 18:00 23:55 00:01 RBC (3.80-5.40) m/uL Hgb (11.4-16.0) gm/dL Hct (34.0-46.0) % Lymphocytes # (1.0-4.8) k/uL D-Dimer (<0.60) mg/L FEU Sodium (137-145) mmol/L Chloride 120 H (98-107) mmol/L BUN 18 H (7-17) mg/dL Creatinine 0.50 L (0.52-1.04) mg/dL Glucose 170 H (74-99) mg/dL POC Glucose (mg/dL) 165 H 146 H (70-110) mg/dL Calcium 7.5 L (8.4-10.2) mg/dL Phosphorus (2.5-4.5) mg/dL AST 90 H (14-36) U/L Total Protein 5.4 L (6.3-8.2) g/dL Albumin 2.8 L (3.5-5.0) g/dL Urine Protein (Negative) Urine Glucose (UA) (Negative) Urine Blood (Negative) Urine Bacteria (None) /hpf Urine Mucus (None) /hpf 03/08/23 03/08/23 03/08/23 Range/Units 01:55 01:55 05:10 RBC 2.81 L 2.71 L (3.80-5.40) m/uL Hgb 9.1 L 8.6 L (11.4-16.0) gm/dL Hct 27.8 L 26.9 L (34.0-46.0) % Lymphocytes # 0.6 L 0.3 L (1.0-4.8) k/uL D-Dimer 2.67 H (<0.60) mg/L FEU Sodium (137-145) mmol/L Chloride (98-107) mmol/L BUN (7-17) mg/dL Creatinine (0.52-1.04) mg/dL Glucose (74-99) mg/dL POC Glucose (mg/dL) (70-110) mg/dL Calcium (8.4-10.2) mg/dL Phosphorus (2.5-4.5) mg/dL AST (14-36) U/L Total Protein (6.3-8.2) g/dL Albumin (3.5-5.0) g/dL Urine Protein (Negative) Urine Glucose (UA) (Negative) Urine Blood (Negative) Urine Bacteria (None) /hpf Urine Mucus (None) /hpf 03/08/23 03/08/23 03/08/23 Range/Units 05:10 05:20 06:00 RBC (3.80-5.40) m/uL Hgb (11.4-16.0) gm/dL Hct (34.0-46.0) % Lymphocytes # (1.0-4.8) k/uL D-Dimer (<0.60) mg/L FEU Sodium 146 H (137-145) mmol/L Chloride 119 H (98-107) mmol/L BUN 18 H (7-17) mg/dL Creatinine 0.50 L (0.52-1.04) mg/dL Glucose 177 H (74-99) mg/dL POC Glucose (mg/dL) 160 H (70-110) mg/dL Calcium 7.6 L (8.4-10.2) mg/dL Phosphorus (2.5-4.5) mg/dL AST (14-36) U/L Total Protein (6.3-8.2) g/dL Albumin (3.5-5.0) g/dL Urine Protein Trace H (Negative) Urine Glucose (UA) Trace H (Negative) Urine Blood Small H (Negative) Urine Bacteria Rare H (None) /hpf Urine Mucus Rare H (None) /hpf 03/08/23 03/08/23 03/08/23 Range/Units 10:00 11:31 11:40 RBC (3.80-5.40) m/uL Hgb (11.4-16.0) gm/dL Hct (34.0-46.0) % Lymphocytes # (1.0-4.8) k/uL D-Dimer (<0.60) mg/L FEU Sodium 148 H 148 H (137-145) mmol/L Chloride 121 H 120 H (98-107) mmol/L BUN 18 H (7-17) mg/dL Creatinine 0.50 L 0.49 L (0.52-1.04) mg/dL Glucose 134 H 156 H (74-99) mg/dL POC Glucose (mg/dL) 142 H (70-110) mg/dL Calcium 7.7 L 7.9 L (8.4-10.2) mg/dL Phosphorus 1.9 L 1.9 L (2.5-4.5) mg/dL AST 85 H 90 H (14-36) U/L Total Protein 5.4 L 5.4 L (6.3-8.2) g/dL Albumin 2.8 L 2.8 L (3.5-5.0) g/dL Urine Protein (Negative) Urine Glucose (UA) (Negative) Urine Blood (Negative) Urine Bacteria (None) /hpf Urine Mucus (None) /hpf Microbiology - Last 24 Hours (Table) 03/04/23 13:34 Blood Culture - Preliminary Blood No Growth after 72 hours 03/04/23 13:34 Blood Culture - Preliminary Blood No Growth after 72 hours 03/04/23 11:19 Gram Stain - Final Sputum Sputum Culture - Final Assessment and Plan Assessment: Cardiopulmonary arrest with downtime lasting for 15 minutes. It appears the patient had episode of nonsustained V. tach is seems to happen 1 hour prior to the cardiac arrest but per cardiology unsure if true VT or A.fib Anoxic encephalopathy. Patient's computed tomography scan showing mild diffuse cerebral edema. Some effacement of the lateral ventricles. Patient has slightly preserved brainstem reflexes at this time. Very abnormal extraocular muscles examination. Reported twitching of body that is intermittent on 03/04/23: Probable seizures due to cardiopulmonary arrest- now resolved. However patient has intermittent rhythmic twitching of the eyelids particularly with sedation holiday, suggestive of underlying partial status. Cardiomyopathy with ejection fraction of 30-35% Status post intubation and mechanical ventilation due to cardiopulmonary last Non-STEMI Paroxysmal atrial fibrillation History of stroke AICD Hypertension CAD with prior PCI History of green filter placement Plan: Patient is past 96 hours post cardiac arrest. No clinical improvement. Her examination is severely abnormal. Prognosis for meaningful recovery appears poor at this time. Patient is showing some obvious low amplitude seizure like activity. We will give loading dose of Dilantin 20 mg/kg bolus dose and we will repeat prolonged EEG in the morning. There is some interaction of Dilantin reported with Eliqu is. Check with the pharmacist Tatianna, as the risks are low 2/5, therefore she'll be fine to use Dilantin with Eliquis. We will maintain on Dilantin 200 mg twice a day. Check Dilantin level in the morning. CT head to follow-up on cerebral edema. Patient has received 24 hours of hypertonic saline. EEG 03/05/2023 was abnormal routine EEG due to diffuse suppression, which can be due to either medication-induced or due to anoxia. The background slowing is suggestive of severe encephalopathy. Otherwise no focal slowing, or epileptiform discharges were seen. Continue Keppra 1500 mg IV every 12 hours (new during this admission). CT head performed at 5 AM on 03/06/2023 showed no acute intracranial hemorrhage or midline shift. There is mild diffuse cerebral atrophy redemonstrated. Resolved left maxillary acute sinusitis. Slightly worsening bilateral sphenoid acute sinusitis. On my review, there is definite evidence of at least mild generalized cerebral edema, with some effacement of the lateral ventricles. It appears patient has fever and suspected aspiration pneumonia. Will defer management to primary and ICU team. Patient is over 72 hours post cardiac arrest, with comatose state and severely abnormal examination as above. Prognosis for meaningful recovery appears poor. Discussed with patient's nurse. Patient's family to decide CODE STATUS later today.
[2023-03-08 15:58] LABS: Glucose,Whole Blood 172 mg/dL (70-110)
[2023-03-08] MEDS ORDERED: POTAS-SOD-PHOS 278-164-250 MG 1 EACH PACKET PO ONE (16:00)
[2023-03-08] MEDS ORDERED: Phosphorus Replacement Protoco 1 EACH MISC MISCELLANE PRN (16:00)
--- NOTE | 2023-03-08 16:00 | P.PN ---
Subjective Progress Note Date: 03/08/23 Patient is a 67-year-old male with a known history of chronic atrial fibrillation on anticoagulation with Eliquis, cardiomyopathy status post ICD placement, COPD on home oxygen at 4 L via nasal cannula, hypertension, anxiety/depression and history of femoral neck fracture s/p repair in November 2022 was brought to the hospital by EMS status postcardiac arrest. Patient was at [facility] where she was found to have worsening shortness of breath and became unresponsive on a motorized scooter.. Patient underwent CPR for about 15 minutes by EMS and was given 3 doses of epinephrine with return of spontaneous circulation and was intubated. Patient was brought to ER for evaluation. Patient was unresponsive and was able to provide any history. On arrival chest x-ray showed cardiomegaly and mild pulmonary vascular congestion. Correlate with BNP for congestive heart failure. Right basilar patchy airspace opacities may represent pulmonary edema versus infiltrate. Endotracheal tube in appropriate position. Possible NG tube terminating in the mid esophagus. CT head showed no acute intracranial process. Paranasal sinus disease with air- fluid level within the left maxillary sinus. Correlate for acute sinusitis. Chest CTA showed no evidence of PE. Bilateral lower lobe and right upper lobe consolidation with a scattered multifocal groundglass opacities throughout the lungs. Findings are compatible with pneumonia possibly aspiration. Multiple acute minimally displaced rib fractures likely related to CPR in the setting of cardiac arrest. Remote to subacute bilateral rib fractures also demo nstrated. No pneumothorax. Cardiomegaly. Laboratory data showed WBC 9.7 hemoglobin 11.4 platelets 246 and D-dimer 3.1 Initial ABG showed pH of 7.17 PCO2 30 and PO2 75 Sodium 135, potassium 4.3, chloride 104, bicarb is 17 BUN 12 and creatinine 0.76 and blood sugar was 325 and lactic acid 2.9 AST 57 ALT 14 alk phos 73 and troponin x1 negative proBNP 2290 Influenza A B RSV and COVID-19 PCR not detected. 03/05/2023 Patient is in the MICU. Remains mechanical ventilator. Off pressor support. Otherwise patient remains unresponsive. EEG was ordered and neurology is on board. 2D echocardiogram showed ejection fraction 30 to 35% with anterior septal hypokinesis. AICD C interrogation was done. Cardiology neurology and pulmonary is on board. Chest x-ray showed persistent right midlung and bibasilar multifocal acute infiltrates without edema. No change from 1 day. Patient remains on antibiotics Zosyn. NG tube in place. 03/06/2023 Patient is seen and evaluated and follow-up in the ICU remains on mechanical ventilation, FiO2 is 60% with a peep of 5. Patient is off pressor support although continues on as needed Ativan along with IV Keppra and propofol. Patient also maintained on IV antibiotics in the form of Zosyn. Chest x-ray today shows stable bilateral interstitial and airspace opacification with bilateral small pleural effusions may relate to pulmonary edema or infectious etiology. Blood cultures thus far are negative and sputum culture currently pending. Patient does continue to have low-grade temps 101 early this morning. WBC remains within normal limits and pro-calcitonin is 0.49. Other kidney functions within normal limits and blood sugars being monitored. Per nursing staff attempts at weaning were performed although patient became extremely tachycardic and restless and not following commands and placed back on sedation. An EEG was done although pending at this time. Repeat CT of the brain early this morning shows no acute intracranial hemorrhage or midline shift with mild diffuse cerebral atrophy redemonstrated with slightly worsening bilateral spheno id acute sinusitis. Multiple medical consultations following an per nursing staff [employer] was notified although unsure of family is aware. Patient was on the registry. 03/07/2023 Patient is seen and evaluated in the ICU maintained on mechanical ventilation with an FiO2 of 55% and PEEP is 5. Patient is maintained on IV antibiotics and continues to have fevers and cultures thus far been negative. Patient is continued on sedation and off pressor support and remains on hypertonic solution . Neurology following as well as pulmonary chemical handler with overall poor prognosis. Per nursing staff, family has been discussing possible comfort care although not ready to wean at this time. [employer] also following as patient is on the registry evaluating the patient. 03/08/2023 Patient continues to be in the ICU on mechanical ventilation with an FiO2 of 50% and PEEP is 5. Multiple medical consultations including cardiology, pulmonary chemical handler, neurology following. Patient had a CT of the chest abdomen pelvis per [employer] services which confirmed bilateral rib fractures involving at least 2 ribs through 10 bilaterally with no evidence of acute abdominal process and consolidation changes in the lung bases likely secondary to atelectasis and hypoventilatory. Patient is maintained on hypertonic solution along with IV Keppra with neurology following and patient remains clinically the same. No further seizure-like activity noted although does continue with jerking and twitching type movements once removed from sedation. Patient is undergoing occasional sedation holidays. [employer] is following as patient is on the registry although has not approached family as of yet and family is considering terminale weaning and comfort measures. Cardiology signed off and will follow as needed. Overall prognosis is poor as neurological status continues to be unchanged. Review of systems: Unable to obtain as patient is intubated and on sedation PHYSICAL EXAMINATION: Patient is on mechanical ventilator. FiO2 is currently 50% with a PEEP of 5 HEENT: Normocephalic. Neck is supple. Pupils reactive. Nostrils clear. Oral cavity is moist. Neck reveals no JVD, carotid bruits, or thyromegaly. CHEST EXAMINATION: Trachea is central. Symmetrical expansion. Bibasilar diminished sounds and coarse breath sounds. No wheezing. CARDIAC: Normal S1, S2 with no gallops. No murmurs ABDOMEN: Soft. Bowel sounds present. Nontender. No organomegaly. No abdominal bruits. Extremities: Trace lower extremity edema. No clubbing or cyanosis Neurologically patient is on mechanical ventilator. Currently on sedation Skin: No rash or skin lesions. Psychiatric: Could not be assessed at this time Musculoskeletal: No joint swelling or deformity. Assessment: Acute cardiac arrest s/p CPR for about 15 minutes with return of spontaneous circulation. Status post intubation by EMS. Episodes of nonsustained V. tach prior to cardiac arrest which is most likely the cause although awaiting full AICD interrogation report Possible anoxic brain injury with severe encephalopathy noted an EEG Chronic atrial fibrillation on anticoagulant Eliquis History of ICD placement Hyperglycemia COPD history Chronic hypoxic respiratory failure secondary to COPD on 4 L oxygen via nasal cannula Recent history of femoral neck fracture repair in November 2022 History of IVC filter placement Anxiety/depression history Full code Plan: Patient is currently in the MICU and remains on mechanical ventilation with an FiO2 of 50% and PEEP is 5. Status post CPR and currently on mechanical vent ilator. Downtime was was about 15 minutes. Possible anoxic brain injury also is being considered. EEG with severe encephalopathy with no epileptiform discharges noted maintained on IV Keppra with neurology following. CT of the brain was done showing no acute hemorrhage or acute process with some edema and being continued on hypertonic solution Patient undergoing sedation holidays and unable to follow commands and remains unresponsive although becomes tachycardic with hypertension Continue with antibiotics for pneumonia with Zosyn. Continue during Accu-Cheks and continue with insulin sliding scale. Patient is off pressor support. Multiple medical consultations following Given the downtime and severity of neurological assessment and cardiac arrest, overall prognosis is poor. Patient is currently a full code. [facility] [employer] also following and evaluating this patient is on registry Family to discuss further about terminally weaning and comfort measures The impression and plan of care has been dictated by Malgorzata Knapp, Nurse Practitioner as directed. Dr. Khloe MD I have performed a history and examination and MDM of this patient, discussed the same with the dictator, and agree with the dictator's assessment and plan as written ,documented as a scribe. Based on total visit time, I have performed more than 50% of the visit. Objective - Vital Signs Vital signs: Vital Signs Temp 98.8 F 03/08/23 08:00 Pulse 70 03/08/23 08:00 Resp 20 03/08/23 08:00 BP 109/43 03/08/23 08:00 Pulse Ox 98 03/08/23 08:00 FiO2 50 03/08/23 08:00 Intake & Output 03/07/23 03/08/23 03/08/23 18:59 06:59 18:59 Intake Total 1427.269 868.175 100 Output Total 635 435 70 Balance 792.269 433.175 30 Weight 88 kg Intake: IV 425 275 50 Sodium Chloride 3%( 325 275 50 Hypertonic) 500 ml @ 25 mls/hr IV .Q20H [facility] Rx#: [id number] levETIRAcetam IV 1,500 mg 100 In Saline 1 100ml.bag @ 400 mls/hr IVPB Q12HR [facility] Rx#:[id number] Intake, IV Titration 342.269 43.175 Amount ACETAMINOPHEN IV (For NPO 100 ) 1,000 mg In Empty Bag 1 bag @ 400 mls/hr IVPB ONCE [facility] Rx#:[id number] Piperacillin-Tazobactam 3 100 .375 gm In Sodium Chloride 0.9% 100 ml @ 25 mls/hr IVPB Q8H [facility] Rx#: [id number] propofoL 1,000 mg In 142.269 43.175 Empty Bag 1 bag @ 15 MCG/ KG/MIN 7.348 mls/hr IV . [id number] [facility] Rx#:[id number] Tube Feeding 630 550 50 Other 30 Output: Urine 635 435 70 Other: Voiding Method Indwelling Catheter Indwelling Catheter # Bowel Movements 1 ABP, PAP, CO, CI - Last Documented Arterial Blood Pressure 120/49 - Labs CBC & Chem 7: 03/08/23 05:10 03/08/23 11:40 Labs: Abnormal Lab Results - Last 24 Hours (Table) 03/07/23 03/07/23 03/07/23 Range/Units 11:40 18:00 23:55 RBC (3.80-5.40) m/uL Hgb (11.4-16.0) gm/dL Hct (34.0-46.0) % Lymphocytes # (1.0-4.8) k/uL D-Dimer (<0.60) mg/L FEU Sodium (137-145) mmol/L Chloride (98-107) mmol/L BUN (7-17) mg/dL Creatinine (0.52-1.04) mg/dL Glucose (74-99) mg/dL POC Glucose (mg/dL) 139 H 165 H 146 H (70-110) mg/dL Calcium (8.4-10.2) mg/dL AST (14-36) U/L Total Protein (6.3-8.2) g/dL Albumin (3.5-5.0) g/dL Urine Protein (Negative) Urine Glucose (UA) (Negative) Urine Blood (Negative) Urine Bacteria (None) /hpf Urine Mucus (None) /hpf 03/08/23 03/08/23 03/08/23 Range/Units 00:01 01:55 01:55 RBC 2.81 L (3.80-5.40) m/uL Hgb 9.1 L (11.4-16.0) gm/dL Hct 27.8 L (34.0-46.0) % Lymphocytes # 0.6 L (1.0-4.8) k/uL D-Dimer 2.67 H (<0.60) mg/L FEU Sodium (137-145) mmol/L Chloride 120 H (98-107) mmol/L BUN 18 H (7-17) mg/dL Creatinine 0.50 L (0.52-1.04) mg/dL Glucose 170 H (74-99) mg/dL POC Glucose (mg/dL) (70-110) mg/dL Calcium 7.5 L (8.4-10.2) mg/dL AST 90 H (14-36) U/L Total Protein 5.4 L (6.3-8.2) g/dL Albumin 2.8 L (3.5-5.0) g/dL Urine Protein (Negative) Urine Glucose (UA) (Negative) Urine Blood (Negative) Urine Bacteria (None) /hpf Urine Mucus (None) /hpf 03/08/23 03/08/23 03/08/23 Range/Units 05:10 05:10 05:20 RBC 2.71 L (3.80-5.40) m/uL Hgb 8.6 L (11.4-16.0) gm/dL Hct 26.9 L (34.0-46.0) % Lymphocytes # 0.3 L (1.0-4.8) k/uL D-Dimer (<0.60) mg/L FEU Sodium 146 H (137-145) mmol/L Chloride 119 H (98-107) mmol/L BUN 18 H (7-17) mg/dL Creatinine 0.50 L (0.52-1.04) mg/dL Glucose 177 H (74-99) mg/dL POC Glucose (mg/dL) (70-110) mg/dL Calcium 7.6 L (8.4-10.2) mg/dL AST (14-36) U/L Total Protein (6.3-8.2) g/dL Albumin (3.5-5.0) g/dL Urine Protein Trace H (Negative) Urine Glucose (UA) Trace H (Negative) Urine Blood Small H (Negative) Urine Bacteria Rare H (None) /hpf Urine Mucus Rare H (None) /hpf 03/08/23 Range/Units 06:00 RBC (3.80-5.40) m/uL Hgb (11.4-16.0) gm/dL Hct (34.0-46.0) % Lymphocytes # (1.0-4.8) k/uL D-Dimer (<0.60) mg/L FEU Sodium (137-145) mmol/L Chloride (98-107) mmol/L BUN (7-17) mg/dL Creatinine (0.52-1.04) mg/dL Glucose (74-99) mg/dL POC Glucose (mg/dL) 160 H (70-110) mg/dL Calcium (8.4-10.2) mg/dL AST (14-36) U/L Total Protein (6.3-8.2) g/dL Albumin (3.5-5.0) g/dL Urine Protein (Negative) Urine Glucose (UA) (Negative) Urine Blood (Negative) Urine Bacteria (None) /hpf Urine Mucus (None) /hpf Microbiology - Last 24 Hours (Table) 03/04/23 13:34 Blood Culture - Preliminary Blood No Growth after 72 hours 03/04/23 13:34 Blood Culture - Preliminary Blood No Growth after 72 hours 03/04/23 11:19 Gram Stain - Final Sputum Sputum Culture - Final
[2023-03-08 16:11] LABS: Basophils % (A) 0 %; Eosinophils % (A) 1 %; HCT 27.8 % (34.0-46.0); Hypochromasia Slight; Lymphocytes # (A) 0.5 k/uL (1.0-4.8); Lymphocytes % (A) 9 %; MCHC 32.3 g/dL (31.0-37.0); MCV 99.1 fL (80.0-100.0); Mean Platelet Volume 9.7; Monocytes # (A) 0.2 k/uL (0-1.0); Monocytes % (A) 4 %; Neutrophils # (A) 5.1 k/uL (1.3-7.7); Neutrophils % (A) 86 %; Platelet Count 153 k/uL (150-450); RBC 2.81 m/uL (3.80-5.40); RDW 14.5 % (11.5-15.5); WBC 5.9 k/uL (3.8-10.6)
[2023-03-08 16:19] LABS: Prothrombin Time 10.4 sec (9.0-12.0)
[2023-03-08] MEDS: PHENYTOIN SODIUM INJ 200 MG in SODIUM CHLORIDE 0.9% 36 ML IVPB SCH (20:58)
[2023-03-08 22:58] LABS: Glucose,Whole Blood 165 mg/dL (70-110)
[2023-03-09] MEDS: IPRATROPIUM-ALBUTEROL 3 ML NEB INHALATION SCH ×6 (01:07→21:23)
[2023-03-09] MEDS: PIPERACILLIN-TAZOBACTAM 3.375 GM in SODIUM CHLORIDE 0.9% 100 ML IVPB SCH ×3 (02:04→18:03)
[2023-03-09 03:04] LABS: ALT 29 U/L (4-34); AST 83 U/L (14-36); African American GFR (CKD) >90 (>60 ml/min/1.73 sqM); Albumin 2.8 g/dL (3.5-5.0); Alkaline Phosphatase 52 U/L (38-126); Anion Gap 3 mmol/L; Blood Urea Nitrogen 21 mg/dL (7-17); Calcium 7.6 mg/dL (8.4-10.2); Carbon Dioxide 25 mmol/L (22-30); Chloride 118 mmol/L (98-107); Glucose 184 mg/dL (74-99); Magnesium 2.4 mg/dL (1.6-2.3); Non-African American GFR(CKD) >90 (>60 ml/min/1.73 sqM); Phosphorus 2.4 mg/dL (2.5-4.5); Potassium 4.2 mmol/L (3.5-5.1); Sodium 146 mmol/L (137-145); Total Bilirubin 0.3 mg/dL (0.2-1.3); Total Protein 5.3 g/dL (6.3-8.2)
[2023-03-09 03:21] LABS: Partial Thromboplastin Time 22.3 sec (22.0-30.0); Prothrombin Time 10.3 sec (9.0-12.0)
[2023-03-09 04:17] LABS: ABG Base Excess -0.4 mmol/L; ABG HCO3 24 mmol/L (21-25); ABG Oxygen Saturation 97.6 % (94-97); ABG PCO2 39 mmHg (35-45); ABG PO2 91 mmHg (83-108); ABG TCO2 26 mmol/L (19-24); Allen Test Performed? Yes
[2023-03-09 05:46] LABS: Glucose,Whole Blood 160 mg/dL (70-110)
[2023-03-09] MEDS: INSULIN ASPART (NovoLOG) 100 UNIT/ML VIAL SQ SCH ×3 (05:48→18:03)
[2023-03-09] MEDS ORDERED: POTAS-SOD-PHOS 278-164-250 MG 1 EACH PACKET PO ONE (06:00)
[2023-03-09 06:07] LABS: Appearance,Urine Clear (Clear); Bilirubin,Urine Negative (Negative); Blood,Urine Negative (Negative); Color,Urine Yellow; Glucose,Urine (UA) Negative (Negative); Ketones,Urine Negative (Negative); Leukocyte Esterase,Urine Negative (Negative); Mucus,Urine Rare /hpf; Nitrite,Urine Negative (Negative); Protein,Urine 1+ (Negative); RBC,Urine 1 /hpf (0-5); Specific Gravity,Urine 1.031 (1.001-1.035); Squamous Epithelial Cell,Urine 2 /hpf (0-4); Urobilinogen,Urine <2.0 mg/dL (<2.0); WBC,Urine 1 /hpf (0-5)
[2023-03-09 06:13] LABS: ALT 29 U/L (4-34); AST 83 U/L (14-36); African American GFR (CKD) >90 (>60 ml/min/1.73 sqM); Albumin 2.8 g/dL (3.5-5.0); Alkaline Phosphatase 51 U/L (38-126); Anion Gap 0 mmol/L; Blood Urea Nitrogen 22 mg/dL (7-17); Calcium 7.8 mg/dL (8.4-10.2); Carbon Dioxide 24 mmol/L (22-30); Chloride 120 mmol/L (98-107); Glucose 182 mg/dL (74-99); Magnesium 2.4 mg/dL (1.6-2.3); Non-African American GFR(CKD) >90 (>60 ml/min/1.73 sqM); Phenytoin (Dilantin) 17.8 ug/mL; Phosphorus 2.3 mg/dL (2.5-4.5); Potassium 3.9 mmol/L (3.5-5.1); Sodium 144 mmol/L (137-145); Total Bilirubin 0.3 mg/dL (0.2-1.3); Total Protein 5.3 g/dL (6.3-8.2)
--- NOTE | 2023-03-09 06:50 | P.PN ---
Subjective Progress Note Date: 03/09/23 67-year-old female who apparently had a cardiopulmonary arrest, at a local [employer]. The patient apparently had a downtime of about 15 minutes, for there was cardiopulmonary resuscitation and return of spontaneous circulation. The patient was seen in the ER, by the ER physician, Dr. Dejesus. The patient was vented, and a right femoral vein triple lumen catheter was placed. Family members are in the room, we selected see the patient. The patient herself is unresponsive. She has a orally placed endotracheal tube. She's currently on the ventilator, with vent settings of volume assist control, rate 20, tidal volume 375, FiO2 100%, 5. Blood gases show pO2 75, pCO2 of 53, and a pH is 7.17. The patient is on norepinephrine at 0.15 mcg/kg/m, and propofol at 15 mcg/kg/m. The patient has a history of COPD from secondhand tobacco exposure, a previous history of the fibrillator placement for cardiomyopathy, and history of stroke, and [place] filter placement. In addition, the patient is on home O2, that she is supposed to use all the time, but she only uses as needed. She was a smoker in the distant past. White count 9.7, hemoglobin 11.4, hematocrit 37.9, and platelet count was normal. D-dimer was 3.10. Sodium 137, potassium 4.3, chlorides 104, CO2 17, anion gap 16, BUN and creatinine 12 and 0.76. Troponin was 0.022 and N-terminal proBNP was 2290. Lactate was not measured but is probably elevated. Testing for influenza A, and B, RSV, and coronavirus are all negative. Chest x-ray shows evidence of cardiomegaly, fluid overload, and an appropriately placed endotracheal tube. Computed tomography scan of the brain showed nothing acute. CT angiogram was negative for PE. There also may be some right lower lobe consolidation consistent with prior aspiration. Progress note dated 03/05/2023. 67-year-old female who had an com-iy-utefxbil cardiopulmonary arrest. The patient had about 15 minutes of resuscitation before there was return of spontaneous circulation. Unfortunately, the patient may have sustained anoxic brain injury. Today, we place an art line. She remains on the ventilator. I did have neurology see her. She is on volume assist control, rate 20, tidal volume 375, FiO2 60%, PEEP of 5. Arterial blood gases show pO2 of 90, pCO2 34, and pH is 7.35. The patient is on norepinephrine at 0.05 mcg/kg/m, propofol at 40 mcg/kg/m, and saline at 75 mL an hour. We will discontinue the Levaquin and Flagyl and start Zosyn. In addition we'll start some tube feeds, at 10 mL an hour. A right radial art line will be placed today. White count 8.9, hemoglobin 10.8, hematocrit 34.1, and platelet count is normal. Sodium 139, potassium 3.9, chlorides 112, CO2 18, BUN 19, creatinine 0.71. Troponins were 0.086 and 0.091. Chest x-ray shows persistent bilateral infiltrates, more so in the right lung than on the left. This may relate to aspiration. On today's evaluation of 03/07/2023, seeing the patient for a follow-up. This is a case of a cardiac arrest with at least 15 minutes downtime. The patient has an AICD in place. Initial cardiac rhythm is not clear. The did not have any pacemaker discharges and the pacemaker has not been interrogated yet. Noted the patient has a pacer AICD in place. Her current cardiac rhythm is paced and her rate is currently at 76. Hemodynamically, the patient is stable on no pressors. The patient is maintaining her own blood pressure. Meanwhile, the patient's troponins did not rise and the troponin peaked at 0.09. The patient currently has signs of anoxic encephalopathy. Attempts to wean her off the sedation yesterday feel that the patient became quite hypertensive and tachypneic and she did not show any reasonable neurological recovery. Neurology is on the case for the potential anoxic encephalopathy. CAT scan of the brain was done on 03/04/2023 and 03/06/2023 and there is mild diffuse cerebral atrophy without any acute brain changes. There is bilateral sphenoid sinus disease. EEG was also done on 03/05/2023 indicating diffuse suppression due to anoxia. The patient is currently on propofol which is running at the rate of 15 mcg/kg/m. The patient is also on IV Keppra 1.5 g every 12 hours. This morning, the patient remains on a mechanical ventilator patient is on assist control mode at the rate of 20, tidal volume of 375, FiO2 of 50% with a PEEP of 5. The blood gas shows a pH of 7.42 with a pCO2 of 34 and pO2 112. Sodium is at 141 with a potassium level of 4.4, BUN is at 17 with a creatinine of 0.59. WBC count at 7.2 with a hemoglobin 9.3 and a platelet count of 163. The chest x-ray from this morning is showing cardiomegaly along with bilateral pleural effusion. ET tube is in a good location. The patient also has a orogastric tube in place. A CT angiogram of the chest that was done on 03/04/2023 showed bilateral lower lobe and upper lobe consolidation and scattered areas of multifocal groundglass opacities throughout the lung. Possibility of aspiration was considered in addition to underlying cardiomegaly and multiple acute minimally displaced anterior rib fractures in the setting of CPR. IV fluids are currently at the rate of 25 mL an hour of 3% hypertonic saline. This was initiated by neurology regarding the potential of [employer]ILD[employer] swelling. As mentioned, the sodium level is at 141 from this morning. No seizure activity has been noted.Patient is currently on antibiotic without liquids 5 mg by mouth twice a day. The patient is on met oprolol 25 mg by mouth twice a day. The patient is on Zestril 5 mg by mouth twice a day. The patient is also on empiric antibiotic coverage with IV Zosyn. The echocardiogram showed an ejection fraction of 30-35% with global LV dysfunction. There was mild aortic stenosis. On today's evaluation of 03/08/2023, the patient remains neurologically impaired and and anoxic encephalopathy. The patient is post cardiac arrest. The patient is currently intubated on a mechanical ventilator. Propofol is running at 20 mcg/kg/m. This is to maintain synchrony with a mechanical ventilator. The patient is receiving daily sedation holidays. She remains on a mechanical ventilator. This morning, she is on assist-control mode at the rate of 20, tidal volume of 375, FiO2 of 50% with a PEEP of 5. The blood gas from today shows a pH of 7.39 with a pCO2 of 36 and the pO2 is currently at 87. The chest x-ray from today shows elevation of the right hemidiaphragm, a pacemaker is still present in the left anterior chest. No significant airspace disease or pulmonary infiltrates. Orogastric tube is in a good location. Meanwhile, the patient carries a WBC count of 5.8 with a hemoglobin of 8.6 and a platelet count of 151. BUN is 18 with a creatinine of 0.5 and a sodium level is at 146. UA is negative. Give a flight has been contacted. As part of their workup, a CAT scan of the chest abdomen and pelvis was done. There is left-sided rib fractures probably related to CPR. No acute intra-abdominal abnormalities. Some consolidation changes in the lung bases are seen probably related to atel ectasis. Unfortunately, neurologically, the patient continues to be significantly impaired. No reasonable neurological recovery while off propofol. No seizure activity and the patient remains on Keppra. The patient is also receiving enteral feeding for nutritional support and she is currently on vital AF. The patient remains on the hypertonic saline per neurology's recommendation. The patient remains on Keppra. The patient is on IV Zosyn. Her anticoagulation has been resumed she remains on Eliquis 5 mg by mouth twice a day. On today's evaluation of 03/09/2023, the patient is intubated on a mechanical ventilator, she remains on propofol running at 10 mcg/kg/m. Deeply comatose and unresponsive. Earlier this morning, twitching of the eyes was also noted and she is a possible undergoing an EEG today. As mentioned, she is a case of severe anoxic encephalopathy post cardiac arrest. The patient is being considered for gift of life. Family has consented. She remains on IV Keppra and Dilantin. Dilantin was started yesterday by neurology.. She was on hypertonic saline and this was discontinued by neurology. Meanwhile, the patient remains on a mechanical ventilator, assist control mode with a rate of 20, tidal volume of 375, FiO2 of 50% with a PEEP of 5. Chest x-ray from today shows left basilar atelectasis. Orotracheal tube is in a good location. The patient has a pacer/AICD over the left anterior chest area. No significant abnormalities noted on today's chest x-ray. The blood gas from today shows a pH of 7.4 with a pCO2 of 39 and pO2 of 91. She is afebrile. She was having back and forth fever and this morning she is afebrile. The electrolytes are all norm al. Sodium is at 144 with a BUN of 22 and a creatinine of 0.4. Blood sugars at 182. LFTs are normal. UA is negative. Hemodynamically stable. No pressors for now. Cardiac rhythm is sinus. She is receiving enteral feeding for nutritional support and she is currently on vital high-protein at the rate of 35 mL an hour. The patient remains on IV Zosyn as an empiric antibiotic coverage. The patient remains on Eliquis 5 mg by mouth twice a day. Objective - Vital Signs Vital signs: Vital Signs Temp 98.6 F 03/09/23 04:00 Pulse 70 03/09/23 06:00 Resp 24 03/09/23 06:00 BP 106/45 03/09/23 06:00 Pulse Ox 98 03/09/23 06:00 FiO2 50 03/09/23 04:00 Intake & Output 03/08/23 03/08/23 03/09/23 06:59 18:59 06:59 Intake Total 387.217 9064.271 735.971 Output Total 435 435 520 Balance 433.175 629.271 215.971 Weight 88 kg 88 kg 92.2 kg Intake: IV 275 225 512 KVO and Pressure Bag 376 Phenytoin Sodium Inj 200 36 mg In Sodium Chloride 0.9 % 36 ml @ 80 mls/hr IVPB Q12HR [facility] Rx#:[id number] Sodium Chloride 3%( 275 125 Hypertonic) 500 ml @ 25 mls/hr IV .Q20H [facility] Rx#: [id number] levETIRAcetam IV 1,500 mg 100 100 In Saline 1 100ml.bag @ 400 mls/hr IVPB Q12HR [facility] Rx#:[id number] Intake, IV Titration 43.175 324.271 153.971 Amount Phenytoin Sodium Inj 1, 100 750 mg In Sodium Chloride 0.9% 100 ml @ 200 mls/hr IVPB [facility] Rx#: [id number] Piperacillin-Tazobactam 3 100 100 .375 gm In Sodium Chloride 0.9% 100 ml @ 25 mls/hr IVPB Q8H [facility] Rx#: [id number] propofoL 1,000 mg In 43.175 124.271 53.971 Empty Bag 1 bag @ 15 MCG/ KG/MIN 7.348 mls/hr IV . [id number] [facility] Rx#:[id number] Tube Feeding 550 395 70 Other 120 Output: Urine 435 435 520 Other: Voiding Method Indwelling Catheter Indwelling Catheter Indwelling Catheter ABP, PAP, CO, CI - Last Documented Arterial Blood Pressure 121/44 - Exam No acute distress, sedated on propofol, with an orally placed endotracheal tube. The patient is currently on propofol. The patient is quite symptomatic since a mechanical ventilator. HEENT examination is grossly unremarkable. Neck supple. Full range of motion. No adenopathy thyromegaly or neck vein distention. Cardiovascular examination reveals regular rhythm rate. S1-S2 normal. No S3 or S4. No discernible murmur noted. Lungs reveal scattered rhonchi. No wheezes or crackles. Breath sounds equal. Abdomen obese, without bowel sounds. Extremities are intact. No cyanosis clubbing or edema. Skin is without rash or lesion. Neurologic examination the patient is currently on propofol. The patient senses the pain probably more so a reflex. No facial asymmetry. Her gaze is up 4 and more so to the left. No nystagmus. The patient is breathing above the mechanical ventilator. The patient has a positive cough and a gag reflex. The patient has a slow pupillary response. The reflexes are equal and symmetrical and diminished bilaterally. Negative clonus, negative Babinski's. Neurologic exam is unchanged.. The patient continues to have respiratory drive. She has a very weak corneal reflex. The patient is having episodic twitching of the eyes. She is currently on a combination of Dilantin. - Labs CBC & Chem 7: 03/08/23 16:00 03/09/23 05:34 Labs: Abnormal Lab Results - Last 24 Hours (Table) 03/08/23 03/08/23 03/08/23 Range/Units 10:00 11:31 11:40 RBC (3.80-5.40) m/uL Hgb (11.4-16.0) gm/dL Hct (34.0-46.0) % Lymphocytes # (1.0-4.8) k/uL ABG Total CO2 (19-24) mmol/L ABG O2 Saturation (94-97) % Sodium 148 H 148 H (137-145) mmol/L Chloride 121 H 120 H (98-107) mmol/L BUN 18 H (7-17) mg/dL Creatinine 0.50 L 0.49 L (0.52-1.04) mg/dL Glucose 134 H 156 H (74-99) mg/dL POC Glucose (mg/dL) 142 H (70-110) mg/dL Calcium 7.7 L 7.9 L (8.4-10.2) mg/dL Phosphorus 1.9 L 1.9 L (2.5-4.5) mg/dL Magnesium (1.6-2.3) mg/dL AST 85 H 90 H (14-36) U/L Total Protein 5.4 L 5.4 L (6.3-8.2) g/dL Albumin 2.8 L 2.8 L (3.5-5.0) g/dL Urine Protein (Negative) Urine Mucus (None) /hpf 03/08/23 03/08/23 03/08/23 Range/Units 15:57 16:00 22:57 RBC 2.81 L (3.80-5.40) m/uL Hgb 9.0 L (11.4-16.0) gm/dL Hct 27.8 L (34.0-46.0) % Lymphocytes # 0.5 L (1.0-4.8) k/uL ABG Total CO2 (19-24) mmol/L ABG O2 Saturation (94-97) % Sodium (137-145) mmol/L Chloride (98-107) mmol/L BUN (7-17) mg/dL Creatinine (0.52-1.04) mg/dL Glucose (74-99) mg/dL POC Glucose (mg/dL) 172 H 165 H (70-110) mg/dL Calcium (8.4-10.2) mg/dL Phosphorus (2.5-4.5) mg/dL Magnesium (1.6-2.3) mg/dL AST (14-36) U/L Total Protein (6.3-8.2) g/dL Albumin (3.5-5.0) g/dL Urine Protein (Negative) Urine Mucus (None) /hpf 03/09/23 03/09/23 03/09/23 Range/Units 00:00 04:15 05:34 RBC (3.80-5.40) m/uL Hgb (11.4-16.0) gm/dL Hct (34.0-46.0) % Lymphocytes # (1.0-4.8) k/uL ABG Total CO2 26 H (19-24) mmol/L ABG O2 Saturation 97.6 H (94-97) % Sodium 146 H (137-145) mmol/L Chloride 118 H 120 H (98-107) mmol/L BUN 21 H 22 H (7-17) mg/dL Creatinine 0.41 L 0.42 L (0.52-1.04) mg/dL Glucose 184 H 182 H (74-99) mg/dL POC Glucose (mg/dL) (70-110) mg/dL Calcium 7.6 L 7.8 L (8.4-10.2) mg/dL Phosphorus 2.4 L 2.3 L (2.5-4.5) mg/dL Magnesium 2.4 H 2.4 H (1.6-2.3) mg/dL AST 83 H 83 H (14-36) U/L Total Protein 5.3 L 5.3 L (6.3-8.2) g/dL Albumin 2.8 L 2.8 L (3.5-5.0) g/dL Urine Protein (Negative) Urine Mucus (None) /hpf 03/09/23 03/09/23 Range/Units 05:34 05:44 RBC (3.80-5.40) m/uL Hgb (11.4-16.0) gm/dL Hct (34.0-46.0) % Lymphocytes # (1.0-4.8) k/uL ABG Total CO2 (19-24) mmol/L ABG O2 Saturation (94-97) % Sodium (137-145) mmol/L Chloride (98-107) mmol/L BUN (7-17) mg/dL Creatinine (0.52-1.04) mg/dL Glucose (74-99) mg/dL POC Glucose (mg/dL) 160 H (70-110) mg/dL Calcium (8.4-10.2) mg/dL Phosphorus (2.5-4.5) mg/dL Magnesium (1.6-2.3) mg/dL AST (14-36) U/L Total Protein (6.3-8.2) g/dL Albumin (3.5-5.0) g/dL Urine Protein 1+ H (Negative) Urine Mucus Rare H (None) /hpf Microbiology - Last 24 Hours (Table) 03/04/23 13:34 Blood Culture - Preliminary Blood No Growth after 96 hours 03/04/23 13:34 Blood Culture - Preliminary Blood No Growth after 96 hours 03/04/23 11:19 Legionella Culture - Preliminary Sputum Assessment and Plan Plan: Status post [id number] cardiopulmonary arrest, with at least 15 minutes of downtime, before cardiopulmonary resuscitation and return of spontaneous circulation, were accomplished. Status post intubation and mechanical ventilation for cardiopulmonary arrest, 03/04/2023. anoxic brain injury, post cardiac arrest, currently unresponsive. The patient does have brainstem reflexes. Nevertheless, unresponsive once off sedation. Neurologically, the patient shows signs of severe neurologic impairment. She continues to have brainstem reflexes. The patient continues to have seizure- like activity with decreasing of the eyes and the patient is currently on a combination of Keppra and Dilantin. Repeat EEG to be done today. Neurology is on the case. She continues to show signs of severe anoxic encephalopathy. She is on low dose of propofol. Acute fever post cardiac arrest, the patient is normothermic for now. The patient responded to our hypothermia measures and she is currently afebrile. Multifocal bilateral pulmonary infiltrates, consider aspiration and the patient is currently on IV Zosyn, chest x-ray showed no acute abnormalities on today's evaluation. Systolic heart failure with an ejection fraction of 30-35% and impaired LV. Noted the troponins were not elevated Nondisplaced rib fractures related to CPR, as evidenced on the chest x-ray and the CAT scan of the chest Pacemaker insertion with a paced cardiac rhythm for now History of atrial fibrillation. The current cardiac rhythmand the patient is on anticoagulation with Eliquis Status post AICD placement. History of COPD. History of hypertension. History of CVA. Prior history of [place] filter placement. History of anxiety/depression. Enteral feeding for nutritional support with vital high-protein at the rate of 35 mL an hour Plan Continue vent support, no ventilator changes for today Essentially no major change in the patient's condition. Cardiovascularly stable. Neurologically impaired and anoxic encephalopathy. Brainstem reflex are present. The patient may be having episodic seizure activity. She is currently on a combination of Dilantin. Hypertonic Saline Was Discontinued by Neurology. She is afebrile this morning Continue ventilator support, no changes for today Continue IV Zosyn Temperature normalized Keep low-dose propofol for syncope with a mechanical ventilator and prevent any autonomic reactions Neurology follow-up regarding her anoxic encephalopathy EEG and CAT scan of the brain were noted Continue anticoagulation with Eliquis Continue metoprolol 25 mg by mouth twice a day The pacemaker needs to be evaluated and this will be coordinated with cardiology Poor prognosis based on the above-mentioned comorbidities We'll continue to follow. Physical. Evaluation was done in more than 30 minutes. Possible withdrawal of care and the family is considering that. Gift of life is on the case. Time with Patient: Greater than 30
[2023-03-09 07:49] LABS: Basophils % (A) 0 %; Eosinophils % (A) 1 %; HCT 26.6 % (34.0-46.0); HGB 8.6 gm/dL (11.4-16.0); Hypochromasia Slight; Lymphocytes # (A) 0.4 k/uL (1.0-4.8); Lymphocytes % (A) 8 %; MCH 32.3 pg (25.0-35.0); MCHC 32.1 g/dL (31.0-37.0); MCV 100.5 fL (80.0-100.0); Macrocytosis Slight; Mean Platelet Volume 10.1; Monocytes # (A) 0.3 k/uL (0-1.0); Monocytes % (A) 6 %; Neutrophils # (A) 3.8 k/uL (1.3-7.7); Neutrophils % (A) 85 %; Platelet Count 153 k/uL (150-450); RBC 2.65 m/uL (3.80-5.40); RDW 14.7 % (11.5-15.5); WBC 4.5 k/uL (3.8-10.6)
[2023-03-09] MEDS: ATORVASTATIN 80 MG TAB PO SCH (08:01)
[2023-03-09] MEDS: levETIRAcetam IV 1,500 MG in SALINE 1 100ML.BAG IVPB SCH ×2 (08:01→20:29)
[2023-03-09] MEDS: APIXABAN 5 MG TAB PO SCH ×2 (08:01→20:29)
[2023-03-09] MEDS: CHLORHEXIDINE GLUCONATE 15 ML CUP MUCOUS MEM SCH ×2 (08:01→20:29)
[2023-03-09] MEDS: PANTOPRAZOLE 40 MG/10 ML VIAL IV SCH (08:01)
[2023-03-09] MEDS: METOPROLOL TARTRATE 25 MG TAB PO SCH ×2 (08:01→20:29)
[2023-03-09] MEDS: lisinopriL 5 MG TAB PO SCH ×2 (08:01→20:29)
[2023-03-09 08:42] LABS: Basophils % (A) 0 %; Eosinophils % (A) 0 %; HCT 30.3 % (34.0-46.0); HGB 9.6 gm/dL (11.4-16.0); Hypochromasia Slight; Lymphocytes % (A) 9 %; MCH 31.9 pg (25.0-35.0); MCHC 31.7 g/dL (31.0-37.0); MCV 100.6 fL (80.0-100.0); Macrocytosis Slight; Monocytes # (A) 0.5 k/uL (0-1.0); Monocytes % (A) 5 %; Neutrophils # (A) 9.8 k/uL (1.3-7.7); Neutrophils % (A) 85 %; Platelet Count 240 k/uL (150-450); RBC 3.02 m/uL (3.80-5.40); RDW 14.7 % (11.5-15.5); WBC 11.5 k/uL (3.8-10.6)
[2023-03-09 08:57] LABS: ALT 30 U/L (4-34); AST 90 U/L (14-36); African American GFR (CKD) >90 (>60 ml/min/1.73 sqM); Albumin 3.1 g/dL (3.5-5.0); Alkaline Phosphatase 57 U/L (38-126); Anion Gap 5 mmol/L; Blood Urea Nitrogen 21 mg/dL (7-17); Carbon Dioxide 27 mmol/L (22-30); Chloride 118 mmol/L (98-107); Glucose 177 mg/dL (74-99); Non-African American GFR(CKD) >90 (>60 ml/min/1.73 sqM); Potassium 4.7 mmol/L (3.5-5.1); Sodium 150 mmol/L (137-145); Total Bilirubin 0.3 mg/dL (0.2-1.3); Total Protein 5.9 g/dL (6.3-8.2)
[2023-03-09] MEDS: NOREPINEPHRINE 32 MG in SODIUM CHLORIDE 0.9% 218 ML IV SCH ×2 (08:58→21:28)
[2023-03-09 09:00] LABS: INR 0.9 (<1.2); Partial Thromboplastin Time 22.3 sec (22.0-30.0); Prothrombin Time 10.1 sec (9.0-12.0)
[2023-03-09] MEDS: PHENYTOIN SODIUM INJ 200 MG in SODIUM CHLORIDE 0.9% 36 ML IVPB SCH ×2 (10:10→21:05)
--- NOTE | 2023-03-09 10:39 | EEG ---
ELECTROENCEPHALOGRAM REPORT PREAMBLE: This is a 67-year-old female with cardiac arrest. The patient has some rhythmic eye blinking, need to rule out partial status. Patient is comatose. EEG FINDINGS: This is a 21-channel digital EEG recorded with video component, utilizing 10/20 international system with referential and bipolar montages. Background consists of severely suppressed, almost isoelectric appearing EEG with no discernible electrocerebral activity seen in bihemispheric region. Some myogenic artifact was seen in the left frontal and temporal and the right temporal region intermittently during the study. In the middle and later part of the study, frequent eye blink artifacts were seen, but there was no associated any epileptiform activity seen with the eye blink artifact. No focal or generalized epileptiform activity was seen. IMPRESSION: This is a very severely abnormal EEG due to a severely suppressed background in bihemispheric region, consistent with diffuse, global encephalopathy, as can be seen with anoxic encephalopathy. Some eye blink artifacts were seen, but there was no associated epileptiform activity seen. No electrographic evidence of status epilepticus. MMODL / IJN: [id number] / [facility]ALErika
--- NOTE | 2023-03-09 10:42 | XR ---
EXAMINATION TYPE: XR chest 1V portable DATE OF EXAM: 03/09/2023 4:54 AM COMPARISON: Chest radiographs from 03/08/2023, CT chest abdomen pelvis 03/08/2023. TECHNIQUE: XR chest 1V portable Portable AP radiograph of the chest. CLINICAL INDICATION:Female, 67 years old with history of Tube placement; FINDINGS: Lungs/Pleura: Low lung volumes with small bilateral pleural effusions and no pneumothorax. Pulmonary vascularity: Unremarkable. Heart/mediastinum: Cardiomediastinal silhouette is enlarged and stable. Three lead cardiac conduction device overlying the left hemithorax with lead tips projecting over the right ventricle, right atriu m and coronary sinus. Musculoskeletal: Bilateral rib fractures redemonstrated. Partial visualization of left shoulder prost hesis. Other findings: None Lines/Tubes: Endotracheal tube with distal tip 1.9 cm above the raffi Nasogastric tube with its distal tip and side-port projecting under the diaphragm. IMPRESSION: 1. Stable support tubes. 2. Low lung volumes with small bilateral pleural effusions.
[2023-03-09 11:40] LABS: Glucose,Whole Blood 221 mg/dL (70-110)
[2023-03-09] MEDS: DEXTROSE 5% IN WATER 1,000 ML IV SCH (15:11)
[2023-03-09 16:52] LABS: Glucose,Whole Blood 180 mg/dL (70-110)
--- NOTE | 2023-03-09 17:13 | P.PN ---
Subjective Progress Note Date: 03/09/23 03/09/2023: Patient was seen for a follow-up patient currently on propofol 5 mcg/kg gram per minute. Patient had an EEG performed early this morning. Sedation was discontinued during EEG. Patient started blinking, and coughing, therefore she was put back on propofol. 03/08/2023: Patient was seen for a follow-up. Patient's niece was present at this time. Patient essentially unchanged. No clinical improvement. Patient is having some rhythmic eye twitching when the eyes are open, all with painful stimuli. At present patient is on propofol 20 mcg/kg/m. With sedation holiday, she was twitching, almost like seizures, therefore she received Ativan earlier. 03/07/2023: Patient currently on propofol 30 mcg/kg/m. Per nursing note, with sedation holiday for about 20 minutes, patient was not following any commands. She became tachypneic therefore was given 1 mg of Ativan, and propofol restarted. Her examination continues to be very abnormal as below. Per nurse report, patient's eyes opens and close, but is not awake. Only sclerae is vis ible. 03/06/2023: Patient initially seen by Dr. Vincent Estrada. Please refer to his note for details. Patient is a 67-year-old female, who came to the hospital with cardiopulmonary arrest on 03/04/2023 at 9:37 AM. The downtime was about 15 minutes. Patient's sister and another relative was present. Patient's nurse was also present. Patient continues to be comatose. She had sedation holiday performed for about half an hour at 9:50 AM in which she was not showing any meaningful response. At present patient on propofol 15 mcg/kg/m. patient's nurse mentioned that armida ent became tachycardic and blood pressure went up to 180 systolic, therefore she was placed back on propofol. No seizure-like activity noted. Patient received Ativan 2 mg last night. Objective - Vital Signs Vital signs: Vital Signs Temp 100.4 F H 03/09/23 08:00 Pulse 75 03/09/23 10:00 Resp 20 03/09/23 10:00 BP 106/45 03/09/23 07:00 Pulse Ox 96 03/09/23 10:00 FiO2 50 03/09/23 10:55 Intake & Output 03/08/23 03/09/23 03/09/23 18:59 06:59 18:59 Intake Total 1064.271 750.260 475 Output Total 435 520 125 Balance 629.271 230.260 350 Weight 88 kg 92.2 kg Intake: IV 225 512 205 KVO and Pressure Bag 376 69 Phenytoin Sodium Inj 200 36 36 mg In Sodium Chloride 0.9 % 36 ml @ 80 mls/hr IVPB Q12HR [facility] Rx#:[id number] Sodium Chloride 3%( 125 Hypertonic) 500 ml @ 25 mls/hr IV .Q20H [facility] Rx#: [id number] levETIRAcetam IV 1,500 mg 100 100 100 In Saline 1 100ml.bag @ 400 mls/hr IVPB Q12HR [facility] Rx#:[id number] Intake, IV Titration 324.271 168.260 100 Amount Phenytoin Sodium Inj 1, 100 750 mg In Sodium Chloride 0.9% 100 ml @ 200 mls/hr IVPB ONCE [facility] Rx#: [id number] Piperacillin-Tazobactam 3 100 100 100 .375 gm In Sodium Chloride 0.9% 100 ml @ 25 mls/hr IVPB Q8H [facility] Rx#: [id number] propofoL 1,000 mg In 124.271 68.260 0 Empty Bag 1 bag @ 15 MCG/ KG/MIN 7.348 mls/hr IV . [id number] [facility] Rx#:[id number] Tube Feeding 395 70 140 Other 120 30 Output: Urine 435 520 125 Other: Voiding Method Indwelling Catheter Indwelling Catheter Indwelling Catheter ABP, PAP, CO, CI - Last Documented Arterial Blood Pressure 151/56 - Exam Patient continues to be comatose, with GCS of 3. Patient not responding to calling her name or painful stimuli. Patient's eyes are closed, and with painful stimuli, although with manually opening the eyes, some rhythmic twitching of the eyelids were noted. Patient had gaze deviated upwards into the right. Very abnormal extraocular muscles. Oculocephalics present, corneals absent. Patient is slightly breathing over the ventilator, as she is set at rate of 20/m, and sometimes it goes up to 22/m.. She has a weak gag. Her pupils are equal, round and reacting. However no twitching noted at rest of the body otherwise. - Labs CBC & Chem 7: 03/09/23 08:30 03/09/23 08:30 Labs: Abnormal Lab Results - Last 24 Hours (Table) 03/08/23 03/08/23 03/08/23 Range/Units 11:31 11:40 15:57 WBC (3.8-10.6) k/uL RBC (3.80-5.40) m/uL Hgb (11.4-16.0) gm/dL Hct (34.0-46.0) % MCV (80.0-100.0) fL Neutrophils # (1.3-7.7) k/uL Lymphocytes # (1.0-4.8) k/uL ABG Total CO2 (19-24) mmol/L ABG O2 Saturation (94-97) % Sodium 148 H (137-145) mmol/L Chloride 120 H (98-107) mmol/L BUN 18 H (7-17) mg/dL Creatinine 0.49 L (0.52-1.04) mg/dL Glucose 156 H (74-99) mg/dL POC Glucose (mg/dL) 142 H 172 H (70-110) mg/dL Calcium 7.9 L (8.4-10.2) mg/dL Phosphorus 1.9 L (2.5-4.5) mg/dL Magnesium (1.6-2.3) mg/dL AST 90 H (14-36) U/L Total Protein 5.4 L (6.3-8.2) g/dL Albumin 2.8 L (3.5-5.0) g/dL Urine Protein (Negative) Urine Mucus (None) /hpf 03/08/23 03/08/23 03/09/23 Range/Units 16:00 22:57 00:00 WBC (3.8-10.6) k/uL RBC 2.81 L (3.80-5.40) m/uL Hgb 9.0 L (11.4-16.0) gm/dL Hct 27.8 L (34.0-46.0) % MCV (80.0-100.0) fL Neutrophils # (1.3-7.7) k/uL Lymphocytes # 0.5 L (1.0-4.8) k/uL ABG Total CO2 (19-24) mmol/L ABG O2 Saturation (94-97) % Sodium 146 H (137-145) mmol/L Chloride 118 H (98-107) mmol/L BUN 21 H (7-17) mg/dL Creatinine 0.41 L (0.52-1.04) mg/dL Glucose 184 H (74-99) mg/dL POC Glucose (mg/dL) 165 H (70-110) mg/dL Calcium 7.6 L (8.4-10.2) mg/dL Phosphorus 2.4 L (2.5-4.5) mg/dL Magnesium 2.4 H (1.6-2.3) mg/dL AST 83 H (14-36) U/L Total Protein 5.3 L (6.3-8.2) g/dL Albumin 2.8 L (3.5-5.0) g/dL Urine Protein (Negative) Urine Mucus (None) /hpf 03/09/23 03/09/23 03/09/23 Range/Units 02:30 04:15 05:34 WBC (3.8-10.6) k/uL RBC 2.65 L (3.80-5.40) m/uL Hgb 8.6 L (11.4-16.0) gm/dL Hct 26.6 L (34.0-46.0) % MCV 100.5 H (80.0-100.0) fL Neutrophils # (1.3-7.7) k/uL Lymphocytes # 0.4 L (1.0-4.8) k/uL ABG Total CO2 26 H (19-24) mmol/L ABG O2 Saturation 97.6 H (94-97) % Sodium (137-145) mmol/L Chloride 120 H (98-107) mmol/L BUN 22 H (7-17) mg/dL Creatinine 0.42 L (0.52-1.04) mg/dL Glucose 182 H (74-99) mg/dL POC Glucose (mg/dL) (70-110) mg/dL Calcium 7.8 L (8.4-10.2) mg/dL Phosphorus 2.3 L (2.5-4.5) mg/dL Magnesium 2.4 H (1.6-2.3) mg/dL AST 83 H (14-36) U/L Total Protein 5.3 L (6.3-8.2) g/dL Albumin 2.8 L (3.5-5.0) g/dL Urine Protein (Negative) Urine Mucus (None) /hpf 03/09/23 03/09/23 03/09/23 Range/Units 05:34 05:44 08:30 WBC 11.5 H (3.8-10.6) k/uL RBC 3.02 L (3.80-5.40) m/uL Hgb 9.6 L (11.4-16.0) gm/dL Hct 30.3 L (34.0-46.0) % MCV 100.6 H (80.0-100.0) fL Neutrophils # 9.8 H (1.3-7.7) k/uL Lymphocytes # (1.0-4.8) k/uL ABG Total CO2 (19-24) mmol/L ABG O2 Saturation (94-97) % Sodium (137-145) mmol/L Chloride (98-107) mmol/L BUN (7-17) mg/dL Creatinine (0.52-1.04) mg/dL Glucose (74-99) mg/dL POC Glucose (mg/dL) 160 H (70-110) mg/dL Calcium (8.4-10.2) mg/dL Phosphorus (2.5-4.5) mg/dL Magnesium (1.6-2.3) mg/dL AST (14-36) U/L Total Protein (6.3-8.2) g/dL Albumin (3.5-5.0) g/dL Urine Protein 1+ H (Negative) Urine Mucus Rare H (None) /hpf 03/09/23 Range/Units 08:30 WBC (3.8-10.6) k/uL RBC (3.80-5.40) m/uL Hgb (11.4-16.0) gm/dL Hct (34.0-46.0) % MCV (80.0-100.0) fL Neutrophils # (1.3-7.7) k/uL Lymphocytes # (1.0-4.8) k/uL ABG Total CO2 (19-24) mmol/L ABG O2 Saturation (94-97) % Sodium 150 H (137-145) mmol/L Chloride 118 H (98-107) mmol/L BUN 21 H (7-17) mg/dL Creatinine 0.51 L (0.52-1.04) mg/dL Glucose 177 H (74-99) mg/dL POC Glucose (mg/dL) (70-110) mg/dL Calcium 8.0 L (8.4-10.2) mg/dL Phosphorus (2.5-4.5) mg/dL Magnesium (1.6-2.3) mg/dL AST 90 H (14-36) U/L Total Protein 5.9 L (6.3-8.2) g/dL Albumin 3.1 L (3.5-5.0) g/dL Urine Protein (Negative) Urine Mucus (None) /hpf Microbiology - Last 24 Hours (Table) 03/04/23 13:34 Blood Culture - Preliminary Blood No Growth after 96 hours 03/04/23 13:34 Blood Culture - Preliminary Blood No Growth after 96 hours 03/04/23 11:19 Legionella Culture - Preliminary Sputum Assessment and Plan Assessment: Cardiopulmonary arrest with downtime lasting for 15 minutes. It appears the patient had episode of nonsustained V. tach is seems to happen 1 hour prior to the cardiac arrest but per cardiology unsure if true VT or A.fib Anoxic encephalopathy. Patient's computed tomography scan showing mild diffuse cerebral edema. Some effacement of the lateral ventricles. Patient has slightly preserved brainstem reflexes at this time. Very abnormal extraocular muscles examination. Probable seizures due to cardiopulmonary arrest- now resolved. However patient has intermittent rhythmic twitching of the eyelids particularly with sedation holiday, suggestive of underlying partial status. However repeat EEG performed today was negative for epileptiform activity. Cardiomyopathy with ejection fraction of 30-35% Status post intubation and mechanical ventilation due to cardiopulmonary last Non-STEMI Paroxysmal atrial fibrillation History of stroke AICD Hypertension CAD with prior PCI History of green filter placement Plan: Patient is past 5 days post cardiac arrest. No clinical improvement. Her examination is severely abnormal. Prognosis for meaningful recovery is very poor at this time. Repeat EEG performed today 03/09/2023 was very severely abnormal due to severely suppressed background in bihemispheric region, consistent with diffuse, global encephalopathy as can be seen with anoxic encephalopathy. Some eye blink artifacts were seen but there was no associated epileptiform activity with it. No electrographic evidence of status epilepticus. Continue Dilantin and Keppra. Dilantin level is therapeutic 17.8, patient also on Keppra Based upon the clinical examination, and EEG findings, and her prior CT report, no need to repeat CT head. Family has decided pursuing with [facility]. EEG 03/05/2023 was abnormal routine EEG due to diffuse suppression, which can be due to either medication-induced or due to anoxia. The background slowing is suggestive of severe encephalopathy. Otherwise no focal slowing, or epileptiform discharges were seen. Continue Keppra 1500 mg IV every 12 hours (new during this admission). CT head performed at 5 AM on 03/06/2023 showed no acute intracranial hemorrhage or midline shift. There is mild diffuse cerebral atrophy redemonstrated. Resolved left maxillary acute sinusitis. Slightly worsening bilateral sphenoid acute sinusitis. On my review, there is definite evidence of at least mild generalized cerebral edema, with some effacement of the lateral ventricles. Will defer management to primary and ICU team. Patient is 5 days post cardiac arrest, with comatose state and severely abnormal examination as above. Prognosis for meaningful recovery appears poor. Discussed with patient's nurse. Family have decided patient to be a candidate for [facility]. Please call neurology if any other concerns.
[2023-03-09 17:35] LABS: Magnesium 2.4 mg/dL (1.6-2.3); Phosphorus 2.7 mg/dL (2.5-4.5)
[2023-03-09] MEDS: ACETAMINOPHEN TAB 325 MG TAB PO PRN (18:03)
--- NOTE | 2023-03-09 18:42 | P.PN ---
Subjective Progress Note Date: 03/09/23 Patient is a 67-year-old male with a known history of chronic atrial fibrillation on anticoagulation with Eliquis, cardiomyopathy status post ICD placement, COPD on home oxygen at 4 L via nasal cannula, hypertension, anxiety/depression and history of femoral neck fracture s/p repair in November 2022 was brought to the hospital by EMS status postcardiac arrest. Patient was at [facility] where she was found to have worsening shortness of breath and became unresponsive on a motorized scooter.. Patient underwent CPR for about 15 minutes by EMS and was given 3 doses of epinephrine with return of spontaneous circulation and was intubated. Patient was brought to ER for evaluation. Patient was unresponsive and was able to provide any history. On arrival chest x-ray showed cardiomegaly and mild pulmonary vascular congestion. Correlate with BNP for congestive heart failure. Right basilar patchy airspace opacities may represent pulmonary edema versus infiltrate. Endotracheal tube in appropriate position. Possible NG tube terminating in the mid esophagus. CT head showed no acute intracranial process. Paranasal sinus disease with air- fluid level within the left maxillary sinus. Correlate for acute sinusitis. Chest CTA showed no evidence of PE. Bilateral lower lobe and right upper lobe consolidation with a scattered multifocal groundglass opacities throughout the lungs. Findings are compatible with pneumonia possibly aspiration. Multiple acute minimally displaced rib fractures likely related to CPR in the setting of cardiac arrest. Remote to subacute bilateral rib fractures also demo nstrated. No pneumothorax. Cardiomegaly. Laboratory data showed WBC 9.7 hemoglobin 11.4 platelets 246 and D-dimer 3.1 Initial ABG showed pH of 7.17 PCO2 30 and PO2 75 Sodium 135, potassium 4.3, chloride 104, bicarb is 17 BUN 12 and creatinine 0.76 and blood sugar was 325 and lactic acid 2.9 AST 57 ALT 14 alk phos 73 and troponin x1 negative proBNP 2290 Influenza A B RSV and COVID-19 PCR not detected. 03/05/2023 Patient is in the MICU. Remains mechanical ventilator. Off pressor support. Otherwise patient remains unresponsive. EEG was ordered and neurology is on board. 2D echocardiogram showed ejection fraction 30 to 35% with anterior septal hypokinesis. AICD C interrogation was done. Cardiology neurology and pulmonary is on board. Chest x-ray showed persistent right midlung and bibasilar multifocal acute infiltrates without edema. No change from 1 day. Patient remains on antibiotics Zosyn. NG tube in place. 03/06/2023 Patient is seen and evaluated and follow-up in the ICU remains on mechanical ventilation, FiO2 is 60% with a peep of 5. Patient is off pressor support although continues on as needed Ativan along with IV Keppra and propofol. Patient also maintained on IV antibiotics in the form of Zosyn. Chest x-ray today shows stable bilateral interstitial and airspace opacification with bilateral small pleural effusions may relate to pulmonary edema or infectious etiology. Blood cultures thus far are negative and sputum culture currently pending. Patient does continue to have low-grade temps 101 early this morning. WBC remains within normal limits and pro-calcitonin is 0.49. Other kidney functions within normal limits and blood sugars being monitored. Per nursing staff attempts at weaning were performed although patient became extremely tachycardic and restless and not following commands and placed back on sedation. An EEG was done although pending at this time. Repeat CT of the brain early this morning shows no acute intracranial hemorrhage or midline shift with mild diffuse cerebral atrophy redemonstrated with slightly worsening bilateral spheno id acute sinusitis. Multiple medical consultations following an per nursing staff [facility] was notified although unsure of family is aware. Patient was on the registry. 03/07/2023 Patient is seen and evaluated in the ICU maintained on mechanical ventilation with an FiO2 of 55% and PEEP is 5. Patient is maintained on IV antibiotics and continues to have fevers and cultures thus far been negative. Patient is continued on sedation and off pressor support and remains on hypertonic solution . Neurology following as well as pulmonary new accounts representative with overall poor prognosis. Per nursing staff, family has been discussing possible comfort care although not ready to wean at this time. [employer] also following as patient is on the registry evaluating the patient. 03/08/2023 Patient continues to be in the ICU on mechanical ventilation with an FiO2 of 50% and PEEP is 5. Multiple medical consultations including cardiology, pulmonary new accounts representative, neurology following. Patient had a CT of the chest abdomen pelvis per [facility] services which confirmed bilateral rib fractures involving at least 2 ribs through 10 bilaterally with no evidence of acute abdominal process and consolidation changes in the lung bases likely secondary to atelectasis and hypoventilatory. Patient is maintained on hypertonic solution along with IV Keppra with neurology following and patient remains clinically the same. No further seizure-like activity noted although does continue with jerking and twitching type movements once removed from sedation. Patient is undergoing occasional sedation holidays. [facility] is following as patient is on the registry although has not approached family as of yet and family is considering terminale weaning and comfort measures. Cardiology signed off and will follow as needed. Overall prognosis is poor as neurological status continues to be unchanged. 03/09/2023 Patient is seen in follow-up today continues to be on mechanical ventilation with an FiO2 of 50% and PEEP is 5. Patient does continue on sedation along with IV Keppra and empiric Zosyn and not requiring pressors. Patient's sodium is elevated today at 150 and has been on hypertonic solution that was just discontinued and will follow-up with repeat sodium level. Possible D5 in water. Gift of life is following as patient is on the registry and family is agreeable discussing possible gift of life this Monday as they are currently awaiting more family members. Repeat EEG was done today and continues to show severely abnormal EEG due to severely suppressed background and consistent with diffuse global encephalopathy. Not following any commands with sedation holidays. Chest x-ray today shows bilateral pleural effusions although stable. Patient is continuing to have fevers today. Review of systems: Unable to obtain as patient is intubated and on sedation PHYSICAL EXAMINATION: Patient is on mechanical ventilator. FiO2 is currently 50% with a PEEP of 5 HEENT: Normocephalic. Neck is supple. Pupils reactive. Nostrils clear. Oral cavity is moist. Neck reveals no JVD, carotid bruits, or thyromegaly. CHEST EXAMINATION: Trachea is central. Symmetrical expansion. Bibasilar diminished sounds and coarse breath sounds. No wheezing. CARDIAC: Normal S1, S2 with no gallops. No murmurs ABDOMEN: Soft. Bowel sounds present. Nontender. No organomegaly. No abdominal bruits. Extremities: Trace lower extremity edema. No clubbing or cyanosis Neurologically patient is on mechanical ventilator. Currently on sedation Skin: No rash or skin lesions. Psychiatric: Could not be assessed at this time Musculoskeletal: No joint swelling or deformity. Assessment: Acute cardiac arrest s/p CPR for about 15 minutes with return of spontaneous circulation. Status post intubation by EMS. Episodes of nonsustained V. tach prior to cardiac arrest which is most likely the cause although awaiting full AICD interrogation report Possible anoxic brain injury with severe encephalopathy noted an EEG Chronic atrial fibrillation on anticoagulant Eliquis History of ICD placement Hyperglycemia COPD history Chronic hypoxic respiratory failure secondary to COPD on 4 L oxygen via nasal cannula Recent history of femoral neck fracture repair in November 2022 History of IVC filter placement Anxiety/depression history Full code Plan: Patient is currently in the MICU and remains on mechanical ventilation with an FiO2 of 50% and PEEP is 5. Status post CPR and currently on mechanical ventilator. Downtime was was about 15 minutes. Possible anoxic brain injury. EEG repeated today remains with severe encephalopathy maintained on IV Keppra with neurology following. Patient was continued on hypertonic solution and having elevated sodium level of 150 will repeat this afternoon and consider D5 in water if no improvement Patient undergoing sedation holidays and continues to not follow commands and remains unresponsive Continue with antibiotics for pneumonia with Zosyn. Continue during Accu-Cheks and continue with insulin sliding scale. Patient is off pressor support. Multiple medical consultations following Given the downtime and severity of neurological assessment and cardiac arrest, overall prognosis remains poor. Gift of life also following and evaluating this patient is on registry Family is agreeable with gift of life and donation may possibly take place on Monday when more family members are present The impression and plan of care has been dictated by Malgorzata Knapp, Nurse Practitioner as directed. Dr. Khloe MD I have performed a history and examination and MDM of this patient, discussed the same with the dictator, and agree with the dictator's assessment and plan as written ,documented as a scribe. Based on total visit time, I have performed more than 50% of the visit. Objective - Vital Signs Vital signs: Vital Signs Temp 98.6 F 03/09/23 04:00 Pulse 75 03/09/23 08:20 Resp 22 03/09/23 07:00 BP 106/45 03/09/23 07:00 Pulse Ox 96 03/09/23 07:00 FiO2 50 03/09/23 07:34 Intake & Output 03/08/23 03/09/23 03/09/23 18:59 06:59 18:59 Intake Total 1064.271 750.260 0 Output Total 435 520 Balance 629.271 230.260 0 Weight 88 kg 92.2 kg Intake: IV 225 512 KVO and Pressure Bag 376 Phenytoin Sodium Inj 200 36 mg In Sodium Chloride 0.9 % 36 ml @ 80 mls/hr IVPB Q12HR [facility] Rx#:[id number] Sodium Chloride 3%( 125 Hypertonic) 500 ml @ 25 mls/hr IV .Q20H [facility] Rx#: [id number] levETIRAcetam IV 1,500 mg 100 100 In Saline 1 100ml.bag @ 400 mls/hr IVPB Q12HR [facility] Rx#:[id number] Intake, IV Titration 324.271 168.260 0 Amount Phenytoin Sodium Inj 1, 100 750 mg In Sodium Chloride 0.9% 100 ml @ 200 mls/hr IVPB [facility] Rx#: [id number] Piperacillin-Tazobactam 3 100 100 .375 gm In Sodium Chloride 0.9% 100 ml @ 25 mls/hr IVPB Q8H [facility] Rx#: [id number] propofoL 1,000 mg In 124.271 68.260 0 Empty Bag 1 bag @ 15 MCG/ KG/MIN 7.348 mls/hr IV . [id number] [facility] Rx#:[id number] Tube Feeding 395 70 Other 120 Output: Urine 435 520 Other: Voiding Method Indwelling Catheter Indwelling Catheter ABP, PAP, CO, CI - Last Documented Arterial Blood Pressure 128/43 - Labs CBC & Chem 7: 03/09/23 08:30 03/09/23 08:30 Labs: Abnormal Lab Results - Last 24 Hours (Table) 03/08/23 03/08/23 03/08/23 Range/Units 10:00 11:31 11:40 WBC (3.8-10.6) k/uL RBC (3.80-5.40) m/uL Hgb (11.4-16.0) gm/dL Hct (34.0-46.0) % MCV (80.0-100.0) fL Neutrophils # (1.3-7.7) k/uL Lymphocytes # (1.0-4.8) k/uL ABG Total CO2 (19-24) mmol/L ABG O2 Saturation (94-97) % Sodium 148 H 148 H (137-145) mmol/L Chloride 121 H 120 H (98-107) mmol/L BUN 18 H (7-17) mg/dL Creatinine 0.50 L 0.49 L (0.52-1.04) mg/dL Glucose 134 H 156 H (74-99) mg/dL POC Glucose (mg/dL) 142 H (70-110) mg/dL Calcium 7.7 L 7.9 L (8.4-10.2) mg/dL Phosphorus 1.9 L 1.9 L (2.5-4.5) mg/dL Magnesium (1.6-2.3) mg/dL AST 85 H 90 H (14-36) U/L Total Protein 5.4 L 5.4 L (6.3-8.2) g/dL Albumin 2.8 L 2.8 L (3.5-5.0) g/dL Urine Protein (Negative) Urine Mucus (None) /hpf 03/08/23 03/08/23 03/08/23 Range/Units 15:57 16:00 22:57 WBC (3.8-10.6) k/uL RBC 2.81 L (3.80-5.40) m/uL Hgb 9.0 L (11.4-16.0) gm/dL Hct 27.8 L (34.0-46.0) % MCV (80.0-100.0) fL Neutrophils # (1.3-7.7) k/uL Lymphocytes # 0.5 L (1.0-4.8) k/uL ABG Total CO2 (19-24) mmol/L ABG O2 Saturation (94-97) % Sodium (137-145) mmol/L Chloride (98-107) mmol/L BUN (7-17) mg/dL Creatinine (0.52-1.04) mg/dL Glucose (74-99) mg/dL POC Glucose (mg/dL) 172 H 165 H (70-110) mg/dL Calcium (8.4-10.2) mg/dL Phosphorus (2.5-4.5) mg/dL Magnesium (1.6-2.3) mg/dL AST (14-36) U/L Total Protein (6.3-8.2) g/dL Albumin (3.5-5.0) g/dL Urine Protein (Negative) Urine Mucus (None) /hpf 03/09/23 03/09/23 03/09/23 Range/Units 00:00 02:30 04:15 WBC (3.8-10.6) k/uL RBC 2.65 L (3.80-5.40) m/uL Hgb 8.6 L (11.4-16.0) gm/dL Hct 26.6 L (34.0-46.0) % MCV 100.5 H (80.0-100.0) fL Neutrophils # (1.3-7.7) k/uL Lymphocytes # 0.4 L (1.0-4.8) k/uL ABG Total CO2 26 H (19-24) mmol/L ABG O2 Saturation 97.6 H (94-97) % Sodium 146 H (137-145) mmol/L Chloride 118 H (98-107) mmol/L BUN 21 H (7-17) mg/dL Creatinine 0.41 L (0.52-1.04) mg/dL Glucose 184 H (74-99) mg/dL POC Glucose (mg/dL) (70-110) mg/dL Calcium 7.6 L (8.4-10.2) mg/dL Phosphorus 2.4 L (2.5-4.5) mg/dL Magnesium 2.4 H (1.6-2.3) mg/dL AST 83 H (14-36) U/L Total Protein 5.3 L (6.3-8.2) g/dL Albumin 2.8 L (3.5-5.0) g/dL Urine Protein (Negative) Urine Mucus (None) /hpf 03/09/23 03/09/23 03/09/23 Range/Units 05:34 05:34 05:44 WBC (3.8-10.6) k/uL RBC (3.80-5.40) m/uL Hgb (11.4-16.0) gm/dL Hct (34.0-46.0) % MCV (80.0-100.0) fL Neutrophils # (1.3-7.7) k/uL Lymphocytes # (1.0-4.8) k/uL ABG Total CO2 (19-24) mmol/L ABG O2 Saturation (94-97) % Sodium (137-145) mmol/L Chloride 120 H (98-107) mmol/L BUN 22 H (7-17) mg/dL Creatinine 0.42 L (0.52-1.04) mg/dL Glucose 182 H (74-99) mg/dL POC Glucose (mg/dL) 160 H (70-110) mg/dL Calcium 7.8 L (8.4-10.2) mg/dL Phosphorus 2.3 L (2.5-4.5) mg/dL Magnesium 2.4 H (1.6-2.3) mg/dL AST 83 H (14-36) U/L Total Protein 5.3 L (6.3-8.2) g/dL Albumin 2.8 L (3.5-5.0) g/dL Urine Protein 1+ H (Negative) Urine Mucus Rare H (None) /hpf 03/09/23 03/09/23 Range/Units 08:30 08:30 WBC 11.5 H (3.8-10.6) k/uL RBC 3.02 L (3.80-5.40) m/uL Hgb 9.6 L (11.4-16.0) gm/dL Hct 30.3 L (34.0-46.0) % MCV 100.6 H (80.0-100.0) fL Neutrophils # 9.8 H (1.3-7.7) k/uL Lymphocytes # (1.0-4.8) k/uL ABG Total CO2 (19-24) mmol/L ABG O2 Saturation (94-97) % Sodium 150 H (137-145) mmol/L Chloride 118 H (98-107) mmol/L BUN 21 H (7-17) mg/dL Creatinine 0.51 L (0.52-1.04) mg/dL Glucose 177 H (74-99) mg/dL POC Glucose (mg/dL) (70-110) mg/dL Calcium 8.0 L (8.4-10.2) mg/dL Phosphorus (2.5-4.5) mg/dL Magnesium (1.6-2.3) mg/dL AST 90 H (14-36) U/L Total Protein 5.9 L (6.3-8.2) g/dL Albumin 3.1 L (3.5-5.0) g/dL Urine Protein (Negative) Urine Mucus (None) /hpf Microbiology - Last 24 Hours (Table) 03/04/23 13:34 Blood Culture - Preliminary Blood No Growth after 96 hours 03/04/23 13:34 Blood Culture - Preliminary Blood No Growth after 96 hours 03/04/23 11:19 Legionella Culture - Preliminary Sputum
[2023-03-09 22:29] LABS: African American GFR (CKD) >90 (>60 ml/min/1.73 sqM); Anion Gap 4 mmol/L; Blood Urea Nitrogen 21 mg/dL (7-17); Calcium 7.9 mg/dL (8.4-10.2); Carbon Dioxide 24 mmol/L (22-30); Chloride 118 mmol/L (98-107); Glucose 178 mg/dL (74-99); Non-African American GFR(CKD) >90 (>60 ml/min/1.73 sqM); Potassium 4.1 mmol/L (3.5-5.1); Sodium 146 mmol/L (137-145)
[2023-03-10 00:37] LABS: Glucose,Whole Blood 167 mg/dL (70-110)
[2023-03-10] MEDS: INSULIN ASPART (NovoLOG) 100 UNIT/ML VIAL SQ SCH ×4 (00:38→18:37)
[2023-03-10] MEDS: MIDAZOLAM HCL 50 MG in SODIUM CHLORIDE 0.9% 40 ML IV SCH (00:42)
[2023-03-10] MEDS: IPRATROPIUM-ALBUTEROL 3 ML NEB INHALATION SCH ×7 (01:48→23:07)
[2023-03-10] MEDS: PIPERACILLIN-TAZOBACTAM 3.375 GM in SODIUM CHLORIDE 0.9% 100 ML IVPB SCH ×3 (02:23→18:37)
[2023-03-10] MEDS: DEXTROSE 5% IN WATER 1,000 ML IV SCH ×2 (03:22→17:14)
[2023-03-10 05:20] LABS: Glucose,Whole Blood 133 mg/dL (70-110)
[2023-03-10 05:29] LABS: Basophils % (A) 0 %; Eosinophils % (A) 1 %; HCT 26.7 % (34.0-46.0); HGB 8.5 gm/dL (11.4-16.0); Hypochromasia Slight; Lymphocytes # (A) 0.5 k/uL (1.0-4.8); Lymphocytes % (A) 9 %; MCH 31.8 pg (25.0-35.0); MCHC 31.7 g/dL (31.0-37.0); MCV 100.3 fL (80.0-100.0); Macrocytosis Slight; Mean Platelet Volume 9.7; Monocytes # (A) 0.3 k/uL (0-1.0); Monocytes % (A) 5 %; Neutrophils # (A) 4.7 k/uL (1.3-7.7); Neutrophils % (A) 85 %; Platelet Count 169 k/uL (150-450); RBC 2.67 m/uL (3.80-5.40); RDW 14.7 % (11.5-15.5); WBC 5.6 k/uL (3.8-10.6)
[2023-03-10 05:31] LABS: Magnesium 2.4 mg/dL (1.6-2.3); Phosphorus 2.7 mg/dL (2.5-4.5)
[2023-03-10 05:50] LABS: ABG Base Excess 0.2 mmol/L; ABG HCO3 25 mmol/L (21-25); ABG Oxygen Saturation 97.3 % (94-97); ABG PCO2 40 mmHg (35-45); ABG PO2 105 mmHg (83-108); ABG TCO2 26 mmol/L (19-24); Allen Test Performed? Yes
[2023-03-10 06:00] LABS: African American GFR (CKD) >90 (>60 ml/min/1.73 sqM); Anion Gap 3 mmol/L; Blood Urea Nitrogen 20 mg/dL (7-17); Calcium 7.8 mg/dL (8.4-10.2); Carbon Dioxide 26 mmol/L (22-30); Chloride 118 mmol/L (98-107); Glucose 149 mg/dL (74-99); Non-African American GFR(CKD) >90 (>60 ml/min/1.73 sqM); Sodium 147 mmol/L (137-145)
--- NOTE | 2023-03-10 07:55 | XR ---
EXAMINATION TYPE: XR chest 1V portable DATE OF EXAM: 03/10/2023 6:36 AM COMPARISON: Chest radiograph from one day prior. TECHNIQUE: XR chest 1V portable Frontal view of the chest. CLINICAL INDICATION:Female, 67 years old with history of Tube placement; FINDINGS: Lungs/Pleura: No evidence of focal consolidation or pneumothorax. Blunting of the costophrenic angles is present. Pulmonary vascularity: Unremarkable. Heart/mediastinum: Cardiomediastinal silhouette is unremarkable. Three lead cardiac conduction device overlying the left hemithorax with lead tips projecting over the right ventricle, right atrium and c oronary sinus. Musculoskeletal: No acute osseous pathology. Other findings: None Lines/Tubes: Endotracheal tube with distal tip 2.5 cm above the raffi. Nasogastric tube with its distal tip and side-port projecting under the diaphragm and projecting over the gastric lumen. IMPRESSION: 1. Stable support tubes. 2. Low lung volumes with small bilateral pleural effusions.
[2023-03-10] MEDS: PANTOPRAZOLE 40 MG/10 ML VIAL IV SCH (08:36)
[2023-03-10] MEDS: levETIRAcetam IV 1,500 MG in SALINE 1 100ML.BAG IVPB SCH ×2 (08:38→20:59)
[2023-03-10] MEDS: ATORVASTATIN 80 MG TAB PO SCH (08:39)
[2023-03-10] MEDS: METOPROLOL TARTRATE 25 MG TAB PO SCH ×2 (08:39→20:59)
[2023-03-10] MEDS: APIXABAN 5 MG TAB PO SCH ×2 (08:39→21:00)
[2023-03-10] MEDS: CHLORHEXIDINE GLUCONATE 15 ML CUP MUCOUS MEM SCH ×2 (08:39→20:59)
[2023-03-10] MEDS: lisinopriL 5 MG TAB PO SCH ×2 (08:40→20:59)
--- NOTE | 2023-03-10 09:51 | P.PN ---
Subjective Progress Note Date: 03/10/23 67-year-old female who apparently had a cardiopulmonary arrest, at a local [employer]. The patient apparently had a downtime of about 15 minutes, for there was cardiopulmonary resuscitation and return of spontaneous circulation. The patient was seen in the ER, by the ER physician, Dr. Dejesus. The patient was vented, and a right femoral vein triple lumen catheter was placed. Family members are in the room, we selected see the patient. The patient herself is unresponsive. She has a orally placed endotracheal tube. She's currently on the ventilator, with vent settings of volume assist control, rate 20, tidal volume 375, FiO2 100%, 5. Blood gases show pO2 75, pCO2 of 53, and a pH is 7.17. The patient is on norepinephrine at 0.15 mcg/kg/m, and propofol at 15 mcg/kg/m. The patient has a history of COPD from secondhand tobacco exposure, a previous history of the fibrillator placement for cardiomyopathy, and history of stroke, and [place] filter placement. In addition, the patient is on home O2, that she is supposed to use all the time, but she only uses as needed. She was a smoker in the distant past. White count 9.7, hemoglobin 11.4, hematocrit 37.9, and platelet count was normal. D-dimer was 3.10. Sodium 137, potassium 4.3, chlorides 104, CO2 17, anion gap 16, BUN and creatinine 12 and 0.76. Troponin was 0.022 and N-terminal proBNP was 2290. Lactate was not measured but is probably elevated. Testing for influenza A, and B, RSV, and coronavirus are all negative. Chest x-ray shows evidence of cardiomegaly, fluid overload, and an appropriately placed endotracheal tube. Computed tomography scan of the brain showed nothing acute. CT angiogram was negative for PE. There also may be some right lower lobe consolidation consistent with prior aspiration. Progress note dated 03/05/2023. 67-year-old female who had an [id number] cardiopulmonary arrest. The patient had about 15 minutes of resuscitation before there was return of spontaneous circulation. Unfortunately, the patient may have sustained anoxic brain injury. Today, we place an art line. She remains on the ventilator. I did have neurology see her. She is on volume assist control, rate 20, tidal volume 375, FiO2 60%, PEEP of 5. Arterial blood gases show pO2 of 90, pCO2 34, and pH is 7.35. The patient is on norepinephrine at 0.05 mcg/kg/m, propofol at 40 mcg/kg/m, and saline at 75 mL an hour. We will discontinue the Levaquin and Flagyl and start Zosyn. In addition we'll start some tube feeds, at 10 mL an hour. A right radial art line will be placed today. White count 8.9, hemoglobin 10.8, hematocrit 34.1, and platelet count is normal. Sodium 139, potassium 3.9, chlorides 112, CO2 18, BUN 19, creatinine 0.71. Troponins were 0.086 and 0.091. Chest x-ray shows persistent bilateral infiltrates, more so in the right lung than on the left. This may relate to aspiration. On today's evaluation of 03/07/2023, seeing the patient for a follow-up. This is a case of a cardiac arrest with at least 15 minutes downtime. The patient has an AICD in place. Initial cardiac rhythm is not clear. The did not have any pacemaker discharges and the pacemaker has not been interrogated yet. Noted the patient has a pacer AICD in place. Her current cardiac rhythm is paced and her rate is currently at 76. Hemodynamically, the patient is stable on no pressors. The patient is maintaining her own blood pressure. Meanwhile, the patient's troponins did not rise and the troponin peaked at 0.09. The patient currently has signs of anoxic encephalopathy. Attempts to wean her off the sedation yesterday feel that the patient became quite hypertensive and tachypneic and she did not show any reasonable neurological recovery. Neurology is on the case for the potential anoxic encephalopathy. CAT scan of the brain was done on 03/04/2023 and 03/06/2023 and there is mild diffuse cerebral atrophy without any acute brain changes. There is bilateral sphenoid sinus disease. EEG was also done on 03/05/2023 indicating diffuse suppression due to anoxia. The patient is currently on propofol which is running at the rate of 15 mcg/kg/m. The patient is also on IV Keppra 1.5 g every 12 hours. This morning, the patient remains on a mechanical ventilator patient is on assist control mode at the rate of 20, tidal volume of 375, FiO2 of 50% with a PEEP of 5. The blood gas shows a pH of 7.42 with a pCO2 of 34 and pO2 112. Sodium is at 141 with a potassium level of 4.4, BUN is at 17 with a creatinine of 0.59. WBC count at 7.2 with a hemoglobin 9.3 and a platelet count of 163. The chest x-ray from this morning is showing cardiomegaly along with bilateral pleural effusion. ET tube is in a good location. The patient also has a orogastric tube in place. A CT angiogram of the chest that was done on 03/04/2023 showed bilateral lower lobe and upper lobe consolidation and scattered areas of multifocal groundglass opacities throughout the lung. Possibility of aspiration was considered in addition to underlying cardiomegaly and multiple acute minimally displaced anterior rib fractures in the setting of CPR. IV fluids are currently at the rate of 25 mL an hour of 3% hypertonic saline. This was initiated by neurology regarding the potential of [employer] swelling. As mentioned, the sodium level is at 141 from this morning. No seizure activity has been noted.Patient is currently on antibiotic without liquids 5 mg by mouth twice a day. The patient is on met oprolol 25 mg by mouth twice a day. The patient is on Zestril 5 mg by mouth twice a day. The patient is also on empiric antibiotic coverage with IV Zosyn. The echocardiogram showed an ejection fraction of 30-35% with global LV dysfunction. There was mild aortic stenosis. On today's evaluation of 03/08/2023, the patient remains neurologically impaired and and anoxic encephalopathy. The patient is post cardiac arrest. The patient is currently intubated on a mechanical ventilator. Propofol is running at 20 mcg/kg/m. This is to maintain synchrony with a mechanical ventilator. The patient is receiving daily sedation holidays. She remains on a mechanical ventilator. This morning, she is on assist-control mode at the rate of 20, tidal volume of 375, FiO2 of 50% with a PEEP of 5. The blood gas from today shows a pH of 7.39 with a pCO2 of 36 and the pO2 is currently at 87. The chest x-ray from today shows elevation of the right hemidiaphragm, a pacemaker is still present in the left anterior chest. No significant airspace disease or pulmonary infiltrates. Orogastric tube is in a good location. Meanwhile, the patient carries a WBC count of 5.8 with a hemoglobin of 8.6 and a platelet count of 151. BUN is 18 with a creatinine of 0.5 and a sodium level is at 146. UA is negative. [employer] has been contacted. As part of their workup, a CAT scan of the chest abdomen and pelvis was done. There is left-sided rib fractures probably related to CPR. No acute intra-abdominal abnormalities. Some consolidation changes in the lung bases are seen probably related to atel ectasis. Unfortunately, neurologically, the patient continues to be significantly impaired. No reasonable neurological recovery while off propofol. No seizure activity and the patient remains on Keppra. The patient is also receiving enteral feeding for nutritional support and she is currently on vital AF. The patient remains on the hypertonic saline per neurology's recommendation. The patient remains on Keppra. The patient is on IV Zosyn. Her anticoagulation has been resumed she remains on Eliquis 5 mg by mouth twice a day. On today's evaluation of 03/09/2023, the patient is intubated on a mechanical ventilator, she remains on propofol running at 10 mcg/kg/m. Deeply comatose and unresponsive. Earlier this morning, twitching of the eyes was also noted and she is a possible undergoing an EEG today. As mentioned, she is a case of severe anoxic encephalopathy post cardiac arrest. The patient is being considered for gift of life. Family has consented. She remains on IV Keppra and Dilantin. Dilantin was started yesterday by neurology.. She was on hypertonic saline and this was discontinued by neurology. Meanwhile, the patient remains on a mechanical ventilator, assist control mode with a rate of 20, tidal volume of 375, FiO2 of 50% with a PEEP of 5. Chest x-ray from today shows left basilar atelectasis. Orotracheal tube is in a good location. The patient has a pacer/AICD over the left anterior chest area. No significant abnormalities noted on today's chest x-ray. The blood gas from today shows a pH of 7.4 with a pCO2 of 39 and pO2 of 91. She is afebrile. She was having back and forth fever and this morning she is afebrile. The electrolytes are all norm al. Sodium is at 144 with a BUN of 22 and a creatinine of 0.4. Blood sugars at 182. LFTs are normal. UA is negative. Hemodynamically stable. No pressors for now. Cardiac rhythm is sinus. She is receiving enteral feeding for nutritional support and she is currently on vital high-protein at the rate of 35 mL an hour. The patient remains on IV Zosyn as an empiric antibiotic coverage. The patient remains on Eliquis 5 mg by mouth twice a day. On 03/10/2023, the patient remains unresponsive. She is currently off propofol and she doesn't show any signs of neurologic recovery. She is deeply comatose at this point in time. Her EEG of the brain was repeated yesterday and it showed severe abnormal EEG due to severely suppressed background in the bilateral hemispheres consistent with diffuse and global encephalopathy. This is consistent with anoxic encephalopathy. Meanwhile, no seizure activity was noted. The patient remains on a combination of Keppra and Dilantin and neurology is on the case. Hypertonic saline has been discontinued. Sodium remains slightly elevated and based on the electrolytes today, the sodium level is at 147, with a chloride of 118. BUN is at 20 with a creatinine of 0.4. She remains on a mechanical ventilator. Assist-control mode at the rate of 20, tidal volume of 375, FiO2 of 50% with a PEEP of 5. Chest x-ray shows atelectatic change in lung bases more so on the right. Adequate oxygenation on the blood gas with a pO2 of 105. PH is at 7.4 with a pCO2 of 40. Rest of the electrodes are normal with a BUN of 20 and a creatinine of 0.49. The white cell cause of 5.6 with a hemoglobin of 8.5. She is afebrile. She is on empiric antibiotic coverage with IV Zosyn. Her cardiac rhythm remains sinus with occasional pacing. She remains on the coagulation with Eliquis. She is receiving enteral feeding for nutritional support. She is currently on 0.9 saline at [facility]. Family has opted to proceed with [facility]. Objective - Vital Signs Vital signs: Vital Signs Temp 98 F 03/10/23 08:30 Pulse 70 03/10/23 09:00 Resp 22 03/10/23 09:00 BP 118/52 03/10/23 09:00 Pulse Ox 96 03/10/23 09:00 FiO2 50 03/10/23 08:30 Intake & Output 03/09/23 03/10/23 03/10/23 18:59 06:59 18:59 Intake Total 999.208 867.171 186 Output Total 495 505 90 Balance 504.208 362.171 96 Weight 93.4 kg Intake: IV 389 789 86 .9NS KVO 80 0.9NS Pressure Bag 6 KVO and Pressure Bag 253 589 Phenytoin Sodium Inj 200 36 mg In Sodium Chloride 0.9 % 36 ml @ 80 mls/hr IVPB Q12HR [facility] Rx#:[id number] Piperacillin-Tazobactam 3 100 .375 gm In Sodium Chloride 0.9% 100 ml @ 25 mls/hr IVPB Q8H [facility] Rx#: [id number] levETIRAcetam IV 1,500 mg 100 100 In Saline 1 100ml.bag @ 400 mls/hr IVPB Q12HR [facility] Rx#:[id number] Intake, IV Titration 130.208 8.171 Amount Norepinephrine 32 mg In 2.334 Sodium Chloride 0.9% 218 ml @ 0.03 MCG/KG/MIN 1. 148 mls/hr IV .Q24H [facility] Rx#:[id number] Piperacillin-Tazobactam 3 100 .375 gm In Sodium Chloride 0.9% 100 ml @ 25 mls/hr IVPB Q8H [facility] Rx#: [id number] propofoL 1,000 mg In 30.208 5.837 Empty Bag 1 bag @ 15 MCG/ KG/MIN 7.348 mls/hr IV . [id number] [facility] Rx#:[id number] Tube Feeding 420 70 70 Other 60 30 Output: Urine 495 505 90 Other: Voiding Method Indwelling Catheter Indwelling Catheter ABP, PAP, CO, CI - Last Documented Arterial Blood Pressure 121/53 - Exam No acute distress, sedated on propofol, with an orally placed endotracheal tube. The patient is currently on propofol. The patient is quite symptomatic since a mechanical ventilator. HEENT examination is grossly unremarkable. Neck supple. Full range of motion. No adenopathy thyromegaly or neck vein distention. Cardiovascular examination reveals regular rhythm rate. S1-S2 normal. No S3 or S4. No discernible murmur noted. Lungs reveal scattered rhonchi. No wheezes or crackles. Breath sounds equal. Abdomen obese, without bowel sounds. Extremities are intact. No cyanosis clubbing or edema. Skin is without rash or lesion. Neurologic examination the patient is currently on propofol. The patient senses the pain probably more so a reflex. No facial asymmetry. Her gaze is up 4 and more so to the left. No nystagmus. The patient is breathing [facility]. The patient has a positive cough and a gag reflex. The patient has a slow pupillary response. The reflexes are equal and symmetrical and diminished bilaterally. Negative clonus, negative Babinski's. Neurologic exam is unchanged.. The patient continues to have respiratory drive. She has a very weak corneal reflex. The patient is having episodic twitching of the eyes. She is currently on a combination of Dilantin. - Labs CBC & Chem 7: 03/10/23 05:00 03/10/23 05:00 Labs: Abnormal Lab Results - Last 24 Hours (Table) 03/09/23 03/09/23 03/09/23 Range/Units 11:39 16:51 16:57 RBC (3.80-5.40) m/uL Hgb (11.4-16.0) gm/dL Hct (34.0-46.0) % MCV (80.0-100.0) fL Lymphocytes # (1.0-4.8) k/uL ABG Total CO2 (19-24) mmol/L ABG O2 Saturation (94-97) % Sodium (137-145) mmol/L Chloride (98-107) mmol/L BUN (7-17) mg/dL Creatinine (0.52-1.04) mg/dL Glucose (74-99) mg/dL POC Glucose (mg/dL) 221 H 180 H (70-110) mg/dL Calcium (8.4-10.2) mg/dL Magnesium 2.4 H (1.6-2.3) mg/dL 03/09/23 03/10/23 03/10/23 Range/Units 16:57 00:36 05:00 RBC 2.67 L (3.80-5.40) m/uL Hgb 8.5 L (11.4-16.0) gm/dL Hct 26.7 L (34.0-46.0) % MCV 100.3 H (80.0-100.0) fL Lymphocytes # 0.5 L (1.0-4.8) k/uL ABG Total CO2 (19-24) mmol/L ABG O2 Saturation (94-97) % Sodium 146 H (137-145) mmol/L Chloride 118 H (98-107) mmol/L BUN 21 H (7-17) mg/dL Creatinine (0.52-1.04) mg/dL Glucose 178 H (74-99) mg/dL POC Glucose (mg/dL) 167 H (70-110) mg/dL Calcium 7.9 L (8.4-10.2) mg/dL Magnesium (1.6-2.3) mg/dL 03/10/23 03/10/23 03/10/23 Range/Units 05:00 05:18 05:45 RBC (3.80-5.40) m/uL Hgb (11.4-16.0) gm/dL Hct (34.0-46.0) % MCV (80.0-100.0) fL Lymphocytes # (1.0-4.8) k/uL ABG Total CO2 26 H (19-24) mmol/L ABG O2 Saturation 97.3 H (94-97) % Sodium 147 H (137-145) mmol/L Chloride 118 H (98-107) mmol/L BUN 20 H (7-17) mg/dL Creatinine 0.49 L (0.52-1.04) mg/dL Glucose 149 H (74-99) mg/dL POC Glucose (mg/dL) 133 H (70-110) mg/dL Calcium 7.8 L (8.4-10.2) mg/dL Magnesium 2.4 H (1.6-2.3) mg/dL Microbiology - Last 24 Hours (Table) 03/04/23 13:34 Blood Culture - Preliminary Blood No Growth after 120 hours 03/04/23 13:34 Blood Culture - Preliminary Blood No Growth after 120 hours Assessment and Plan Plan: Status post [id number] cardiopulmonary arrest, with at least 15 minutes of downtime, before cardiopulmonary resuscitation and return of spontaneous circulation, were accomplished. Status post intubation and mechanical ventilation for cardiopulmonary arrest, 03/04/2023. anoxic brain injury, post cardiac arrest, currently unresponsive. The patient does have brainstem reflexes. Nevertheless, unresponsive once off sedation. Neurologically, the patient shows signs of severe neurologic impairment. She continues to have brainstem reflexes. Repeat EEG to be done today. Neurology is on the case. She continues to show signs of severe anoxic encephalopathy. EEG from 03/09/2023 was noted. There is severe encephalopathy. No seizure activity has been noted. Neurologically unchanged and the patient is currently off propofol. She remains on a combination of Dilantin and Keppra. Acute fever post cardiac arrest, the patient is normothermic for now. The patient responded to our hypothermia measures and she is currently afebrile. Multifocal bilateral pulmonary infiltrates, consider aspiration and the patient is currently on IV Zosyn, chest x-ray showed no acute abnormalities on today's evaluation. Systolic heart failure with an ejection fraction of 30-35% and impaired LV. Noted the troponins were not elevated Nondisplaced rib fractures related to CPR, as evidenced on the chest x-ray and the CAT scan of the chest Pacemaker insertion with a paced cardiac rhythm for now History of atrial fibrillation. The current cardiac rhythmand the patient is on anticoagulation with Eliquis Status post AICD placement. History of COPD. History of hypertension. History of CVA. Prior history of [place] filter placement. History of anxiety/depression. Enteral feeding for nutritional support with vital high-protein at the rate of 35 mL an hour Plan This is a case of anoxic encephalopathy, severe post cardiac arrest. Family is insistent gift of life. Based on that, we are supporting this patient to the family and [employer] [facility] [facility] is ready for potential organ donation. Continue vent support, no ventilator changes for today Essentially no major change in the patient's condition. No seizure activity based on the most recent EEG. Cardiovascularly stable. Neurologically impaired and anoxic encephalopathy. Brainstem reflex are present. She is currently on a combination of Dilantin. Hypertonic Saline Was Discontinued by Neurology. She is afebrile this morning Continue ventilator support, no changes for today Continue IV Zosyn Temperature normalized Discontinue propofol Neurology follow-up regarding her anoxic encephalopathy EEG and CAT scan of the brain were noted Continue anticoagulation with Eliquis Continue metoprolol 25 mg by mouth twice a day The pacemaker needs to be evaluated and this will be coordinated with cardiology Poor prognosis based on the above-mentioned comorbidities We'll continue to follow. Physical. Evaluation was done in more than 30 minutes. Possible withdrawal of care and the family is considering that. Gift of life is on the case. Time with Patient: Greater than 30
[2023-03-10] MEDS: PHENYTOIN SODIUM INJ 200 MG in SODIUM CHLORIDE 0.9% 36 ML IVPB SCH ×2 (10:13→21:21)
[2023-03-10 11:32] LABS: Glucose,Whole Blood 152 mg/dL (70-110)
[2023-03-10 11:39] LABS: Glucose,Whole Blood 158 mg/dL (70-110)
[2023-03-10] MEDS: ACETAMINOPHEN TAB 325 MG TAB PO PRN (17:15)
[2023-03-10 17:59] LABS: Glucose,Whole Blood 182 mg/dL (70-110)
[2023-03-10 18:46] LABS: African American GFR (CKD) >90 (>60 ml/min/1.73 sqM); Anion Gap 2 mmol/L; Blood Urea Nitrogen 21 mg/dL (7-17); Carbon Dioxide 27 mmol/L (22-30); Chloride 116 mmol/L (98-107); Glucose 180 mg/dL (74-99); Magnesium 2.2 mg/dL (1.6-2.3); Non-African American GFR(CKD) >90 (>60 ml/min/1.73 sqM); Phosphorus 2.7 mg/dL (2.5-4.5); Sodium 145 mmol/L (137-145)
[2023-03-10] MEDS: SODIUM CHLORIDE 0.9% 500 ML 500 ML IV SCH (21:03)
[2023-03-11] MEDS: MIDAZOLAM HCL 50 MG in SODIUM CHLORIDE 0.9% 40 ML IV SCH ×2 (00:53→23:34)
[2023-03-11 00:58] LABS: Glucose,Whole Blood 186 mg/dL (70-110)
[2023-03-11] MEDS: INSULIN ASPART (NovoLOG) 100 UNIT/ML VIAL SQ SCH ×4 (00:58→18:12)
[2023-03-11] MEDS: IPRATROPIUM-ALBUTEROL 3 ML NEB INHALATION SCH ×6 (02:48→23:44)
[2023-03-11] MEDS: PIPERACILLIN-TAZOBACTAM 3.375 GM in SODIUM CHLORIDE 0.9% 100 ML IVPB SCH ×3 (04:05→18:12)
[2023-03-11 04:45] LABS: ABG Base Excess 1.7 mmol/L; ABG HCO3 26 mmol/L (21-25); ABG Oxygen Saturation 96.1 % (94-97); ABG PCO2 41 mmHg (35-45); ABG PH 7.42 (7.35-7.45); ABG PO2 86 mmHg (83-108); ABG TCO2 27 mmol/L (19-24)
[2023-03-11 04:49] LABS: Allen Test Performed? no
--- NOTE | 2023-03-11 06:11 | P.PN ---
Subjective Progress Note Date: 03/10/23 Patient is a 67-year-old male with a known history of chronic atrial fibrillation on anticoagulation with Eliquis, cardiomyopathy status post ICD placement, COPD on home oxygen at 4 L via nasal cannula, hypertension, anxiety/depression and history of femoral neck fracture s/p repair in November 2022 was brought to the hospital by EMS status postcardiac arrest. Patient was at [facility] where she was found to have worsening shortness of breath and became unresponsive on a motorized scooter.. Patient underwent CPR for about 15 minutes by EMS and was given 3 doses of epinephrine with return of spontaneous circulation and was intubated. Patient was brought to ER for evaluation. Patient was unresponsive and was able to provide any history. On arrival chest x-ray showed cardiomegaly and mild pulmonary vascular congestion. Correlate with BNP for congestive heart failure. Right basilar patchy airspace opacities may represent pulmonary edema versus infiltrate. Endotracheal tube in appropriate position. Possible NG tube terminating in the mid esophagus. CT head showed no acute intracranial process. Paranasal sinus disease with air- fluid level within the left maxillary sinus. Correlate for acute sinusitis. Chest CTA showed no evidence of PE. Bilateral lower lobe and right upper lobe consolidation with a scattered multifocal groundglass opacities throughout the lungs. Findings are compatible with pneumonia possibly aspiration. Multiple acute minimally displaced rib fractures likely related to CPR in the setting of cardiac arrest. Remote to subacute bilateral rib fractures also demo nstrated. No pneumothorax. Cardiomegaly. Laboratory data showed WBC 9.7 hemoglobin 11.4 platelets 246 and D-dimer 3.1 Initial ABG showed pH of 7.17 PCO2 30 and PO2 75 Sodium 135, potassium 4.3, chloride 104, bicarb is 17 BUN 12 and creatinine 0.76 and blood sugar was 325 and lactic acid 2.9 AST 57 ALT 14 alk phos 73 and troponin x1 negative proBNP 2290 Influenza A B RSV and COVID-19 PCR not detected. 03/05/2023 Patient is in the MICU. Remains mechanical ventilator. Off pressor support. Otherwise patient remains unresponsive. EEG was ordered and neurology is on board. 2D echocardiogram showed ejection fraction 30 to 35% with anterior septal hypokinesis. AICD C interrogation was done. Cardiology neurology and pulmonary is on board. Chest x-ray showed persistent right midlung and bibasilar multifocal acute infiltrates without edema. No change from 1 day. Patient remains on antibiotics Zosyn. NG tube in place. 03/06/2023 Patient is seen and evaluated and follow-up in the ICU remains on mechanical ventilation, FiO2 is 60% with a peep of 5. Patient is off pressor support although continues on as needed Ativan along with IV Keppra and propofol. Patient also maintained on IV antibiotics in the form of Zosyn. Chest x-ray today shows stable bilateral interstitial and airspace opacification with bilateral small pleural effusions may relate to pulmonary edema or infectious etiology. Blood cultures thus far are negative and sputum culture currently pending. Patient does continue to have low-grade temps 101 early this morning. WBC remains within normal limits and pro-calcitonin is 0.49. Other kidney functions within normal limits and blood sugars being monitored. Per nursing staff attempts at weaning were performed although patient became extremely tachycardic and restless and not following commands and placed back on sedation. An EEG was done although pending at this time. Repeat CT of the brain early this morning shows no acute intracranial hemorrhage or midline shift with mild diffuse cerebral atrophy redemonstrated with slightly worsening bilateral spheno id acute sinusitis. Multiple medical consultations following an per nursing staff [employer] was notified although unsure of family is aware. Patient was on the registry. 03/07/2023 Patient is seen and evaluated in the ICU maintained on mechanical ventilation with an FiO2 of 55% and PEEP is 5. Patient is maintained on IV antibiotics and continues to have fevers and cultures thus far been negative. Patient is continued on sedation and off pressor support and remains on hypertonic solution . 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 Per nursing staff, family has been discussing possible comfort care although not ready to wean at this time. Pins also following as patient is on the registry evaluating the patient. 03/08/2023 Patient continues to be in the ICU on mechanical ventilation with an FiO2 of 50% and PEEP is 5. Multiple medical consultations including cardiology, pulmonary refractory bricklayer, neurology following. Patient had a CT of the chest abdomen pelvis per [employer] services which confirmed bilateral rib fractures involving at least 2 ribs through 10 bilaterally with no evidence of acute abdominal process and consolidation changes in the lung bases likely secondary to atelectasis and hypoventilatory. Patient is maintained on hypertonic solution along with IV Keppra with neurology following and patient remains clinically the same. No further seizure-like activity noted although does continue with jerking and twitching type movements once removed from sedation. Patient is undergoing occasional sedation holidays. Gift of life is following as patient is on the registry although has not approached family as of yet and family is considering terminale weaning and comfort measures. Cardiology signed off and will follow as needed. Overall prognosis is poor as neurological status continues to be unchanged. 03/09/2023 Patient is seen in follow-up today continues to be on mechanical ventilation with an FiO2 of 50% and PEEP is 5. Patient does continue on sedation along with IV Keppra and empiric Zosyn and not requiring pressors. Patient's sodium is elevated today at 150 and has been on hypertonic solution that was just discontinued and will follow-up with repeat sodium level. Possible D5 in water. Gift of life is following as patient is on the registry and family is agreeable discussing possible gift of life this Monday as they are currently awaiting more family members. Repeat EEG was done today and continues to show severely abnormal EEG due to severely suppressed background and consistent with diffuse global encephalopathy. Not following any commands with sedation holidays. Chest x-ray today shows bilateral pleural effusions although stable. Patient is continuing to have fevers today. 03/10/2023 Patient is seen in follow-up today continues in the ICU for mechanical ventilation with no changes to prevent settings. Patient is a gift of life donor and they are following possibly working on pronation this Monday while awaiting additional family members and or time. Patient is currently maintained on IV antibiotics and per nursing staff did require a small dose of Levophed for approximately a half hour this morning although blood pressure is maintained at this time. Patient is afebrile and maintained on IV antibiotics in the form of Zosyn. Review of systems: Unable to obtain as patient is intubated and on sedation PHYSICAL EXAMINATION: Patient is on mechanical ventilator. FiO2 is currently 50% with a PEEP of 5 HEENT: Normocephalic. Neck is supple. Pupils reactive. Nostrils clear. Oral cavity is moist. Neck reveals no JVD, carotid bruits, or thyromegaly. CHEST EXAMINATION: Trachea is central. Symmetrical expansion. Bibasilar diminished sounds and coarse breath sounds. No wheezing. CARDIAC: Normal S1, S2 with no gallops. No murmurs ABDOMEN: Soft. Bowel sounds present. Nontender. No organomegaly. No abdominal bruits. Extremities: Trace lower extremity edema. No clubbing or cyanosis Neurologically patient is on mechanical ventilator. Currently on sedation Skin: No rash or skin lesions. Psychiatric: Could not be assessed at this time Musculoskeletal: No joint swelling or deformity. Assessment: Acute cardiac arrest s/p CPR for about 15 minutes with return of spontaneous circulation. Status post intubation by EMS. Episodes of nonsustained V. tach prior to cardiac arrest which is most likely the cause although awaiting full AICD interrogation report Possible anoxic brain injury with severe encephalopathy noted an EEG Chronic atrial fibrillation on anticoagulant Eliquis History of ICD placement Hyperglycemia COPD history Chronic hypoxic respiratory failure secondary to COPD on 4 L oxygen via nasal cannula Recent history of femoral neck fracture repair in November 2022 History of IVC filter placement Anxiety/depression history Full code while awaiting gift of life Plan: Patient is currently in the MICU and remains on mechanical ventilation with an FiO2 of 50% and PEEP is 5. Status post CPR and currently on mechanical ventila tor. Downtime was was about 15 minutes. Possible anoxic brain injury. EEG repeated today remains with severe encephalopathy maintained on IV Keppra with neurology following. Continue with antibiotics for pneumonia with Zosyn. Continue during Accu-Cheks and continue with insulin sliding scale. Patient is off pressor support although per nursing staff patient did require low-dose Levophed for approximately half hour this morning Multiple medical consultations following Given the downtime and severity of neurological assessment and cardiac arrest, overall prognosis remains poor. Gift of life also following and evaluating this patient is on registry Family is agreeable with gift of life and donation may possibly take place on Monday when there is aware time available and when more family members are present The impression and plan of care has been dictated by Malgorzata Knapp, Nurse Practitioner as directed. Dr. Khloe MD I have performed a history and examination and MDM of this patient, discussed the same with the dictator, and agree with the dictator's assessment and plan as written ,documented as a scribe. Based on total visit time, I have performed more than 50% of the visit. Objective - Vital Signs Vital signs: Vital Signs Temp 98 F 03/10/23 08:30 Pulse 70 03/10/23 09:00 Resp 22 03/10/23 09:00 BP 118/52 03/10/23 09:00 Pulse Ox 96 03/10/23 09:00 FiO2 50 03/10/23 08:30 Intake & Output 03/09/23 03/10/23 03/10/23 18:59 06:59 18:59 Intake Total 999.208 867.171 186 Output Total 495 505 90 Balance 504.208 362.171 96 Weight 93.4 kg Intake: IV 389 789 86 .9NS KVO 80 0.9NS Pressure Bag 6 KVO and Pressure Bag 253 589 Phenytoin Sodium Inj 200 36 mg In Sodium Chloride 0.9 % 36 ml @ 80 mls/hr IVPB Q12HR [facility] Rx#:[id number] Piperacillin-Tazobactam 3 100 .375 gm In Sodium Chloride 0.9% 100 ml @ 25 mls/hr IVPB Q8H [facility] Rx#: [id number] levETIRAcetam IV 1,500 mg 100 100 In Saline 1 100ml.bag @ 400 mls/hr IVPB Q12HR [facility] Rx#:[id number] Intake, IV Titration 130.208 8.171 Amount Norepinephrine 32 mg In 2.334 Sodium Chloride 0.9% 218 ml @ 0.03 MCG/KG/MIN 1. 148 mls/hr IV .Q24H [facility] Rx#:[id number] Piperacillin-Tazobactam 3 100 .375 gm In Sodium Chloride 0.9% 100 ml @ 25 mls/hr IVPB Q8H [facility] Rx#: [id number] propofoL 1,000 mg In 30.208 5.837 Empty Bag 1 bag @ 15 MCG/ KG/MIN 7.348 mls/hr IV . [id number] [facility] Rx#:[id number] Tube Feeding 420 70 70 Other 60 30 Output: Urine 495 505 90 Other: Voiding Method Indwelling Catheter Indwelling Catheter ABP, PAP, CO, CI - Last Documented Arterial Blood Pressure 121/53 - Labs CBC & Chem 7: 03/10/23 05:00 03/10/23 17:50 Labs: Abnormal Lab Results - Last 24 Hours (Table) 03/09/23 03/09/23 03/09/23 Range/Units 11:39 16:51 16:57 RBC (3.80-5.40) m/uL Hgb (11.4-16.0) gm/dL Hct (34.0-46.0) % MCV (80.0-100.0) fL Lymphocytes # (1.0-4.8) k/uL ABG Total CO2 (19-24) mmol/L ABG O2 Saturation (94-97) % Sodium (137-145) mmol/L Chloride (98-107) mmol/L BUN (7-17) mg/dL Creatinine (0.52-1.04) mg/dL Glucose (74-99) mg/dL POC Glucose (mg/dL) 221 H 180 H (70-110) mg/dL Calcium (8.4-10.2) mg/dL Magnesium 2.4 H (1.6-2.3) mg/dL 03/09/23 03/10/23 03/10/23 Range/Units 16:57 00:36 05:00 RBC 2.67 L (3.80-5.40) m/uL Hgb 8.5 L (11.4-16.0) gm/dL Hct 26.7 L (34.0-46.0) % MCV 100.3 H (80.0-100.0) fL Lymphocytes # 0.5 L (1.0-4.8) k/uL ABG Total CO2 (19-24) mmol/L ABG O2 Saturation (94-97) % Sodium 146 H (137-145) mmol/L Chloride 118 H (98-107) mmol/L BUN 21 H (7-17) mg/dL Creatinine (0.52-1.04) mg/dL Glucose 178 H (74-99) mg/dL POC Glucose (mg/dL) 167 H (70-110) mg/dL Calcium 7.9 L (8.4-10.2) mg/dL Magnesium (1.6-2.3) mg/dL 03/10/23 03/10/23 03/10/23 Range/Units 05:00 05:18 05:45 RBC (3.80-5.40) m/uL Hgb (11.4-16.0) gm/dL Hct (34.0-46.0) % MCV (80.0-100.0) fL Lymphocytes # (1.0-4.8) k/uL ABG Total CO2 26 H (19-24) mmol/L ABG O2 Saturation 97.3 H (94-97) % Sodium 147 H (137-145) mmol/L Chloride 118 H (98-107) mmol/L BUN 20 H (7-17) mg/dL Creatinine 0.49 L (0.52-1.04) mg/dL Glucose 149 H (74-99) mg/dL POC Glucose (mg/dL) 133 H (70-110) mg/dL Calcium 7.8 L (8.4-10.2) mg/dL Magnesium 2.4 H (1.6-2.3) mg/dL Microbiology - Last 24 Hours (Table) 03/04/23 13:34 Blood Culture - Preliminary Blood No Growth after 120 hours 03/04/23 13:34 Blood Culture - Preliminary Blood No Growth after 120 hours
[2023-03-11 06:21] LABS: Glucose,Whole Blood 172 mg/dL (70-110)
[2023-03-11 06:48] LABS: Basophils % (A) 0 %; Eosinophils # (A) 0.1 k/uL (0-0.7); Eosinophils % (A) 1 %; HCT 29.7 % (34.0-46.0); HGB 9.2 gm/dL (11.4-16.0); Hypochromasia Slight; Lymphocytes # (A) 0.7 k/uL (1.0-4.8); Lymphocytes % (A) 8 %; MCH 31.8 pg (25.0-35.0); MCV 102.7 fL (80.0-100.0); Macrocytosis Slight; Mean Platelet Volume 9.8; Monocytes # (A) 0.4 k/uL (0-1.0); Monocytes % (A) 4 %; Neutrophils # (A) 7.3 k/uL (1.3-7.7); Neutrophils % (A) 86 %; Platelet Count 193 k/uL (150-450); RBC 2.89 m/uL (3.80-5.40); RDW 14.6 % (11.5-15.5); WBC 8.5 k/uL (3.8-10.6)
[2023-03-11 07:13] LABS: African American GFR (CKD) >90 (>60 ml/min/1.73 sqM); Anion Gap 4 mmol/L; Blood Urea Nitrogen 18 mg/dL (7-17); Calcium 7.9 mg/dL (8.4-10.2); Carbon Dioxide 26 mmol/L (22-30); Chloride 115 mmol/L (98-107); Glucose 192 mg/dL (74-99); Magnesium 2.3 mg/dL (1.6-2.3); Non-African American GFR(CKD) >90 (>60 ml/min/1.73 sqM); Sodium 145 mmol/L (137-145)
[2023-03-11] MEDS: levETIRAcetam IV 1,500 MG in SALINE 1 100ML.BAG IVPB SCH ×2 (09:17→21:15)
[2023-03-11] MEDS: PANTOPRAZOLE 40 MG/10 ML VIAL IV SCH (09:25)
[2023-03-11] MEDS: ATORVASTATIN 80 MG TAB PO SCH (09:25)
[2023-03-11] MEDS: METOPROLOL TARTRATE 25 MG TAB PO SCH ×2 (09:25→21:14)
[2023-03-11] MEDS: CHLORHEXIDINE GLUCONATE 15 ML CUP MUCOUS MEM SCH ×2 (09:25→21:14)
[2023-03-11] MEDS: APIXABAN 5 MG TAB PO SCH ×2 (09:25→21:14)
--- NOTE | 2023-03-11 09:40 | P.PN ---
Subjective Progress Note Date: 03/11/23 67-year-old female who apparently had a cardiopulmonary arrest, at a local [employer]. The patient apparently had a downtime of about 15 minutes, for there was cardiopulmonary resuscitation and return of spontaneous circulation. The patient was seen in the ER, by the ER physician, Dr. Dejesus. The patient was vented, and a right femoral vein triple lumen catheter was placed. Family members are in the room, we selected see the patient. The patient herself is unresponsive. She has a orally placed endotracheal tube. She's currently on the ventilator, with vent settings of volume assist control, rate 20, tidal volume 375, FiO2 100%, 5. Blood gases show pO2 75, pCO2 of 53, and a pH is 7.17. The patient is on norepinephrine at 0.15 mcg/kg/m, and propofol at 15 mcg/kg/m. The patient has a history of COPD from secondhand tobacco exposure, a previous history of the fibrillator placement for cardiomyopathy, and history of stroke, and [place] filter placement. In addition, the patient is on home O2, that she is supposed to use all the time, but she only uses as needed. She was a smoker in the distant past. White count 9.7, hemoglobin 11.4, hematocrit 37.9, and platelet count was normal. D-dimer was 3.10. Sodium 137, potassium 4.3, chlorides 104, CO2 17, anion gap 16, BUN and creatinine 12 and 0.76. Troponin was 0.022 and N-terminal proBNP was 2290. Lactate was not measured but is probably elevated. Testing for influenza A, and B, RSV, and coronavirus are all negative. Chest x-ray shows evidence of cardiomegaly, fluid overload, and an appropriately placed endotracheal tube. Computed tomography scan of the brain showed nothing acute. CT angiogram was negative for PE. There also may be some right lower lobe consolidation consistent with prior aspiration. Progress note dated 03/05/2023. 67-year-old female who had an [id number] cardiopulmonary arrest. The patient had about 15 minutes of resuscitation before there was return of spontaneous circulation. Unfortunately, the patient may have sustained anoxic brain injury. Today, we place an art line. She remains on the ventilator. I did have neurology see her. She is on volume assist control, rate 20, tidal volume 375, FiO2 60%, PEEP of 5. Arterial blood gases show pO2 of 90, pCO2 34, and pH is 7.35. The patient is on norepinephrine at 0.05 mcg/kg/m, propofol at 40 mcg/kg/m, and saline at 75 mL an hour. We will discontinue the Levaquin and Flagyl and start Zosyn. In addition we'll start some tube feeds, at 10 mL an hour. A right radial art line will be placed today. White count 8.9, hemoglobin 10.8, hematocrit 34.1, and platelet count is normal. Sodium 139, potassium 3.9, chlorides 112, CO2 18, BUN 19, creatinine 0.71. Troponins were 0.086 and 0.091. Chest x-ray shows persistent bilateral infiltrates, more so in the right lung than on the left. This may relate to aspiration. On today's evaluation of 03/07/2023, seeing the patient for a follow-up. This is a case of a cardiac arrest with at least 15 minutes downtime. The patient has an AICD in place. Initial cardiac rhythm is not clear. The did not have any pacemaker discharges and the pacemaker has not been interrogated yet. Noted the patient has a pacer AICD in place. Her current cardiac rhythm is paced and her rate is currently at 76. Hemodynamically, the patient is stable on no pressors. The patient is maintaining her own blood pressure. Meanwhile, the patient's troponins did not rise and the troponin peaked at 0.09. The patient currently has signs of anoxic encephalopathy. Attempts to wean her off the sedation yesterday feel that the patient became quite hypertensive and tachypneic and she did not show any reasonable neurological recovery. Neurology is on the case for the potential anoxic encephalopathy. CAT scan of the brain was done on 03/04/2023 and 03/06/2023 and there is mild diffuse cerebral atrophy without any acute brain changes. There is bilateral sphenoid sinus disease. EEG was also done on 03/05/2023 indicating diffuse suppression due to anoxia. The patient is currently on propofol which is running at the rate of 15 mcg/kg/m. The patient is also on IV Keppra 1.5 g every 12 hours. This morning, the patient remains on a mechanical ventilator patient is on assist control mode at the rate of 20, tidal volume of 375, FiO2 of 50% with a PEEP of 5. The blood gas shows a pH of 7.42 with a pCO2 of 34 and pO2 112. Sodium is at 141 with a potassium level of 4.4, BUN is at 17 with a creatinine of 0.59. WBC count at 7.2 with a hemoglobin 9.3 and a platelet count of 163. The chest x-ray from this morning is showing cardiomegaly along with bilateral pleural effusion. ET tube is in a good location. The patient also has a orogastric tube in place. A CT angiogram of the chest that was done on 03/04/2023 showed bilateral lower lobe and upper lobe consolidation and scattered areas of multifocal groundglass opacities throughout the lung. Possibility of aspiration was considered in addition to underlying cardiomegaly and multiple acute minimally displaced anterior rib fractures in the setting of CPR. IV fluids are currently at the rate of 25 mL an hour of 3% hypertonic saline. This was initiated by neurology regarding the potential of [employer] swelling. As mentioned, the sodium level is at 141 from this morning. No seizure activity has been noted.Patient is currently on antibiotic without liquids 5 mg by mouth twice a day. The patient is on met oprolol 25 mg by mouth twice a day. The patient is on Zestril 5 mg by mouth twice a day. The patient is also on empiric antibiotic coverage with IV Zosyn. The echocardiogram showed an ejection fraction of 30-35% with global LV dysfunction. There was mild aortic stenosis. On today's evaluation of 03/08/2023, the patient remains neurologically impaired and and anoxic encephalopathy. The patient is post cardiac arrest. The patient is currently intubated on a mechanical ventilator. Propofol is running at 20 mcg/kg/m. This is to maintain synchrony with a mechanical ventilator. The patient is receiving daily sedation holidays. She remains on a mechanical ventilator. This morning, she is on assist-control mode at the rate of 20, tidal volume of 375, FiO2 of 50% with a PEEP of 5. The blood gas from today shows a pH of 7.39 with a pCO2 of 36 and the pO2 is currently at 87. The chest x-ray from today shows elevation of the right hemidiaphragm, a pacemaker is still present in the left anterior chest. No significant airspace disease or pulmonary infiltrates. Orogastric tube is in a good location. Meanwhile, the patient carries a WBC count of 5.8 with a hemoglobin of 8.6 and a platelet count of 151. BUN is 18 with a creatinine of 0.5 and a sodium level is at 146. UA is negative. [facility] [employer] has been contacted. As part of their workup, a CAT scan of the chest abdomen and pelvis was done. There is left-sided rib fractures probably related to CPR. No acute intra-abdominal abnormalities. Some consolidation changes in the lung bases are seen probably related to atel ectasis. Unfortunately, neurologically, the patient continues to be significantly impaired. No reasonable neurological recovery while off propofol. No seizure activity and the patient remains on Keppra. The patient is also receiving enteral feeding for nutritional support and she is currently on vital AF. The patient remains on the hypertonic saline per neurology's recommendation. The patient remains on Keppra. The patient is on IV Zosyn. Her anticoagulation has been resumed she remains on Eliquis 5 mg by mouth twice a day. On today's evaluation of 03/09/2023, the patient is intubated on a mechanical ventilator, she remains on propofol running at 10 mcg/kg/m. Deeply comatose and unresponsive. Earlier this morning, twitching of the eyes was also noted and she is a possible undergoing an EEG today. As mentioned, she is a case of severe anoxic encephalopathy post cardiac arrest. The patient is being considered for gift of life. Family has consented. She remains on IV Keppra and Dilantin. Dilantin was started yesterday by neurology.. She was on hypertonic saline and this was discontinued by neurology. Meanwhile, the patient remains on a mechanical ventilator, assist control mode with a rate of 20, tidal volume of 375, FiO2 of 50% with a PEEP of 5. Chest x-ray from today shows left basilar atelectasis. Orotracheal tube is in a good location. The patient has a pacer/AICD over the left anterior chest area. No significant abnormalities noted on today's chest x-ray. The blood gas from today shows a pH of 7.4 with a pCO2 of 39 and pO2 of 91. She is afebrile. She was having back and forth fever and this morning she is afebrile. The electrolytes are all norm al. Sodium is at 144 with a BUN of 22 and a creatinine of 0.4. Blood sugars at 182. LFTs are normal. UA is negative. Hemodynamically stable. No pressors for now. Cardiac rhythm is sinus. She is receiving enteral feeding for nutritional support and she is currently on vital high-protein at the rate of 35 mL an hour. The patient remains on IV Zosyn as an empiric antibiotic coverage. The patient remains on Eliquis 5 mg by mouth twice a day. On 03/10/2023, the patient remains unresponsive. She is currently off propofol and she doesn't show any signs of neurologic recovery. She is deeply comatose at this point in time. Her EEG of the brain was repeated yesterday and it showed severe abnormal EEG due to severely suppressed background in the bilateral hemispheres consistent with diffuse and global encephalopathy. This is consistent with anoxic encephalopathy. Meanwhile, no seizure activity was noted. The patient remains on a combination of Keppra and Dilantin and neurology is on the case. Hypertonic saline has been discontinued. Sodium remains slightly elevated and based on the electrolytes today, the sodium level is at 147, with a chloride of 118. BUN is at 20 with a creatinine of 0.4. She remains on a mechanical ventilator. Assist-control mode at the rate of 20, tidal volume of 375, FiO2 of 50% with a PEEP of 5. Chest x-ray shows atelectatic change in lung bases more so on the right. Adequate oxygenation on the blood gas with a pO2 of 105. PH is at 7.4 with a pCO2 of 40. Rest of the electrodes are normal with a BUN of 20 and a creatinine of 0.49. The white cell cause of 5.6 with a hemoglobin of 8.5. She is afebrile. She is on empiric antibiotic coverage with IV Zosyn. Her cardiac rhythm remains sinus with occasional pacing. She remains on the coagulation with Eliquis. She is receiving enteral feeding for nutritional support. She is currently on 0.9 saline at [facility]. Family has opted to proceed with gift of life. 03/11/2023, patient remains neurologically impaired and unchanged compared to yesterday, comatose and unresponsive. She remains off sedation. EEG showed diffuse suppression consistent with anoxic encephalopathy. Awaiting gift of life and potential organ donation. Awaiting also more family members to arrive prior to proceeding with potential organ donation. She remains on assist- control mode and the patient is on assist-control mode rate of 20, tidal volume of 375, FiO2 50% with a PEEP of 5. PH is at 7.42 with a pCO2 of 41 and pO2 of 86. Electrolytes are all stable. Creatinine is stable. CBC is unremarkable with a stable hemoglobin of 9.2 and a white cell count of 8.5. Hemodynamically stable and the patient remains in a normal sinus rhythm. No pressors for now. She is receiving enteral feeding for nutritional support and she remains on vital high-protein. This is running at the rate of 49 mL an hour. She remains on Keppra and Dilantin. She remains on NovoLog sinus care coverage. She remains on anticoagulation with Eliquis. Objective - Vital Signs Vital signs: Vital Signs Temp 98.5 F 03/11/23 08:00 Pulse 71 03/11/23 09:00 Resp 22 03/11/23 09:00 BP 118/52 03/11/23 09:00 Pulse Ox 97 03/11/23 09:00 FiO2 50 03/11/23 08:36 Intake & Output 03/10/23 03/11/23 03/11/23 18:59 06:59 18:59 Intake Total 0294.223 7919.467 86 Output Total 545 635 200 Balance 673.286 469.467 -114 Weight 93.4 kg Intake: IV 552 376 86 .9NS KVO 280 240 80 0.9NS Pressure Bag 36 36 6 Phenytoin Sodium Inj 200 36 mg In Sodium Chloride 0.9 % 36 ml @ 80 mls/hr IVPB Q12HR [facility] Rx#:[id number] Piperacillin-Tazobactam 3 200 .375 gm In Sodium Chloride 0.9% 100 ml @ 25 mls/hr IVPB Q8H [facility] Rx#: [id number] levETIRAcetam IV 1,500 mg 100 In Saline 1 100ml.bag @ 400 mls/hr IVPB Q12HR [facility] Rx#:[id number] Intake, IV Titration 34.286 1.467 Amount Midazolam HCl 50 mg In 1.467 Sodium Chloride 0.9% 40 ml @ 1 MG/HR 1 mls/hr IV .Q24H [facility] Rx#:[id number] propofoL 1,000 mg In 34.286 Empty Bag 1 bag @ 15 MCG/ KG/MIN 7.348 mls/hr IV . [id number] [facility] Rx#:[id number] Tube Feeding 572 637 Other 60 90 Output: Urine 545 635 200 Other: Voiding Method Indwelling Catheter Indwelling Catheter Indwelling Catheter ABP, PAP, CO, CI - Last Documented Arterial Blood Pressure 149/64 - Exam No acute distress, sedated on propofol, with an orally placed endotracheal tube. The patient is currently on propofol. The patient is quite symptomatic since a mechanical ventilator. HEENT examination is grossly unremarkable. Neck supple. Full range of motion. No adenopathy thyromegaly or neck vein distention. Cardiovascular examination reveals regular rhythm rate. S1-S2 normal. No S3 or S4. No discernible murmur noted. Lungs reveal scattered rhonchi. No wheezes or crackles. Breath sounds equal. Abdomen obese, without bowel sounds. Extremities are intact. No cyanosis clubbing or edema. Skin is without rash or lesion. Neurologic examination the patient is currently on propofol. The patient senses the pain probably more so a reflex. No facial asymmetry. Her gaze is up 4 and more so to the left. No nystagmus. The patient is breathing above the mechanical ventilator. The patient has a positive cough and a gag reflex. The patient has a slow pupillary response. The reflexes are equal and symmetrical and diminished bilaterally. Negative clonus, negative Babinski's. Neurologic exam is unchanged.. The patient continues to have respiratory drive. She has a very weak corneal reflex. The patient is having episodic twitching of the eyes. She is currently on a combination of Dilantin. - Labs CBC & Chem 7: 03/11/23 06:15 03/11/23 06:15 Labs: Abnormal Lab Results - Last 24 Hours (Table) 03/10/23 03/10/23 03/10/23 Range/Units 11:31 11:38 17:48 RBC (3.80-5.40) m/uL Hgb (11.4-16.0) gm/dL Hct (34.0-46.0) % MCV (80.0-100.0) fL Lymphocytes # (1.0-4.8) k/uL ABG HCO3 (21-25) mmol/L ABG Total CO2 (19-24) mmol/L Chloride (98-107) mmol/L BUN (7-17) mg/dL Creatinine (0.52-1.04) mg/dL Glucose (74-99) mg/dL POC Glucose (mg/dL) 152 H 158 H 182 H (70-110) mg/dL Calcium (8.4-10.2) mg/dL 03/10/23 03/11/23 03/11/23 Range/Units 17:50 00:56 04:40 RBC (3.80-5.40) m/uL Hgb (11.4-16.0) gm/dL Hct (34.0-46.0) % MCV (80.0-100.0) fL Lymphocytes # (1.0-4.8) k/uL ABG HCO3 26 H (21-25) mmol/L ABG Total CO2 27 H (19-24) mmol/L Chloride 116 H (98-107) mmol/L BUN 21 H (7-17) mg/dL Creatinine (0.52-1.04) mg/dL Glucose 180 H (74-99) mg/dL POC Glucose (mg/dL) 186 H (70-110) mg/dL Calcium 8.0 L (8.4-10.2) mg/dL 03/11/23 03/11/23 03/11/23 Range/Units 06:15 06:15 06:19 RBC 2.89 L (3.80-5.40) m/uL Hgb 9.2 L (11.4-16.0) gm/dL Hct 29.7 L (34.0-46.0) % MCV 102.7 H (80.0-100.0) fL Lymphocytes # 0.7 L (1.0-4.8) k/uL ABG HCO3 (21-25) mmol/L ABG Total CO2 (19-24) mmol/L Chloride 115 H (98-107) mmol/L BUN 18 H (7-17) mg/dL Creatinine 0.48 L (0.52-1.04) mg/dL Glucose 192 H (74-99) mg/dL POC Glucose (mg/dL) 172 H (70-110) mg/dL Calcium 7.9 L (8.4-10.2) mg/dL Microbiology - Last 24 Hours (Table) 03/04/23 13:34 Blood Culture - Final Blood No Growth after 144 hours 03/04/23 13:34 Blood Culture - Final Blood No Growth after 144 hours Assessment and Plan Plan: Status post [id number] cardiopulmonary arrest, with at least 15 minutes of downtime, before cardiopulmonary resuscitation and return of spontaneous circulation, were accomplished. Status post intubation and mechanical ventilation for cardiopulmonary arrest, 03/04/2023. anoxic brain injury, post cardiac arrest, currently unresponsive. The patient does have brainstem reflexes. Nevertheless, unresponsive once off sedation. Neurologically, the patient shows signs of severe neurologic impairment. She continues to have brainstem reflexes. Repeat EEG to be done today. Neurology is on the case. She continues to show signs of severe anoxic encephalopathy. EEG from 03/09/2023 was noted. There is severe encephalopathy. No seizure activity has been noted. Neurologically unchanged and the patient is currently off propofol. She remains on a combination of Dilantin and Keppra. Neurologically unchanged Acute fever post cardiac arrest, the patient is normothermic for now. The patient responded to our hypothermia measures and she is currently afebrile. Multifocal bilateral pulmonary infiltrates, consider aspiration and the patient is currently on IV Zosyn, chest x-ray showed no acute abnormalities on today's evaluation. Systolic heart failure with an ejection fraction of 30-35% and impaired LV. Noted the troponins were not elevated Nondisplaced rib fractures related to CPR, as evidenced on the chest x-ray and the CAT scan of the chest Pacemaker insertion with a paced cardiac rhythm for now History of atrial fibrillation. The current cardiac rhythm and the patient is on anticoagulation with Eliquis Status post AICD placement. History of COPD. History of hypertension. History of CVA. Prior history of [place] filter placement. History of anxiety/depression. Enteral feeding for nutritional support with vital high-protein at the rate of 35 mL an hour Plan Neurologically unchanged No sedation Completely unresponsive Treatment essentially supportive pending possibility of gift of life Monday This is a case of anoxic encephalopathy, severe post cardiac arrest. Family is insistent gift of life. Based on that, we are supporting this patient to the family and gift of life is ready for potential organ donation. Continue vent support, no ventilator changes for today She is afebrile this morning Continue ventilator support, no changes for today Continue IV Zosyn Temperature normalized Neurology follow-up regarding her anoxic encephalopathy EEG and CAT scan of the brain were noted Continue anticoagulation with Eliquis Continue metoprolol 25 mg by mouth twice a day The pacemaker needs to be evaluated and this will be coordinated with cardiology Poor prognosis based on the above-mentioned comorbidities We'll continue to follow. Physical. Evaluation was done in more than 30 minutes. Possible withdrawal of care and the family is considering that. Gift of life is on the case. Time with Patient: Greater than 30
[2023-03-11 11:52] LABS: Glucose,Whole Blood 177 mg/dL (70-110)
[2023-03-11] MEDS: PHENYTOIN SODIUM INJ 200 MG in SODIUM CHLORIDE 0.9% 36 ML IVPB SCH (11:59)
[2023-03-11] MEDS: lisinopriL 5 MG TAB PO SCH ×2 (12:04→21:16)
[2023-03-11] MEDS: NOREPINEPHRINE 32 MG in SODIUM CHLORIDE 0.9% 218 ML IV SCH (12:04)
--- NOTE | 2023-03-11 14:52 | P.PN ---
Subjective Progress Note Date: 03/10/23 03/10/2023: Patient was seen for a follow-up. Patient essentially unchanged. Continues to have blinking of the eyelids. No other seizure-like activity noted. This blinking of the eyelids was not associated with any epileptiform activity on the last EEG. Patient is off sedation since morning. Patient continues to be comatose. 03/09/2023: Patient was seen for a follow-up patient currently on propofol 5 mcg/kg gram per minute. Patient had an EEG performed early this morning. Sedation was discontinued during EEG. Patient started blinking, and coughing, therefore she was put back on propofol. 03/08/2023: Patient was seen for a follow-up. Patient's niece was present at this time. Patient essentially unchanged. No clinical improvement. Patient is having some rhythmic eye twitching when the eyes are open, all with painful stimuli. At present patient is on propofol 20 mcg/kg/m. With sedation holiday, she was twitching, almost like seizures, therefore she received Ativan earlier. 03/07/2023: Patient currently on propofol 30 mcg/kg/m. Per nursing note, with sedation holiday for about 20 minutes, patient was not following any commands. She became tachypneic therefore was given 1 mg of Ativan, and propofol restarted. Her examination continues to be very abnormal as below. Per nurse report, patient's eyes opens and close, but is not awake. Only sclerae is visible. 03/06/2023: Patient initially seen by Dr. Vincent Estrada. Please refer to his note for details. Patient is a 67-year-old female, who came to the hospital with cardiopulmonary arrest on 03/04/2023 at 9:37 AM. The downtime was about 15 minutes. Patient's sister and another relative was present. Patient's nurse was also present. Patient continues to be comatose. She had sedation holiday performed for about half an hour at 9:50 AM in which she was not showing any meaningful response. At present patient on propofol 15 mcg/kg/m. patient's nurse mentioned that patient became tachycardic and blood pressure went up to 180 systolic, therefore she was placed back on propofol. No seizure-like activity noted. Patient received Ativan 2 mg last night. Objective - Vital Signs Vital signs: Vital Signs Temp 99.2 F 03/11/23 12:00 Pulse 70 03/11/23 12:22 Resp 20 03/11/23 12:00 BP 113/59 03/11/23 12:00 Pulse Ox 96 03/11/23 12:00 FiO2 50 03/11/23 12:19 Intake & Output 03/10/23 03/11/23 03/11/23 18:59 06:59 18:59 Intake Total 7906.592 1914.467 354 Output Total 545 635 370 Balance 673.286 469.467 -16 Weight 93.4 kg Intake: IV 552 376 354 .9NS KVO 280 240 200 0.9NS Pressure Bag 36 36 18 Phenytoin Sodium Inj 200 36 36 mg In Sodium Chloride 0.9 % 36 ml @ 80 mls/hr IVPB Q12HR [facility] Rx#:[id number] Piperacillin-Tazobactam 3 200 .375 gm In Sodium Chloride 0.9% 100 ml @ 25 mls/hr IVPB Q8H [facility] Rx#: [id number] levETIRAcetam IV 1,500 mg 100 100 In Saline 1 100ml.bag @ 400 mls/hr IVPB Q12HR [facility] Rx#:[id number] Intake, IV Titration 34.286 1.467 Amount Midazolam HCl 50 mg In 1.467 Sodium Chloride 0.9% 40 ml @ 1 MG/HR 1 mls/hr IV .Q24H [facility] Rx#:[id number] propofoL 1,000 mg In 34.286 Empty Bag 1 bag @ 15 MCG/ KG/MIN 7.348 mls/hr IV . [id number] [facility] Rx#:[id number] Tube Feeding 572 637 Other 60 90 Output: Urine 545 635 370 Other: Voiding Method Indwelling Catheter Indwelling Catheter Indwelling Catheter ABP, PAP, CO, CI - Last Documented Arterial Blood Pressure 121/49 - Exam Patient continues to be comatose, with GCS of 3. Patient not responding to calling her name or painful stimuli. Patient's eyes are closed, but frequently blinking eyes noted. On manually opening the eyelids, patient's gaze was deviated upwards and to the right. Then shortly it rolled upwards and to the left. Then skew deviation of the eyes were noted, with left eye elevation and right eye depression. Very abnormal extraocular muscles. Oculocephalics present, corneals absent. Patient is slightly breathing over the ventilator, as she is set at rate of 20/m, and sometimes it goes up to 22/m.. She has a weak gag. Her pupils are equal, round and reacting. However no twitching noted at rest of the body otherwise. - Labs CBC & Chem 7: 03/11/23 06:15 03/11/23 06:15 Labs: Abnormal Lab Results - Last 24 Hours (Table) 03/10/23 03/10/23 03/11/23 Range/Units 17:48 17:50 00:56 RBC (3.80-5.40) m/uL Hgb (11.4-16.0) gm/dL Hct (34.0-46.0) % MCV (80.0-100.0) fL Lymphocytes # (1.0-4.8) k/uL ABG HCO3 (21-25) mmol/L ABG Total CO2 (19-24) mmol/L Chloride 116 H (98-107) mmol/L BUN 21 H (7-17) mg/dL Creatinine (0.52-1.04) mg/dL Glucose 180 H (74-99) mg/dL POC Glucose (mg/dL) 182 H 186 H (70-110) mg/dL Calcium 8.0 L (8.4-10.2) mg/dL 03/11/23 03/11/23 03/11/23 Range/Units 04:40 06:15 06:15 RBC 2.89 L (3.80-5.40) m/uL Hgb 9.2 L (11.4-16.0) gm/dL Hct 29.7 L (34.0-46.0) % MCV 102.7 H (80.0-100.0) fL Lymphocytes # 0.7 L (1.0-4.8) k/uL ABG HCO3 26 H (21-25) mmol/L ABG Total CO2 27 H (19-24) mmol/L Chloride 115 H (98-107) mmol/L BUN 18 H (7-17) mg/dL Creatinine 0.48 L (0.52-1.04) mg/dL Glucose 192 H (74-99) mg/dL POC Glucose (mg/dL) (70-110) mg/dL Calcium 7.9 L (8.4-10.2) mg/dL 03/11/23 03/11/23 Range/Units 06:19 11:50 RBC (3.80-5.40) m/uL Hgb (11.4-16.0) gm/dL Hct (34.0-46.0) % MCV (80.0-100.0) fL Lymphocytes # (1.0-4.8) k/uL ABG HCO3 (21-25) mmol/L ABG Total CO2 (19-24) mmol/L Chloride (98-107) mmol/L BUN (7-17) mg/dL Creatinine (0.52-1.04) mg/dL Glucose (74-99) mg/dL POC Glucose (mg/dL) 172 H 177 H (70-110) mg/dL Calcium (8.4-10.2) mg/dL Microbiology - Last 24 Hours (Table) 03/04/23 13:34 Blood Culture - Final Blood No Growth after 144 hours 03/04/23 13:34 Blood Culture - Final Blood No Growth after 144 hours Assessment and Plan Assessment: Cardiopulmonary arrest with downtime lasting for 15 minutes. It appears the patient had episode of nonsustained V. tach is seems to happen 1 hour prior to the cardiac arrest but per cardiology unsure if true VT or A.fib Anoxic encephalopathy, with persistent comatose state with GCS of 3. Patient's computed tomography scan showing mild diffuse cerebral edema. Some effacement of the lateral ventricles. Patient has slightly preserved brainstem reflexes at this time. Very abnormal extraocular muscles examination. Probable seizures due to cardiopulmonary arrest- now resolved. However patient has intermittent rhythmic twitching of the eyelids particularly with sedation holiday, suggestive of underlying partial status. However repeat EEG performed today was negative for epileptiform activity. Cardiomyopathy with ejection fraction of 30-35% Status post intubation and mechanical ventilation due to cardiopulmonary last Non-STEMI Paroxysmal atrial fibrillation History of stroke AICD Hypertension CAD with prior PCI History of green filter placement Plan: Patient is past 6 days post cardiac arrest. No clinical improvement. Her examination is severely abnormal. Prognosis for meaningful recovery is very poor at this time. Repeat EEG 03/09/2023 was very severely abnormal due to severely suppressed background in bihemispheric region, consistent with diffuse, global encepha lopathy as can be seen with anoxic encephalopathy. Some eye blink artifacts were seen but there was no associated epileptiform activity with it. No electrographic evidence of status epilepticus. We will discontinue Dilantin, continue Keppra. Based upon the clinical examination, and EEG findings, and her prior CT report, no need to repeat CT head. Family has decided pursuing with [facility]. EEG 03/05/2023 was abnormal routine EEG due to diffuse suppression, which can be due to either medication-induced or due to anoxia. The background slowing is suggestive of severe encephalopathy. Otherwise no focal slowing, or epileptiform discharges were seen. Continue Keppra 1500 mg IV every 12 hours (new during this admission). CT head performed at 5 AM on 03/06/2023 showed no acute intracranial hemorrhage or midline shift. There is mild diffuse cerebral atrophy redemonstrated. Resolved left maxillary acute sinusitis. Slightly worsening bilateral sphenoid acute sinusitis. On my review, there is definite evidence of at least mild generalized cerebral edema, with some effacement of the lateral ventricles. Will defer management to primary and ICU team. Discussed with patient's nurse. Family have decided patient to be a candidate for [facility], which reportedly will be pursued on 03/13/2023. Neurology will sign off.
[2023-03-11 17:59] LABS: Glucose,Whole Blood 152 mg/dL (70-110)
[2023-03-11 18:06] LABS: Glucose,Whole Blood 152 mg/dL (70-110)
[2023-03-11] MEDS: SODIUM CHLORIDE 0.9% 500 ML 500 ML IV SCH (21:15)
[2023-03-11 23:39] VITALS: BP 117/52
[2023-03-11 23:51] LABS: Glucose,Whole Blood 143 mg/dL (70-110)
[2023-03-12] MEDS: INSULIN ASPART (NovoLOG) 100 UNIT/ML VIAL SQ SCH ×4 (00:48→17:25)
[2023-03-12] MEDS: PIPERACILLIN-TAZOBACTAM 3.375 GM in SODIUM CHLORIDE 0.9% 100 ML IVPB SCH ×3 (02:30→18:03)
[2023-03-12] MEDS: IPRATROPIUM-ALBUTEROL 3 ML NEB INHALATION SCH ×5 (03:56→20:17)
--- NOTE | 2023-03-12 04:31 | P.PN ---
Subjective Progress Note Date: 03/11/23 Patient is a 67-year-old male with a known history of chronic atrial fibrillation on anticoagulation with Eliquis, cardiomyopathy status post ICD placement, COPD on home oxygen at 4 L via nasal cannula, hypertension, anxiety/depression and history of femoral neck fracture s/p repair in November 2022 was brought to the hospital by EMS status postcardiac arrest. Patient was at [facility] where she was found to have worsening shortness of breath and became unresponsive on a motorized scooter.. Patient underwent CPR for about 15 minutes by EMS and was given 3 doses of epinephrine with return of spontaneous circulation and was intubated. Patient was brought to ER for evaluation. Patient was unresponsive and was able to provide any history. On arrival chest x-ray showed cardiomegaly and mild pulmonary vascular congestion. Correlate with BNP for congestive heart failure. Right basilar patchy airspace opacities may represent pulmonary edema versus infiltrate. Endotracheal tube in appropriate position. Possible NG tube terminating in the mid esophagus. CT head showed no acute intracranial process. Paranasal sinus disease with air- fluid level within the left maxillary sinus. Correlate for acute sinusitis. Chest CTA showed no evidence of PE. Bilateral lower lobe and right upper lobe consolidation with a scattered multifocal groundglass opacities throughout the lungs. Findings are compatible with pneumonia possibly aspiration. Multiple acute minimally displaced rib fractures likely related to CPR in the setting of cardiac arrest. Remote to subacute bilateral rib fractures also demo nstrated. No pneumothorax. Cardiomegaly. Laboratory data showed WBC 9.7 hemoglobin 11.4 platelets 246 and D-dimer 3.1 Initial ABG showed pH of 7.17 PCO2 30 and PO2 75 Sodium 135, potassium 4.3, chloride 104, bicarb is 17 BUN 12 and creatinine 0.76 and blood sugar was 325 and lactic acid 2.9 AST 57 ALT 14 alk phos 73 and troponin x1 negative proBNP 2290 Influenza A B RSV and COVID-19 PCR not detected. 03/05/2023 Patient is in the MICU. Remains mechanical ventilator. Off pressor support. Otherwise patient remains unresponsive. EEG was ordered and neurology is on board. 2D echocardiogram showed ejection fraction 30 to 35% with anterior septal hypokinesis. AICD C interrogation was done. Cardiology neurology and pulmonary is on board. Chest x-ray showed persistent right midlung and bibasilar multifocal acute infiltrates without edema. No change from 1 day. Patient remains on antibiotics Zosyn. NG tube in place. 03/06/2023 Patient is seen and evaluated and follow-up in the ICU remains on mechanical ventilation, FiO2 is 60% with a peep of 5. Patient is off pressor support although continues on as needed Ativan along with IV Keppra and propofol. Patient also maintained on IV antibiotics in the form of Zosyn. Chest x-ray today shows stable bilateral interstitial and airspace opacification with bilateral small pleural effusions may relate to pulmonary edema or infectious etiology. Blood cultures thus far are negative and sputum culture currently pending. Patient does continue to have low-grade temps 101 early this morning. WBC remains within normal limits and pro-calcitonin is 0.49. Other kidney functions within normal limits and blood sugars being monitored. Per nursing staff attempts at weaning were performed although patient became extremely tachycardic and restless and not following commands and placed back on sedation. An EEG was done although pending at this time. Repeat CT of the brain early this morning shows no acute intracranial hemorrhage or midline shift with mild diffuse cerebral atrophy redemonstrated with slightly worsening bilateral spheno id acute sinusitis. Multiple medical consultations following an per nursing staff [facility] was notified although unsure of family is aware. Patient was on the registry. 03/07/2023 Patient is seen and evaluated in the ICU maintained on mechanical ventilation with an FiO2 of 55% and PEEP is 5. Patient is maintained on IV antibiotics and continues to have fevers and cultures thus far been negative. Patient is continued on sedation and off pressor support and remains on hypertonic solution . Neurology following as well as pulmonary rn medicare with overall poor prognosis. Per nursing staff, family has been discussing possible comfort care although not ready to wean at this time. [facility] also following as patient is on the registry evaluating the patient. 03/08/2023 Patient continues to be in the ICU on mechanical ventilation with an FiO2 of 50% and PEEP is 5. Multiple medical consultations including cardiology, pulmonary rn medicare, neurology following. Patient had a CT of the chest abdomen pelvis per [facility] services which confirmed bilateral rib fractures involving at least 2 ribs through 10 bilaterally with no evidence of acute abdominal process and consolidation changes in the lung bases likely secondary to atelectasis and hypoventilatory. Patient is maintained on hypertonic solution along with IV Keppra with neurology following and patient remains clinically the same. No further seizure-like activity noted although does continue with jerking and twitching type movements once removed from sedation. Patient is undergoing occasional sedation holidays. Gift of life is following as patient is on the registry although has not approached family as of yet and family is considering terminale weaning and comfort measures. Cardiology signed off and will follow as needed. Overall prognosis is poor as neurological status continues to be unchanged. 03/09/2023 Patient is seen in follow-up today continues to be on mechanical ventilation with an FiO2 of 50% and PEEP is 5. Patient does continue on sedation along with IV Keppra and empiric Zosyn and not requiring pressors. Patient's sodium is elevated today at 150 and has been on hypertonic solution that was just discontinued and will follow-up with repeat sodium level. Possible D5 in water. Gift of life is following as patient is on the registry and family is agreeable discussing possible gift of life this Monday as they are currently awaiting more family members. Repeat EEG was done today and continues to show severely abnormal EEG due to severely suppressed background and consistent with diffuse global encephalopathy. Not following any commands with sedation holidays. Chest x-ray today shows bilateral pleural effusions although stable. Patient is continuing to have fevers today. 03/10/2023 Patient is seen in follow-up today continues in the ICU for mechanical ventilation with no changes to prevent settings. Patient is a gift of life donor and they are following possibly working on pronation this Monday while awaiting additional family members and or time. Patient is currently maintained on IV antibiotics and per nursing staff did require a small dose of Levophed for approximately a half hour this morning although blood pressure is maintained at this time. Patient is afebrile and maintained on IV antibiotics in the form of Zosyn. 03/11/2023 Patient is seen and evaluated this morning in the ICU with no changes from previous day. Patient remains off sedation and completely comatose unresponsive being followed by multiple medical consultations. Patient family awaiting gift of life for possible organ donation and more family to arrive. Awaiting for Monday as well for OR availability in the organ donation takes place. Patient is currently afebrile although was having continued low-grade intermittent times. Continuing with supportive care. Patient remains on mechanical ventilation with an FiO2 of 50% and PEEP is 5. Review of systems: Unable to obtain as patient is intubated and on sedation PHYSICAL EXAMINATION: Patient is on mechanical ventilator. FiO2 is currently 50% with a PEEP of 5 HEENT: Normocephalic. Neck is supple. Pupils reactive. Nostrils clear. Oral cavity is moist. Neck reveals no JVD, carotid bruits, or thyromegaly. CHEST EXAMINATION: Trachea is central. Symmetrical expansion. Bibasilar diminished sounds and coarse breath sounds. No wheezing. CARDIAC: Normal S1, S2 with no gallops. No murmurs ABDOMEN: Soft. Bowel sounds present. Nontender. No organomegaly. No abdominal bruits. Extremities: Trace lower extremity edema. No clubbing or cyanosis Neurologically patient is on mechanical ventilator. Currently on sedation Skin: No rash or skin lesions. Psychiatric: Could not be assessed at this time Musculoskeletal: No joint swelling or deformity. Assessment: Acute cardiac arrest s/p CPR for about 15 minutes with return of spontaneous circulation. Status post intubation by EMS. Episodes of nonsustained V. tach prior to cardiac arrest which is most likely the cause although awaiting full AICD interrogation report Possible anoxic brain injury with severe encephalopathy noted an EEG Chronic atrial fibrillation on anticoagulant Eliquis History of ICD placement Hyperglycemia COPD history Chronic hypoxic respiratory failure secondary to COPD on 4 L oxygen via nasal cannula Recent history of femoral neck fracture repair in November 2022 History of IVC filter placement Anxiety/depression history Full code while awaiting gift of life Plan: Patient is currently in the MICU and remains on mechanical ventilation with an FiO2 of 50% and PEEP is 5. Status post CPR and currently on mechanical ventilat or. Downtime was was about 15 minutes. Possible anoxic brain injury. EEG repeated remains with severe encephalopathy maintained on IV Keppra with neurology following. Continuing with supportive care while awaiting gift of life and possible organ donation on Monday Multiple medical consultations following Given the downtime and severity of neurological assessment and cardiac arrest, overall prognosis remains poor. Gift of life also following and evaluating this patient is on registry Family is agreeable with gift of life and donation may possibly take place on Monday when there is OR time available and when more family members are present The impression and plan of care has been dictated by Malgorzata Knapp, Nurse Practitioner as directed. Dr. Khloe MD I have performed a history and examination and MDM of this patient, discussed the same with the dictator, and agree with the dictator's assessment and plan as written ,documented as a scribe. Based on total visit time, I have performed more than 50% of the visit. Objective - Vital Signs Vital signs: Vital Signs Temp 98.5 F 03/11/23 08:00 Pulse 71 03/11/23 09:00 Resp 22 03/11/23 09:00 BP 118/52 03/11/23 09:00 Pulse Ox 97 03/11/23 09:00 FiO2 50 03/11/23 08:36 Intake & Output 03/10/23 03/11/23 03/11/23 18:59 06:59 18:59 Intake Total 5239.234 4151.467 86 Output Total 545 635 200 Balance 673.286 469.467 -114 Weight 93.4 kg Intake: IV 552 376 86 .9NS KVO 280 240 80 0.9NS Pressure Bag 36 36 6 Phenytoin Sodium Inj 200 36 mg In Sodium Chloride 0.9 % 36 ml @ 80 mls/hr IVPB Q12HR [facility] Rx#:[id number] Piperacillin-Tazobactam 3 200 .375 gm In Sodium Chloride 0.9% 100 ml @ 25 mls/hr IVPB Q8H [facility] Rx#: [id number] levETIRAcetam IV 1,500 mg 100 In Saline 1 100ml.bag @ 400 mls/hr IVPB Q12HR [facility] Rx#:[id number] Intake, IV Titration 34.286 1.467 Amount Midazolam HCl 50 mg In 1.467 Sodium Chloride 0.9% 40 ml @ 1 MG/HR 1 mls/hr IV .Q24H [facility] Rx#:[id number] propofoL 1,000 mg In 34.286 Empty Bag 1 bag @ 15 MCG/ KG/MIN 7.348 mls/hr IV . [id number] [facility] Rx#:[id number] Tube Feeding 572 637 Other 60 90 Output: Urine 545 635 200 Other: Voiding Method Indwelling Catheter Indwelling Catheter Indwelling Catheter ABP, PAP, CO, CI - Last Documented Arterial Blood Pressure 149/64 - Labs CBC & Chem 7: 03/11/23 06:15 03/11/23 06:15 Labs: Abnormal Lab Results - Last 24 Hours (Table) 03/10/23 03/10/23 03/10/23 Range/Units 11:31 11:38 17:48 RBC (3.80-5.40) m/uL Hgb (11.4-16.0) gm/dL Hct (34.0-46.0) % MCV (80.0-100.0) fL Lymphocytes # (1.0-4.8) k/uL ABG HCO3 (21-25) mmol/L ABG Total CO2 (19-24) mmol/L Chloride (98-107) mmol/L BUN (7-17) mg/dL Creatinine (0.52-1.04) mg/dL Glucose (74-99) mg/dL POC Glucose (mg/dL) 152 H 158 H 182 H (70-110) mg/dL Calcium (8.4-10.2) mg/dL 03/10/23 03/11/23 03/11/23 Range/Units 17:50 00:56 04:40 RBC (3.80-5.40) m/uL Hgb (11.4-16.0) gm/dL Hct (34.0-46.0) % MCV (80.0-100.0) fL Lymphocytes # (1.0-4.8) k/uL ABG HCO3 26 H (21-25) mmol/L ABG Total CO2 27 H (19-24) mmol/L Chloride 116 H (98-107) mmol/L BUN 21 H (7-17) mg/dL Creatinine (0.52-1.04) mg/dL Glucose 180 H (74-99) mg/dL POC Glucose (mg/dL) 186 H (70-110) mg/dL Calcium 8.0 L (8.4-10.2) mg/dL 03/11/23 03/11/23 03/11/23 Range/Units 06:15 06:15 06:19 RBC 2.89 L (3.80-5.40) m/uL Hgb 9.2 L (11.4-16.0) gm/dL Hct 29.7 L (34.0-46.0) % MCV 102.7 H (80.0-100.0) fL Lymphocytes # 0.7 L (1.0-4.8) k/uL ABG HCO3 (21-25) mmol/L ABG Total CO2 (19-24) mmol/L Chloride 115 H (98-107) mmol/L BUN 18 H (7-17) mg/dL Creatinine 0.48 L (0.52-1.04) mg/dL Glucose 192 H (74-99) mg/dL POC Glucose (mg/dL) 172 H (70-110) mg/dL Calcium 7.9 L (8.4-10.2) mg/dL Microbiology - Last 24 Hours (Table) 03/04/23 13:34 Blood Culture - Final Blood No Growth after 144 hours 03/04/23 13:34 Blood Culture - Final Blood No Growth after 144 hours
[2023-03-12 05:44] LABS: ABG Base Excess 2.8 mmol/L; ABG HCO3 27 mmol/L (21-25); ABG Oxygen Saturation 96.8 % (94-97); ABG PCO2 40 mmHg (35-45); ABG PH 7.44 (7.35-7.45); ABG PO2 93 mmHg (83-108); ABG TCO2 28 mmol/L (19-24); Allen Test Performed? Yes
[2023-03-12 05:47] LABS: Glucose,Whole Blood 161 mg/dL (70-110)
[2023-03-12 08:06] LABS: Basophils % (A) 0 %; Eosinophils # (A) 0.1 k/uL (0-0.7); Eosinophils % (A) 2 %; HCT 28.9 % (34.0-46.0); Hypochromasia Slight; Lymphocytes # (A) 0.8 k/uL (1.0-4.8); Lymphocytes % (A) 12 %; MCH 31.9 pg (25.0-35.0); MCHC 31.1 g/dL (31.0-37.0); MCV 102.5 fL (80.0-100.0); Macrocytosis Slight; Mean Platelet Volume 10.1; Monocytes # (A) 0.4 k/uL (0-1.0); Monocytes % (A) 6 %; Neutrophils # (A) 5.2 k/uL (1.3-7.7); Neutrophils % (A) 79 %; Platelet Count 190 k/uL (150-450); RBC 2.82 m/uL (3.80-5.40); RDW 14.5 % (11.5-15.5); WBC 6.5 k/uL (3.8-10.6)
[2023-03-12 08:10] LABS: African American GFR (CKD) >90 (>60 ml/min/1.73 sqM); Anion Gap 4 mmol/L; Blood Urea Nitrogen 20 mg/dL (7-17); Calcium 8.1 mg/dL (8.4-10.2); Carbon Dioxide 26 mmol/L (22-30); Chloride 113 mmol/L (98-107); Glucose 155 mg/dL (74-99); Non-African American GFR(CKD) >90 (>60 ml/min/1.73 sqM); Sodium 143 mmol/L (137-145)
[2023-03-12] MEDS: lisinopriL 5 MG TAB PO SCH ×2 (09:04→21:00)
[2023-03-12] MEDS: METOPROLOL TARTRATE 25 MG TAB PO SCH ×2 (09:04→21:00)
[2023-03-12] MEDS: CHLORHEXIDINE GLUCONATE 15 ML CUP MUCOUS MEM SCH ×2 (09:04→21:00)
[2023-03-12] MEDS: levETIRAcetam IV 1,500 MG in SALINE 1 100ML.BAG IVPB SCH ×2 (09:04→21:00)
[2023-03-12] MEDS: PANTOPRAZOLE 40 MG/10 ML VIAL IV SCH (09:04)
[2023-03-12] MEDS: APIXABAN 5 MG TAB PO SCH ×2 (09:04→21:00)
[2023-03-12] MEDS: ATORVASTATIN 80 MG TAB PO SCH (09:04)
--- NOTE | 2023-03-12 09:45 | P.PN ---
Subjective Progress Note Date: 03/12/23 67-year-old female who apparently had a cardiopulmonary arrest, at a local [employer]. The patient apparently had a downtime of about 15 minutes, for there was cardiopulmonary resuscitation and return of spontaneous circulation. The patient was seen in the ER, by the ER physician, Dr. Dejesus. The patient was vented, and a right femoral vein triple lumen catheter was placed. Family members are in the room, we selected see the patient. The patient herself is unresponsive. She has a orally placed endotracheal tube. She's currently on the ventilator, with vent settings of volume assist control, rate 20, tidal volume 375, FiO2 100%, 5. Blood gases show pO2 75, pCO2 of 53, and a pH is 7.17. The patient is on norepinephrine at 0.15 mcg/kg/m, and propofol at 15 mcg/kg/m. The patient has a history of COPD from secondhand tobacco exposure, a previous history of the fibrillator placement for cardiomyopathy, and history of stroke, and [place] filter placement. In addition, the patient is on home O2, that she is supposed to use all the time, but she only uses as needed. She was a smoker in the distant past. White count 9.7, hemoglobin 11.4, hematocrit 37.9, and platelet count was normal. D-dimer was 3.10. Sodium 137, potassium 4.3, chlorides 104, CO2 17, anion gap 16, BUN and creatinine 12 and 0.76. Troponin was 0.022 and N-terminal proBNP was 2290. Lactate was not measured but is probably elevated. Testing for influenza A, and B, RSV, and coronavirus are all negative. Chest x-ray shows evidence of cardiomegaly, fluid overload, and an appropriately placed endotracheal tube. Computed tomography scan of the brain showed nothing acute. CT angiogram was negative for PE. There also may be some right lower lobe consolidation consistent with prior aspiration. Progress note dated 03/05/2023. 67-year-old female who had an [id number] cardiopulmonary arrest. The patient had about 15 minutes of resuscitation before there was return of spontaneous circulation. Unfortunately, the patient may have sustained anoxic brain injury. Today, we place an art line. She remains on the ventilator. I did have neurology see her. She is on volume assist control, rate 20, tidal volume 375, FiO2 60%, PEEP of 5. Arterial blood gases show pO2 of 90, pCO2 34, and pH is 7.35. The patient is on norepinephrine at 0.05 mcg/kg/m, propofol at 40 mcg/kg/m, and saline at 75 mL an hour. We will discontinue the Levaquin and Flagyl and start Zosyn. In addition we'll start some tube feeds, at 10 mL an hour. A right radial art line will be placed today. White count 8.9, hemoglobin 10.8, hematocrit 34.1, and platelet count is normal. Sodium 139, potassium 3.9, chlorides 112, CO2 18, BUN 19, creatinine 0.71. Troponins were 0.086 and 0.091. Chest x-ray shows persistent bilateral infiltrates, more so in the right lung than on the left. This may relate to aspiration. On today's evaluation of 03/07/2023, seeing the patient for a follow-up. This is a case of a cardiac arrest with at least 15 minutes downtime. The patient has an AICD in place. Initial cardiac rhythm is not clear. The did not have any pacemaker discharges and the pacemaker has not been interrogated yet. Noted the patient has a pacer AICD in place. Her current cardiac rhythm is paced and her rate is currently at 76. Hemodynamically, the patient is stable on no pressors. The patient is maintaining her own blood pressure. Meanwhile, the patient's troponins did not rise and the troponin peaked at 0.09. The patient currently has signs of anoxic encephalopathy. Attempts to wean her off the sedation yesterday feel that the patient became quite hypertensive and tachypneic and she did not show any reasonable neurological recovery. Neurology is on the case for the potential anoxic encephalopathy. CAT scan of the brain was done on 03/04/2023 and 03/06/2023 and there is mild diffuse cerebral atrophy without any acute brain changes. There is bilateral sphenoid sinus disease. EEG was also done on 03/05/2023 indicating diffuse suppression due to anoxia. The patient is currently on propofol which is running at the rate of 15 mcg/kg/m. The patient is also on IV Keppra 1.5 g every 12 hours. This morning, the patient remains on a mechanical ventilator patient is on assist control mode at the rate of 20, tidal volume of 375, FiO2 of 50% with a PEEP of 5. The blood gas shows a pH of 7.42 with a pCO2 of 34 and pO2 112. Sodium is at 141 with a potassium level of 4.4, BUN is at 17 with a creatinine of 0.59. WBC count at 7.2 with a hemoglobin 9.3 and a platelet count of 163. The chest x-ray from this morning is showing cardiomegaly along with bilateral pleural effusion. ET tube is in a good location. The patient also has a orogastric tube in place. A CT angiogram of the chest that was done on 03/04/2023 showed bilateral lower lobe and upper lobe consolidation and scattered areas of multifocal groundglass opacities throughout the lung. Possibility of aspiration was considered in addition to underlying cardiomegaly and multiple acute minimally displaced anterior rib fractures in the setting of CPR. IV fluids are currently at the rate of 25 mL an hour of 3% hypertonic saline. This was initiated by neurology regarding the potential of [employer] swelling. As mentioned, the sodium level is at 141 from this morning. No seizure activity has been noted.Patient is currently on antibiotic without liquids 5 mg by mouth twice a day. The patient is on met oprolol 25 mg by mouth twice a day. The patient is on Zestril 5 mg by mouth twice a day. The patient is also on empiric antibiotic coverage with IV Zosyn. The echocardiogram showed an ejection fraction of 30-35% with global LV dysfunction. There was mild aortic stenosis. On today's evaluation of 03/08/2023, the patient remains neurologically impaired and and anoxic encephalopathy. The patient is post cardiac arrest. The patient is currently intubated on a mechanical ventilator. Propofol is running at 20 mcg/kg/m. This is to maintain synchrony with a mechanical ventilator. The patient is receiving daily sedation holidays. She remains on a mechanical ventilator. This morning, she is on assist-control mode at the rate of 20, tidal volume of 375, FiO2 of 50% with a PEEP of 5. The blood gas from today shows a pH of 7.39 with a pCO2 of 36 and the pO2 is currently at 87. The chest x-ray from today shows elevation of the right hemidiaphragm, a pacemaker is still present in the left anterior chest. No significant airspace disease or pulmonary infiltrates. Orogastric tube is in a good location. Meanwhile, the patient carries a WBC count of 5.8 with a hemoglobin of 8.6 and a platelet count of 151. BUN is 18 with a creatinine of 0.5 and a sodium level is at 146. UA is negative. [facility] [employer] has been contacted. As part of their workup, a CAT scan of the chest abdomen and pelvis was done. There is left-sided rib fractures probably related to CPR. No acute intra-abdominal abnormalities. Some consolidation changes in the lung bases are seen probably related to atel ectasis. Unfortunately, neurologically, the patient continues to be significantly impaired. No reasonable neurological recovery while off propofol. No seizure activity and the patient remains on Keppra. The patient is also receiving enteral feeding for nutritional support and she is currently on vital AF. The patient remains on the hypertonic saline per neurology's recommendation. The patient remains on Keppra. The patient is on IV Zosyn. Her anticoagulation has been resumed she remains on Eliquis 5 mg by mouth twice a day. On today's evaluation of 03/09/2023, the patient is intubated on a mechanical ventilator, she remains on propofol running at 10 mcg/kg/m. Deeply comatose and unresponsive. Earlier this morning, twitching of the eyes was also noted and she is a possible undergoing an EEG today. As mentioned, she is a case of severe anoxic encephalopathy post cardiac arrest. The patient is being considered for gift of life. Family has consented. She remains on IV Keppra and Dilantin. Dilantin was started yesterday by neurology.. She was on hypertonic saline and this was discontinued by neurology. Meanwhile, the patient remains on a mechanical ventilator, assist control mode with a rate of 20, tidal volume of 375, FiO2 of 50% with a PEEP of 5. Chest x-ray from today shows left basilar atelectasis. Orotracheal tube is in a good location. The patient has a pacer/AICD over the left anterior chest area. No significant abnormalities noted on today's chest x-ray. The blood gas from today shows a pH of 7.4 with a pCO2 of 39 and pO2 of 91. She is afebrile. She was having back and forth fever and this morning she is afebrile. The electrolytes are all norm al. Sodium is at 144 with a BUN of 22 and a creatinine of 0.4. Blood sugars at 182. LFTs are normal. UA is negative. Hemodynamically stable. No pressors for now. Cardiac rhythm is sinus. She is receiving enteral feeding for nutritional support and she is currently on vital high-protein at the rate of 35 mL an hour. The patient remains on IV Zosyn as an empiric antibiotic coverage. The patient remains on Eliquis 5 mg by mouth twice a day. On 03/10/2023, the patient remains unresponsive. She is currently off propofol and she doesn't show any signs of neurologic recovery. She is deeply comatose at this point in time. Her EEG of the brain was repeated yesterday and it showed severe abnormal EEG due to severely suppressed background in the bilateral hemispheres consistent with diffuse and global encephalopathy. This is consistent with anoxic encephalopathy. Meanwhile, no seizure activity was noted. The patient remains on a combination of Keppra and Dilantin and neurology is on the case. Hypertonic saline has been discontinued. Sodium remains slightly elevated and based on the electrolytes today, the sodium level is at 147, with a chloride of 118. BUN is at 20 with a creatinine of 0.4. She remains on a mechanical ventilator. Assist-control mode at the rate of 20, tidal volume of 375, FiO2 of 50% with a PEEP of 5. Chest x-ray shows atelectatic change in lung bases more so on the right. Adequate oxygenation on the blood gas with a pO2 of 105. PH is at 7.4 with a pCO2 of 40. Rest of the electrodes are normal with a BUN of 20 and a creatinine of 0.49. The white cell cause of 5.6 with a hemoglobin of 8.5. She is afebrile. She is on empiric antibiotic coverage with IV Zosyn. Her cardiac rhythm remains sinus with occasional pacing. She remains on the coagulation with Eliquis. She is receiving enteral feeding for nutritional support. She is currently on 0.9 saline at [facility]. Family has opted to proceed with gift of life. 03/11/2023, patient remains neurologically impaired and unchanged compared to yesterday, comatose and unresponsive. She remains off sedation. EEG showed diffuse suppression consistent with anoxic encephalopathy. Awaiting gift of life and potential organ donation. Awaiting also more family members to arrive prior to proceeding with potential organ donation. She remains on assist- control mode and the patient is on assist-control mode rate of 20, tidal volume of 375, FiO2 50% with a PEEP of 5. PH is at 7.42 with a pCO2 of 41 and pO2 of 86. Electrolytes are all stable. Creatinine is stable. CBC is unremarkable with a stable hemoglobin of 9.2 and a white cell count of 8.5. Hemodynamically stable and the patient remains in a normal sinus rhythm. No pressors for now. She is receiving enteral feeding for nutritional support and she remains on vital high-protein. This is running at the rate of 49 mL an hour. She remains on Keppra and Dilantin. She remains on NovoLog sinus care coverage. She remains on anticoagulation with Eliquis. 03/12/2023, the patient is still awaiting gift of life. No issues for today. No sedation for at least 2-3 days. Nevertheless, overnight, the patient was started on a low-dose propofol at 5 mcg/kg/m as the patient was having coughing fits and this essentially help to suppress her cough and episodes.. Remains comatose unresponsive. No seizure activity. Hemodynamically stable on no pressors. Remains on mechanical ventilator on assist control mode at the rate of 20, tidal volume of 375, FiO2 of 50% with a PEEP of 5. The blood gas shows a pH of 7.44 with a pCO2 of 40 and pO2 of 93. The white cell count at 6.5 with a hemoglobin of 9 and a platelet count of 190. The rest of the electrolytes show a sodium of 143 with a potassium level of 4, BUN is at 20 with a creatinine of 0.4. Receiving enteral feeding for nutritional support and the patient remains on vital high-protein at the rate of 49 mL an hour. No other significant issues for now. No significant orotracheal secretions. Her chest x-ray was done on 03/10/2023 and showed stable findings with small bilateral pleural effusions. Her cardiac rhythm is occasionally. And the patient remains on anticoagulants. She remains on IV Zosyn. She is afebrile. Zosyn could be potentially discontinued for now. Objective - Vital Signs Vital signs: Vital Signs Temp 99.3 F 03/12/23 08:00 Pulse 73 03/12/23 09:00 Resp 25 H 03/12/23 09:00 BP 117/52 03/11/23 23:00 Pulse Ox 96 03/12/23 09:00 FiO2 50 03/12/23 08:14 Intake & Output 03/11/23 03/12/23 03/12/23 18:59 06:59 18:59 Intake Total 1255 1192 478 Output Total 750 510 300 Balance 505 682 178 Weight 92.7 kg Intake: IV 577 563 252 .9NS KVO 380 330 90 0.9NS Pressure Bag 36 33 12 Phenytoin Sodium Inj 200 36 mg In Sodium Chloride 0.9 % 36 ml @ 80 mls/hr IVPB Q12HR [facility] Rx#:[id number] Piperacillin-Tazobactam 3 25 100 50 .375 gm In Sodium Chloride 0.9% 100 ml @ 25 mls/hr IVPB Q8H [facility] Rx#: [id number] levETIRAcetam IV 1,500 mg 100 100 100 In Saline 1 100ml.bag @ 400 mls/hr IVPB Q12HR [facility] Rx#:[id number] Intake, IV Titration 0 Amount propofoL 1,000 mg In 0 Empty Bag 1 bag @ 15 MCG/ KG/MIN 7.348 mls/hr IV . [id number] [facility] Rx#:[id number] Tube Feeding 588 539 196 Other 90 90 30 Output: Urine 750 510 300 Other: Voiding Method Indwelling Catheter Indwelling Catheter ABP, PAP, CO, CI - Last Documented Arterial Blood Pressure 123/49 - Exam No acute distress, sedated on propofol, with an orally placed endotracheal tube. The patient is currently on propofol. The patient is quite symptomatic since a mechanical ventilator. HEENT examination is grossly unremarkable. Neck supple. Full range of motion. No adenopathy thyromegaly or neck vein distention. Cardiovascular examination reveals regular rhythm rate. S1-S2 normal. No S3 or S4. No discernible murmur noted. Lungs reveal scattered rhonchi. No wheezes or crackles. Breath sounds equal. Abdomen obese, without bowel sounds. Extremities are intact. No cyanosis clubbing or edema. Skin is without rash or lesion. Neurologic examination the patient is currently on propofol. Propofol is running at a low dose of 5 mcg/kg/m this was started yesterday at shift change. This was given to her essentially to suppress her cough. The patient senses the pain probably more so a reflex. No facial asymmetry. Her gaze is up and more so to the left. No nystagmus. The patient is breathing above the mechanical ventilator. The patient has a positive cough and a gag reflex. The patient has a slow pupillary response. The reflexes are equal and symmetrical and dim inished bilaterally. Negative clonus, negative Babinski's. Neurologic exam is unchanged.. The patient continues to have respiratory drive. She has a very weak corneal reflex. The patient is having episodic twitching of the eyes. - Labs CBC & Chem 7: 03/12/23 04:50 03/12/23 04:50 Labs: Abnormal Lab Results - Last 24 Hours (Table) 03/11/23 03/11/23 03/11/23 Range/Units 11:50 17:57 18:05 RBC (3.80-5.40) m/uL Hgb (11.4-16.0) gm/dL Hct (34.0-46.0) % MCV (80.0-100.0) fL Lymphocytes # (1.0-4.8) k/uL ABG HCO3 (21-25) mmol/L ABG Total CO2 (19-24) mmol/L Chloride (98-107) mmol/L BUN (7-17) mg/dL Creatinine (0.52-1.04) mg/dL Glucose (74-99) mg/dL POC Glucose (mg/dL) 177 H 152 H 152 H (70-110) mg/dL Calcium (8.4-10.2) mg/dL 03/11/23 03/12/23 03/12/23 Range/Units 23:48 04:50 04:50 RBC 2.82 L (3.80-5.40) m/uL Hgb 9.0 L (11.4-16.0) gm/dL Hct 28.9 L (34.0-46.0) % MCV 102.5 H (80.0-100.0) fL Lymphocytes # 0.8 L (1.0-4.8) k/uL ABG HCO3 (21-25) mmol/L ABG Total CO2 (19-24) mmol/L Chloride 113 H (98-107) mmol/L BUN 20 H (7-17) mg/dL Creatinine 0.45 L (0.52-1.04) mg/dL Glucose 155 H (74-99) mg/dL POC Glucose (mg/dL) 143 H (70-110) mg/dL Calcium 8.1 L (8.4-10.2) mg/dL 03/12/23 03/12/23 Range/Units 05:46 05:46 RBC (3.80-5.40) m/uL Hgb (11.4-16.0) gm/dL Hct (34.0-46.0) % MCV (80.0-100.0) fL Lymphocytes # (1.0-4.8) k/uL ABG HCO3 27 H (21-25) mmol/L ABG Total CO2 28 H (19-24) mmol/L Chloride (98-107) mmol/L BUN (7-17) mg/dL Creatinine (0.52-1.04) mg/dL Glucose (74-99) mg/dL POC Glucose (mg/dL) 161 H (70-110) mg/dL Calcium (8.4-10.2) mg/dL Assessment and Plan Plan: Status post [id number] cardiopulmonary arrest, with at least 15 minutes of downtime, before cardiopulmonary resuscitation and return of spontaneous circulation, were accomplished. Status post intubation and mechanical ventilation for cardiopulmonary arrest, 03/04/2023. anoxic brain injury, post cardiac arrest, currently unresponsive. The patient does have brainstem reflexes. Nevertheless, unresponsive once off sedation. Neurologically, the patient shows signs of severe neurologic impairment. She continues to have brainstem reflexes. Repeat EEG to be done today. Neurology is on the case. She continues to show signs of severe anoxic encephalopathy. EEG from 03/09/2023 was noted. There is severe encephalopathy. No seizure activity has been noted. Neurologically unchanged and the patient is currently off propofol. She remains on Keppra. Neurologically unchanged Acute fever post cardiac arrest, the patient is normothermic for now. The patient responded to our hypothermia measures and she is currently afebrile. Multifocal bilateral pulmonary infiltrates, consider aspiration and the patient is currently on IV Zosyn Systolic heart failure with an ejection fraction of 30-35% and impaired LV. Noted the troponins were not elevated Nondisplaced rib fractures related to CPR, as evidenced on the chest x-ray and the CAT scan of the chest Pacemaker insertion with a paced cardiac rhythm for now History of atrial fibrillation. The current cardiac rhythm and the patient is on anticoagulation with Eliquis Status post AICD placement. History of COPD. History of hypertension. History of CVA. Prior history of [place] filter placement. History of anxiety/depression. Enteral feeding for nutritional support with vital high-protein at the rate of 49 mL an hour Plan Neurologically unchanged A low-dose propofol was added to suppress her cough Completely unresponsive and comatose and there has been no changes in neurologic status over this past week. Treatment essentially supportive pending possibility of gift of life Monday This is a case of anoxic encephalopathy, severe post cardiac arrest. Family is insistent gift of life. Based on that, we are supporting this patient to the family and gift of life is ready for potential organ donation. Continue vent support, no ventilator changes for today She is afebrile this morning Continue ventilator support, no changes for today May discontinue the IV Zosyn Temperature normalized Neurology follow-up regarding her anoxic encephalopathy EEG and CAT scan of the brain were noted Continue anticoagulation with Eliquis Continue metoprolol 25 mg by mouth twice a day The pacemaker needs to be evaluated and this will be coordinated with cardiology Poor prognosis based on the above-mentioned comorbidities We'll continue to follow. Physical. Evaluation was done in more than 30 minutes. Possible withdrawal of care and the family is considering that. Gift of life is on the case.
[2023-03-12] MEDS: NOREPINEPHRINE 32 MG in SODIUM CHLORIDE 0.9% 218 ML IV SCH (11:16)
[2023-03-12 12:04] LABS: Glucose,Whole Blood 130 mg/dL (70-110)
[2023-03-12 13:13] LABS: Allen Test Performed? Yes
[2023-03-12 13:16] LABS: ABG Base Excess 2.3 mmol/L; ABG HCO3 27 mmol/L (21-25); ABG Oxygen Saturation 96.7 % (94-97); ABG PCO2 41 mmHg (35-45); ABG PH 7.43 (7.35-7.45); ABG PO2 94 mmHg (83-108); ABG TCO2 28 mmol/L (19-24)
[2023-03-12 13:22] LABS: Basophils % (A) 0 %; Eosinophils # (A) 0.2 k/uL (0-0.7); Eosinophils % (A) 2 %; Hypochromasia Slight; Lymphocytes # (A) 0.9 k/uL (1.0-4.8); Lymphocytes % (A) 12 %; MCH 31.7 pg (25.0-35.0); MCV 102.2 fL (80.0-100.0); Macrocytosis Slight; Mean Platelet Volume 9.7; Monocytes # (A) 0.3 k/uL (0-1.0); Monocytes % (A) 5 %; Neutrophils # (A) 5.9 k/uL (1.3-7.7); Neutrophils % (A) 81 %; Platelet Count 194 k/uL (150-450); RBC 2.84 m/uL (3.80-5.40); RDW 14.5 % (11.5-15.5); WBC 7.3 k/uL (3.8-10.6)
[2023-03-12 13:27] LABS: Ionized Calcium 5.2 mg/dL (4.5-5.3)
[2023-03-12 13:36] LABS: ALT 40 U/L (4-34); AST 73 U/L (14-36); African American GFR (CKD) >90 (>60 ml/min/1.73 sqM); Albumin 2.7 g/dL (3.5-5.0); Alkaline Phosphatase 59 U/L (38-126); Anion Gap 5 mmol/L; Blood Urea Nitrogen 20 mg/dL (7-17); Carbon Dioxide 26 mmol/L (22-30); Chloride 112 mmol/L (98-107); Glucose 149 mg/dL (74-99); Magnesium 2.3 mg/dL (1.6-2.3); Non-African American GFR(CKD) >90 (>60 ml/min/1.73 sqM); Phosphorus 3.1 mg/dL (2.5-4.5); Sodium 143 mmol/L (137-145); Total Bilirubin 0.2 mg/dL (0.2-1.3); Total Protein 5.5 g/dL (6.3-8.2)
[2023-03-12 17:17] LABS: Glucose,Whole Blood 150 mg/dL (70-110)
[2023-03-12] MEDS: SODIUM CHLORIDE 0.9% 500 ML 500 ML IV SCH (19:48)
[2023-03-12 20:12] LABS: Appearance,Urine Clear (Clear); Bilirubin,Urine Negative (Negative); Blood,Urine Negative (Negative); Color,Urine Yellow; Glucose,Urine (UA) Negative (Negative); Ketones,Urine Negative (Negative); Leukocyte Esterase,Urine Negative (Negative); Nitrite,Urine Negative (Negative); Protein,Urine Trace (Negative); Specific Gravity,Urine 1.025 (1.001-1.035); Urobilinogen,Urine <2.0 mg/dL (<2.0)
[2023-03-12 21:06] LABS: ABG Base Excess 2.6 mmol/L; ABG HCO3 27 mmol/L (21-25); ABG Oxygen Saturation 97.3 % (94-97); ABG PCO2 41 mmHg (35-45); ABG PH 7.42 (7.35-7.45); ABG PO2 94 mmHg (83-108); ABG TCO2 28 mmol/L (19-24)
[2023-03-12 21:27] LABS: Basophils % (A) 0 %; Eosinophils # (A) 0.1 k/uL (0-0.7); Eosinophils % (A) 2 %; HGB 8.6 gm/dL (11.4-16.0); Hypochromasia Slight; Lymphocytes # (A) 0.6 k/uL (1.0-4.8); Lymphocytes % (A) 9 %; MCH 31.7 pg (25.0-35.0); MCHC 30.9 g/dL (31.0-37.0); MCV 102.6 fL (80.0-100.0); Macrocytosis Slight; Monocytes # (A) 0.3 k/uL (0-1.0); Monocytes % (A) 4 %; Neutrophils # (A) 5.5 k/uL (1.3-7.7); Neutrophils % (A) 84 %; Platelet Count 193 k/uL (150-450); RBC 2.73 m/uL (3.80-5.40); RDW 14.7 % (11.5-15.5); WBC 6.6 k/uL (3.8-10.6)
[2023-03-12 21:31] LABS: ALT 40 U/L (4-34); AST 71 U/L (14-36); African American GFR (CKD) >90 (>60 ml/min/1.73 sqM); Albumin 2.6 g/dL (3.5-5.0); Alkaline Phosphatase 56 U/L (38-126); Anion Gap 1 mmol/L; Blood Urea Nitrogen 19 mg/dL (7-17); Calcium 7.8 mg/dL (8.4-10.2); Carbon Dioxide 28 mmol/L (22-30); Chloride 111 mmol/L (98-107); Glucose 156 mg/dL (74-99); Magnesium 2.1 mg/dL (1.6-2.3); Non-African American GFR(CKD) >90 (>60 ml/min/1.73 sqM); Phosphorus 3.1 mg/dL (2.5-4.5); Potassium 3.8 mmol/L (3.5-5.1); Sodium 140 mmol/L (137-145); Total Bilirubin 0.2 mg/dL (0.2-1.3); Total Protein 5.3 g/dL (6.3-8.2)
[2023-03-13 00:20] LABS: Glucose,Whole Blood 139 mg/dL (70-110)
[2023-03-13] MEDS: IPRATROPIUM-ALBUTEROL 3 ML NEB INHALATION SCH ×5 (00:36→15:40)
[2023-03-13] MEDS: INSULIN ASPART (NovoLOG) 100 UNIT/ML VIAL SQ SCH ×3 (00:40→11:59)
[2023-03-13] MEDS: MIDAZOLAM HCL 50 MG in SODIUM CHLORIDE 0.9% 40 ML IV SCH (00:41)
[2023-03-13] MEDS: PIPERACILLIN-TAZOBACTAM 3.375 GM in SODIUM CHLORIDE 0.9% 100 ML IVPB SCH ×2 (03:21→10:44)
[2023-03-13 04:53] LABS: ABG Base Excess 2.6 mmol/L; ABG HCO3 27 mmol/L (21-25); ABG PCO2 40 mmHg (35-45); ABG PH 7.43 (7.35-7.45); ABG PO2 92 mmHg (83-108); ABG TCO2 28 mmol/L (19-24)
--- NOTE | 2023-03-13 05:16 | P.PN ---
Subjective Progress Note Date: 03/12/23 Patient is a 67-year-old male with a known history of chronic atrial fibrillation on anticoagulation with Eliquis, cardiomyopathy status post ICD placement, COPD on home oxygen at 4 L via nasal cannula, hypertension, anxiety/depression and history of femoral neck fracture s/p repair in November 2022 was brought to the hospital by EMS status postcardiac arrest. Patient was at [facility] where she was found to have worsening shortness of breath and became unresponsive on a motorized scooter.. Patient underwent CPR for about 15 minutes by EMS and was given 3 doses of epinephrine with return of spontaneous circulation and was intubated. Patient was brought to ER for evaluation. Patient was unresponsive and was able to provide any history. On arrival chest x-ray showed cardiomegaly and mild pulmonary vascular congestion. Correlate with BNP for congestive heart failure. Right basilar patchy airspace opacities may represent pulmonary edema versus infiltrate. Endotracheal tube in appropriate position. Possible NG tube terminating in the mid esophagus. CT head showed no acute intracranial process. Paranasal sinus disease with air- fluid level within the left maxillary sinus. Correlate for acute sinusitis. Chest CTA showed no evidence of PE. Bilateral lower lobe and right upper lobe consolidation with a scattered multifocal groundglass opacities throughout the lungs. Findings are compatible with pneumonia possibly aspiration. Multiple acute minimally displaced rib fractures likely related to CPR in the setting of cardiac arrest. Remote to subacute bilateral rib fractures also demo nstrated. No pneumothorax. Cardiomegaly. Laboratory data showed WBC 9.7 hemoglobin 11.4 platelets 246 and D-dimer 3.1 Initial ABG showed pH of 7.17 PCO2 30 and PO2 75 Sodium 135, potassium 4.3, chloride 104, bicarb is 17 BUN 12 and creatinine 0.76 and blood sugar was 325 and lactic acid 2.9 AST 57 ALT 14 alk phos 73 and troponin x1 negative proBNP 2290 Influenza A B RSV and COVID-19 PCR not detected. 03/05/2023 Patient is in the MICU. Remains mechanical ventilator. Off pressor support. Otherwise patient remains unresponsive. EEG was ordered and neurology is on board. 2D echocardiogram showed ejection fraction 30 to 35% with anterior septal hypokinesis. AICD C interrogation was done. Cardiology neurology and pulmonary is on board. Chest x-ray showed persistent right midlung and bibasilar multifocal acute infiltrates without edema. No change from 1 day. Patient remains on antibiotics Zosyn. NG tube in place. 03/06/2023 Patient is seen and evaluated and follow-up in the ICU remains on mechanical ventilation, FiO2 is 60% with a peep of 5. Patient is off pressor support although continues on as needed Ativan along with IV Keppra and propofol. Patient also maintained on IV antibiotics in the form of Zosyn. Chest x-ray today shows stable bilateral interstitial and airspace opacification with bilateral small pleural effusions may relate to pulmonary edema or infectious etiology. Blood cultures thus far are negative and sputum culture currently pending. Patient does continue to have low-grade temps 101 early this morning. WBC remains within normal limits and pro-calcitonin is 0.49. Other kidney functions within normal limits and blood sugars being monitored. Per nursing staff attempts at weaning were performed although patient became extremely tachycardic and restless and not following commands and placed back on sedation. An EEG was done although pending at this time. Repeat CT of the brain early this morning shows no acute intracranial hemorrhage or midline shift with mild diffuse cerebral atrophy redemonstrated with slightly worsening bilateral spheno id acute sinusitis. Multiple medical consultations following an per nursing staff [employer] was notified although unsure of family is aware. Patient was on the registry. 03/07/2023 Patient is seen and evaluated in the ICU maintained on mechanical ventilation with an FiO2 of 55% and PEEP is 5. Patient is maintained on IV antibiotics and continues to have fevers and cultures thus far been negative. Patient is continued on sedation and off pressor support and remains on hypertonic solution . Neurology following as well as pulmonary buck presser with overall poor prognosis. Per nursing staff, family has been discussing possible comfort care although not ready to wean at this time. [facility] also following as patient is on the registry evaluating the patient. 03/08/2023 Patient continues to be in the ICU on mechanical ventilation with an FiO2 of 50% and PEEP is 5. Multiple medical consultations including cardiology, pulmonary buck presser, neurology following. Patient had a CT of the chest abdomen pelvis per [facility] services which confirmed bilateral rib fractures involving at least 2 ribs through 10 bilaterally with no evidence of acute abdominal process and consolidation changes in the lung bases likely secondary to atelectasis and hypoventilatory. Patient is maintained on hypertonic solution along with IV Keppra with neurology following and patient remains clinically the same. No further seizure-like activity noted although does continue with jerking and twitching type movements once removed from sedation. Patient is undergoing occasional sedation holidays. Gift of life is following as patient is on the registry although has not approached family as of yet and family is considering terminale weaning and comfort measures. Cardiology signed off and will follow as needed. Overall prognosis is poor as neurological status continues to be unchanged. 03/09/2023 Patient is seen in follow-up today continues to be on mechanical ventilation with an FiO2 of 50% and PEEP is 5. Patient does continue on sedation along with IV Keppra and empiric Zosyn and not requiring pressors. Patient's sodium is elevated today at 150 and has been on hypertonic solution that was just discontinued and will follow-up with repeat sodium level. Possible D5 in water. Gift of life is following as patient is on the registry and family is agreeable discussing possible gift of life this Monday as they are currently awaiting more family members. Repeat EEG was done today and continues to show severely abnormal EEG due to severely suppressed background and consistent with diffuse global encephalopathy. Not following any commands with sedation holidays. Chest x-ray today shows bilateral pleural effusions although stable. Patient is continuing to have fevers today. 03/10/2023 Patient is seen in follow-up today continues in the ICU for mechanical ventilation with no changes to prevent settings. Patient is a gift of life donor and they are following possibly working on pronation this Monday while awaiting additional family members and or time. Patient is currently maintained on IV antibiotics and per nursing staff did require a small dose of Levophed for approximately a half hour this morning although blood pressure is maintained at this time. Patient is afebrile and maintained on IV antibiotics in the form of Zosyn. 03/11/2023 Patient is seen and evaluated this morning in the ICU with no changes from previous day. Patient remains off sedation and completely comatose unresponsive being followed by multiple medical consultations. Patient family awaiting gift of life for possible organ donation and more family to arrive. Awaiting for Monday as well for OR availability in the organ donation takes place. Patient is currently afebrile although was having continued low-grade intermittent times. Continuing with supportive care. Patient remains on mechanical ventilation with an FiO2 of 50% and PEEP is 5. 03/12/2023 Patient is seen in follow-up this morning continues to be on mechanical ventilation while awaiting other family members and gift of life proceed with possible organ donation on Monday. Patient remains on an FiO2 of 50% with a PEEP of 5 and no changes. Neurologically there has been no changes in family continuing to wish to proceed with gift of life as that is what patient wanted. Awaiting OR availability as well and will likely proceed on Monday. Patient is currently afebrile and antibiotics being discontinued maintained on some low- dose propofol. Review of systems: Unable to obtain as patient is intubated and on sedation PHYSICAL EXAMINATION: Patient is on mechanical ventilator. FiO2 is currently 50% with a PEEP of 5 HEENT: Normocephalic. Neck is supple. Pupils reactive. Nostrils clear. Oral cavity is moist. Neck reveals no JVD, carotid bruits, or thyromegaly. CHEST EXAMINATION: Trachea is central. Symmetrical expansion. Bibasilar diminished sounds and coarse breath sounds. No wheezing. CARDIAC: Normal S1, S2 with no gallops. No murmurs ABDOMEN: Soft. Bowel sounds present. Nontender. No organomegaly. No abdominal bruits. Extremities: Trace upper and lower extremity edema noted. No clubbing or cyanosis Neurologically patient is on mechanical ventilator. Currently on sedation Skin: No rash or skin lesions. Psychiatric: Could not be assessed at this time Musculoskeletal: No joint swelling or deformity. Assessment: Acute cardiac arrest s/p CPR for about 15 minutes with return of spontaneous circulation. Status post intubation by EMS. Episodes of nonsustained V. tach prior to cardiac arrest which is most likely the cause although awaiting full AICD interrogation report Possible anoxic brain injury with severe encephalopathy noted an EEG Chronic atrial fibrillation on anticoagulant Eliquis History of ICD placement Hyperglycemia COPD history Chronic hypoxic respiratory failure secondary to COPD on 4 L oxygen via nasal cannula Recent history of femoral neck fracture repair in November 2022 History of IVC filter placement Anxiety/depression history Full code while awaiting gift of life Plan: Patient is currently in the MICU and remains on mechanical ventilation with an FiO2 of 50% and PEEP is 5. Status post CPR and currently on mechanical ventilator. Downtime was was about 15 minutes. Possible anoxic brain injury. EEG repeated remains with severe encephalopathy maintained on IV Keppra with neurology following. Continuing with supportive care while awaiting gift of life and possible organ donation on Monday Multiple medical consultations following and continuing supportive care until Monday for possible organ donation Given the downtime and severity of neurological assessment and cardiac arrest, overall prognosis remains poor. Gift of life also following and evaluating this patient is on registry Family is agreeable with gift of life and donation may possibly take place on Monday when there is OR time available and when more family members are present The impression and plan of care has been dictated by Malgorzata Knapp, Nurse Practitioner as directed. Dr. Khloe MD I have performed a history and examination and MDM of this patient, discussed the same with the dictator, and agree with the dictator's assessment and plan as written ,documented as a scribe. Based on total visit time, I have performed more than 50% of the visit. Objective - Vital Signs Vital signs: Vital Signs Temp 99.9 F H 03/12/23 04:00 Pulse 72 03/12/23 07:00 Resp 26 H 03/12/23 06:00 BP 117/52 03/11/23 23:00 Pulse Ox 95 03/12/23 07:00 FiO2 50 03/12/23 04:00 Intake & Output 03/11/23 03/12/23 03/12/23 18:59 06:59 18:59 Intake Total 1255 1192 82 Output Total 750 510 50 Balance 505 682 32 Weight 92.7 kg Intake: IV 577 563 33 .9NS KVO 380 330 30 0.9NS Pressure Bag 36 33 3 Phenytoin Sodium Inj 200 36 mg In Sodium Chloride 0.9 % 36 ml @ 80 mls/hr IVPB Q12HR [facility] Rx#:[id number] Piperacillin-Tazobactam 3 25 100 .375 gm In Sodium Chloride 0.9% 100 ml @ 25 mls/hr IVPB Q8H [facility] Rx#: [id number] levETIRAcetam IV 1,500 mg 100 100 In Saline 1 100ml.bag @ 400 mls/hr IVPB Q12HR [facility] Rx#:[id number] Intake, IV Titration 0 Amount propofoL 1,000 mg In 0 Empty Bag 1 bag @ 15 MCG/ KG/MIN 7.348 mls/hr IV . [id number] [facility] Rx#:[id number] Tube Feeding 588 539 49 Other 90 90 Output: Urine 750 510 50 Other: Voiding Method Indwelling Catheter Indwelling Catheter ABP, PAP, CO, CI - Last Documented Arterial Blood Pressure 123/50 - Labs CBC & Chem 7: 03/12/23 21:03 03/12/23 21:03 Labs: Abnormal Lab Results - Last 24 Hours (Table) 03/11/23 03/11/23 03/11/23 Range/Units 11:50 17:57 18:05 ABG HCO3 (21-25) mmol/L ABG Total CO2 (19-24) mmol/L POC Glucose (mg/dL) 177 H 152 H 152 H (70-110) mg/dL 03/11/23 03/12/23 03/12/23 Range/Units 23:48 05:46 05:46 ABG HCO3 27 H (21-25) mmol/L ABG Total CO2 28 H (19-24) mmol/L POC Glucose (mg/dL) 143 H 161 H (70-110) mg/dL
[2023-03-13 05:18] LABS: HCT 27.2 % (34.0-46.0); HGB 8.5 gm/dL (11.4-16.0); Hypochromasia Slight; MCH 31.8 pg (25.0-35.0); MCHC 31.1 g/dL (31.0-37.0); MCV 102.3 fL (80.0-100.0); Macrocytosis Slight; Mean Platelet Volume 9.7; Platelet Count 188 k/uL (150-450); RBC 2.66 m/uL (3.80-5.40); RDW 14.7 % (11.5-15.5)
[2023-03-13 05:33] LABS: ALT 41 U/L (4-34); AST 72 U/L (14-36); African American GFR (CKD) >90 (>60 ml/min/1.73 sqM); Albumin 2.6 g/dL (3.5-5.0); Alkaline Phosphatase 61 U/L (38-126); Anion Gap 4 mmol/L; Blood Urea Nitrogen 18 mg/dL (7-17); Calcium 7.9 mg/dL (8.4-10.2); Carbon Dioxide 26 mmol/L (22-30); Chloride 111 mmol/L (98-107); Glucose 142 mg/dL (74-99); Magnesium 2.1 mg/dL (1.6-2.3); Non-African American GFR(CKD) >90 (>60 ml/min/1.73 sqM); Potassium 3.8 mmol/L (3.5-5.1); Sodium 141 mmol/L (137-145); Total Bilirubin 0.1 mg/dL (0.2-1.3); Total Protein 5.2 g/dL (6.3-8.2)
--- NOTE | 2023-03-13 07:45 | P.PN ---
Subjective PROGRESS NOTE The patient is a 67-year-old female with a known history of CAD, cardiomyopathy, ICD implantation, atrial fibrillation who presented with cardiac arrest, CPR and downtime of about 15 minutes who is intubated, unresponsive. Her echocardiogram showed an ejection fraction of 30-35% with segmental wall motion abnormality. Her blood pressure has been stable but she is having episodes of ventricular ectopic activity and short burst of nonsustained ventricular tachycardia. According to the device interrogation no defibrillation or shock were done. She had an episode of possible nonsustained VT treated with ATP. She is off vasopr essors. She is in sinus mechanism. Computed tomography scan of the head showed no acute changes March 07: The patient remains intubated, unresponsive, was febrile. Her blood pressure was elevated, under better control at this time. She continues to be in sinus mechanism. There is no evidence of malignant arrhythmia. Her urinary output is stable. Her computed tomography scan of the chest showed no acute intracranial hemorrhage with mild diffuse cerebral atrophy. She was evaluated by the n eurology service, her EEG showed severe encephalopathy. March 08: The patient remains intubated, unresponsive. Hemodynamically stable with no evidence of ventricular ectopic activity or atrial fibrillation. Urinary output and oxygenation stable. Family is considering gift of life on Monday. No s ignificant change in the status since yesterday. 03/13 Patient seen and examined. Patient's blood pressure borderline. She is being evaluated for gift of life. PHYSICAL EXAMINATION: Vitals reviewed LUNGS: Clear to auscultation, anteriorly HEART: Regular rate and rhythm, S1, S2. No S3. systolic ejection murmur ABDOMEN: Soft, positive bowel sounds, no organomegaly EXTREMETIES: No edema LAB: Hemoglobin 8.6, potassium 3.5, BUN 18, creatinine 0.50 IMPRESSION: 1. Status post cardiopulmonary arrest with down time of 15 minutes with evidence of anoxic encephalopathy, no evidence of improvement so far 2. History of ischemic heart disease with severely impaired systolic function and ICD implantation 3. History of prior PCI 4. Paroxysmal atrial fibrillation 5. History of hypertension, elevated 6. History of hyperlipidemia 7. Febrile episode could be related to central fever, resolved PLAN: Patient without significant neurologic recovery. Being evaluated for gift of life likely to be performed today. Continue current supportive care. Objective - Vital Signs Vital signs: Vital Signs Temp 99.6 F 03/13/23 04:00 Pulse 82 03/13/23 07:00 Resp 20 03/13/23 07:00 BP 117/52 03/11/23 23:00 Pulse Ox 95 03/13/23 07:00 FiO2 50 03/13/23 04:00 Intake & Output 03/12/23 03/13/23 03/13/23 18:59 06:59 18:59 Intake Total 8487.602 5986 23 Output Total 665 550 40 Balance 507.669 555 -17 Weight 91 kg Intake: IV 465 476 23 .9NS KVO 210 240 20 0.9NS Pressure Bag 30 36 3 Piperacillin-Tazobactam 3 125 100 .375 gm In Sodium Chloride 0.9% 100 ml @ 25 mls/hr IVPB Q8H [facility] Rx#: [id number] levETIRAcetam IV 1,500 mg 100 100 In Saline 1 100ml.bag @ 400 mls/hr IVPB Q12HR [facility] Rx#:[id number] Intake, IV Titration 29.669 Amount propofoL 1,000 mg In 29.669 Empty Bag 1 bag @ 15 MCG/ KG/MIN 7.348 mls/hr IV . [id number] [facility] Rx#:[id number] Tube Feeding 588 539 Other 90 90 Output: Urine 665 550 40 Other: Voiding Method Indwelling Catheter Indwelling Catheter ABP, PAP, CO, CI - Last Documented Arterial Blood Pressure 108/49 - Labs CBC & Chem 7: 03/13/23 04:48 03/13/23 04:48 Labs: Abnormal Lab Results - Last 24 Hours (Table) 03/12/23 03/12/23 03/12/23 Range/Units 04:50 04:50 12:02 RBC 2.82 L (3.80-5.40) m/uL Hgb 9.0 L (11.4-16.0) gm/dL Hct 28.9 L (34.0-46.0) % MCV 102.5 H (80.0-100.0) fL MCHC (31.0-37.0) g/dL Lymphocytes # 0.8 L (1.0-4.8) k/uL ABG HCO3 (21-25) mmol/L ABG Total CO2 (19-24) mmol/L ABG O2 Saturation (94-97) % Chloride 113 H (98-107) mmol/L BUN 20 H (7-17) mg/dL Creatinine 0.45 L (0.52-1.04) mg/dL Glucose 155 H (74-99) mg/dL POC Glucose (mg/dL) 130 H (70-110) mg/dL Calcium 8.1 L (8.4-10.2) mg/dL Total Bilirubin (0.2-1.3) mg/dL AST (14-36) U/L ALT (4-34) U/L Total Protein (6.3-8.2) g/dL Albumin (3.5-5.0) g/dL Urine Protein (Negative) 03/12/23 03/12/23 03/12/23 Range/Units 13:10 13:11 13:11 RBC 2.84 L (3.80-5.40) m/uL Hgb 9.0 L (11.4-16.0) gm/dL Hct 29.0 L (34.0-46.0) % MCV 102.2 H (80.0-100.0) fL MCHC (31.0-37.0) g/dL Lymphocytes # 0.9 L (1.0-4.8) k/uL ABG HCO3 27 H (21-25) mmol/L ABG Total CO2 28 H (19-24) mmol/L ABG O2 Saturation (94-97) % Chloride 112 H (98-107) mmol/L BUN 20 H (7-17) mg/dL Creatinine 0.47 L (0.52-1.04) mg/dL Glucose 149 H (74-99) mg/dL POC Glucose (mg/dL) (70-110) mg/dL Calcium 8.0 L (8.4-10.2) mg/dL Total Bilirubin (0.2-1.3) mg/dL AST 73 H (14-36) U/L ALT 40 H (4-34) U/L Total Protein 5.5 L (6.3-8.2) g/dL Albumin 2.7 L (3.5-5.0) g/dL Urine Protein (Negative) 03/12/23 03/12/23 03/12/23 Range/Units 13:11 17:15 21:01 RBC (3.80-5.40) m/uL Hgb (11.4-16.0) gm/dL Hct (34.0-46.0) % MCV (80.0-100.0) fL MCHC (31.0-37.0) g/dL Lymphocytes # (1.0-4.8) k/uL ABG HCO3 27 H (21-25) mmol/L ABG Total CO2 28 H (19-24) mmol/L ABG O2 Saturation 97.3 H (94-97) % Chloride (98-107) mmol/L BUN (7-17) mg/dL Creatinine (0.52-1.04) mg/dL Glucose (74-99) mg/dL POC Glucose (mg/dL) 150 H (70-110) mg/dL Calcium (8.4-10.2) mg/dL Total Bilirubin (0.2-1.3) mg/dL AST (14-36) U/L ALT (4-34) U/L Total Protein (6.3-8.2) g/dL Albumin (3.5-5.0) g/dL Urine Protein Trace H (Negative) 03/12/23 03/12/23 03/13/23 Range/Units 21:03 21:03 00:19 RBC 2.73 L (3.80-5.40) m/uL Hgb 8.6 L (11.4-16.0) gm/dL Hct 28.0 L (34.0-46.0) % MCV 102.6 H (80.0-100.0) fL MCHC 30.9 L (31.0-37.0) g/dL Lymphocytes # 0.6 L (1.0-4.8) k/uL ABG HCO3 (21-25) mmol/L ABG Total CO2 (19-24) mmol/L ABG O2 Saturation (94-97) % Chloride 111 H (98-107) mmol/L BUN 19 H (7-17) mg/dL Creatinine (0.52-1.04) mg/dL Glucose 156 H (74-99) mg/dL POC Glucose (mg/dL) 139 H (70-110) mg/dL Calcium 7.8 L (8.4-10.2) mg/dL Total Bilirubin (0.2-1.3) mg/dL AST 71 H (14-36) U/L ALT 40 H (4-34) U/L Total Protein 5.3 L (6.3-8.2) g/dL Albumin 2.6 L (3.5-5.0) g/dL Urine Protein (Negative) 03/13/23 03/13/23 03/13/23 Range/Units 04:46 04:48 04:48 RBC 2.66 L (3.80-5.40) m/uL Hgb 8.5 L (11.4-16.0) gm/dL Hct 27.2 L (34.0-46.0) % MCV 102.3 H (80.0-100.0) fL MCHC (31.0-37.0) g/dL Lymphocytes # (1.0-4.8) k/uL ABG HCO3 27 H (21-25) mmol/L ABG Total CO2 28 H (19-24) mmol/L ABG O2 Saturation (94-97) % Chloride 111 H (98-107) mmol/L BUN 18 H (7-17) mg/dL Creatinine 0.48 L (0.52-1.04) mg/dL Glucose 142 H (74-99) mg/dL POC Glucose (mg/dL) (70-110) mg/dL Calcium 7.9 L (8.4-10.2) mg/dL Total Bilirubin 0.1 L (0.2-1.3) mg/dL AST 72 H (14-36) U/L ALT 41 H (4-34) U/L Total Protein 5.2 L (6.3-8.2) g/dL Albumin 2.6 L (3.5-5.0) g/dL Urine Protein (Negative)
[2023-03-13 08:03] LABS: Appearance,Urine Clear (Clear); Bilirubin,Urine Negative (Negative); Blood,Urine Negative (Negative); Color,Urine Yellow; Glucose,Urine (UA) Negative (Negative); Ketones,Urine Negative (Negative); Leukocyte Esterase,Urine Negative (Negative); Nitrite,Urine Negative (Negative); PH, Urine 6.5 (5.0-8.0); Protein,Urine Trace (Negative); Specific Gravity,Urine 1.021 (1.001-1.035); Urobilinogen,Urine <2.0 mg/dL (<2.0)
[2023-03-13] MEDS: METOPROLOL TARTRATE 25 MG TAB PO SCH (08:55)
[2023-03-13] MEDS: ATORVASTATIN 80 MG TAB PO SCH (08:55)
[2023-03-13] MEDS: PANTOPRAZOLE 40 MG/10 ML VIAL IV SCH (08:55)
[2023-03-13] MEDS: CHLORHEXIDINE GLUCONATE 15 ML CUP MUCOUS MEM SCH (08:55)
[2023-03-13] MEDS: APIXABAN 5 MG TAB PO SCH (08:55)
[2023-03-13] MEDS: levETIRAcetam IV 1,500 MG in SALINE 1 100ML.BAG IVPB SCH (08:56)
[2023-03-13 09:25] VITALS: TEMP 98.6
[2023-03-13 09:44] LABS: INR 0.9 (<1.2); Prothrombin Time 9.9 sec (9.0-12.0)
[2023-03-13] MEDS: lisinopriL 5 MG TAB PO SCH (10:08)
[2023-03-13] MEDS: NOREPINEPHRINE 32 MG in SODIUM CHLORIDE 0.9% 218 ML IV SCH (10:08)
[2023-03-13] MEDS ORDERED: MORPHINE SULFATE 2 MG/ML SYRINGE IV PRN (10:10)
[2023-03-13] MEDS ORDERED: MORPHINE SULFATE (100 MG/2 ML) 100 MG in SODIUM CHLORIDE 0.9% 100 ML IV SCH (10:15)
[2023-03-13] MEDS ORDERED: SCOPOLAMINE 1 MG/72 HR PATCH TRANSDERM SCH (10:15)
[2023-03-13 10:21] LABS: Partial Thromboplastin Time 19.2 sec (22.0-30.0)
[2023-03-13 11:27] VITALS: BMI 34.4
--- NOTE | 2023-03-13 12:36 | P.PN ---
Subjective Progress Note Date: 03/13/23 Principal diagnosis: Cardiac arrest, anoxic brain injury 67-year-old female who apparently had a cardiopulmonary arrest, at a local [employer]. The patient apparently had a downtime of about 15 minutes, for there was cardiopulmonary resuscitation and return of spontaneous circulation. The patient was seen in the ER, by the ER physician, Dr. Dejesus. The patient was vented, and a right femoral vein triple lumen catheter was placed. Family members are in the room, we selected see the patient. The patient herself is unresponsive. She has a orally placed endotracheal tube. She's currently on the ventilator, with vent settings of volume assist control, rate 20, tidal volume 375, FiO2 100%, 5. Blood gases show pO2 75, pCO2 of 53, and a pH is 7.17. The patient is on norepinephrine at 0.15 mcg/kg/m, and propofol at 15 mcg/kg/m. The patient has a history of COPD from secondhand tobacco exposure, a previous history of the fibrillator placement for cardio myopathy, and history of stroke, and [place] filter placement. In addition, the patient is on home O2, that she is supposed to use all the time, but she only uses as needed. She was a smoker in the distant past. White count 9.7, hemoglobin 11.4, hematocrit 37.9, and platelet count was normal. D-dimer was 3.10. Sodium 137, potassium 4.3, chlorides 104, CO2 17, anion gap 16, BUN and creatinine 12 and 0.76. Troponin was 0.022 and N-terminal proBNP was 2290. Lactate was not measured but is probably elevated. Testing for influenza A, and B, RSV, and coronavirus are all negative. Chest x-ray shows evidence of cardiomegaly, fluid overload, and an appropriately placed endotracheal tube. Computed tomography scan of the brain showed nothing acute. CT angiogram was negative for PE. There also may be some right lower lobe consolidation consistent with prior aspiration. 03/12/2023, the patient is still awaiting gift of life. No issues for today. No sedation for at least 2-3 days. Nevertheless, overnight, the patient was started on a low-dose propofol at 5 mcg/kg/m as the patient was having coughing fits and this essentially help to suppress her cough and episodes.. Remains comatose unresponsive. No seizure activity. Hemodynamically stable on no pressors. Remains on mechanical ventilator on assist control mode at the rate of 20, tidal volume of 375, FiO2 of 50% with a PEEP of 5. The blood gas shows a pH of 7.44 with a pCO2 of 40 and pO2 of 93. The white cell count at 6.5 with a hemoglobin of 9 and a platelet count of 190. The rest of the electrolytes show a sodium of 143 with a potassium level of 4, BUN is at 20 with a creatinine of 0.4. Receiving enteral feeding for nutritional support and the patient remains on vital high-protein at the rate of 49 mL an hour. No other significant issues for now. No significant orotracheal secretions. Her chest x-ray was done on 03/10/2023 and showed stable findings with small bilateral pleural effusions. Her cardiac rhythm is occasionally. And the patient remains on anticoagulants. She remains on IV Zosyn. She is afebrile. Zosyn could be potentially discontinued for now. Reevaluated today on 03/13/2023, patient remains in the ICU, intubated mechanically ventilated, on propofol at 5 mcg/kg/m. Vent settings are assist control rate of 2010 volume 375 FiO2 50% PEEP of 5 ABG showed a pO2 of 92 pCO2 40 pH of 7.43. Patient remains comatose, unresponsive, no seizure activity, hemodynamically she is not requiring any pressors. WBC count is 7.0 hemoglobin 8.5, basic metabolic profile is normal renal profile is normal, complete metabolic profile is relatively normal, urinalysis is normal. Last chest x-ray from 2 days ago showed low lung volumes and small bilateral pleural effusions. This was dated. No follow-up chest x-ray has been done since. Patient remains on Zosyn empirically for presumptive aspiration pneumonia. Patient also remains on eliquis 5 mg by mouth twice a day as ordered by cardiology for her atrial fibrillation Objective - Vital Signs Vital signs: Vital Signs Temp 98.6 F 03/13/23 12:00 Pulse 70 03/13/23 12:00 Resp 20 03/13/23 12:00 BP 117/52 03/11/23 23:00 Pulse Ox 97 03/13/23 12:00 FiO2 50 03/13/23 12:00 Intake & Output 03/12/23 03/13/23 03/13/23 18:59 06:59 18:59 Intake Total 7203.098 2557 298.374 Output Total 665 550 345 Balance 507.669 555 -46.626 Weight 91 kg 91 kg Intake: IV 465 476 198 .9NS KVO 210 240 80 0.9NS Pressure Bag 30 36 18 Piperacillin-Tazobactam 3 125 100 .375 gm In Sodium Chloride 0.9% 100 ml @ 25 mls/hr IVPB Q8H [facility] Rx#: [id number] levETIRAcetam IV 1,500 mg 100 100 100 In Saline 1 100ml.bag @ 400 mls/hr IVPB Q12HR [facility] Rx#:[id number] Intake, IV Titration 29.669 40.374 Amount Morphine Sulfate (100 mg/ 0.17 2 ml) 100 mg In Sodium Chloride 0.9% 100 ml @ 1 MG/HR 1.02 mls/hr IV . Q24H [facility] Rx#:[id number] propofoL 1,000 mg In 29.669 40.204 Empty Bag 1 bag @ 15 MCG/ KG/MIN 7.348 mls/hr IV . [id number] [facility] Rx#:[id number] Tube Feeding 588 539 Other 90 90 60 Output: Urine 665 550 345 Other: Voiding Method Indwelling Catheter Indwelling Catheter Indwelling Catheter ABP, PAP, CO, CI - Last Documented Arterial Blood Pressure 131/49 - Exam Physical Exam: Revealed a 67-year-old female in no distress, intubated and mechanically ventilated. Head: Atraumatic, normocephalic. HEENT:[Neck is supple.] [No neck masses.] [No thyromegaly.] [No JVD.] Chest: [Minimal fine crackles at the bases no rhonchi and no wheezes. Cardiac Exam: [Normal S1 and S2, no S3 gallop, no murmur.] Abdomen: [Soft, nontender, no megaly, no rebound, no guarding, normal bowel sounds.] Extremities: [No clubbing, no edema, no cyanosis.] Neurological Exam: Patient is comatose, unresponsive, however she is on a low dose of propofol. Mostly suppress her cough. Patient has absent corneal reflexes, she has only a gag reflex. She has an upward gaze, no nystagmus. Very slow pupillary reflexes. Negative clonus, negative Babinski, continues to have respiratory drive. And again she has no corneal reflex. Psychiatric: Could not be assessed. Patient is comatose. Skin: No rashes. - Labs CBC & Chem 7: 03/13/23 04:48 03/13/23 04:48 Labs: Abnormal Lab Results - Last 24 Hours (Table) 03/12/23 03/12/23 03/12/23 Range/Units 13:10 13:11 13:11 RBC 2.84 L (3.80-5.40) m/uL Hgb 9.0 L (11.4-16.0) gm/dL Hct 29.0 L (34.0-46.0) % MCV 102.2 H (80.0-100.0) fL MCHC (31.0-37.0) g/dL Lymphocytes # 0.9 L (1.0-4.8) k/uL APTT (22.0-30.0) sec ABG HCO3 27 H (21-25) mmol/L ABG Total CO2 28 H (19-24) mmol/L ABG O2 Saturation (94-97) % Chloride 112 H (98-107) mmol/L BUN 20 H (7-17) mg/dL Creatinine 0.47 L (0.52-1.04) mg/dL Glucose 149 H (74-99) mg/dL POC Glucose (mg/dL) (70-110) mg/dL Calcium 8.0 L (8.4-10.2) mg/dL Total Bilirubin (0.2-1.3) mg/dL AST 73 H (14-36) U/L ALT 40 H (4-34) U/L Total Protein 5.5 L (6.3-8.2) g/dL Albumin 2.7 L (3.5-5.0) g/dL Urine Protein (Negative) 03/12/23 03/12/23 03/12/23 Range/Units 13:11 17:15 21:01 RBC (3.80-5.40) m/uL Hgb (11.4-16.0) gm/dL Hct (34.0-46.0) % MCV (80.0-100.0) fL MCHC (31.0-37.0) g/dL Lymphocytes # (1.0-4.8) k/uL APTT (22.0-30.0) sec ABG HCO3 27 H (21-25) mmol/L ABG Total CO2 28 H (19-24) mmol/L ABG O2 Saturation 97.3 H (94-97) % Chloride (98-107) mmol/L BUN (7-17) mg/dL Creatinine (0.52-1.04) mg/dL Glucose (74-99) mg/dL POC Glucose (mg/dL) 150 H (70-110) mg/dL Calcium (8.4-10.2) mg/dL Total Bilirubin (0.2-1.3) mg/dL AST (14-36) U/L ALT (4-34) U/L Total Protein (6.3-8.2) g/dL Albumin (3.5-5.0) g/dL Urine Protein Trace H (Negative) 03/12/23 03/12/23 03/13/23 Range/Units 21:03 21:03 00:19 RBC 2.73 L (3.80-5.40) m/uL Hgb 8.6 L (11.4-16.0) gm/dL Hct 28.0 L (34.0-46.0) % MCV 102.6 H (80.0-100.0) fL MCHC 30.9 L (31.0-37.0) g/dL Lymphocytes # 0.6 L (1.0-4.8) k/uL APTT (22.0-30.0) sec ABG HCO3 (21-25) mmol/L ABG Total CO2 (19-24) mmol/L ABG O2 Saturation (94-97) % Chloride 111 H (98-107) mmol/L BUN 19 H (7-17) mg/dL Creatinine (0.52-1.04) mg/dL Glucose 156 H (74-99) mg/dL POC Glucose (mg/dL) 139 H (70-110) mg/dL Calcium 7.8 L (8.4-10.2) mg/dL Total Bilirubin (0.2-1.3) mg/dL AST 71 H (14-36) U/L ALT 40 H (4-34) U/L Total Protein 5.3 L (6.3-8.2) g/dL Albumin 2.6 L (3.5-5.0) g/dL Urine Protein (Negative) 03/13/23 03/13/23 03/13/23 Range/Units 04:46 04:48 04:48 RBC 2.66 L (3.80-5.40) m/uL Hgb 8.5 L (11.4-16.0) gm/dL Hct 27.2 L (34.0-46.0) % MCV 102.3 H (80.0-100.0) fL MCHC (31.0-37.0) g/dL Lymphocytes # (1.0-4.8) k/uL APTT (22.0-30.0) sec ABG HCO3 27 H (21-25) mmol/L ABG Total CO2 28 H (19-24) mmol/L ABG O2 Saturation (94-97) % Chloride 111 H (98-107) mmol/L BUN 18 H (7-17) mg/dL Creatinine 0.48 L (0.52-1.04) mg/dL Glucose 142 H (74-99) mg/dL POC Glucose (mg/dL) (70-110) mg/dL Calcium 7.9 L (8.4-10.2) mg/dL Total Bilirubin 0.1 L (0.2-1.3) mg/dL AST 72 H (14-36) U/L ALT 41 H (4-34) U/L Total Protein 5.2 L (6.3-8.2) g/dL Albumin 2.6 L (3.5-5.0) g/dL Urine Protein (Negative) 03/13/23 03/13/23 Range/Units 06:10 09:15 RBC (3.80-5.40) m/uL Hgb (11.4-16.0) gm/dL Hct (34.0-46.0) % MCV (80.0-100.0) fL MCHC (31.0-37.0) g/dL Lymphocytes # (1.0-4.8) k/uL APTT 19.2 L (22.0-30.0) sec ABG HCO3 (21-25) mmol/L ABG Total CO2 (19-24) mmol/L ABG O2 Saturation (94-97) % Chloride (98-107) mmol/L BUN (7-17) mg/dL Creatinine (0.52-1.04) mg/dL Glucose (74-99) mg/dL POC Glucose (mg/dL) (70-110) mg/dL Calcium (8.4-10.2) mg/dL Total Bilirubin (0.2-1.3) mg/dL AST (14-36) U/L ALT (4-34) U/L Total Protein (6.3-8.2) g/dL Albumin (3.5-5.0) g/dL Urine Protein Trace H (Negative) Assessment and Plan Assessment: Impression: Acute hypoxic respiratory failure secondary to out of hospital cardiac arrest with down time of at least 15 minutes. Severe anoxic brain injury Acute aspiration pneumonia is strongly suspected. Chronic systolic congestive heart failure with LV dysfunction, ejection fraction of 30-35%. Nondisplaced rib fractures secondary to CPR. Chronic atrial fibrillation, on eliquis. History of pacemaker insertion and previous AICD placement. History of CVA Benign essential hypertension History of underlying COPD History of IVC filter placement Recommendation: Continue ventilatory support Continue nutritional support Continue GI and DVT prophylaxis Continue Zosyn empirically for aspiration pneumonia Continue hemodynamic support if necessary/pressors if needed Patient is being evaluated for gift of life possibly today per Overall prognosis is extremely poor. Critical care time is over 30 minutes. We will continue to follow. Time with Patient: Greater than 30
[2023-03-13] MEDS ORDERED: HEPARIN SODIUM 1,000 UN/ML (10ML VL) IVP ONE (13:00)
[2023-03-13] MEDS: LORazepam 2 MG/ML INJ IV PRN ×2 (13:14→14:10)
[2023-03-13] MEDS: MORPHINE SULFATE 4 MG/ML SYRINGE IV PRN ×3 (13:14→14:00)
--- NOTE | 2023-03-13 13:21 | P.PN ---
Subjective Progress Note Date: 03/13/23 Patient is a 67-year-old male with a known history of chronic atrial fibrillation on anticoagulation with Eliquis, cardiomyopathy status post ICD placement, COPD on home oxygen at 4 L via nasal cannula, hypertension, anxiety/depression and history of femoral neck fracture s/p repair in November 2022 was brought to the hospital by EMS status postcardiac arrest. Patient was at [facility] where she was found to have worsening shortness of breath and became unresponsive on a motorized scooter.. Patient underwent CPR for about 15 minutes by EMS and was given 3 doses of epinephrine with return of spontaneous circulation and was intubated. Patient was brought to ER for evaluation. Patient was unresponsive and was able to provide any history. On arrival chest x-ray showed cardiomegaly and mild pulmonary vascular congestion. Correlate with BNP for congestive heart failure. Right basilar patchy airspace opacities may represent pulmonary edema versus infiltrate. Endotracheal tube in appropriate position. Possible NG tube terminating in the mid esophagus. CT head showed no acute intracranial process. Paranasal sinus disease with air- fluid level within the left maxillary sinus. Correlate for acute sinusitis. Chest CTA showed no evidence of PE. Bilateral lower lobe and right upper lobe consolidation with a scattered multifocal groundglass opacities throughout the lungs. Findings are compatible with pneumonia possibly aspiration. Multiple acute minimally displaced rib fractures likely related to CPR in the setting of cardiac arrest. Remote to subacute bilateral rib fractures also demo nstrated. No pneumothorax. Cardiomegaly. Laboratory data showed WBC 9.7 hemoglobin 11.4 platelets 246 and D-dimer 3.1 Initial ABG showed pH of 7.17 PCO2 30 and PO2 75 Sodium 135, potassium 4.3, chloride 104, bicarb is 17 BUN 12 and creatinine 0.76 and blood sugar was 325 and lactic acid 2.9 AST 57 ALT 14 alk phos 73 and troponin x1 negative proBNP 2290 Influenza A B RSV and COVID-19 PCR not detected. 03/05/2023 Patient is in the MICU. Remains mechanical ventilator. Off pressor support. Otherwise patient remains unresponsive. EEG was ordered and neurology is on board. 2D echocardiogram showed ejection fraction 30 to 35% with anterior septal hypokinesis. AICD C interrogation was done. Cardiology neurology and pulmonary is on board. Chest x-ray showed persistent right midlung and bibasilar multifocal acute infiltrates without edema. No change from 1 day. Patient remains on antibiotics Zosyn. NG tube in place. 03/06/2023 Patient is seen and evaluated and follow-up in the ICU remains on mechanical ventilation, FiO2 is 60% with a peep of 5. Patient is off pressor support although continues on as needed Ativan along with IV Keppra and propofol. Patient also maintained on IV antibiotics in the form of Zosyn. Chest x-ray today shows stable bilateral interstitial and airspace opacification with bilateral small pleural effusions may relate to pulmonary edema or infectious etiology. Blood cultures thus far are negative and sputum culture currently pending. Patient does continue to have low-grade temps 101 early this morning. WBC remains within normal limits and pro-calcitonin is 0.49. Other kidney functions within normal limits and blood sugars being monitored. Per nursing staff attempts at weaning were performed although patient became extremely tachycardic and restless and not following commands and placed back on sedation. An EEG was done although pending at this time. Repeat CT of the brain early this morning shows no acute intracranial hemorrhage or midline shift with mild diffuse cerebral atrophy redemonstrated with slightly worsening bilateral spheno id acute sinusitis. Multiple medical consultations following an per nursing staff [facility] was notified although unsure of family is aware. Patient was on the registry. 03/07/2023 Patient is seen and evaluated in the ICU maintained on mechanical ventilation with an FiO2 of 55% and PEEP is 5. Patient is maintained on IV antibiotics and continues to have fevers and cultures thus far been negative. Patient is continued on sedation and off pressor support and remains on hypertonic solution . Neurology following as well as pulmonary director of quality with overall poor prognosis. Per nursing staff, family has been discussing possible comfort care although not ready to wean at this time. [employer] also following as patient is on the registry evaluating the patient. 03/08/2023 Patient continues to be in the ICU on mechanical ventilation with an FiO2 of 50% and PEEP is 5. Multiple medical consultations including cardiology, pulmonary director of quality, neurology following. Patient had a CT of the chest abdomen pelvis per [facility] services which confirmed bilateral rib fractures involving at least 2 ribs through 10 bilaterally with no evidence of acute abdominal process and consolidation changes in the lung bases likely secondary to atelectasis and hypoventilatory. Patient is maintained on hypertonic solution along with IV Keppra with neurology following and patient remains clinically the same. No further seizure-like activity noted although does continue with jerking and twitching type movements once removed from sedation. Patient is undergoing occasional sedation holidays. Gift of life is following as patient is on the registry although has not approached family as of yet and family is considering terminale weaning and comfort measures. Cardiology signed off and will follow as needed. Overall prognosis is poor as neurological status continues to be unchanged. 03/09/2023 Patient is seen in follow-up today continues to be on mechanical ventilation with an FiO2 of 50% and PEEP is 5. Patient does continue on sedation along with IV Keppra and empiric Zosyn and not requiring pressors. Patient's sodium is elevated today at 150 and has been on hypertonic solution that was just discontinued and will follow-up with repeat sodium level. Possible D5 in water. Gift of life is following as patient is on the registry and family is agreeable discussing possible gift of life this Monday as they are currently awaiting more family members. Repeat EEG was done today and continues to show severely abnormal EEG due to severely suppressed background and consistent with diffuse global encephalopathy. Not following any commands with sedation holidays. Chest x-ray today shows bilateral pleural effusions although stable. Patient is continuing to have fevers today. 03/10/2023 Patient is seen in follow-up today continues in the ICU for mechanical ventilation with no changes to prevent settings. Patient is a gift of life donor and they are following possibly working on pronation this Monday while awaiting additional family members and or time. Patient is currently maintained on IV antibiotics and per nursing staff did require a small dose of Levophed for approximately a half hour this morning although blood pressure is maintained at this time. Patient is afebrile and maintained on IV antibiotics in the form of Zosyn. 03/11/2023 Patient is seen and evaluated this morning in the ICU with no changes from previous day. Patient remains off sedation and completely comatose unresponsive being followed by multiple medical consultations. Patient family awaiting gift of life for possible organ donation and more family to arrive. Awaiting for Monday as well for OR availability in the organ donation takes place. Patient is currently afebrile although was having continued low-grade intermittent times. Continuing with supportive care. Patient remains on mechanical ventilation with an FiO2 of 50% and PEEP is 5. 03/12/2023 Patient is seen in follow-up this morning continues to be on mechanical ventilation while awaiting other family members and gift of life proceed with possible organ donation on Monday. Patient remains on an FiO2 of 50% with a PEEP of 5 and no changes. Neurologically there has been no changes in family continuing to wish to proceed with gift of life as that is what patient wanted. Awaiting OR availability as well and will likely proceed on Monday. Patient is currently afebrile and antibiotics being discontinued maintained on some low- dose propofol. 03/13/2023 Patient is seen and evaluated in follow-up this morning is a gift of life candidate and proceeding with possible organ harvesting and donation today around 1 PM. Multiple family members present and gift of life is following. Patient remains on mechanical ventilation with no changes and will proceed with gift of life. Overall prognosis remains poor. Review of systems: Unable to obtain as patient is intubated and on sedation PHYSICAL EXAMINATION: Patient is on mechanical ventilator. FiO2 is currently 50% with a PEEP of 5 HEENT: Normocephalic. Neck is supple. Pupils reactive. Nostrils clear. Oral cavity is moist. Neck reveals no JVD, carotid bruits, or thyromegaly. CHEST EXAMINATION: Trachea is central. Symmetrical expansion. Bibasilar diminished sounds and coarse breath sounds. No wheezing. CARDIAC: Normal S1, S2 with no gallops. No murmurs ABDOMEN: Soft. Bowel sounds present. Nontender. No organomegaly. No abdominal bruits. Extremities: Trace upper and lower extremity edema noted. No clubbing or cyanosis Neurologically patient is on mechanical ventilator. Currently on sedation Skin: No rash or skin lesions. Psychiatric: Could not be assessed at this time Musculoskeletal: No joint swelling or deformity. Assessment: Acute cardiac arrest s/p CPR for about 15 minutes with return of spontaneous circulation. Status post intubation by EMS. Episodes of nonsustained V. tach prior to cardiac arrest which is most likely the cause although awaiting full AICD interrogation report Possible anoxic brain injury with severe encephalopathy noted an EEG Chronic atrial fibrillation on anticoagulant Eliquis History of ICD placement Hyperglycemia COPD history Chronic hypoxic respiratory failure secondary to COPD on 4 L oxygen via nasal cannula Recent history of femoral neck fracture repair in November 2022 History of IVC filter placement Anxiety/depression history Full code while awaiting gift of life Plan: Patient is currently in the MICU and remains on mechanical ventilation with an FiO2 of 50% and PEEP is 5. Status post CPR and currently on mechanical ventilator. Downtime was was about 15 minutes. Possible anoxic brain injury. EEG repeated remains with severe encephalopathy maintained on IV Keppra with neurology following. Patient is a gift of life candidate and on the registry and will be going to go are around 1 PM for possible organ harvesting and donation Multiple family members are present We'll continue to follow The impression and plan of care has been dictated by Malgorzata Knapp, Nurse Practitioner as directed. Dr. Khloe MD I have performed a history and examination and MDM of this patient, discussed the same with the dictator, and agree with the dictator's assessment and plan as written ,documented as a scribe. Based on total visit time, I have performed more than 50% of the visit. Objective - Vital Signs Vital signs: Vital Signs Temp 98.6 F 03/13/23 08:00 Pulse 79 03/13/23 09:00 Resp 20 03/13/23 09:00 BP 117/52 03/11/23 23:00 Pulse Ox 96 03/13/23 09:00 FiO2 50 03/13/23 08:06 Intake & Output 03/12/23 03/13/23 03/13/23 18:59 06:59 18:59 Intake Total 8695.645 9344 129 Output Total 665 550 240 Balance 507.669 555 -111 Weight 91 kg Intake: IV 465 476 69 .9NS KVO 210 240 60 0.9NS Pressure Bag 30 36 9 Piperacillin-Tazobactam 3 125 100 .375 gm In Sodium Chloride 0.9% 100 ml @ 25 mls/hr IVPB Q8H [facility] Rx#: [id number] levETIRAcetam IV 1,500 mg 100 100 In Saline 1 100ml.bag @ 400 mls/hr IVPB Q12HR [facility] Rx#:[id number] Intake, IV Titration 29.669 Amount propofoL 1,000 mg In 29.669 Empty Bag 1 bag @ 15 MCG/ KG/MIN 7.348 mls/hr IV . [id number] [facility] Rx#:[id number] Tube Feeding 588 539 Other 90 90 60 Output: Urine 665 550 240 Other: Voiding Method Indwelling Catheter Indwelling Catheter Indwelling Catheter ABP, PAP, CO, CI - Last Documented Arterial Blood Pressure 95/40 - Labs CBC & Chem 7: 04/24/23 04:48 03/13/23 04:48 Labs: Abnormal Lab Results - Last 24 Hours (Table) 03/12/23 03/12/23 03/12/23 Range/Units 12:02 13:10 13:11 RBC 2.84 L (3.80-5.40) m/uL Hgb 9.0 L (11.4-16.0) gm/dL Hct 29.0 L (34.0-46.0) % MCV 102.2 H (80.0-100.0) fL MCHC (31.0-37.0) g/dL Lymphocytes # 0.9 L (1.0-4.8) k/uL ABG HCO3 27 H (21-25) mmol/L ABG Total CO2 28 H (19-24) mmol/L ABG O2 Saturation (94-97) % Chloride (98-107) mmol/L BUN (7-17) mg/dL Creatinine (0.52-1.04) mg/dL Glucose (74-99) mg/dL POC Glucose (mg/dL) 130 H (70-110) mg/dL Calcium (8.4-10.2) mg/dL Total Bilirubin (0.2-1.3) mg/dL AST (14-36) U/L ALT (4-34) U/L Total Protein (6.3-8.2) g/dL Albumin (3.5-5.0) g/dL Urine Protein (Negative) 03/12/23 03/12/23 03/12/23 Range/Units 13:11 13:11 17:15 RBC (3.80-5.40) m/uL Hgb (11.4-16.0) gm/dL Hct (34.0-46.0) % MCV (80.0-100.0) fL MCHC (31.0-37.0) g/dL Lymphocytes # (1.0-4.8) k/uL ABG HCO3 (21-25) mmol/L ABG Total CO2 (19-24) mmol/L ABG O2 Saturation (94-97) % Chloride 112 H (98-107) mmol/L BUN 20 H (7-17) mg/dL Creatinine 0.47 L (0.52-1.04) mg/dL Glucose 149 H (74-99) mg/dL POC Glucose (mg/dL) 150 H (70-110) mg/dL Calcium 8.0 L (8.4-10.2) mg/dL Total Bilirubin (0.2-1.3) mg/dL AST 73 H (14-36) U/L ALT 40 H (4-34) U/L Total Protein 5.5 L (6.3-8.2) g/dL Albumin 2.7 L (3.5-5.0) g/dL Urine Protein Trace H (Negative) 03/12/23 03/12/23 03/12/23 Range/Units 21:01 21:03 21:03 RBC 2.73 L (3.80-5.40) m/uL Hgb 8.6 L (11.4-16.0) gm/dL Hct 28.0 L (34.0-46.0) % MCV 102.6 H (80.0-100.0) fL MCHC 30.9 L (31.0-37.0) g/dL Lymphocytes # 0.6 L (1.0-4.8) k/uL ABG HCO3 27 H (21-25) mmol/L ABG Total CO2 28 H (19-24) mmol/L ABG O2 Saturation 97.3 H (94-97) % Chloride 111 H (98-107) mmol/L BUN 19 H (7-17) mg/dL Creatinine (0.52-1.04) mg/dL Glucose 156 H (74-99) mg/dL POC Glucose (mg/dL) (70-110) mg/dL Calcium 7.8 L (8.4-10.2) mg/dL Total Bilirubin (0.2-1.3) mg/dL AST 71 H (14-36) U/L ALT 40 H (4-34) U/L Total Protein 5.3 L (6.3-8.2) g/dL Albumin 2.6 L (3.5-5.0) g/dL Urine Protein (Negative) 03/13/23 03/13/23 03/13/23 Range/Units 00:19 04:46 04:48 RBC 2.66 L (3.80-5.40) m/uL Hgb 8.5 L (11.4-16.0) gm/dL Hct 27.2 L (34.0-46.0) % MCV 102.3 H (80.0-100.0) fL MCHC (31.0-37.0) g/dL Lymphocytes # (1.0-4.8) k/uL ABG HCO3 27 H (21-25) mmol/L ABG Total CO2 28 H (19-24) mmol/L ABG O2 Saturation (94-97) % Chloride (98-107) mmol/L BUN (7-17) mg/dL Creatinine (0.52-1.04) mg/dL Glucose (74-99) mg/dL POC Glucose (mg/dL) 139 H (70-110) mg/dL Calcium (8.4-10.2) mg/dL Total Bilirubin (0.2-1.3) mg/dL AST (14-36) U/L ALT (4-34) U/L Total Protein (6.3-8.2) g/dL Albumin (3.5-5.0) g/dL Urine Protein (Negative) 03/13/23 03/13/23 Range/Units 04:48 06:10 RBC (3.80-5.40) m/uL Hgb (11.4-16.0) gm/dL Hct (34.0-46.0) % MCV (80.0-100.0) fL MCHC (31.0-37.0) g/dL Lymphocytes # (1.0-4.8) k/uL ABG HCO3 (21-25) mmol/L ABG Total CO2 (19-24) mmol/L ABG O2 Saturation (94-97) % Chloride 111 H (98-107) mmol/L BUN 18 H (7-17) mg/dL Creatinine 0.48 L (0.52-1.04) mg/dL Glucose 142 H (74-99) mg/dL POC Glucose (mg/dL) (70-110) mg/dL Calcium 7.9 L (8.4-10.2) mg/dL Total Bilirubin 0.1 L (0.2-1.3) mg/dL AST 72 H (14-36) U/L ALT 41 H (4-34) U/L Total Protein 5.2 L (6.3-8.2) g/dL Albumin 2.6 L (3.5-5.0) g/dL Urine Protein Trace H (Negative)
[2023-03-13 14:59] VITALS: PULSE 72; RESP 30
--- NOTE | 2023-03-15 06:35 | P.DS ---
Providers Date of admission: 03/04/23 12:39 Expected date of discharge: 03/13/23 Attending physician: Jose Amos Consults: 03/04/23 12:39 Consult Physician Stat Consulting Provider: Torres Estrada Consult Reason/Comments: critical care Do you want consulting provider notified?: Already Contacted Consult Physician Urgent Consulting Provider: Harsha Guardado Consult Reason/Comments: cardiac arrest Do you want consulting provider notified?: Yes 03/04/23 14:28 Consult Physician Routine Consulting Provider: Vincent Estrada Consult Reason/Comments: cardiac arrest with 15 minute down time Do you want consulting provider notified?: Yes Primary care physician: Stated None Hospital Course: Preliminary cause of Congestive heart failure Final diagnosis Acute cardiac arrest s/p CPR for about 15 minutes with return of spontaneous circulation. Status post intubation by EMS. Episodes of nonsustained V. tach prior to cardiac arrest which is most likely the cause although awaiting full AICD interrogation report Possible anoxic brain injury with severe encephalopathy noted an EEG Ischemic heart disease with chronic systolic congestive heart failure Chronic atrial fibrillation on anticoagulant Eliquis History of ICD placement Hyperglycemia COPD history Chronic hypoxic respiratory failure secondary to COPD on 4 L oxygen via nasal cannula Recent history of femoral neck fracture repair in November 2022 History of IVC filter placement Anxiety/depression history Discharge disposition Patient has . According to nursing documentation, time of was 1420. Please refer to nursing documentation for further information. Patient was gift of life registrant, gift of life was following. Hospital course This is a 67-year-old female who was brought in after V. fib cardiac arrest in a store and intubated and maintained in the ICU for quite some time. Concerns anoxic brain injury and did have some swelling requiring hypertonic solution. Patient did not recover or wake up and maintained on mechanical ventilation. Patient was gift of life registrant and they were following this patient was to be a donor. Please refer to other consultation notes for further HPI. Multiple family members were present and patient 1420. Overall prognosis remained poor. The impression and plan of care has been dictated by Malgorzata Knapp, Nurse Practitioner as directed. Dr. Khloe MD I have performed a history and examination and MDM of this patient, discussed the same with the dictator, and agree with the dictator's assessment and plan as written ,documented as a scribe. Based on total visit time, I have performed more than 50% of the visit. Patient Condition at Discharge: Poor Plan - Discharge Summary Discharge Rx Participant: No New Discharge Prescriptions: No Action carvediloL [Coreg] 3.125 mg PO BID Dicyclomine [Bentyl] 10 mg PO QID PRN PRN Reason: ibs Carbidopa/Levodopa [Sinemet 25-100 mg Tablet] 1 tab PO BID Apixaban [Eliquis] 5 mg PO BID Liothyronine Sodium [Cytomel] 25 mcg PO DAILY Atorvastatin [Lipitor] 40 mg PO HS ARIPiprazole [Abilify] 2 mg PO DAILY Sertraline [Zoloft] 200 mg PO DAILY Nitroglycerin Sl Tabs [Nitrostat] 0.4 mg SL Q5M PRN PRN Reason: Chest Pain traZODone HCL [Desyrel] 100 mg PO DAILY@0400 traZODone HCL 300 mg PO HS Isosorbide Mononitrate ER [Imdur] 60 mg PO DAILY Furosemide [Lasix] 40 mg PO DAILY Alendronate Sodium [Fosamax] 70 mg PO Q7D lisinopriL [Zestril] 5 mg PO DAILY Discharge Medication List ARIPiprazole [Abilify] 2 mg PO DAILY 11/29/22 [History] Alendronate Sodium [Fosamax] 70 mg PO Q7D 11/29/22 [History] Apixaban [Eliquis] 5 mg PO BID 11/29/22 [History] Atorvastatin [Lipitor] 40 mg PO HS 11/29/22 [History] Carbidopa/Levodopa [Sinemet 25-100 mg Tablet] 1 tab PO BID 11/29/22 [History] Dicyclomine [Bentyl] 10 mg PO QID PRN 11/29/22 [History] Furosemide [Lasix] 40 mg PO DAILY 11/29/22 [History] Isosorbide Mononitrate ER [Imdur] 60 mg PO DAILY 11/29/22 [History] Liothyronine Sodium [Cytomel] 25 mcg PO DAILY 11/29/22 [History] Nitroglycerin Sl Tabs [Nitrostat] 0.4 mg SL Q5M PRN 11/29/22 [History] Sertraline [Zoloft] 200 mg PO DAILY 11/29/22 [History] carvediloL [Coreg] 3.125 mg PO BID 11/29/22 [History] traZODone HCL 300 mg PO HS 11/29/22 [History] traZODone HCL [Desyrel] 100 mg PO DAILY@0400 11/29/22 [History] lisinopriL [Zestril] 5 mg PO DAILY 03/04/23 [History] Follow up Appointment(s)/Referral(s): None,Stated [Primary Care Provider] - 1-2 days Discharge Disposition: - Preliminary Cause of Preliminary Cause of : Congestive heart failure
== END 2023-03-13 15:33 | disposition expired ==
LOC: EC 09:37 → 2SICU 12:39
PROVIDERS: ADMIT Internal Medicine; ATTEND Internal Medicine
PROC: 5A1955Z Respiratory Ventilation, Greater than 96 Consecutive Hours (ICD-10-PCS; principal; 2023-03-04)
PROC: 3E043XZ Introduction of Vasopressor into Central Vein, Percutaneous Approach (ICD-10-PCS; 2023-03-04)
PROC: 4B02XTZ Measurement of Cardiac Defibrillator, External Approach (ICD-10-PCS; 2023-03-04)
PROC: 0DH67UZ Insertion of Feeding Device into Stomach, Via Natural or Artificial Opening (ICD-10-PCS; 2023-03-04)
PROC: 06HY33Z Insertion of Infusion Device into Lower Vein, Percutaneous Approach (ICD-10-PCS; 2023-03-04)
PROC: 03HY32Z Insertion of Monitoring Device into Upper Artery, Percutaneous Approach (ICD-10-PCS; 2023-03-05)
PROC: 4A133B1 Monitoring of Arterial Pressure, Peripheral, Percutaneous Approach (ICD-10-PCS; 2023-03-05)
PROC: 4A133J1 Monitoring of Arterial Pulse, Peripheral, Percutaneous Approach (ICD-10-PCS; 2023-03-05)
PROC: 3E0G76Z Introduction of Nutritional Substance into Upper GI, Via Natural or Artificial Opening (ICD-10-PCS; 2023-03-06)
DX: I47.20 Ventricular tachycardia, unspecified (principal); I21.4 Non-ST elevation (NSTEMI) myocardial infarction; G93.6 Cerebral edema; J69.0 Pneumonitis due to inhalation of food and vomit; J96.21 Acute and chronic respiratory failure with hypoxia; G93.1 Anoxic brain damage, not elsewhere classified; I42.9 Cardiomyopathy, unspecified; I50.22 Chronic systolic (congestive) heart failure; J44.0 Chronic obstructive pulmonary disease with (acute) lower respiratory infection; M96.A3 Multiple fractures of ribs associated with chest compression and cardiopulmonary resuscitation; G93.49 Other encephalopathy; J98.11 Atelectasis; E87.20 Acidosis, unspecified; I11.0 Hypertensive heart disease with heart failure; I95.9 Hypotension, unspecified; I48.0 Paroxysmal atrial fibrillation; I46.2 Cardiac arrest due to underlying cardiac condition; Z20.822 Contact with and (suspected) exposure to COVID-19; Z68.34 Body mass index [BMI] 34.0-34.9, adult; F32.A Depression, unspecified; Z51.5 Encounter for palliative care; Z95.828 Presence of other vascular implants and grafts; E66.9 Obesity, unspecified; Z99.81 Dependence on supplemental oxygen; Z66 Do not resuscitate; R56.9 Unspecified convulsions; Z77.22 Contact with and (suspected) exposure to environmental tobacco smoke (acute) (chronic); Z86.73 Personal history of transient ischemic attack (TIA), and cerebral infarction without residual deficits; F41.9 Anxiety disorder, unspecified; I25.10 Atherosclerotic heart disease of native coronary artery without angina pectoris; I45.9 Conduction disorder, unspecified; Z71.3 Dietary counseling and surveillance; Z79.01 Long term (current) use of anticoagulants; Z79.4 Long term (current) use of insulin; Z79.83 Long term (current) use of bisphosphonates; Z79.899 Other long term (current) drug therapy; Z82.49 Family history of ischemic heart disease and other diseases of the circulatory system; Z45.02 Encounter for adjustment and management of automatic implantable cardiac defibrillator; Z98.61 Coronary angioplasty status
CPT/HCPCS: 36415; 36556; 36600; 70450; 71045; 71250; 71275; 74176; 80048; 80053; 80185; 81001; 81003; 82150; 82330; 82805; 83036; 83605; 83690; 83735; 83880; 84100; 84145; 84295; 84484; 85025; 85027; 85379; 85384; 85610; 85730; 86850; 86900; 86901; 87040; 87070; 87205; 87635; 87636; 93005; 93306; 94003; 94640; 95816; 95822; 96361; 96374; 96375; 99291